=== PATIENT | male | born 1950 | race Caucasian/White ===

== ENCOUNTER 2016-08-18 01:38 | Inpatient (IN) | payer MEDICARE ==
[~2016-08-18] VITALS: Ht 167.6 cm; Wt 92.6 kg
[~2016-08-18 01:38] MED LIST: /DIVA50TA PO; AMBI10TA; AMBI10TA OR; ASPI1TAB PO; ASPI325T; ASPI81TA45 OR; ATOR1TAB21 PO; BENADRYL PO; CELE20TA; DEPA250T2 OR; DEPA500T2 OR; DEPA500T2 PO; DIPH50CA PO; DIPH50TA3 PO; DIVA250T7 PO; Depakote OR; FERR325T3 PO; GLUC500T OR; HYDR25TA8; HYDR50CA2 PO; INVE156I IM; LISI10TA4 OR; LISI10TA4 PO; LISI5TAB PO; METF1000 PO; METF500T PO; MINI1CAP OR; PAXI20TA OR; PRIL20CA9 PO; PRIN10TA; QUET1TAB8 PO; QUET1TAB9 PO; RAMI25CA PO; RISP0.5T20 OR; RISP1TAB OR; RISP2TAB12; RISP2TAB12 OR; RISP3TAB18 PO; RISP4TAB; RISP4TAB33 PO; RISPERDONE; SERO1TAB PO; SERO1TAB2 PO; SERO200T PO; SERO50TA PO; SIMV20TA2 PO; SIMV40TA2 OR; SIMV40TA2 PO; TRAZ50TA OR; TRAZ50TA4 PO; TRAZO50TA PO; VIST25CA; ZOCO40TA; ZOCO40TA PO; ZOCOR20 PO; ZOLO100T PO; ZOLP-189 PO; [UNRECOGNIZED DRUG - CODE]; synthroid PO; tenex PO
[2016-08-18 03:15] LABS: MEAN CORPUSCULAR HEMOGLOBIN 29.3 pg (27.0-33.0); MEAN CORPUSCULAR HGB CONC 34.2 g/dl (32.0-36.5); MEAN CORPUSCULAR VOLUME 85.6 fl (80.0-96.0); RED CELL DISTRIBUTION WIDTH 13.2 % (11.5-14.5); WHITE BLOOD COUNT 7.8 K/mm3 (4.0-10.0)
[2016-08-18 03:27] LABS: METHADONE URINE NEGATIVE (NEGATIVE)
[2016-08-18] MEDS ORDERED: KETOROLAC 60 MG/2 ML VIAL (J1885) IM ONE (03:30)
--- NOTE | 2016-08-18 03:30 | REPUSA ---
CLINICAL HISTORY: Trauma. TECHNIQUE: Multiple axial CT images were obtained through the brain without IV contrast material. COMMENTS: There is normal configuration of sella turcica. There are no intra or extra-axial collections. There is no mass effect or midline shift. There is no evidence of hematoma formation. No hydrocephalus is p resent. The ventricles are symmetrical. No abnormal calcifications are present. There is diffuse age-appropriate cerebellar and cerebral atrophy with proportionally dilated ventricl es and cortical sulci. There are bilateral periventricular and subcortical white matter hypolucencies compatible with mild c hronic microvascular disease. Otherwise, no significant focal abnormalities are seen either in the posterior fossa or supratentoria l compartment. Moderate chronic because inflammatory changes of the ethmoid air cells. Right mastoid effusion. IMPRESSION: 1. Age-appropriate cerebellar and cerebral atrophy. 2. Mild chronic microvascular disease. 3. No evidence of acute intracranial pathology. Thank you for your kind referral of this patient.
[2016-08-18 03:37] LABS: ALBUMIN 3.4 GM/DL (3.2-5.2); ALBUMIN/GLOBULIN RATIO 1.13 (1.00-1.93); ALKALINE PHOSPHATASE 46 U/L (45-117); ALT/SGPT 51 U/L (12-78); ANION GAP 11 MEQ/L (8-16); AST/SGOT 14 U/L (15-37); BILIRUBIN,DIRECT < 0.1 MG/DL (0.0-0.2); BILIRUBIN,TOTAL 0.2 MG/DL (0.2-1.0); BLOOD UREA NITROGEN 14 MG/DL (7-18); CALCIUM LEVEL 8.1 MG/DL (8.8-10.2); CARBON DIOXIDE LEVEL 27 MEQ/L (21-32); CHLORIDE LEVEL 106 MEQ/L (98-107); CREATININE FOR GFR 0.78 MG/DL (0.70-1.30); GLOMERULAR FILTRATION RATE > 60.0 (>49); GLUCOSE, FASTING 193 MG/DL (80-110); POTASSIUM SERUM 4.3 MEQ/L (3.5-5.1); SODIUM LEVEL 144 MEQ/L (136-145); TOTAL PROTEIN 6.4 GM/DL (6.4-8.2)
--- NOTE | 2016-08-18 03:40 | REPUSA ---
CLINICAL HISTORY: Back pain. TECHNIQUE: Multiple axial images were obtained through the L1-L2, L2-L3, L3-L4, L4-L5 and L5-S1 inter spaces. Images were also reconstructed in coronal and sagittal planes. COMMENTS: Grade 1 anterolisthesis of L4 on L5. There is no fracture visualized. The paraspinal soft tissues are unremarkable. There are no lytic or blastic lesions. Straightening of lumbar lordosis is seen, suggesting muscular spasm. There is evidence of multilevel disk disease, demonstrated by osteophytosis ad endplate sclerosis. Evaluation of individual levels reveals the following: At L4-L5 and L5-S1, broad-based disk protrusion in conjunction with hypertrophic facet disease result s in moderate bilateral foraminal narrowing. Canal is mildly stenotic. At L3-L4, broad-based disk bulge, results in mild bilateral foraminal narrowing. Canal is patent. L1-L2 and L2-L3 levels are unremarkable. IMPRESSION: 1. No fracture or spondylolisthesis. 2. grade 1 anterolisthesis of L4 on L5. 3. At L4-L5 and L5-S1, broad-based disk protrusion in conjunction with hypertrophic facet disease res ults in moderate bilateral foraminal narrowing. Canal is mildly stenotic. 4. At L3-L4, broad-based disk bulge, results in mild bilateral foraminal narrowing. Canal is patent. Thank you for your kind referral of this patient.
[2016-08-18] MEDS ORDERED: LORazepam 1 MG TAB PO ONE (05:00)
[2016-08-18] MEDS ORDERED: LORazepam 0.5 MG TAB PO ONE (05:00)
[2016-08-18] MEDS ORDERED: MAALOX 30 ML SUSP *UDC PO PRN (05:45)
[2016-08-18] MEDS ORDERED: MOM 30ML SUSPENSION UDC PO PRN (05:45)
[2016-08-18] MEDS ORDERED: traZODone 50 MG TAB PO PRN (05:45)
[2016-08-18] MEDS ORDERED: DIVA500T9 PO (07:42)
[2016-08-18] MEDS ORDERED: SIMV40TA2 PO (07:42)
[2016-08-18] MEDS ORDERED: FERR325T3 PO (07:44)
[2016-08-18] MEDS ORDERED: TRAZ100T4 PO (07:46)
[2016-08-18] MEDS ORDERED: LISI-538 PO (07:46)
[2016-08-18] MEDS ORDERED: SERT-138 PO (07:46)
[2016-08-18] MEDS ORDERED: QUET1TAB9 PO (07:46)
[2016-08-18] MEDS ORDERED: METF1000 PO (07:46)
[2016-08-18] MEDS ORDERED: LISINOPRIL 20 MG TAB PO ONE (10:15)
[2016-08-18] MEDS ORDERED: metFORMIN (GLUCOPHAGE) 1000 MG TABLET PO ONE (10:15)
[2016-08-18 12:37] VITALS: BP 150/82
[2016-08-18] MEDS: LORazepam 1 MG TAB PO PRN (15:05)
[2016-08-18 18:00] VITALS: BP 140/70
[2016-08-18] MEDS: traZODone 100 MG TAB PO SCH (20:53)
[2016-08-18] MEDS: DIVALPROEX 500MG *ER* TAB PO SCH (20:53)
[2016-08-18] MEDS: QUEtiapine FUMARATE 200 MG TAB PO SCH (20:53)
[2016-08-18] MEDS ORDERED: DIVALPROEX 250MG *ER* TAB PO SCH (21:00)
--- NOTE | 2016-08-19 00:47 | HPE ---
DATE OF ADMISSION: 08/18/2016 HISTORY OF PRESENT ILLNESS: Please refer to psychiatric history and evaluation for further details on this admission. This examination and history is intended for medical issues, which may need treatment, followup, or consult on this 65-year-old male. Per the record, he is single. He is retired from the [employer] ([employer] 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 He was discharged for posttraumatic stress disorder (PTSD). EtOH (ethanol): None. Smokes: None. Recreational drug use: None. This is per the medical record. LABORATORY STUDIES: WBC 7.8, hemoglobin 12.6, hematocrit 36.7, platelets 224. Electrolytes were normal. BUN and creatinine were 14 and 0.78. Nonfasting glucose was 193. TSH was 3.91. CT of the head showed age-appropriate cerebellar and cerebral atrophy. Mild chronic microvascular disease. No evidence of acute intracranial pathology. CT of the spine shows fracture or spondylolisthesis. Grade 1 anterolisthesis of L4 on L5. At L5-S1 there is a broad-based disc protrusion with moderate bilateral foraminal narrowing. L3-L4 shows a broad-based disc bulge, resultant mild bilateral foraminal narrowing. Per the record, medication list: - Depakote 1500 mg by mouth at bedtime - ferrous sulfate 325 by mouth twice a day with meal - lisinopril 20 mg by mouth daily - metformin/hydrochlorothiazide 1000 mg by mouth twice a day - Seroquel 200 mg by mouth twice a day - sertraline 100 mg by mouth daily - simvastatin 40 mg by mouth at bedtime - trazodone 100 mg by mouth at bedtime PAST MEDICAL HISTORY: 1. Hypertension. 2. Hyperlipidemia. 3. Iap-yjywdtw-xzlxouthv diabetes, type 2. 4. Gastroesophageal reflux disease (GERD). 5. Chronic obstructive pulmonary disease (COPD). 6. History of a gastric ulcer. 7. History of transfusions. 8. Iron deficiency anemia. 9. He remains off aspirin. 10. History of hypercholesterolemia, on simvastatin. A 10-systems review was attempted. Patient refused review of systems and medical exam. Will attempt again tomorrow. Meanwhile, will check a TSH and free T4. Will check iron levels. Order replacement if needed. Continue his simvastatin, metformin.
[2016-08-19 06:33] VITALS: BP 108/53
[2016-08-19 08:29] LABS: PERCENT SATURATION 19.3 % (19.7-37.4)
[2016-08-19 08:41] LABS: THYROXINE (T4) 7.5 UG/DL (4.5-12.0)
[2016-08-19] MEDS: SIMVASTATIN 40 MG TAB PO SCH (09:21)
[2016-08-19] MEDS: SERTRALINE 100 MG TAB PO SCH (09:21)
[2016-08-19] MEDS: LISINOPRIL 20 MG TAB PO SCH (09:22)
[2016-08-19] MEDS: metFORMIN (GLUCOPHAGE) 1000 MG TABLET PO SCH (09:22)
[2016-08-19] MEDS: QUEtiapine FUMARATE 200 MG TAB PO SCH ×2 (09:22→21:03)
--- NOTE | 2016-08-19 16:11 | HPEPDOC ---
[facility] History & Physical History and Physical DATE OF ADMISSION: Aug 18, 2016 at 05:43 CHIEF COMPLAINT: HISTORY OF THE PRESENT ILLNESS: Patient is a 65-year-old male, who states he called the ambulance after falling and injuring his back, ambulance transported patient to emergency room where he was evaluated and admitted for psychiatric treatment. Patient indicates he also received treatment for back injury which has resolved and he denies pain at this time. Please refer to EMR for comprehensive psychiatric history on this patient as patient has had multiple inpatient admissions and has a notable history of treatment for schizophrenia/ bipolar disorder. Patient is also involved in [employer], indicates he does not [facility] noting, "I don't like it [facility]," indicates he feels his recent increase in symptoms is due to abrupt discontinuation of his medications 4 days ago and pending court case wherein he is charged with stalking a female hospital employee. Patient indicates he has been picked up by the police several times pertaining to this charge, states he has a court date set for this coming Wednesday, adds he feels "overwhelmed and anxious" regarding upcoming court date. Patient reports increase in the following symptoms over the past 2 weeks: anxiety, depression, paranoia, hopelessness and helplessness, increased impulsivity, anhedonia, auditory hallucinations with command element telling him to kill himself by way of cutting throat, suicidal ideation. Patient relates current anxiety level as 8 /10, depression 9/10, reports intermittent suicidal ideation, denies homicidal ideation, denies audiovisual hallucinations, denies urge to engage in self- injurious behavior. Patient denies history of discomfort in social settings, compulsive behavior, and history of aggression, further denies having access to weapons. Patient endorses history of panic attacks occurring 1-210 years ago, notes he "probably " struggles with impulse control, endorses symptoms of reexperiencing, avoidance , and hypervigilance, further notes he has periods of elevated mood adding approximately 3 months ago he felt like "Superman," attributes to having stopped meds at that time. Patient's reports he sleeps well when he utilizes trazodone, has been diagnosed with obstructive sleep apnea and verbalizes awareness of need to follow up with PCM for updated sleep study. Patient was restarted on his medications yesterday, notes medications are helpful and he is beginning to feel better, reports intermittent suicidal thinking, denies urge or command hallucination to harm self or others. Patient is able to agree to notify unit staff if he feels symptoms of anxiety, depression, or suicidal ideation worsens/become unmanageable. 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 Patient presents with no signs of acute distress at time of interaction. PSYCHIATRIC REVIEW OF SYSTEMS: Affective: Depressed and anxious Anxiety: Endorses. Trauma: Denies. Psychosis: Endorses AH with command to harm self prior to hospitalization. Personally: Engageable, currently isolative to room, withdrawn PAST PSYCHIATRIC HISTORY: Prior Psychiatric Disorder: Multiple admissions, refer to EMR over 79 Outpatient Treatment: Multiple facilities, refer to EMR. Suicidal/Self injurious: History of suicidal ideation, history of suicide attempts Psychotropic Medication History: Risperdal, trazodone, Depakote, Invega Sustenna , Seroquel, Zoloft, Haldol, "benzos." ALLERGIES: Please see below. FAMILY PSYCHIATRIC HISTORY: Mother - suicide via walking into traffic, alcoholism Father - alcoholism SOCIAL HISTORY: Early Relations/development: Patient states he was born and raised in the [facility], notes both parents are and has no contact with his siblings. Patient indicates he has some friends in the area. Sibling order: Eldest child, states he has no contact with siblings. Paternal relationships: Both parents are . Education: GED. 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 Legal: Denies other than pending legal charges for stalking. Martial: Never , no children. Economic: Denies financial strain, is on Social Security and veterans benefits, per EMR, is 100% service connected. Supports: Described support system as limited. Abuse/trauma: Denies. SUBSTANCE ABUSE HISTORY: Patient denies history of substance use or abuse, further denies history of tobacco use. PAST MEDICAL/SURGICAL HISTORY: Labs on admission indicate low RBC, Hgb, HCT, calcium, AST and elevated glucose, TSH (within normal limits on repeat). Patient denies history of seizure, reports concussion 1 in high school. Diabetes, hypertension, hyperlipidemia, GERD, obstructive sleep apnea, COPD, history of gastric ulcer, history of transfusions, iron deficiency anemia CT of head at last admission indicated age-appropriate cerebellar and cerebral atrophy. Mild chronic microvascular disease. No evidence of acute intracranial pathology. CT of spine at last admission indicated fracture or spondylolisthesis. Grade 1 anterolisthesis of L4 on L5. At L5-S1 there was noted a broad East disc protrusion with moderate bilateral foraminal narrowing. L3-L4 showed a broad- based disc bulge, resulted mild bilateral foraminal narrowing. UDS negative on admission 08/28/15 SINUS RHYTHM Not outside normal limits. Updated EKG pending VITAL SIGNS: B/P 124/78, P 63, R 18, T 97.8. MENTAL STATUS EXAMINATION: General appearance: Patient is a 65-year old male, who is cooperative, makes adequate eye contact, appears disheveled, dressed in hospital clothing, ambulates with steady gait, appears stated age Speech: Difficult to decipher at times, appears pressured, normal volume, spontaneous. Thought processes: Linear, logical, goal-directed. Thought content: Generally rational, logical, some paranoia. Abstract reasoning and computation: Requires further evaluation. Description of associations: Appears intact. Description of abnormal or psychotic thoughts: Reports recent suicidal ideation associated with auditory hallucinations telling him to kill himself, denies having plan but ER notes by way of cutting throat, denies visual hallucinations , denies homicidal ideation. Patient does not appear to be responding to internal stimuli at time of interaction, expresses paranoid ideation, is bizarre at times. Patient denies preoccupation with violence or obsessions, however, informs telegraphic typewriter mechanic he has pending legal charges for stalking of female hospital employee. Judgment: Poor Insight: Poor Orientation: A and O 3 Recent and remote memory: Appears adequate Attention span and concentration: Appears adequate Fund of knowledge: Requires further evaluation Mood: "Down, I have low self-esteem." Patient appears anxious and depressed, no mood lability noted at time of interaction Affect: Blunted DIAGNOSES: Schizoaffective disorder, bipolar type, rule out schizophrenia ASSESSMENT: Patient has been isolative to room, withdrawn, sleeping most of day , indicates he feels fatigued and stressed due to upcoming court case and appears to be experiencing decompensation related to poor medication compliance. Patient has been restarted on his medication regimen and informs telegraphic typewriter mechanic that regimen is effective when taken regularly and he denies medication side effects, verbalizes desire to maintain current medications. Patient has been encouraged to be visible on unit and participate in unit programming. Patient denies suicidal and homicidal ideation and verbalizes awareness of how to access supportive services on the unit if needed. Per EMR, patient has a history of sexually inappropriate behavior on the unit including touching of females and has, therefore, been placed on sexual precautions and nursing was made aware. Will monitor patient's response to medications and medication side effects, and will evaluate patient's safety, resolution of suicidal ideation, and discharge readiness. Patient indicates when prepared for discharge she would like to transition to [facility] housing and participate in outpatient psychotherapy and medication management services. PROBLEM LIST: Risk for suicide Depression Altered thoughts INITIAL TREATMENT PLAN: 1. Patient was admitted on a 9.39 2. Complete history was obtained. 3. With patients permission, family will be contacted and database will be expanded. 4. Patients medication regimen will be reviewed and changed accordingly. 5. Patient will be provided with protected environment. 6. Patient will be treated with individual, group, and milieu therapies. 7. Patient will receive supportive psych-education. 8. Discharge planning will commence immediately. 9. Outpatient follow-up treatment will be strongly recommended. 10. The initial treatment plan will focus initially on: * Depression. * Risk for suicide. ESTIMATED LENGTH OF STAY: 5-7 DAYS. TIME SPENT COUNSELING AND COORDINATING INITIAL CARE: 50 minutes. Laboratory Data 24H Labs Laboratory Tests 2 08/19/16 07:43: Free Thyroxine Index 2.6, Iron Level 69, Thyroid Stimulating Hormone (TSH) 2.630 , Thyroxine (T4) 7.5, Total Iron Binding Capacity 358, Transferrin % Saturation 19.3L, Triiodothyronine (T3) Uptake 34 Medications Scheduled Divalproex Sodium (Divalproex Sodium ER) 500 Mg Tab 1,500 MG PO QHS (Reported) OBTAINED FROM [facility] Ferrous Sulfate (Ferrous Sulfate) 325 Mg Tab 325 MG PO BIDWM (Reported) OBTAINED FROM [facility] Lisinopril (Lisinopril) 20 Mg Tab 20 MG PO DAILY (Reported) OBTAINED FROM [facility] Metformin Hydrochloride (Metformin HCl) 1,000 Mg Tab 1,000 MG PO BID (Reported ) OBTAINED FROM [facility] Quetiapine Fumerate (Quetiapine Fumarate) 200 Mg Tab 200 MG PO BID (Reported) OBTAINED FROM [facility] Sertraline HCl (Sertraline HCl) 100 Mg Tab 100 MG PO DAILY (Reported) OBTAINED FROM [facility] Simvastatin - High Dose (Simvastatin) 40 Mg Tab 40 MG PO DAILY (Reported) OBTAINED FROM [facility] Trazodone HCl (Trazodone HCl) 100 Mg Tab 100 MG PO QHS (Reported) OBTAINED FROM [facility] Allergies Coded Allergies: Fluphenazine (Verified Allergy, Intermediate, COLD SWEATS PACING, RASH, 08/18/16) Haloperidol (Verified Allergy, Intermediate, COLD SWEATS PACING, RASH, ) Su Mendoza Aug 19, 2016 16:11
[2016-08-19 18:00] VITALS: BP 120/63
[2016-08-19] MEDS: DIVALPROEX 500MG *ER* TAB PO SCH (21:03)
[2016-08-19] MEDS: traZODone 100 MG TAB PO SCH (21:03)
[2016-08-20 06:20] VITALS: BP 141/78
--- NOTE | 2016-08-20 08:58 | IPNPDOC ---
[facility] Progress Note Progress Note DATE OF SERVICE: 08/20/16 HISTORY: Patient is a 65-year-old male who was reportedly brought to the emergency room by the paramedics after he called an ambulance after falling and injuring his back. Patient has notable psychiatric history including multiple admissions, indicates he does not like the [place] and, therefore, does not wish to be treated at a [facility] hospital. Patient rates current anxiety level is 8/10, depression 9/10, indicates he is feeling "a little better," denies suicidal and homicidal ideation, denies audiovisual hallucinations at time of interaction, but notes he experienced auditory hallucinations last night which were "saying mean things," but denies experiencing command to harm self or others. Patient denies urge to engage in self-injurious behavior. Patient recently restarted medications, indicates medication regimen is effective when taken regularly, denies medication side effects and has not needed to utilize PRN anxiolytic 2 days. Patient states he has been sleeping well, has been isolating to his room and spent yesterday and much of this morning in bed. Patient has been strongly encouraged to participate in unit programming. Patient describes appetite is stable, energy level remains low, indicates he struggles with concentration and focus. Patient is permitting fingerstick to be completed, denies symptoms of dizziness, denies physical pain and presents with no signs of acute distress at time of interaction. Patient remains concerned about up coming court date related to stalking charges, is aware he will be provided with a letter for the court if he is still in the hospital. VITALS: See below NEW TEST RESULTS: Glucose elevated at 117. PAST MEDICAL/SURGICAL HISTORY: Labs on admission indicate low RBC, Hgb, HCT, calcium, AST and elevated glucose, TSH (within normal limits on repeat). Patient denies history of seizure, reports concussion 1 in high school. Diabetes, hypertension, hyperlipidemia, GERD, obstructive sleep apnea, COPD, history of gastric ulcer, history of transfusions, iron deficiency anemia CT of head at last admission indicated age-appropriate cerebellar and cerebral atrophy. Mild chronic microvascular disease. No evidence of acute intracranial pathology. CT of spine at last admission indicated fracture or spondylolisthesis. Grade 1 anterolisthesis of L4 on L5. At L5-S1 there was noted a broad East disc protrusion with moderate bilateral foraminal narrowing. L3-L4 showed a broad- based disc bulge, resulted mild bilateral foraminal narrowing. UDS negative on admission 08/28/15 SINUS RHYTHM Not outside normal limits. Updated EKG pending CURRENT MEDICATIONS: See below MENTAL STATUS EXAMINATION: General appearance: Patient is a 65-year old male, who is cooperative, makes adequate eye contact, appears disheveled, dressed in hospital clothing, ambulates with steady gait, appears stated age Speech: Speech is clear today, less pressured, normal volume, spontaneous. Thought processes: Linear, logical, goal-directed. Thought content: Generally rational, logical, some paranoia. Abstract reasoning and computation: Requires further evaluation. Description of associations: Appears intact. Description of abnormal or psychotic thoughts: Today denies suicidal ideation, denies homicidal ideation, denies visual hallucinations, and endorses auditory hallucinations last night, denies command element to sensory experience. Patient does not appear to be responding to internal stimuli at time of interaction, expresses paranoid ideation, fixated on upcoming court case. Patient denies preoccupation with violence or obsessions, however, informs lyric writer he has pending legal charges for stalking of female hospital employee. Judgment: Poor Insight: Poor Orientation: A and O 3 Recent and remote memory: Appears adequate Attention span and concentration: Appears adequate Fund of knowledge: Appears adequate Mood: "Still down, I'm back on the meds so it may take me a couple days." Patient appears less anxious, remains depressed, no mood lability noted at time of interaction Affect: Blunted DIAGNOSES: Schizoaffective disorder, bipolar type, rule out schizophrenia ASSESSMENT: Patient remains isolative to room, withdrawn, sleeping most of day, indicates he feels fatigued and stressed due to upcoming court case and appears to be continuing to experience decompensation related to poor medication compliance. Patient has been restarted on his medication regimen, has been medication compliant, and reiterates today that regimen is effective when taken regularly, denies medication side effects. Patient has been encouraged to be visible on unit and participate in unit programming. Patient denies suicidal and homicidal ideation and verbalizes awareness of how to access supportive services on the unit if needed. Per EMR, patient has a history of sexually inappropriate behavior on the unit including touching of females and has, therefore, been placed on sexual precautions and nursing was made aware. Will continue to monitor patient's response to medications and medication side effects, and will evaluate patient's safety, resolution of suicidal ideation, and discharge readiness. Patient reiterates today that when prepared for discharge he would like to transition to [facility] housing and participate in outpatient psychotherapy and medication management services. MANAGEMENT PLAN: Continue Seroquel 200 mg po BID, Zoloft 100 mg po q am, Depakote 1500 mg po q hs, and trazodone 100 mg po hs PRN insomnia. Maintain safety precautions to include sexual precautions Patient to attend groups and participate in unit programming to develop coping strategies Engage patient in discharge planning process and arrange meeting with support system to ensure safe discharge planning when appropriate Patient to follow up with PCM upon discharge TIME SPENT: 35 minutes Vital Signs Vital Signs Date Time Temp Pulse Resp B/P Pulse Ox O2 Delivery O2 Flow Rate FiO2 08/20/16 06:20 97.5 68 18 141/78 08/18/16 12:37 96 Room Air Laboratory Data 24H Labs Laboratory Tests 2 08/19/16 16:44: Bedside Glucose (Misc Panel) 113 Current Medications Current Medications Acetaminophen (Tylenol Tab) 650 mg Q6HP PRN PO HEADACHE or DISCOMFORT; Start at 05:45; Stop 09/17/16 at 05:44 Al Hydrox/Mg Hydrox/Simethicone (Mylanta) 30 ml Q4HP PRN PO HEARTBURN/ INDIGESTION; Start 08/18/16 at 05:45; Stop 09/17/16 at 05:44 Divalproex Sodium (Depakote Er) 250 mg QHS PO ; Start 08/18/16 at 21:00; Stop at 21:00; Status DC Divalproex Sodium (Depakote Er) 1,500 mg QHS PO Last administered on 08/19/16 21:03; Start 08/18/16 at 21:00; Stop 09/17/16 at 20:59 Home Med (Med Rec Complete!) ASDIRECTED XX ; Start 08/18/16 at 08:00; Stop at 08:00; Status DC Lisinopril (Prinivil) 20 mg DAILY PO Last administered on 08/19/16 09:22; Start 08/19/16 at 09:00; Stop 09/18/16 at 08:59 Lorazepam (Ativan) 1 mg Q8HP PRN PO ANXIETY Last administered on 08/18/16 15: 05; Start 08/18/16 at 15:00; Stop 08/25/16 at 14:59 Magnesium Hydroxide (Milk Of Magnesia) 30 ml DAILYPRN PRN PO CONSTIPATION; Start 08/18/16 at 05:45; Stop 09/17/16 at 05:44 Metformin HCl (Glucophage) 1,000 mg DAILY@08 PO Last administered on 08/19/16 09:22; Start 08/19/16 at 08:00; Stop 09/18/16 at 07:59 Quetiapine Fumarate (SEROquel) 200 mg BID PO Last administered on 08/19/16 21: 03; Start 08/18/16 at 21:00; Stop 09/17/16 at 20:59 Sertraline HCl (Zoloft) 100 mg DAILY PO Last administered on 08/19/16 09:21; Start 08/19/16 at 09:00; Stop 09/18/16 at 08:59 Simvastatin (Zocor) 40 mg DAILY PO Last administered on 08/19/16 09:21; Start 08/19/16 at 09:00; Stop 09/18/16 at 08:59 Trazodone HCl (Desyrel) 50 mg QHSP PRN PO INSOMNIA; Start 08/18/16 at 05:45; Stop 09/17/16 at 05:44; Status Cancel Trazodone HCl (Desyrel) 100 mg QHS PO Last administered on 08/19/16 21:03; Start 08/18/16 at 21:00; Stop 09/17/16 at 20:59 Allergies Coded Allergies: Fluphenazine (Verified Allergy, Intermediate, COLD SWEATS PACING, RASH, 08/18/16) Haloperidol (Verified Allergy, Intermediate, COLD SWEATS PACING, RASH, ) Su Mendoza Aug 20, 2016 08:58
[2016-08-20] MEDS: metFORMIN (GLUCOPHAGE) 1000 MG TABLET PO SCH (09:03)
[2016-08-20] MEDS: LISINOPRIL 20 MG TAB PO SCH (09:03)
[2016-08-20] MEDS: SIMVASTATIN 40 MG TAB PO SCH (09:03)
[2016-08-20] MEDS: SERTRALINE 100 MG TAB PO SCH (09:03)
[2016-08-20] MEDS: QUEtiapine FUMARATE 200 MG TAB PO SCH ×2 (09:03→21:13)
[2016-08-20 18:00] VITALS: BP 124/73
--- NOTE | 2016-08-20 18:44 | ECGEPIP ---
Stationary ECG Study [facility] Test Date: 2016-08-20 Pat Name: BEATA JULIO Department: Room: [place] [address] Gender: M Clinical Trials Data Coordinator: VALERY : 1950 Requested By: Su Mendoza Order Number: [id number] Reading MD: Juaquin Black Measurements Intervals [place] Rate: 79 P: 37 OR: 155 QRS: 5 QRSD: 91 T: 71 QT: 354 QTc: 407 Interpretive Statements SINUS RHYTHM Similar to tracing done 08-28-15 Electronically Signed On 08-20-2016 18:43:39 EDT by Juaquin Black
[2016-08-20] MEDS: DIVALPROEX 500MG *ER* TAB PO SCH (21:13)
[2016-08-20] MEDS: traZODone 100 MG TAB PO SCH (21:13)
[2016-08-21] MEDS: ACETAMINOPHEN TAB 650MG DOSE (2X325MG) PO PRN (04:28)
[2016-08-21 07:15] VITALS: BP 148/75
[2016-08-21] MEDS: QUEtiapine FUMARATE 200 MG TAB PO SCH ×2 (08:47→21:03)
[2016-08-21] MEDS: SERTRALINE 100 MG TAB PO SCH (08:47)
[2016-08-21] MEDS: SIMVASTATIN 40 MG TAB PO SCH (08:47)
[2016-08-21] MEDS: LISINOPRIL 20 MG TAB PO SCH (08:47)
[2016-08-21] MEDS: metFORMIN (GLUCOPHAGE) 1000 MG TABLET PO SCH (08:47)
--- NOTE | 2016-08-21 17:08 | IPNPDOC ---
[facility] Progress Note Progress Note DATE OF SERVICE: 08/21/16 HISTORY: Patient is a 65-year-old male who was reportedly brought to the emergency room by the paramedics after he called an ambulance after falling and injuring his back. Patient has notable psychiatric history including multiple admissions, indicates he does not like the [place] and, therefore, does not wish to be treated at a [place] hospital. Patient rates current anxiety level is 8/10, depression 8/10, indicates he Continues to feel"a little better," denies suicidal and homicidal ideation, denies audiovisual hallucinations at time of interaction and notes he last experienced yesterday sans command element, and denies urge to engage in self- injurious behavior. Patient denies irritability, agitation, and mood lability, indicates he feels his anxiety and depression are directly related to pending court case. Patient recently restarted medications, indicates medication regimen is effective when taken regularly, denies medication side effects and has not needed to utilize PRN anxiolytic 3 days. Patient states he has been sleeping well, continues to be isolative to room, but states he attended one group last night and intense to attend more groups today. Patient has been strongly encouraged to participate in unit programming. Patient states appetite remains stable, energy level remains low, notes he continues to struggle with concentration and focus. Patient is compliant with fingerstick, denies symptoms of dizziness, denies physical pain and presents with no signs of acute distress at time of interaction. Patient remains fixated on court case related to stalking charges, is aware he will be provided with a letter for the court if he is still in the hospital. Addendum: Later in day caption writer was approached by patient who presented as noticeably brighter, requested to provide caption writer with update on his upcoming [facility] appointment and information he received unavailable housing. Patient indicated he remains very interested in moving to [facility]. VITALS: See below NEW TEST RESULTS: Glucose elevated at 117. PAST MEDICAL/SURGICAL HISTORY: Labs on admission indicate low RBC, Hgb, HCT, calcium, AST and elevated glucose, TSH (within normal limits on repeat). Patient denies history of seizure, reports concussion 1 in high school. Diabetes, hypertension, hyperlipidemia, GERD, obstructive sleep apnea, COPD, history of gastric ulcer, history of transfusions, iron deficiency anemia CT of head at last admission indicated age-appropriate cerebellar and cerebral atrophy. Mild chronic microvascular disease. No evidence of acute intracranial pathology. CT of spine at last admission indicated fracture or spondylolisthesis. Grade 1 anterolisthesis of L4 on L5. At L5-S1 there was noted a broad East disc protrusion with moderate bilateral foraminal narrowing. L3-L4 showed a broad- based disc bulge, resulted mild bilateral foraminal narrowing. UDS negative on admission 08/20/16 EKG SINUS RHYTHM Similar to tracing done 08-28-15 CURRENT MEDICATIONS: See below MENTAL STATUS EXAMINATION: General appearance: Patient is a 65-year old male, who is cooperative, makes adequate eye contact, appears disheveled, dressed in hospital clothing, ambulates with steady gait, appears stated age Speech: Speech is clear today, normal volume, spontaneous, less pressured except when excited and telling caption writer about TLS appointment and available housing. Thought processes: Linear, logical, goal-directed. Thought content: Generally rational, logical, some paranoia. Abstract reasoning and computation: Requires further evaluation. Description of associations: Appears intact. Description of abnormal or psychotic thoughts: Today denies suicidal ideation, denies homicidal ideation, denies audiovisual hallucinations, does not appear to be responding to internal stimuli at time of interaction, expresses no paranoid ideation, remains fixated on upcoming court case. 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 Judgment: Limited Insight: Limited Orientation: A and O 3 Recent and remote memory: Appears adequate Attention span and concentration: Appears adequate Fund of knowledge: Appears adequate Mood: "A little better." Patient appears less anxious, remains depressed, no mood lability noted at time of interaction Affect: Blunted, and brightens when telling caption writer about [facility] housing DIAGNOSES: Schizoaffective disorder, bipolar type, rule out schizophrenia ASSESSMENT: Patient has begun attending groups but remains generally isolative to room, withdrawn, sleeping most of day, indicates he feels fatigued and stressed due to upcoming court case. Patient appears to be beginning to experience symptom improvement after recent medication restart. Patient has been medication compliant and reiterates today that regimen is effective when taken regularly, denies medication side effects. Patient has been strongly encouraged to be visible on unit and participate in unit programming. Patient denies suicidal and homicidal ideation and verbalizes awareness of how to access supportive services on the unit if needed. Per EMR, patient has a history of sexually inappropriate behavior on the unit including touching of females and has, therefore, been placed on sexual precautions and nursing was made aware. Will continue to monitor patient's response to medications and medication side effects, and will evaluate patient's safety, resolution of suicidal ideation, and discharge readiness. Patient reiterates today that when prepared for discharge he would like to transition to [facility] housing and participate in outpatient psychotherapy and medication management services. MANAGEMENT PLAN: Continue Seroquel 200 mg po BID, Zoloft 100 mg po q am, Depakote 1500 mg po q hs, and trazodone 100 mg po hs PRN insomnia. Maintain safety precautions to include sexual precautions Patient to attend groups and participate in unit programming to develop coping strategies Engage patient in discharge planning process and arrange meeting with support system to ensure safe discharge planning when appropriate Patient to follow up with PCM upon discharge TIME SPENT: 35 minutes Vital Signs Vital Signs Date Time Temp Pulse Resp B/P Pulse Ox O2 Delivery O2 Flow Rate FiO2 08/21/16 08:47 148/75 08/21/16 07:15 96.6 80 18 08/18/16 12:37 96 Room Air Current Medications Current Medications Acetaminophen (Tylenol Tab) 650 mg Q6HP PRN PO HEADACHE or DISCOMFORT Last administered on 08/21/16 04:28; Start 08/18/16 at 05:45; Stop 09/17/16 at 05:44 Al Hydrox/Mg Hydrox/Simethicone (Mylanta) 30 ml Q4HP PRN PO HEARTBURN/ INDIGESTION; Start 08/18/16 at 05:45; Stop 09/17/16 at 05:44 Divalproex Sodium (Depakote Er) 250 mg QHS PO ; Start 08/18/16 at 21:00; Stop at 21:00; Status DC Divalproex Sodium (Depakote Er) 1,500 mg QHS PO Last administered on 08/20/16 21:13; Start 08/18/16 at 21:00; Stop 09/17/16 at 20:59 Home Med (Med Rec Complete!) ASDIRECTED XX ; Start 08/18/16 at 08:00; Stop at 08:00; Status DC Lisinopril (Prinivil) 20 mg DAILY PO Last administered on 08/21/16 08:47; Start 08/19/16 at 09:00; Stop 09/18/16 at 08:59 Lorazepam (Ativan) 1 mg Q8HP PRN PO ANXIETY Last administered on 08/18/16 15: 05; Start 08/18/16 at 15:00; Stop 08/25/16 at 14:59 Magnesium Hydroxide (Milk Of Magnesia) 30 ml DAILYPRN PRN PO CONSTIPATION; Start 08/18/16 at 05:45; Stop 09/17/16 at 05:44 Metformin HCl (Glucophage) 1,000 mg DAILY@08 PO Last administered on 08/21/16 08:47; Start 08/19/16 at 08:00; Stop 09/18/16 at 07:59 Quetiapine Fumarate (SEROquel) 200 mg BID PO Last administered on 08/21/16 08: 47; Start 08/18/16 at 21:00; Stop 09/17/16 at 20:59 Sertraline HCl (Zoloft) 100 mg DAILY PO Last administered on 08/21/16 08:47; Start 08/19/16 at 09:00; Stop 09/18/16 at 08:59 Simvastatin (Zocor) 40 mg DAILY PO Last administered on 08/21/16 08:47; Start 08/19/16 at 09:00; Stop 09/18/16 at 08:59 Trazodone HCl (Desyrel) 50 mg QHSP PRN PO INSOMNIA; Start 08/18/16 at 05:45; Stop 09/17/16 at 05:44; Status Cancel Trazodone HCl (Desyrel) 100 mg QHS PO Last administered on 08/20/16 21:13; Start 08/18/16 at 21:00; Stop 09/17/16 at 20:59 Allergies Coded Allergies: Fluphenazine (Verified Allergy, Intermediate, COLD SWEATS PACING, RASH, 08/18/16) Haloperidol (Verified Allergy, Intermediate, COLD SWEATS PACING, RASH, ) Su Mendoza Aug 21, 2016 17:08 Su Mendoza Aug 21, 2016 17:08
[2016-08-21 18:00] VITALS: BP 141/76
[2016-08-21] MEDS: traZODone 100 MG TAB PO SCH (21:03)
[2016-08-21] MEDS: DIVALPROEX 500MG *ER* TAB PO SCH (21:04)
[2016-08-22 06:39] VITALS: BP 146/86
[2016-08-22] MEDS: SIMVASTATIN 40 MG TAB PO SCH (09:49)
[2016-08-22] MEDS: metFORMIN (GLUCOPHAGE) 1000 MG TABLET PO SCH (09:49)
[2016-08-22] MEDS: QUEtiapine FUMARATE 200 MG TAB PO SCH ×2 (09:49→21:54)
[2016-08-22] MEDS: LISINOPRIL 20 MG TAB PO SCH (09:49)
[2016-08-22] MEDS: SERTRALINE 100 MG TAB PO SCH (09:49)
[2016-08-22 18:00] VITALS: BP 142/78
--- NOTE | 2016-08-22 19:13 | IPNPDOC ---
[facility] Progress Note Progress Note DATE OF SERVICE: 08/22/16 INTERVAL HISTORY: Medication Side effects: The patient reports no medication side effects Behavior/events: No events overnight Group Attendance: Has attended groups Psychiatric Symptoms: Reports no psychiatric symptoms currently including depressed mood, anxiety and psychotic symptoms such as auditory or visual hallucinations at this time. States that he is doing "just fine" VITAL SIGNS: See below. NEW TEST RESULTS: See below CURRENT MEDICATIONS: See below. MENTAL STATUS EXAMINATION: General: Well dressed with good hygiene Speech: Spontaneous and fluid Thought processes: Linear and logical Thought content: Future orientated Abstract reasoning, and computation: Intact Description of associations: Intact Description of abnormal or psychotic thoughts:Denies any suicidal or homicidal ideation. Denies any auditory or visual hallucinations. Does not appear to be responding to internal stimuli. Does not appear to be endorsing any bizarre or paranoid ideation. Judgment: Fair Insight: Poor Orientation: Alert and orientated 3 Recent and remote memory: Intact Attention span and concentration: Intact Fund of knowledge: Adequate Mood: "Fine" Affect: Euthymic with a full range DIAGNOSES: 1. Unspecified psychotic disorder ASSESSMENT: Stable MANAGEMENT PLAN: Medications: Continue medications as below Psychotherapy: Encourage group attendance Social: Appears to be planned for discharge to [facility] eventually Misc: None Disposition: The patient will need of further inpatient stay to address disposition needs. TIME SPENT: 15 minutes. Vital Signs Vital Signs Date Time Temp Pulse Resp B/P Pulse Ox O2 Delivery O2 Flow Rate FiO2 08/22/16 09:49 143/77 08/22/16 06:39 98.0 72 20 08/18/16 12:37 96 Room Air Laboratory Data 24H Labs Laboratory Tests 2 08/22/16 06:41: Bedside Glucose (Misc Panel) 159H 08/22/16 17:18: Bedside Glucose (Misc Panel) 126H Current Medications Current Medications Acetaminophen (Tylenol Tab) 650 mg Q6HP PRN PO HEADACHE or DISCOMFORT Last administered on 08/21/16t 04:28; Start 08/18/16 at 05:45; Stop 09/17/16 at 05:44 Al Hydrox/Mg Hydrox/Simethicone (Mylanta) 30 ml Q4HP PRN PO HEARTBURN/ INDIGESTION; Start 08/18/16 at 05:45; Stop 09/17/16 at 05:44 Divalproex Sodium (Depakote Er) 250 mg QHS PO ; Start 08/18/16 at 21:00; Stop at 21:00; Status DC Divalproex Sodium (Depakote Er) 1,500 mg QHS PO Last administered on 08/21/16 21:04; Start 08/18/16 at 21:00; Stop 09/17/16 at 20:59 Home Med (Med Rec Complete!) ASDIRECTED XX ; Start 08/18/16 at 08:00; Stop at 08:00; Status DC Lisinopril (Prinivil) 20 mg DAILY PO Last administered on 08/22/16 09:49; Start 08/19/16 at 09:00; Stop 09/18/16 at 08:59 Lorazepam (Ativan) 1 mg Q8HP PRN PO ANXIETY Last administered on 08/18/16 15: 05; Start 08/18/16 at 15:00; Stop 08/25/16 at 14:59 Magnesium Hydroxide (Milk Of Magnesia) 30 ml DAILYPRN PRN PO CONSTIPATION; Start 08/18/16 at 05:45; Stop 09/17/16 at 05:44 Metformin HCl (Glucophage) 1,000 mg DAILY@08 PO Last administered on 08/22/16 09:49; Start 08/19/16 at 08:00; Stop 09/18/16 at 07:59 Quetiapine Fumarate (SEROquel) 200 mg BID PO Last administered on 08/22/16 09: 49; Start 08/18/16 at 21:00; Stop 09/17/16 at 20:59 Sertraline HCl (Zoloft) 100 mg DAILY PO Last administered on 08/22/16 09:49; Start 08/19/16 at 09:00; Stop 09/18/16 at 08:59 Simvastatin (Zocor) 40 mg DAILY PO Last administered on 08/22/16 09:49; Start 08/19/16 at 09:00; Stop 09/18/16 at 08:59 Trazodone HCl (Desyrel) 50 mg QHSP PRN PO INSOMNIA; Start 08/18/16 at 05:45; Stop 09/17/16 at 05:44; Status Cancel Trazodone HCl (Desyrel) 100 mg QHS PO Last administered on 08/21/16t 21:03; Start 08/18/16 at 21:00; Stop 09/17/16 at 20:59 Allergies Coded Allergies: Fluphenazine (Verified Allergy, Intermediate, COLD SWEATS PACING, RASH, 08/18/16) Haloperidol (Verified Allergy, Intermediate, COLD SWEATS PACING, RASH, ) GME ATTESTATION My preceptor for this patient encounter was physically present in the building during the encounter and was fully available. As needed, all aspects of the patient interview, examination, medical decision making process, and medical care plan development were reviewed and approved by the preceptor. Preceptor is aware and concurs with the plan as stated in the body of this note and will attest to such by his/her cosignature. ELISHA BOSWELL DO Aug 22, 2016 19:13
[2016-08-22] MEDS: LORazepam 1 MG TAB PO PRN (19:31)
[2016-08-22] MEDS: traZODone 100 MG TAB PO SCH (21:54)
[2016-08-22] MEDS: DIVALPROEX 500MG *ER* TAB PO SCH (21:54)
[2016-08-23 06:45] VITALS: BP 154/72
[2016-08-23] MEDS: LISINOPRIL 20 MG TAB PO SCH (08:42)
[2016-08-23] MEDS: QUEtiapine FUMARATE 200 MG TAB PO SCH ×2 (08:42→22:11)
[2016-08-23] MEDS: metFORMIN (GLUCOPHAGE) 1000 MG TABLET PO SCH (08:42)
[2016-08-23] MEDS: SIMVASTATIN 40 MG TAB PO SCH (08:42)
[2016-08-23] MEDS: SERTRALINE 100 MG TAB PO SCH (08:42)
[2016-08-23 08:48] VITALS: BP 120/72
[2016-08-23 18:00] VITALS: BP 116/56
--- NOTE | 2016-08-23 18:18 | IPNPDOC ---
[facility] Progress Note Progress Note DATE OF SERVICE: 08/23/16 HISTORY: Evaluated 65 year old male with history of unspecified psychotic disorder with history of multiple hospitalizations who has been reported as bein stable, attending groups. He reports no medication side effects and believes he has improved. On MSE, he's alert, cooperative with interview. Speech is normal, thought process is coherent, thought content negative for delusional thoughts or hallucinations. States he feels a little depressed and a little anxious. He's not responding to internal stimuli. Insight and judgement have improved. VITAL SIGNS: See below. NEW TEST RESULTS: CURRENT MEDICATIONS: See below. DIAGNOSES: 1. Unspecified psychotic disorder ASSESSMENT: Patient seems to be stable, although he still reports some depression and anxiety, it's probably his baseline MANAGEMENT PLAN: Continue current treatment end consider discharge. TIME SPENT: 15 minutes. Vital Signs Vital Signs Date Time Temp Pulse Resp B/P Pulse Ox O2 Delivery O2 Flow Rate FiO2 08/23/16 08:48 120/72 08/23/16 06:45 96.6 83 20 08/18/16 12:37 96 Room Air Laboratory Data 24H Labs Laboratory Tests 2 08/23/16 06:35: Bedside Glucose (Misc Panel) 195H 08/23/16 16:31: Bedside Glucose (Misc Panel) 224H Current Medications Current Medications Acetaminophen (Tylenol Tab) 650 mg Q6HP PRN PO HEADACHE or DISCOMFORT Last administered on 08/21/16 04:28; Start 08/18/16 at 05:45; Stop 09/17/16 at 05:44 Al Hydrox/Mg Hydrox/Simethicone (Mylanta) 30 ml Q4HP PRN PO HEARTBURN/ INDIGESTION; Start 08/18/16 at 05:45; Stop 09/17/16 at 05:44 Divalproex Sodium (Depakote Er) 250 mg QHS PO ; Start 08/18/16 at 21:00; Stop at 21:00; Status DC Divalproex Sodium (Depakote Er) 1,500 mg QHS PO Last administered on 08/22/16 21:54; Start 08/18/16 at 21:00; Stop 09/17/16 at 20:59 Home Med (Med Rec Complete!) ASDIRECTED XX ; Start 08/18/16 at 08:00; Stop at 08:00; Status DC Lisinopril (Prinivil) 20 mg DAILY PO Last administered on 08/23/16 08:42; Start 08/19/16 at 09:00; Stop 09/18/16 at 08:59 Lorazepam (Ativan) 1 mg Q8HP PRN PO ANXIETY Last administered on 08/22/16 19: 31; Start 08/18/16 at 15:00; Stop 08/25/16 at 14:59 Magnesium Hydroxide (Milk Of Magnesia) 30 ml DAILYPRN PRN PO CONSTIPATION; Start 08/18/16 at 05:45; Stop 09/17/16 at 05:44 Metformin HCl (Glucophage) 1,000 mg DAILY@08 PO Last administered on 08/23/16 08:42; Start 08/19/16 at 08:00; Stop 09/18/16 at 07:59 Quetiapine Fumarate (SEROquel) 200 mg BID PO Last administered on 08/23/16 08: 42; Start 08/18/16 at 21:00; Stop 09/17/16 at 20:59 Sertraline HCl (Zoloft) 100 mg DAILY PO Last administered on 08/23/16 08:42; Start 08/19/16 at 09:00; Stop 09/18/16 at 08:59 Simvastatin (Zocor) 40 mg DAILY PO Last administered on 08/23/16 08:42; Start 08/19/16 at 09:00; Stop 09/18/16 at 08:59 Trazodone HCl (Desyrel) 50 mg QHSP PRN PO INSOMNIA; Start 08/18/16 at 05:45; Stop 09/17/16 at 05:44; Status Cancel Trazodone HCl (Desyrel) 100 mg QHS PO Last administered on 08/22/16 21:54; Start 08/18/16 at 21:00; Stop 09/17/16 at 20:59 Allergies Coded Allergies: Fluphenazine (Verified Allergy, Intermediate, COLD SWEATS PACING, RASH, 08/18/16) Haloperidol (Verified Allergy, Intermediate, COLD SWEATS PACING, RASH, ) CORAZON REN MD Aug 23, 2016 18:18 Stop 5/18/17 at 05:44; Status Cancel Trazodone HCl (Desyrel) 100 mg QHS PO Last administered on 08/22/16t 21:54; Start 08/18/16 at 21:00; Stop 09/17/16 at 20:59 Allergies Coded Allergies: Fluphenazine (Verified Allergy, Intermediate, COLD SWEATS PACING, RASH, 08/18/16) Haloperidol (Verified Allergy, Intermediate, COLD SWEATS PACING, RASH, ) CORAZON REN MD Aug 23, 2016 18:18
[2016-08-23] MEDS: DIVALPROEX 500MG *ER* TAB PO SCH (22:11)
[2016-08-23] MEDS: traZODone 100 MG TAB PO SCH (22:11)
[2016-08-24] MEDS: ACETAMINOPHEN TAB 650MG DOSE (2X325MG) PO PRN ×2 (02:56→23:33)
[2016-08-24 06:25] VITALS: BP 120/71
[2016-08-24] MEDS: metFORMIN (GLUCOPHAGE) 1000 MG TABLET PO SCH (08:56)
[2016-08-24] MEDS: QUEtiapine FUMARATE 200 MG TAB PO SCH ×2 (08:57→21:06)
[2016-08-24] MEDS: LISINOPRIL 20 MG TAB PO SCH (08:57)
[2016-08-24] MEDS: SERTRALINE 100 MG TAB PO SCH (08:57)
[2016-08-24] MEDS: SIMVASTATIN 40 MG TAB PO SCH (08:57)
[2016-08-24] MEDS ORDERED: hydrOXYzine 50 MG TAB PO PRN (12:30)
[2016-08-24 18:00] VITALS: BP 114/68
--- NOTE | 2016-08-24 18:49 | IPNPDOC ---
[facility] Progress Note Progress Note DATE OF SERVICE: 08/24/16 HISTORY: Patient is a 65-year-old male who was reportedly brought to the emergency room by the paramedics after he called an ambulance after falling and injuring his back. Patient has notable psychiatric history including multiple admissions, indicates he does not like the [place] and, therefore, does not wish to be treated at a [place] hospital. Patient reports improvement to symptoms of anxiety and depression, denies suicidal and homicidal ideation, denies audiovisual hallucinations, and denies urge to engage in self-injurious behavior. Patient denies irritability, agitation, and mood lability, indicates he feels his anxiety and depression remain directly related to pending court case. Patient continues to take medications which were recently restarted, indicates medication regimen is effective and describes is working "good," denies medication side effects. Patient states he has been sleeping well, continues to be isolative to room at times but has been attending groups and has been more visible on the unit. Patient was encouraged to continue to participate in unit programming. Patient states appetite remains stable, energy level is improving, notes he continues to struggle with concentration and focus. Patient is compliant with fingerstick, denies symptoms of dizziness, denies physical pain and presents with no signs of acute distress at time of interaction. Patient remains fixated on court case related to stalking charges, is aware he will be provided with a letter for the court if he is still in the hospital. VITALS: See below NEW TEST RESULTS: Glucose elevated at 127 PAST MEDICAL/SURGICAL HISTORY: Labs on admission indicate low RBC, Hgb, HCT, calcium, AST and elevated glucose, TSH (within normal limits on repeat). Patient denies history of seizure, reports concussion 1 in high school. Diabetes, hypertension, hyperlipidemia, GERD, obstructive sleep apnea, COPD, history of gastric ulcer, history of transfusions, iron deficiency anemia CT of head at last admission indicated age-appropriate cerebellar and cerebral atrophy. Mild chronic microvascular disease. No evidence of acute intracranial pathology. CT of spine at last admission indicated fracture or spondylolisthesis. Grade 1 anterolisthesis of L4 on L5. At L5-S1 there was noted a broad East disc protrusion with moderate bilateral foraminal narrowing. L3-L4 showed a broad- based disc bulge, resulted mild bilateral foraminal narrowing. UDS negative on admission 08/20/16 EKG SINUS RHYTHM Similar to tracing done 08-28-15 CURRENT MEDICATIONS: See below MENTAL STATUS EXAMINATION: General appearance: Patient is a 65-year old male, who is cooperative, makes adequate eye contact, appears disheveled, dressed in hospital clothing, ambulates with steady gait, appears stated age Speech: Speech is clear today, normal volume, spontaneous, less pressured except when excited and telling web content writer about TLS appointment and available housing. Thought processes: Linear, logical, goal-directed. Thought content: Generally rational, logical, some paranoia. Abstract reasoning and computation: Requires further evaluation. Description of associations: Appears intact. Description of abnormal or psychotic thoughts: Today denies suicidal ideation, denies homicidal ideation, denies audiovisual hallucinations, does not appear to be responding to internal stimuli at time of interaction, expresses no paranoid ideation, remains fixated on upcoming court case. 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 Judgment: Limited Insight: Limited Orientation: A and O 3 Recent and remote memory: Appears adequate Attention span and concentration: Appears adequate Fund of knowledge: Appears adequate Mood: "A little better." Patient appears less anxious, remains depressed, no mood lability noted at time of interaction Affect: Blunted, and brightens when telling web content writer about TLS housing DIAGNOSES: Schizoaffective disorder, bipolar type, rule out schizophrenia ASSESSMENT: Patient has been attending groups, appears more comfortable in milieu and is no longer complaining of symptoms of fatigue. Patient remains fixated on upcoming court case. Patient reports symptom improvement, feels medication regimen is effective since restart, and denies medication side effects. Patient denies suicidal and homicidal ideation and verbalizes awareness of how to access supportive services on the unit if needed. Per EMR, patient has a history of sexually inappropriate behavior on the unit including touching of females and, therefore, remains on sexual precautions and nursing was made aware. Will continue to monitor patient's response to medications and medication side effects, and will evaluate patient's safety, resolution of suicidal ideation, and discharge readiness. Patient reiterates today that when prepared for discharge he would like to transition to [facility] CR housing and participate in outpatient psychotherapy and medication management services. MANAGEMENT PLAN: Discontinue Ativan PRN, patient not using. Initiate hydroxyzine 50 mg po q 8 hours PRN anxiety. Continue Seroquel 200 mg po BID, Zoloft 100 mg po q am, Depakote 1500 mg po q hs, and trazodone 100 mg po hs PRN insomnia. Maintain safety precautions to include sexual precautions Patient to attend groups and participate in unit programming to develop coping strategies Engage patient in discharge planning process and arrange meeting with support system to ensure safe discharge planning when appropriate Patient to follow up with PCM upon discharge TIME SPENT: 25 minutes Vital Signs Vital Signs Date Time Temp Pulse Resp B/P Pulse Ox O2 Delivery O2 Flow Rate FiO2 08/24/16 18:00 98.0 79 18 114/68 08/18/16 12:37 96 Room Air Laboratory Data 24H Labs Laboratory Tests 2 08/24/16 05:55: Bedside Glucose (Misc Panel) 127H Current Medications Current Medications Acetaminophen (Tylenol Tab) 650 mg Q6HP PRN PO HEADACHE or DISCOMFORT Last administered on 08/24/16 02:56; Start 08/18/16 at 05:45; Stop 09/17/16 at 05:44 Al Hydrox/Mg Hydrox/Simethicone (Mylanta) 30 ml Q4HP PRN PO HEARTBURN/ INDIGESTION; Start 08/18/16 at 05:45; Stop 09/17/16 at 05:44 Divalproex Sodium (Depakote Er) 250 mg QHS PO ; Start 08/18/16 at 21:00; Stop at 21:00; Status DC Divalproex Sodium (Depakote Er) 1,500 mg QHS PO Last administered on 08/23/16 22:11; Start 08/18/16 at 21:00; Stop 09/17/16 at 20:59 Home Med (Med Rec Complete!) ASDIRECTED XX ; Start 08/18/16 at 08:00; Stop at 08:00; Status DC Hydroxyzine HCl (Atarax) 50 mg Q6HP PRN PO ANXIETY; Start 08/24/16 at 12:30; Stop 08/24/16 at 12:32; Status DC Hydroxyzine HCl (Atarax) 50 mg Q8HP PRN PO ANXIETY; Start 08/24/16 at 12:45; Stop 09/23/16 at 12:44 Lisinopril (Prinivil) 20 mg DAILY PO Last administered on 08/24/16 08:57; Start 08/19/16 at 09:00; Stop 09/18/16 at 08:59 Lorazepam (Ativan) 1 mg Q8HP PRN PO ANXIETY Last administered on 08/22/16 19: 31; Start 08/18/16 at 15:00; Stop 08/24/16 at 12:31; Status DC Magnesium Hydroxide (Milk Of Magnesia) 30 ml DAILYPRN PRN PO CONSTIPATION; Start 08/18/16 at 05:45; Stop 09/17/16 at 05:44 Metformin HCl (Glucophage) 1,000 mg DAILY@08 PO Last administered on 08/24/16 08:56; Start 08/19/16 at 08:00; Stop 09/18/16 at 07:59 Quetiapine Fumarate (SEROquel) 200 mg BID PO Last administered on 08/24/16 08: 57; Start 08/18/16 at 21:00; Stop 09/17/16 at 20:59 Sertraline HCl (Zoloft) 100 mg DAILY PO Last administered on 08/24/16 08:57; Start 08/19/16 at 09:00; Stop 09/18/16 at 08:59 Simvastatin (Zocor) 40 mg DAILY PO Last administered on 08/24/16 08:57; Start 08/19/16 at 09:00; Stop 09/18/16 at 08:59 Trazodone HCl (Desyrel) 50 mg QHSP PRN PO INSOMNIA; Start 08/18/16 at 05:45; Stop 09/17/16 at 05:44; Status Cancel Trazodone HCl (Desyrel) 100 mg QHS PO Last administered on 08/23/16 22:11; Start 08/18/16 at 21:00; Stop 09/17/16 at 20:59 Allergies Coded Allergies: Fluphenazine (Verified Allergy, Intermediate, COLD SWEATS PACING, RASH, 08/18/16) Haloperidol (Verified Allergy, Intermediate, COLD SWEATS PACING, RASH, ) Su Mendoza Aug 24, 2016 18:49
[2016-08-24] MEDS: traZODone 100 MG TAB PO SCH (21:06)
[2016-08-24] MEDS: DIVALPROEX 500MG *ER* TAB PO SCH (21:07)
[2016-08-25 06:58] VITALS: BP 137/77
[2016-08-25] MEDS: SIMVASTATIN 40 MG TAB PO SCH (08:31)
[2016-08-25] MEDS: SERTRALINE 100 MG TAB PO SCH (08:31)
[2016-08-25] MEDS: QUEtiapine FUMARATE 200 MG TAB PO SCH ×2 (08:31→21:37)
[2016-08-25] MEDS: LISINOPRIL 20 MG TAB PO SCH (08:32)
[2016-08-25] MEDS: metFORMIN (GLUCOPHAGE) 1000 MG TABLET PO SCH (08:32)
[2016-08-25] MEDS: hydrOXYzine 50 MG TAB PO PRN ×2 (13:21→23:14)
--- NOTE | 2016-08-25 15:10 | IPNPDOC ---
[facility] Progress Note Progress Note DATE OF SERVICE: 08/25/16 HISTORY: Patient is a 65-year-old male who was reportedly brought to the emergency room by the paramedics after he called an ambulance after falling and injuring his back. Patient has notable psychiatric history including multiple admissions, indicates he does not like the [place] and, therefore, does not wish to be treated at a [place] hospital. Patient reports improvement to symptoms of anxiety and depression, denies suicidal and homicidal ideation, denies audiovisual hallucinations, and denies urge to engage in self-injurious behavior. Keypunch Operator and patient spoke today regarding outstanding warrant for his arrest, patient appropriately expressed frustration with process, reiterated he does not feel he 's done anything wrong, denies engaging in stalking behavior, states he feels it is best for him to meet with TLS on Wednesday and then turn himself into the police to "take care of these matters, this is been going on for far too long, and I've done nothing wrong." Patient denies irritability, agitation, and mood lability, indicates he feels his anxiety and depression remain directly related to pending court case. Patient continues to take medications which were recently restarted, indicates medication regimen is effective and denies medication side effects. Patient states he has been sleeping well utilizing trazodone nightly with good effect, is less isolative to room and is now attending groups regularly, remains more visible on unit. Patient states appetite remains stable, energy level is improving, notes he continues to struggle with concentration and focus. Patient remains remains compliant with fingerstick, denies symptoms of dizziness, denies physical pain and presents with no signs of acute distress at time of interaction. VITALS: See below NEW TEST RESULTS: Glucose elevated at 127 PAST MEDICAL/SURGICAL HISTORY: Labs on admission indicate low RBC, Hgb, HCT, calcium, AST and elevated glucose, TSH (within normal limits on repeat). Patient denies history of seizure, reports concussion 1 in high school. Diabetes, hypertension, hyperlipidemia, GERD, obstructive sleep apnea, COPD, history of gastric ulcer, history of transfusions, iron deficiency anemia CT of head at last admission indicated age-appropriate cerebellar and cerebral atrophy. Mild chronic microvascular disease. No evidence of acute intracranial pathology. CT of spine at last admission indicated fracture or spondylolisthesis. Grade 1 anterolisthesis of L4 on L5. At L5-S1 there was noted a broad East disc protrusion with moderate bilateral foraminal narrowing. L3-L4 showed a broad- based disc bulge, resulted mild bilateral foraminal narrowing. UDS negative on admission 08/20/16 EKG SINUS RHYTHM Similar to tracing done 08-28-15 Depakote level pending CURRENT MEDICATIONS: See below MENTAL STATUS EXAMINATION: General appearance: Patient is a 65-year old male, who is cooperative, makes adequate eye contact, appears less disheveled, is dressed in hospital clothing, ambulates with steady gait, appears stated age Speech: Speech is clear today, normal volume, spontaneous, less pressured except when talking about court case and TLS appointment for housing. Thought processes: Linear, logical, goal-directed. Thought content: Generally rational, logical, some paranoia. Abstract reasoning and computation: Requires further evaluation. Description of associations: Appears intact. Description of abnormal or psychotic thoughts: Today denies suicidal ideation, denies homicidal ideation, denies audiovisual hallucinations, does not appear to be responding to internal stimuli at time of interaction, expresses no paranoid ideation, less fixated on court case today. 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 Judgment: Fair Insight: Limited, some improvement noted Orientation: A and O 3 Recent and remote memory: Appears adequate Attention span and concentration: Appears adequate Fund of knowledge: Appears adequate Mood: "I'm okay, I feel good about the TLS appointment tomorrow." Patient appears less anxious, less depressed, no mood lability noted at time of interaction Affect: Blunted but brightens, congruent with mood DIAGNOSES: Schizoaffective disorder, bipolar type, rule out schizophrenia ASSESSMENT: Patient has been attending groups, is more visible, is more easily engaged, is pleasant and cooperative, appears more comfortable in milieu and is no longer complaining of symptoms of fatigue. Patient remains fixated on upcoming court case, is aware warrant has been issued for his arrest, indicates he would like to get the matter taking care of with the police and then go to TLS housing. Patient reports symptom improvement, feels medication regimen is effective since restart, and denies medication side effects. Patient denies suicidal and homicidal ideation and verbalizes awareness of how to access supportive services on the unit if needed. Will continue to monitor patient's response to medications and medication side effects, and will evaluate patient' s safety, resolution of suicidal ideation, and discharge readiness. Patient is scheduled for TLS intake appointment tomorrow and is aware that affiliate marketing coordinator will be meeting with him to discuss options of immediate transition to TLS or turning self into police to address outstanding warrant. Patient reiterates today that inevitably he would like to transition to TLS CR housing and participate in outpatient psychotherapy and medication management services. MANAGEMENT PLAN: Continue hydroxyzine 50 mg po q 8 hours PRN anxiety, continue Seroquel 200 mg po BID, Zoloft 100 mg po q am, Depakote 1500 mg po q hs, and trazodone 100 mg po hs PRN insomnia. Depakote level, CBC, LFTs ordered for 08/26/16 Maintain safety precautions to include sexual precautions Patient to attend groups and participate in unit programming to develop coping strategies Engage patient in discharge planning process and arrange meeting with support system to ensure safe discharge planning when appropriate Patient to follow up with PCM upon discharge TIME SPENT: 35 minutes Vital Signs Vital Signs Date Time Temp Pulse Resp B/P Pulse Ox O2 Delivery O2 Flow Rate FiO2 08/25/16 08:32 147/86 08/25/16 06:58 97.0 64 18 Laboratory Data 24H Labs Laboratory Tests 2 08/24/16 16:33: Bedside Glucose (Misc Panel) 176H 08/25/16 06:06: Bedside Glucose (Misc Panel) 118H Current Medications Current Medications Acetaminophen (Tylenol Tab) 650 mg Q6HP PRN PO HEADACHE or DISCOMFORT Last administered on 08/24/16 23:33; Start 08/18/16 at 05:45; Stop 09/17/16 at 05:44 Al Hydrox/Mg Hydrox/Simethicone (Mylanta) 30 ml Q4HP PRN PO HEARTBURN/ INDIGESTION; Start 08/18/16 at 05:45; Stop 09/17/16 at 05:44 Divalproex Sodium (Depakote Er) 250 mg QHS PO ; Start 08/18/16 at 21:00; Stop at 21:00; Status DC Divalproex Sodium (Depakote Er) 1,500 mg QHS PO Last administered on 08/24/16 21:07; Start 08/18/16 at 21:00; Stop 09/17/16 at 20:59 Home Med (Med Rec Complete!) ASDIRECTED XX ; Start 08/18/16 at 08:00; Stop at 08:00; Status DC Hydroxyzine HCl (Atarax) 50 mg Q6HP PRN PO ANXIETY; Start 08/24/16 at 12:30; Stop 08/24/16 at 12:32; Status DC Hydroxyzine HCl (Atarax) 50 mg Q8HP PRN PO ANXIETY Last administered on 13:21; Start 08/24/16 at 12:45; Stop 09/23/16 at 12:44 Lisinopril (Prinivil) 20 mg DAILY PO Last administered on 08/25/16 08:32; Start 08/19/16 at 09:00; Stop 09/18/16 at 08:59 Lorazepam (Ativan) 1 mg Q8HP PRN PO ANXIETY Last administered on 08/22/16 19: 31; Start 08/18/16 at 15:00; Stop 08/24/16 at 12:31; Status DC Magnesium Hydroxide (Milk Of Magnesia) 30 ml DAILYPRN PRN PO CONSTIPATION; Start 08/18/16 at 05:45; Stop 09/17/16 at 05:44 Metformin HCl (Glucophage) 1,000 mg DAILY@08 PO Last administered on 08/25/16 08:32; Start 08/19/16 at 08:00; Stop 09/18/16 at 07:59 Quetiapine Fumarate (SEROquel) 200 mg BID PO Last administered on 08/25/16 08: 31; Start 08/18/16 at 21:00; Stop 09/17/16 at 20:59 Sertraline HCl (Zoloft) 100 mg DAILY PO Last administered on 08/25/16 08:31; Start 08/19/16 at 09:00; Stop 09/18/16 at 08:59 Simvastatin (Zocor) 40 mg DAILY PO Last administered on 08/25/16 08:31; Start 08/19/16 at 09:00; Stop 09/18/16 at 08:59 Trazodone HCl (Desyrel) 50 mg QHSP PRN PO INSOMNIA; Start 08/18/16 at 05:45; Stop 09/17/16 at 05:44; Status Cancel Trazodone HCl (Desyrel) 100 mg QHS PO Last administered on 08/24/16t 21:06; Start 08/18/16 at 21:00; Stop 09/17/16 at 20:59 Allergies Coded Allergies: Fluphenazine (Verified Allergy, Intermediate, COLD SWEATS PACING, RASH, 08/18/16) Haloperidol (Verified Allergy, Intermediate, COLD SWEATS PACING, RASH, ) Su Mendoza Aug 25, 2016 15:09
[2016-08-25 18:00] VITALS: BP 108/55
[2016-08-25] MEDS: traZODone 100 MG TAB PO SCH (21:37)
[2016-08-25] MEDS: DIVALPROEX 500MG *ER* TAB PO SCH (21:38)
[2016-08-26 06:32] VITALS: BP 125/74
[2016-08-26 07:31] LABS: MEAN CORPUSCULAR HEMOGLOBIN 28.9 pg (27.0-33.0); MEAN CORPUSCULAR HGB CONC 33.1 g/dl (32.0-36.5); MEAN CORPUSCULAR VOLUME 87.3 fl (80.0-96.0); RED CELL DISTRIBUTION WIDTH 12.9 % (11.5-14.5); WHITE BLOOD COUNT 6.7 K/mm3 (4.0-10.0)
[2016-08-26 07:50] LABS: ALBUMIN 3.6 GM/DL (3.2-5.2); ALKALINE PHOSPHATASE 51 U/L (45-117); ALT/SGPT 25 U/L (12-78); AST/SGOT 7 U/L (15-37); BILIRUBIN,DIRECT < 0.1 MG/DL (0.0-0.2); BILIRUBIN,TOTAL 0.4 MG/DL (0.2-1.0); TOTAL PROTEIN 7.2 GM/DL (6.4-8.2)
[2016-08-26] MEDS: SIMVASTATIN 40 MG TAB PO SCH (08:46)
[2016-08-26] MEDS: SERTRALINE 100 MG TAB PO SCH (08:46)
[2016-08-26] MEDS: QUEtiapine FUMARATE 200 MG TAB PO SCH ×2 (08:46→21:05)
[2016-08-26] MEDS: metFORMIN (GLUCOPHAGE) 1000 MG TABLET PO SCH (08:46)
[2016-08-26] MEDS: LISINOPRIL 20 MG TAB PO SCH (08:49)
--- NOTE | 2016-08-26 15:33 | IPNPDOC ---
[facility] Progress Note Progress Note DATE OF SERVICE: 08/26/16 HISTORY: Patient is a 65-year-old male who was reportedly brought to the emergency room by the paramedics after he called an ambulance after falling and injuring his back. Patient has notable psychiatric history including multiple admissions, indicates he [place] not like the [place] and, therefore, does not wish to be treated at a [place] hospital. Patient today denies symptoms of anxiety and depression, notes he utilized hydroxyzine PRN 2 yesterday after learning about warrant and being presented with options to either turn self and police or go to [facility] and risk arrest. Patient indicates he feels better today, denies suicidal and homicidal ideation, denies audiovisual hallucinations, and denies urge to engage in self-injurious behavior. Patient is aware he has 13:30 appointment today with [facility] to address transition into the [facility], states he has elected to turn himself into [place] police tomorrow morning at which time he will be transported to Court to address outstanding bench warrant. Patient denies irritability, agitation, impulsivity, and mood lability, Patient continues to take medications which were restarted upon admission hospital, indicates medication regimen is effective and denies medication side effects. Patient states he has been sleeping well utilizing trazodone nightly with good effect, is less isolative to room and is now attending groups regularly, remains more visible on unit. Patient states appetite remains stable, energy level is improving, and reports improvement to concentration and focus. Patient remains remains compliant with fingerstick, denies symptoms of dizziness, denies physical pain and presents with no signs of acute distress at time of interaction. VITALS: See below NEW TEST RESULTS: Glucose elevated at 127 PAST MEDICAL/SURGICAL HISTORY: Labs on admission indicate low RBC, Hgb, HCT, calcium, AST and elevated glucose, TSH (within normal limits on repeat). Patient denies history of seizure, reports concussion 1 in high school. Diabetes, hypertension, hyperlipidemia, GERD, obstructive sleep apnea, COPD, history of gastric ulcer, history of transfusions, iron deficiency anemia CT of head at last admission indicated age-appropriate cerebellar and cerebral atrophy. Mild chronic microvascular disease. No evidence of acute intracranial pathology. CT of spine at last admission indicated fracture or spondylolisthesis. Grade 1 anterolisthesis of L4 on L5. At L5-S1 there was noted a broad East disc protrusion with moderate bilateral foraminal narrowing. L3-L4 showed a broad- based disc bulge, resulted mild bilateral foraminal narrowing. UDS negative on admission 08/20/16 EKG SINUS RHYTHM Similar to tracing done 08-28-15 08/26/16 Depakote level 98.9 CURRENT MEDICATIONS: See below MENTAL STATUS EXAMINATION: General appearance: Patient is a 65-year old male, who is cooperative, makes adequate eye contact, presents with adequate personal hygiene, is dressed in hospital clothing, ambulates with steady gait, appears stated age Speech: Speech is clearer today, normal volume, spontaneous, less pressured except when talking about court case. Thought processes: Linear, logical, goal-directed. Thought content: Rational, logical, less paranoia. Abstract reasoning and computation: Requires further evaluation. Description of associations: Appears intact. Description of abnormal or psychotic thoughts: Denies suicidal and homicidal ideation, denies audiovisual hallucinations, does not appear to be responding to internal stimuli, expresses no paranoid ideation, less fixated on court case today. 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 Judgment: Fair, has improved during treatment Insight: Limited, some improvement noted Orientation: A and O 3 Recent and remote memory: Appears adequate Attention span and concentration: Appears adequate Fund of knowledge: Appears adequate Mood: "I'm feeling better, although good about the [facility] for it about court." Patient appears less anxious, less depressed, no mood lability noted at time of interaction Affect: Blunted but brightens, congruent with mood DIAGNOSES: Schizoaffective disorder, bipolar type, rule out schizophrenia ASSESSMENT: Patient continues to attend groups, is more visible, is more easily engaged, is pleasant and cooperative, appears more comfortable in milieu and is no longer complaining of symptoms of fatigue. Patient remains concerned about court case, is aware warrant has been issued for his arrest, indicates he wants to turn himself in to [place] police at time of discharge tomorrow morning. Patient states he wants to resolve the matter so that he can then transition into [facility] housing. Patient reports symptom improvement, feels medication regimen is effective since restart, and denies medication side effects, has been educated on potential side effects and symptoms of toxicity, verbalizes awareness of need for ongoing laboratory work. Patient denies suicidal and homicidal ideation and verbalizes awareness of how to access supportive services on the unit if needed. Will continue to monitor patient's response to medications and medication side effects, and will continue to evaluate patient' s safety and prepare him for discharge tomorrow morning. Patient is scheduled for [facility] intake this afternoon and is indicated he will transition to [facility] CR housing after addressing outstanding bench warrant. Patient states he also remains interested in participating in case management, outpatient psychotherapy , and medication management services. MANAGEMENT PLAN: Continue hydroxyzine 50 mg po q 8 hours PRN anxiety, continue Seroquel 200 mg po BID, Zoloft 100 mg po q am, Depakote 1500 mg po q hs, and trazodone 100 mg po hs PRN insomnia. Maintain safety precautions to include sexual precautions Patient to attend groups and participate in unit programming to develop coping strategies Engage patient in discharge planning process and arrange meeting with support system to ensure safe discharge planning when appropriate Patient to follow up with PCM upon discharge TIME SPENT: 35 minutes Vital Signs Vital Signs Date Time Temp Pulse Resp B/P (MAP) Pulse Ox O2 Delivery O2 Flow Rate FiO2 08/26/16 08:49 130/75 08/26/16 06:32 97.0 68 18 Room Air Laboratory Data 24H Labs Laboratory Tests 2 08/25/16 17:11: Bedside Glucose (Misc Panel) 108 08/26/16 07:22: Aspartate Amino Transf (AST/SGOT) 7L, Alanine Aminotransferase (ALT/SGPT) 25, Alkaline Phosphatase 51, Total Bilirubin 0.4, Direct Bilirubin < 0.1, Total Protein 7.2, Albumin 3.6, Albumin/Globulin Ratio 1.00, Valproic Acid (Depakene) Level 98.9 CBC/BMP Laboratory Tests 08/26/16 07:22 Red Blood Count 4.88, Mean Corpuscular Volume 87.3, Mean Corpuscular Hemoglobin 28.9, Mean Corpuscular Hemoglobin Concent 33.1, Red Cell Distribution Width 12.9 Current Medications Current Medications Acetaminophen (Tylenol Tab) 650 mg Q6HP PRN PO HEADACHE or DISCOMFORT Last administered on 08/24/16 23:33; Start 08/18/16 at 05:45; Stop 09/17/16 at 05:44 Al Hydrox/Mg Hydrox/Simethicone (Mylanta) 30 ml Q4HP PRN PO HEARTBURN/ INDIGESTION; Start 08/18/16 at 05:45; Stop 09/17/16 at 05:44 Divalproex Sodium (Depakote Er) 250 mg QHS PO ; Start 08/18/16 at 21:00; Stop at 21:00; Status DC Divalproex Sodium (Depakote Er) 1,500 mg QHS PO Last administered on 08/25/16 21:38; Start 08/18/16 at 21:00; Stop 09/17/16 at 20:59 Home Med (Med Rec Complete!) ASDIRECTED XX ; Start 08/18/16 at 08:00; Stop at 08:00; Status DC Hydroxyzine HCl (Atarax) 50 mg Q6HP PRN PO ANXIETY; Start 08/24/16 at 12:30; Stop 08/24/16 at 12:32; Status DC Hydroxyzine HCl (Atarax) 50 mg Q8HP PRN PO ANXIETY Last administered on 23:14; Start 08/24/16 at 12:45; Stop 09/23/16 at 12:44 Lisinopril (Prinivil) 20 mg DAILY PO Last administered on 08/26/16 08:49; Start 08/19/16 at 09:00; Stop 09/18/16 at 08:59 Lorazepam (Ativan) 1 mg Q8HP PRN PO ANXIETY Last administered on 08/22/16 19: 31; Start 08/18/16 at 15:00; Stop 08/24/16 at 12:31; Status DC Magnesium Hydroxide (Milk Of Magnesia) 30 ml DAILYPRN PRN PO CONSTIPATION; Start 08/18/16 at 05:45; Stop 09/17/16 at 05:44 Metformin HCl (Glucophage) 1,000 mg DAILY@08 PO Last administered on 08/26/16 08:46; Start 08/19/16 at 08:00; Stop 09/18/16 at 07:59 Quetiapine Fumarate (SEROquel) 200 mg BID PO Last administered on 08/26/16 08: 46; Start 08/18/16 at 21:00; Stop 09/17/16 at 20:59 Sertraline HCl (Zoloft) 100 mg DAILY PO Last administered on 08/26/16 08:46; Start 08/19/16 at 09:00; Stop 09/18/16 at 08:59 Simvastatin (Zocor) 40 mg DAILY PO Last administered on 08/26/16 08:46; Start 08/19/16 at 09:00; Stop 09/18/16 at 08:59 Trazodone HCl (Desyrel) 50 mg QHSP PRN PO INSOMNIA; Start 08/18/16 at 05:45; Stop 09/17/16 at 05:44; Status Cancel Trazodone HCl (Desyrel) 100 mg QHS PO Last administered on 08/25/16 21:37; Start 08/18/16 at 21:00; Stop 09/17/16 at 20:59 Allergies Coded Allergies: Fluphenazine (Verified Allergy, Intermediate, COLD SWEATS PACING, RASH, 08/18/16) Haloperidol (Verified Allergy, Intermediate, COLD SWEATS PACING, RASH, ) Su Mendoza Aug 26, 2016 15:33
[2016-08-26 18:00] VITALS: BP 112/59
[2016-08-26] MEDS: DIVALPROEX 500MG *ER* TAB PO SCH (21:05)
[2016-08-26] MEDS: traZODone 100 MG TAB PO SCH (21:05)
[2016-08-26] MEDS: hydrOXYzine 50 MG TAB PO PRN (22:48)
[2016-08-27 06:17] VITALS: BP 125/81
[2016-08-27 08:21] VITALS: BP 125/81
[2016-08-27] MEDS: LISINOPRIL 20 MG TAB PO SCH (08:21)
[2016-08-27] MEDS: metFORMIN (GLUCOPHAGE) 1000 MG TABLET PO SCH (08:21)
[2016-08-27] MEDS: QUEtiapine FUMARATE 200 MG TAB PO SCH (08:21)
[2016-08-27] MEDS: SERTRALINE 100 MG TAB PO SCH (08:22)
[2016-08-27] MEDS: SIMVASTATIN 40 MG TAB PO SCH (08:22)
--- NOTE | 2016-08-27 08:47 | DS.PDOC ---
[facility] Discharge Summary Discharge Summary DATE OF ADMISSION: Aug 18, 2016 at 05:43 DATE OF DISCHARGE: Aug 27, 2016 HISTORY: Patient is a 65-year-old male, who states he called the ambulance after falling and injuring his back, ambulance transported patient to emergency room where he was evaluated and admitted for psychiatric treatment. Patient indicates he also received treatment for back injury which has resolved and he denies pain at this time. Please refer to EMR for comprehensive psychiatric history on this patient as patient has had multiple inpatient admissions and has a notable history of treatment for schizophrenia/bipolar disorder. Patient is also involved in [employer], indicates [facility] "[facility]'t [facility]," indicates he feels his recent increase in symptoms is due to abrupt discontinuation of his medications 4 days ago and pending court case wherein he is charged with stalking a female hospital employee. Patient indicates he has been picked up by the police several times pertaining to this charge, states he has a court date set for this coming Wednesday, adds he feels "overwhelmed and anxious" regarding upcoming court date. Patient reports increase in the following symptoms over the past 2 weeks: anxiety, depression, paranoia, hopelessness and helplessness, increased impulsivity, anhedonia, auditory hallucinations with command element telling him to kill himself by way of cutting throat, suicidal ideation. Patient relates current anxiety level as 8/10 , depression 9/10, reports intermittent suicidal ideation, denies homicidal ideation, denies audiovisual hallucinations, denies urge to engage in self- injurious behavior. Patient denies history of discomfort in social settings, compulsive behavior, and history of aggression, further denies having access to weapons. Patient endorses history of panic attacks occurring 1-210 years ago, notes he "probably " struggles with impulse control, endorses symptoms of reexperiencing, avoidance , and hypervigilance, further notes he has periods of elevated mood adding approximately 3 months ago he felt like "Superman," attributes to having stopped meds at that time. Patient's reports he sleeps well when he utilizes trazodone, has been diagnosed with obstructive sleep apnea and verbalizes awareness of need to follow up with PCM for updated sleep study. Patient was restarted on his medications yesterday, notes medications are helpful and he is beginning to feel better, reports intermittent suicidal thinking, denies urge or command hallucination to harm self or others. Patient is able to agree to notify unit staff if he feels symptoms of anxiety, depression, or suicidal ideation worsens/become unmanageable. 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 Patient presents with no signs of acute distress at time of interaction. PSYCHIATRIC REVIEW OF SYSTEMS AT TIME OF ADMISSION: Affective: Depressed and anxious Anxiety: Endorses. Trauma: Denies. Psychosis: Endorses AH with command to harm self prior to hospitalization. Personally: Engageable, currently isolative to room, withdrawn PAST PSYCHIATRIC HISTORY: Prior Psychiatric Disorder: Multiple admissions, refer to EMR over 79 Outpatient Treatment: Multiple facilities, refer to EMR. Suicidal/Self injurious: History of suicidal ideation, history of suicide attempts Psychotropic Medication History: Risperdal, trazodone, Depakote, Invega Sustenna , Seroquel, Zoloft, Haldol, "benzos." MEDICAL/SURGICAL HISTORY: Labs on admission indicate low RBC, Hgb, HCT, calcium , AST and elevated glucose, TSH (within normal limits on repeat). Patient denies history of seizure, reports concussion 1 in high school. Diabetes, hypertension, hyperlipidemia, GERD, obstructive sleep apnea, COPD, history of gastric ulcer, history of transfusions, iron deficiency anemia CT of head at last admission indicated age-appropriate cerebellar and cerebral atrophy. Mild chronic microvascular disease. No evidence of acute intracranial pathology. CT of spine at last admission indicated fracture or spondylolisthesis. Grade 1 anterolisthesis of L4 on L5. At L5-S1 there was noted a broad East disc protrusion with moderate bilateral foraminal narrowing. L3-L4 showed a broad- based disc bulge, resulted mild bilateral foraminal narrowing. UDS negative on admission 08/20/16 EKG SINUS RHYTHM Similar to tracing done 08-28-15 08/26/16 Depakote level 98.9 FAMILY PSYCHIATRIC HISTORY: Mother - suicide via walking into traffic, alcoholism Father - alcoholism SOCIAL HISTORY: Early Relations/development: Patient states he was born and raised in the [facility], notes both parents are and has no contact with his siblings. Patient indicates he has some friends in the area. Sibling order: Eldest child, states he has no contact with siblings. Paternal relationships: Both parents are . Education: GED. 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 Legal: Denies other than pending legal charges for stalking. Martial: Never , no children. Economic: Denies financial strain, is on Social Security and veterans benefits, per EMR, is 100% service connected. Supports: Described support system as limited. Abuse/trauma: Denies. SUBSTANCE ABUSE HISTORY: Patient denies history of substance use or abuse, further denies history of tobacco use. TREATMENT PROGRESS ON UNIT: Patient has adjusted to unit, has been more visible , is easily engaged, has been attending unit programming and has been pleasant and cooperative with staff. Patient was restarted on his medications and he indicates current medication regimen is effective and he denies medication side effects. Patient has also been utilizing hydroxyzine PRN during his stay to address intermittent symptoms of anxiety related to impending court case with good effect reported. Patient denies depression and reports improvement to anxiety, has been educated on potential medication side effects and symptoms of toxicity, and need for ongoing laboratory work for medication management purposes. Patient denies auditory and visual hallucinations and denies urge to engage in self-injurious behavior. Patient denies symptoms of agitation, irritability, impulsivity, and mood lability, has been compliant with fingersticks and medications. Patient is future oriented and goal-directed, states he is been sleeping well, denies challenges with concentration and focus and energy level, indicates appetite is stable. Patient denies suicidal and homicidal ideation and is able to verbalize concrete strategies for mitigating symptoms should they return. Patient was presented with options in terms of discharge planning and he has elected to turn himself in to custody of [place] police to be transported to Court to attend to outstanding bench warrant for his arrest. Patient has case management services and payee who is hiring legal representation for him and he has been scheduled to meet with [facility] to transition into [facility] housing after release from residential. Patient verbalizes understanding of and agreement with discharge plan. MENTAL STATUS EXAMINATION ON DISCHARGE: General appearance: Patient is a 65-year old male, who is cooperative, makes good eye contact, presents with adequate personal hygiene, is dressed in own clothing, ambulates with steady gait, appears stated age Speech: Speech is clearer today, normal volume, spontaneous, less pressured except when talking about court case. Thought processes: Linear, logical, goal-directed. Thought content: Rational, logical, no paranoia noted. Abstract reasoning and computation: Adequate. Description of associations: Appears intact. Description of abnormal or psychotic thoughts: Denies suicidal and homicidal ideation, denies audiovisual hallucinations, does not appear to be responding to internal stimuli, expresses no paranoid ideation. 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 Judgment: Adequate, has improved during treatment Insight: Adequate, has improved during treatment Orientation: A and O 3 Recent and remote memory: Appears adequate Attention span and concentration: Appears adequate Fund of knowledge: Appears adequate Mood: "I feel better, I want to go to [facility] but I'm going to take care of the court stuff first." Patient denies anxiety except as related to court case and [facility], denies depression, no mood lability noted at time of interaction Affect: Mild constriction, brightens appropriately, congruent with mood CONDITION ON DISCHARGE: Stable, no suicidal or homicidal ideation DIAGNOSES ON DISCHARGE: Schizoaffective disorder, bipolar type, rule out schizophrenia MEDICATIONS ON DISCHARGE: See below FOLLOW UP PLAN: Continue Seroquel 200 mg po BID, Zoloft 100 mg po q am, Depakote 1500 mg po q hs, trazodone 100 mg po hs PRN insomnia, and hydroxyzine 50 mg po q 8 hours PRN anxiety. Patient to [facility] Patient to meet with [facility] regarding transition into [facility] housing after release from residential, and to receive case management services and outpatient psychotherapy and medication management services. Patient is aware he will need ongoing laboratory work related to medication management, recommended within 1-2 weeks of discharge Patient to follow up with PCM within 5-7 days of discharge TIME SPENT COORDINATING CARE: 25 minutes Vital Signs/I&Os Vital Signs Date Time Temp Pulse Resp B/P (MAP) Pulse Ox O2 Delivery O2 Flow Rate FiO2 08/27/16 08:21 125/81 08/27/16 06:17 96.6 92 20 08/26/16 18:00 96 Room Air Medications Scheduled Divalproex Sodium (Depakote ER) 500 Mg Tab, 1,500 MG PO QHS for mood stabilization, #21 Ferrous Sulfate (Ferrous Sulfate) 325 Mg Tab, 325 MG PO BIDWM for SUPPLEMENT, ( Reported) SUPPLEMENT Lisinopril (Lisinopril) 20 Mg Tab, 20 MG PO DAILY for HYPERTENSION, (Reported) HYPERTENSION Metformin Hydrochloride (Metformin HCl) 1,000 Mg Tab, 1,000 MG PO BID for DIABETES, (Reported) Quetiapine Fumerate (Quetiapine Fumarate) 200 Mg Tab, 200 MG PO BID for MOOD, # 14 Sertraline HCl (Sertraline HCl) 100 Mg Tab, 100 MG PO DAILY for DEPRESSION, #7 Simvastatin - High Dose (Simvastatin) 40 Mg Tab, 40 MG PO DAILY for HYPERTENSION , (Reported) Trazodone HCl (Trazodone HCl) 100 Mg Tab, 100 MG PO QHS for INSOMNIA, #7 Allergies Coded Allergies: Fluphenazine (Verified Allergy, Intermediate, COLD SWEATS PACING, RASH, 08/18/16) Haloperidol (Verified Allergy, Intermediate, COLD SWEATS PACING, RASH, ) Su Mendoza Aug 27, 2016 08:47
[2016-08-27] MEDS ORDERED: SERT-138 PO (10:50)
[2016-08-27] MEDS ORDERED: QUET1TAB9 PO (10:50)
[2016-08-27] MEDS ORDERED: DEPA500T2 PO (10:50)
[2016-08-27] MEDS ORDERED: TRAZ10TA PO (10:50)
== END 2016-08-27 11:30 | disposition home or self-care (01) | DRG 885 ==
LOC: EDBD 01:38 → M ED 03:14 → M ED INP 05:43 → M PSY 11:37
PROVIDERS: ADMIT Psychiatry & Neurology Psychiatry; ATTEND Psychiatry & Neurology Psychiatry
DX: F25.0 Schizoaffective disorder, bipolar type (principal); Z79.899 Other long term (current) drug therapy; Z88.8 Allergy status to other drugs, medicaments and biological substances; I10 Essential (primary) hypertension; E78.5 Hyperlipidemia, unspecified; E11.9 Type 2 diabetes mellitus without complications; D50.9 Iron deficiency anemia, unspecified; J44.9 Chronic obstructive pulmonary disease, unspecified

== ENCOUNTER 2016-11-12 21:24 | Inpatient (IN) | payer MEDICARE ==
[~2016-11-12] VITALS: Ht 167.6 cm; Wt 94.1 kg
[~2016-11-12 21:24] MED LIST changes: +DIVA500T9 PO; +LISI-538 PO; -METF1000 PO; +METF10004 PO; -METF500T PO; +METF500T13 PO; -RISP3TAB18 PO; +RISP3TAB20 PO; +SERT-138 PO; +TRAZ-136 PO; +TRAZ10TA PO; +TRAZ50TA11 PO; -TRAZ50TA4 PO
[2016-11-13] LABS: MEAN CORPUSCULAR HEMOGLOBIN 28.6 pg (27.0-33.0); MEAN CORPUSCULAR HGB CONC 33.6 g/dl (32.0-36.5); RED CELL DISTRIBUTION WIDTH 13.2 % (11.5-14.5); WHITE BLOOD COUNT 6.9 K/mm3 (4.0-10.0)
[2016-11-13 00:29] LABS: ALBUMIN 3.4 GM/DL (3.2-5.2); ALBUMIN/GLOBULIN RATIO 1.13 (1.00-1.93); ALKALINE PHOSPHATASE 54 U/L (45-117); ALT/SGPT 32 U/L (12-78); ANION GAP 8 MEQ/L (8-16); AST/SGOT 14 U/L (15-37); BILIRUBIN,DIRECT < 0.1 MG/DL (0.0-0.2); BILIRUBIN,TOTAL 0.2 MG/DL (0.2-1.0); BLOOD UREA NITROGEN 12 MG/DL (7-18); CALCIUM LEVEL 8.2 MG/DL (8.8-10.2); CARBON DIOXIDE LEVEL 24 MEQ/L (21-32); CHLORIDE LEVEL 107 MEQ/L (98-107); CREATININE FOR GFR 0.82 MG/DL (0.70-1.30); GLOMERULAR FILTRATION RATE > 60.0 (>49); GLUCOSE, FASTING 178 MG/DL (80-110); POTASSIUM SERUM 4.3 MEQ/L (3.5-5.1); SODIUM LEVEL 139 MEQ/L (136-145); TOTAL PROTEIN 6.4 GM/DL (6.4-8.2)
[2016-11-13 00:42] LABS: METHADONE URINE NEGATIVE (NEGATIVE)
[2016-11-13] MEDS ORDERED: MOM 30ML SUSPENSION UDC PO PRN (01:45)
[2016-11-13] MEDS ORDERED: MAALOX 30 ML SUSP *UDC PO PRN (01:45)
[2016-11-13] MEDS ORDERED: traZODone 50 MG TAB PO PRN (01:45)
[2016-11-13] MEDS ORDERED: DOXE25CA PO (01:56)
[2016-11-13] MEDS ORDERED: ATOR40TA75 PO (01:56)
[2016-11-13] MEDS ORDERED: QUET1TAB8 PO (01:56)
[2016-11-13] MEDS ORDERED: INVE234I IM (01:56)
[2016-11-13] MEDS ORDERED: OMEP20CA3 PO (01:56)
[2016-11-13] MEDS ORDERED: LISI10TA4 PO (01:56)
[2016-11-13] MEDS ORDERED: DIVA500T9 PO (01:56)
[2016-11-13] MEDS ORDERED: PRAZ1CAP PO (01:56)
[2016-11-13] MEDS ORDERED: DIVA250T7 PO (01:56)
[2016-11-13] MEDS ORDERED: RISP3TAB3 PO (01:56)
[2016-11-13] MEDS ORDERED: PATIENT COMMENT (01:59)
[2016-11-13 03:14] VITALS: BP 143/83
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
--- NOTE | 2016-11-13 09:54 | HPEPDOC ---
Medical History and Physical Date of Admission Nov 13, 2016 at 01:41 History and Physical PCP: [facility] in [place] ATTENDING: Dr. Juaquin Black HPI: 66[facility]M [facility], being medically examined today. No acute medical complaints today. Denies any fevers, chills, weakness, fatigue , ANAYA, CP, SOB, cough, palpitations, abdominal pain, N/V/D or changes in bowel or bladder habits. PMHx: HTN HLD NIDDM GERD COPD H/O gastric ulcer, h/o transfusion/Fe def anemia. Off ASA. H/O hypothyroidism. off meds. PSHX: Tonsillectomy Back surgery for herniated disc, 1972 SOCHX: Resides in: [place], [place] Marital Status: Single, lives alone in a house Kids: 0 Employment: Retired from [place]. 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 ROS: As noted in HPI, otherwise 11pt ROS of systems reviewed and unremarkable. He is feeling well. PE: GEN: 66yoM, appears older than stated age. Well-nourished, well developed. No acute distress. Alert and oriented x 3. Pleasant, interactive. HEENT: Normocephalic, atraumatic. Pupils are equal, round, and reactive to light. Extraocular movements are intact. No nystagmus appreciated. Sclera are nonicteric. Conjunctiva without injection. Nose midline. Moist mucous membranes. Dentition fair. Pharynx pink and moist, no cobblestoning. Neck supple , trachea midline. No lymphadenopathy or thyromegaly appreciated. CHEST: Regular rate and rhythm, +S1, +S2 LUNGS: Clear to auscultation bilaterally. No wheezes, rales, or rhonchi. Breathing appears symmetric and easy. Patient is speaking in full sentences. No accessory muscle use. ABD: Round, soft, non-tender, non-distended. +Bowel sounds throughout. No rebound or guarding. No costovertebral angle tenderness. EXT: Pulses 2+ bilaterally dorsalis pedis and radial. No lower extremity edema appreciated. SKIN: [place], dry, warm. Capillary refill <2sec. No rashes. NEURO: Alert and oriented x 3. Cranial nerves III-XII are intact. No focal deficits appreciated. EKG 08/27/16: SINUS RHYTHM Similar to tracing done 08-28-15 A&P: 66yoM [facility] 1. Psych. Plan per Psychiatry. EKG on file. 2. Hypercholesterolemia. Continue Lipitor 40 mg daily. 3. HTN. Continue with lisinopril 10 mg daily with hold parameters. [facility] [place] 5. GERD. Continue Prilosec 20 mg daily. 6. NIDDM. Continue with metformin thousand mg twice a day. FSBS twice a day.. Continue lisinopril. No aspirin as noted in #8. Patient will continue with carb consistent diet. 7. History of Iron deficiency anemia. Hemoglobin 12.1. Continue ferrous sulfate 325 mg by mouth twice a day. 8. History of GI bleed. Per patient he was previously on a baby aspirin given his increased cardiovascular risk but this was advised to be discontinued related to GI bleeding. Continue Prilosec. Will avoid NSAIDs. 9. History of hypothyroidism. TSH noted to be mildly elevated. Will recheck TFTs in a.m. 10. dietary aide cook Kyle present throughout exam. Vital Signs Vital Signs Date Time Temp Pulse Resp B/P (MAP) Pulse Ox O2 Delivery O2 Flow Rate FiO2 11/13/16 03:14 98.0 80 143/83 (103) Room Air 11/13/16 02:48 18 96 Laboratory Data Labs 24H Laboratory Tests 2 11/12/16 23:40: Anion Gap 8, Glomerular Filtration Rate > 60.0, Calcium Level 8.2L, Aspartate Amino Transf (AST/SGOT) 14L, Alanine Aminotransferase (ALT/SGPT) 32, Alkaline Phosphatase 54, Total Bilirubin 0.2, Direct Bilirubin < 0.1, Total Protein 6.4, Albumin 3.4, Albumin/Globulin Ratio 1.13, Thyroid Stimulating Hormone (TSH) 4.210H, Salicylates Level < 1.7L, Acetaminophen Level < 2.0L, Valproic Acid ( Depakene) Level 57.4, Ethyl Alcohol Level < 0.003 11/12/16 23:42: Urine Amphetamines Screen NEGATIVE, Urine Benzodiazepines Screen NEGATIVE, Urine Opiates Screen NEGATIVE, Urine Methadone Screen NEGATIVE, Urine Barbiturates Screen NEGATIVE, Urine Phencyclidine Screen NEGATIVE, Urine Cocaine Metabolite Screen NEGATIVE, Urine Cannabinoids Screen NEGATIVE CBC/BMP Laboratory Tests 11/12/16 23:40 Red Blood Count 4.23 L, Mean Corpuscular Volume 85.0, Mean Corpuscular Hemoglobin 28.6, Mean Corpuscular Hemoglobin Concent 33.6, Red Cell Distribution Width 13.2 Home Medications Scheduled (Risperidone) 3 Mg Tab, 3 MG PO BID Atorvastatin Calcium (Atorvastatin Calcium) 40 Mg Tab, 40 MG PO DAILY Divalproex Sodium (Divalproex Sodium ER) 500 Mg Tab, 1,000 MG PO QHS Divalproex Sodium (Divalproex Sodium ER) 250 Mg Tab, 250 MG PO QHS Doxepin HCl (Doxepin HCl) 25 Mg Cap, 75 MG PO QHS for . Ferrous Sulfate (Ferrous Sulfate) 325 Mg Tab, 325 MG PO BIDWM Lisinopril (Lisinopril) 10 Mg Tab, 10 MG PO DAILY Metformin Hydrochloride (Metformin HCl) 1,000 Mg Tab, 1,000 MG PO BID Omeprazole (Omeprazole) 20 Mg Cap, 20 MG PO DAILY Paliperidone Palmitate (Invega Sustenna) 234 Mg/1.5 Ml Inj, 234 MG IM QMONTH for . Prazosin Hcl (Prazosin HCl) 1 Mg Cap, 1 MG PO QHS Quetiapine Fumerate (Quetiapine Fumarate) 100 Mg Tab, 100 MG PO BID Allergies Coded Allergies: Fluphenazine (Verified Allergy, Intermediate, COLD SWEATS PACING, RASH, 08/18/16) Haloperidol (Verified Allergy, Intermediate, COLD SWEATS PACING, RASH, ) Leida Mora Nov 13, 2016 09:54
[2016-11-13] MEDS: metFORMIN (GLUCOPHAGE) 1000 MG TABLET PO SCH ×2 (10:43→17:40)
[2016-11-13] MEDS: LISINOPRIL 10 MG TAB PO SCH (10:44)
[2016-11-13] MEDS: FERROUS SULFATE 325MG TAB PO SCH ×2 (10:44→17:40)
[2016-11-13] MEDS: OMEPRAZOLE 20 MG CAP PO SCH (10:44)
[2016-11-13] MEDS: ATORVASTATIN 20 MG TAB PO SCH (10:44)
[2016-11-13] MEDS: DIVALPROEX 500MG *ER* TAB PO SCH ×2 (12:16→22:30)
[2016-11-13] MEDS ORDERED: risperiDONE 1 MG TAB PO ONE (13:00)
[2016-11-13] MEDS: SERTRALINE HCL 25 MG TABLET PO SCH (14:45)
[2016-11-13 18:00] VITALS: BP 148/90
[2016-11-13] MEDS: PALIPERIDONE 3 MG ER TAB (INVEGA) PO SCH (22:30)
[2016-11-14] MEDS: ACETAMINOPHEN TAB 650MG DOSE (2X325MG) PO PRN ×2 (01:05→20:52)
[2016-11-14 06:48] VITALS: BP 117/56
[2016-11-14] MEDS: FERROUS SULFATE 325MG TAB PO SCH ×2 (07:35→17:41)
[2016-11-14] MEDS: metFORMIN (GLUCOPHAGE) 1000 MG TABLET PO SCH ×2 (07:35→17:41)
[2016-11-14] MEDS: DIVALPROEX 500MG *ER* TAB PO SCH ×2 (08:04→19:57)
[2016-11-14] MEDS: LISINOPRIL 10 MG TAB PO SCH (08:04)
[2016-11-14] MEDS: ATORVASTATIN 20 MG TAB PO SCH (08:04)
[2016-11-14] MEDS: OMEPRAZOLE 20 MG CAP PO SCH (08:04)
[2016-11-14] MEDS: SERTRALINE HCL 25 MG TABLET PO SCH (08:04)
[2016-11-14 18:00] VITALS: BP 148/70
[2016-11-14] MEDS: PALIPERIDONE 3 MG ER TAB (INVEGA) PO SCH (19:57)
--- NOTE | 2016-11-14 20:38 | IPN ---
DATE: 11/14/2016 VITAL SIGNS: Temperature 97.7, pulse 78, respirations 16, blood pressure 117/56. CURRENT MEDICATIONS: - Invega 3 mg nightly - Depakote 500 mg twice a day - Zoloft 75 mg every morning - trazodone 50 mg nightly HISTORY OF PRESENT ILLNESS: This is a 66-year-old white male with a history of schizoaffective disorder. The patient had recent decompensation with increase his auditory hallucinations. The voices were telling him to jump off the balcony of his hotel room. The patient reports that he feels safer here on the unit and he is still hearing the voices but he feels safer. His appetite is good. He did not sleep well last night. He would like his trazodone increased. He still reports anxiety symptoms. The patient had been under my care last winter and had a similar psychotic episode. MENTAL STATUS EXAMINATION: Patient is alert, oriented, and cooperative. He reports prominent auditory hallucinations with some paranoia. The voices are commanding him to harm himself. No signs of thought disorder. Insight appears poor. Judgment is poor. The patient is a potential danger to himself. Affect appears sad. Mood is moderately to severely depressed. No signs of memory deficits. DIAGNOSIS: Schizoaffective disorder, depressed. PLAN: Increase trazodone to 100 mg nightly as needed.
[2016-11-15] MEDS: traZODone 100 MG TAB PO PRN (00:49)
[2016-11-15 06:24] VITALS: BP 152/78
[2016-11-15] MEDS: metFORMIN (GLUCOPHAGE) 1000 MG TABLET PO SCH ×2 (08:30→17:30)
[2016-11-15] MEDS: OMEPRAZOLE 20 MG CAP PO SCH (08:30)
[2016-11-15] MEDS: ATORVASTATIN 20 MG TAB PO SCH (08:31)
[2016-11-15] MEDS: LISINOPRIL 10 MG TAB PO SCH (08:31)
[2016-11-15] MEDS: DIVALPROEX 500MG *ER* TAB PO SCH ×2 (08:31→21:04)
[2016-11-15] MEDS: SERTRALINE HCL 25 MG TABLET PO SCH (08:31)
[2016-11-15] MEDS: FERROUS SULFATE 325MG TAB PO SCH ×2 (08:31→17:30)
[2016-11-15] MEDS ORDERED: PREVNAR 13 VACCINE SYRINGE (CPT CODE:90670) IM SCH (09:00)
--- NOTE | 2016-11-15 16:06 | IPN ---
DATE: 11/15/2016 VITAL SIGNS: Temperature 98.0, pulse 73, respirations 20, blood pressure 152/78. MEDICATIONS: - trazodone 50 mg at night - Invega 3 mg at night - Depakote 500 mg twice a day - sertraline 75 mg in the morning HISTORY OF PRESENT ILLNESS: The patient continues to report psychotic symptoms. He still complains of anxiety, but states that he is less depressed. Denies any current suicidal ideation. He reports that he slept well last night. His appetite is good. The patient just found out that his 85-year-old aunt earlier this year from chronic obstructive pulmonary disease (COPD). The patient is proud to report that he does not smoke. The patient is coping reasonably well with this loss. He has no other complaints. MENTAL STATUS EXAMINATION: The patient is alert, oriented and cooperative. No signs of agitation. The patient still reports auditory hallucinations with some paranoia. He is not currently suicidal, however. No signs of thought disorder. Insight and judgment appear fair today. Affect remains sad. Mood appears mildly to moderately depressed. DIAGNOSIS: Schizoaffective disorder, depressed. PLAN: Continue psychotropics.
[2016-11-15] MEDS: ACETAMINOPHEN TAB 650MG DOSE (2X325MG) PO PRN (17:30)
[2016-11-15 18:00] VITALS: BP 140/79
[2016-11-15] MEDS: PALIPERIDONE 3 MG ER TAB (INVEGA) PO SCH (21:04)
[2016-11-16] MEDS: traZODone 100 MG TAB PO PRN ×2 (00:41→20:29)
[2016-11-16 06:00] VITALS: BP 127/64
[2016-11-16] MEDS: SERTRALINE HCL 25 MG TABLET PO SCH (08:24)
[2016-11-16] MEDS: FERROUS SULFATE 325MG TAB PO SCH ×2 (08:24→17:11)
[2016-11-16] MEDS: LISINOPRIL 10 MG TAB PO SCH (08:24)
[2016-11-16] MEDS: DIVALPROEX 500MG *ER* TAB PO SCH ×2 (08:25→20:29)
[2016-11-16] MEDS: metFORMIN (GLUCOPHAGE) 1000 MG TABLET PO SCH ×2 (08:25→17:11)
[2016-11-16] MEDS: OMEPRAZOLE 20 MG CAP PO SCH (08:25)
[2016-11-16] MEDS: ATORVASTATIN 20 MG TAB PO SCH (08:25)
[2016-11-16] MEDS ORDERED: PALIPERIDONE PALMITATE 234 MG/1.5 ML INJ (INVEGA SUSTENNA)(J2426) IM SCH (09:00)
[2016-11-16] MEDS: hydrOXYzine 50 MG TAB PO PRN ×2 (09:19→22:17)
[2016-11-16 18:00] VITALS: BP 138/68
[2016-11-16] MEDS ORDERED: SERT25TA PO (18:17)
[2016-11-16] MEDS ORDERED: TRAZ10TA PO (18:17)
[2016-11-16] MEDS ORDERED: PALI1TAB2 PO (18:17)
[2016-11-16] MEDS: PALIPERIDONE 3 MG ER TAB (INVEGA) PO SCH (20:30)
[2016-11-17] MEDS: ACETAMINOPHEN TAB 650MG DOSE (2X325MG) PO PRN (00:02)
[2016-11-17 06:38] VITALS: BP 146/86
[2016-11-17] MEDS: metFORMIN (GLUCOPHAGE) 1000 MG TABLET PO SCH (08:26)
[2016-11-17 08:27] VITALS: BP 146/86
[2016-11-17] MEDS: OMEPRAZOLE 20 MG CAP PO SCH (08:27)
[2016-11-17] MEDS: ATORVASTATIN 20 MG TAB PO SCH (08:27)
[2016-11-17] MEDS: FERROUS SULFATE 325MG TAB PO SCH (08:27)
[2016-11-17] MEDS: SERTRALINE HCL 25 MG TABLET PO SCH (08:27)
[2016-11-17] MEDS: DIVALPROEX 500MG *ER* TAB PO SCH (08:27)
[2016-11-17] MEDS: LISINOPRIL 10 MG TAB PO SCH (08:27)
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
--- NOTE | 2016-11-18 11:03 | IPN ---
DATE: 11/16/2016 Evaluated a 66-year-old male with history of schizoaffective disorder, depressed. HISTORY OF PRESENT ILLNESS: The patient described that he was staying at a local hotel when he experienced command auditory hallucinations that were ordering him to jump off the balcony. He was able to go downstairs and request a cab that took him to the emergency room. The patient got to the emergency room on 11/12, and was initially evaluated on 11/13. Currently, the patient is taking: - trazodone 100 mg by mouth at bedtime - Invega 3 mg by mouth at bedtime - Depakote 500 mg by mouth twice a day - sertraline 75 mg by mouth daily. This afternoon, the patient received his Invega Sustenna injection which is for 234 mg every month. The patient reported that last time he was admitted, when he was discharged he did not follow through, and he has not received his injection in more than a month. Since he did not have any allergic reactions and tolerated really well, it was ordered that he should receive this injection today. MENTAL STATUS EXAMINATION: The patient is alert, oriented and cooperative. The patient is not agitated, nor anxious. The patient has denied today auditory hallucinations and has denied suicidal ideations. He does not have any thought delusions, his insight and judgment seem to be fair. He has made his own phone calls to [facility] that is close to [place] for him to go over there and live at this long term. His affect is brighter. His mood is less sad and less depressed. His abstract thinking and computation are limited, his memory recent and remote are pretty good. He is oriented times three. DIAGNOSIS: Schizoaffective disorder, depressed. PLAN: Continue with group therapy, continue with psychotropics, but the patient will be discharged tomorrow, 11/17/2016, and he will be going back to his hotel. 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 At the time of this evaluation today, 11/16/2016, the patient was stable, not a danger to self or others. I will reassess him tomorrow before he gets discharged. We will monitor closely and followup.
== END 2016-11-17 09:00 | disposition home or self-care (01) | DRG 885 ==
LOC: M ED 21:24 → M ED INP 11-13 01:41 → M PSY 11-13 03:12
PROVIDERS: ADMIT Psychiatry & Neurology Psychiatry; ATTEND Psychiatry & Neurology Psychiatry
DX: F25.0 Schizoaffective disorder, bipolar type (principal); F43.10 Post-traumatic stress disorder, unspecified; Z79.899 Other long term (current) drug therapy; Z88.8 Allergy status to other drugs, medicaments and biological substances; I10 Essential (primary) hypertension; J44.9 Chronic obstructive pulmonary disease, unspecified; K21.9 Gastro-esophageal reflux disease without esophagitis; E11.9 Type 2 diabetes mellitus without complications; E03.9 Hypothyroidism, unspecified; D50.9 Iron deficiency anemia, unspecified; E78.00 Pure hypercholesterolemia, unspecified

== ENCOUNTER 2017-01-19 07:22 | Inpatient (IN) | payer OTHER, MEDICARE ==
[~2017-01-19] VITALS: Ht 167.6 cm; Wt 92.0 kg
[~2017-01-19 07:22] MED LIST changes: +ATOR40TA75 PO; +DOXE25CA PO; +INVE234I IM; +OMEP20CA3 PO; +PALI1TAB2 PO; +PATIENT COMMENT; +PRAZ1CAP PO; +RISP3TAB3 PO; +SERT25TA PO
[2017-01-19] MEDS ORDERED: QUET1TAB9 PO (08:14)
[2017-01-19] MEDS ORDERED: LISI-538 PO (08:14)
[2017-01-19] MEDS ORDERED: BENZ-52 PO (08:14)
[2017-01-19] MEDS ORDERED: SERT-138 PO (08:14)
[2017-01-19] MEDS ORDERED: AMOX500C PO (08:28)
[2017-01-19 09:01] LABS: MEAN CORPUSCULAR HEMOGLOBIN 29.5 pg (27.0-33.0); MEAN CORPUSCULAR HGB CONC 34.8 g/dl (32.0-36.5); MEAN CORPUSCULAR VOLUME 84.8 fl (80.0-96.0); RED CELL DISTRIBUTION WIDTH 13.2 % (11.5-14.5); WHITE BLOOD COUNT 7.1 K/mm3 (4.0-10.0)
[2017-01-19 09:24] LABS: ALBUMIN 3.9 GM/DL (3.2-5.2); ALBUMIN/GLOBULIN RATIO 1.15 (1.00-1.93); ALKALINE PHOSPHATASE 61 U/L (45-117); ALT/SGPT 50 U/L (12-78); ANION GAP 10 MEQ/L (8-16); AST/SGOT 16 U/L (15-37); BILIRUBIN,DIRECT < 0.1 MG/DL (0.0-0.2); BILIRUBIN,TOTAL 0.2 MG/DL (0.2-1.0); BLOOD UREA NITROGEN 13 MG/DL (7-18); CALCIUM LEVEL 8.9 MG/DL (8.8-10.2); CARBON DIOXIDE LEVEL 25 MEQ/L (21-32); CHLORIDE LEVEL 105 MEQ/L (98-107); CREATININE FOR GFR 0.87 MG/DL (0.70-1.30); FREE T4 0.91 NG/DL (0.76-1.46); GLOMERULAR FILTRATION RATE > 60.0 (>49); GLUCOSE, FASTING 165 MG/DL (80-110); POTASSIUM SERUM 4.3 MEQ/L (3.5-5.1); SODIUM LEVEL 140 MEQ/L (136-145); TOTAL PROTEIN 7.3 GM/DL (6.4-8.2)
[2017-01-19 09:42] LABS: METHADONE URINE NEGATIVE (NEGATIVE)
[2017-01-19] MEDS ORDERED: ACETAMINOPHEN TAB 650MG DOSE (2X325MG) PO ONE (11:45)
[2017-01-19] MEDS ORDERED: ZOCO40TA PO (11:50)
[2017-01-19] MEDS ORDERED: DIVA500T9 PO (11:50)
[2017-01-19] MEDS ORDERED: ACET50TAOT PO (11:50)
[2017-01-19 14:21] VITALS: BP 157/89
[2017-01-19] MEDS ORDERED: IBUPROFEN 400 MG TAB PO PRN (15:15)
[2017-01-19] MEDS ORDERED: MAALOX 30 ML SUSP *UDC PO PRN (15:15)
[2017-01-19] MEDS ORDERED: traZODone 50 MG TAB PO PRN (15:15)
[2017-01-19] MEDS ORDERED: MOM 30ML SUSPENSION UDC PO PRN (15:15)
[2017-01-19] MEDS: metFORMIN (GLUCOPHAGE) 1000 MG TABLET PO SCH (17:14)
[2017-01-19 18:00] VITALS: BP 126/70
[2017-01-19] MEDS: BENZTROPINE 1 MG TAB PO SCH (20:06)
[2017-01-19] MEDS: DIVALPROEX 250MG *ER* TAB PO SCH (20:06)
[2017-01-19] MEDS: QUEtiapine FUMARATE 200 MG TAB PO SCH (20:06)
[2017-01-19] MEDS: SIMVASTATIN 40 MG TAB PO SCH (20:06)
[2017-01-20 06:56] VITALS: BP 146/70
[2017-01-20] MEDS: SERTRALINE 100 MG TAB PO SCH (09:48)
[2017-01-20] MEDS: LISINOPRIL 20 MG TAB PO SCH (09:48)
[2017-01-20] MEDS: DIVALPROEX 250MG *ER* TAB PO SCH ×2 (09:48→20:20)
[2017-01-20] MEDS: metFORMIN (GLUCOPHAGE) 1000 MG TABLET PO SCH ×2 (09:48→17:12)
--- NOTE | 2017-01-20 10:26 | HPEPDOC ---
Medical History and Physical Date of Admission Jan 20, 2017 History and Physical PCP: [facility] in [place] ATTENDING: Dr. Juaquin Black HPI: 66yoM admitted to [facility] for schizoaffective disorder, being medically examined today. No acute medical complaints today. Patient states he ran out of his medications, he states he got depressed and forgot to get them filled. The patient has poor dentition however he denies any pain at this time. Denies any fevers, chills, weakness, fatigue, ANAYA, CP, SOB, cough, palpitations, abdominal pain, N/V/D or changes in bowel or bladder habits. PMHx: HTN HLD NIDDM GERD COPD H/O gastric ulcer, h/o transfusion/Fe def anemia. Off ASA. H/O hypothyroidism. off meds. Schizophrenia/schizoaffective disorder History of SI Depression Anxiety PTSD Poor dentition PSHX: Tonsillectomy Back surgery for herniated disc, 1972 SOCHX: Resides in: [place], [place]. Recently staying in a hot and [place]. Homeless. Marital Status: Single Kids: 0 Employment: Retired from [employer]. 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 ROS: As noted in HPI, otherwise 11pt ROS of systems reviewed and unremarkable. PE: GEN: 66yoM, appears older than stated age. Well-nourished, well developed. No acute distress. Alert and oriented x 3. Pleasant, interactive. HEENT: Normocephalic, atraumatic. Pupils are equal, round, and reactive to light. Extraocular movements are intact. No nystagmus appreciated. Sclera are nonicteric. Conjunctiva without injection. Nose midline. Moist mucous membranes. Dentition poor. Pharynx pink and moist, no cobblestoning. Neck supple , trachea midline. No lymphadenopathy or thyromegaly appreciated. CHEST: Regular rate and rhythm, +S1, +S2 LUNGS: Clear to auscultation bilaterally. No wheezes, rales, or rhonchi. Breathing appears symmetric and easy. Patient is speaking in full sentences. No accessory muscle use. ABD: Round, soft, non-tender, non-distended. +Bowel sounds throughout. No rebound or guarding. No costovertebral angle tenderness. EXT: Pulses 2+ bilaterally dorsalis pedis and radial. No lower extremity edema appreciated. SKIN: [place], dry, warm. Capillary refill <2sec. No rashes. NEURO: Alert and oriented x 3. Cranial nerves III-XII are intact. No focal deficits appreciated. EKG pending A&P: 66yoM admitted to [facility] for schizophrenia 1. Psych. Plan per Psychiatry. EKG pending. 2. Hypercholesterolemia. Continue statin. 3. HTN. Continue with lisinopril 20 mg daily with hold parameters. Blood pressure 138/70. [facility] [place] 5. H/O GERD. Continue prilosec 20 mg daily. 6. NIDDM. Continue with metformin 1000 mg twice a day. FSBS twice a day. Continue lisinopril. No aspirin as noted in #8. Patient will continue with carb consistent diet. 7. History of Iron deficiency anemia. Hemoglobin within normal limits. 8. History of GI bleed. Per patient he was previously on a baby aspirin given his increased cardiovascular risk but this was advised to be discontinued related to GI bleeding. Continue Prilosec 20 mg daily. Avoid NSAIDs. 9. History of hypothyroidism. TSH/free T4 within normal limits on admission. 10. Poor dentition. Arrange appointment with dental provider at discharge. 11. Staff member Livan present throughout exam. Vital Signs Vital Signs Date Time Temp Pulse Resp B/P (MAP) Pulse Ox O2 Delivery O2 Flow Rate FiO2 01/20/17 09:48 138/70 01/20/17 06:56 97.8 61 18 01/19/17 14:21 96 Room Air Laboratory Data Labs 24H Laboratory Tests 2 01/20/17 06:58: Bedside Glucose (Misc Panel) 136H Home Medications Scheduled Benztropine Mesylate (Benztropine Mesylate) 1 Mg Tab, 1 MG PO QHS Divalproex Sodium (Divalproex Sodium ER) 500 Mg Tab, 500 MG PO BID Lisinopril (Lisinopril) 20 Mg Tab, 20 MG PO DAILY Metformin Hydrochloride (Metformin HCl) 1,000 Mg Tab, 1,000 MG PO BID Quetiapine Fumerate (Quetiapine Fumarate) 200 Mg Tab, 200 MG PO QHS Sertraline HCl (Sertraline HCl) 100 Mg Tab, 100 MG PO DAILY Simvastatin - High Dose (Zocor) 40 Mg Tab, 40 MG PO QHS Scheduled PRN Acetaminophen (Acetaminophen) 500 Mg Tab, 500 MG PO for HEADACHE Allergies Coded Allergies: Fluphenazine (Verified Allergy, Intermediate, COLD SWEATS PACING, RASH, 08/18/16) Haloperidol (Verified Allergy, Intermediate, COLD SWEATS PACING, RASH, ) Leida Mora Jan 20, 2017 10:26
[2017-01-20] MEDS: OMEPRAZOLE 20 MG CAP PO SCH (10:43)
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
[2017-01-20 18:27] VITALS: BP 100/56
--- NOTE | 2017-01-20 19:00 | ECGEPIP ---
Stationary ECG Study [facility] Test Date: 2017-01-20 Pat Name: BEATA JULIO Department: Room: [place] [address] Gender: M Enforcement Manager: LINDA : 1950 Requested By: Leida Mora Order Number: [id number] Reading MD: Yared Reza Measurements Intervals [place] Rate: 85 P: 43 HI: 165 QRS: -16 QRSD: 99 T: 84 QT: 341 QTc: 406 Interpretive Statements Normal sinus rhythm Nonspecific T-wave abnormalities No significant change from 08/20/2016 Electronically Signed On 01-20-2017 19:00:31 EDT by Yared Reza
[2017-01-20] MEDS: ACETAMINOPHEN TAB 650MG DOSE (2X325MG) PO PRN (19:26)
[2017-01-20] MEDS: BENZTROPINE 1 MG TAB PO SCH (20:20)
[2017-01-20] MEDS: QUEtiapine FUMARATE 200 MG TAB PO SCH (20:20)
[2017-01-20] MEDS: SIMVASTATIN 40 MG TAB PO SCH (20:20)
[2017-01-21 07:06] VITALS: BP 121/65
[2017-01-21] MEDS: SERTRALINE 100 MG TAB PO SCH (08:24)
[2017-01-21] MEDS: metFORMIN (GLUCOPHAGE) 1000 MG TABLET PO SCH ×2 (08:24→17:01)
[2017-01-21] MEDS: LISINOPRIL 20 MG TAB PO SCH (08:24)
[2017-01-21] MEDS: OMEPRAZOLE 20 MG CAP PO SCH (08:25)
[2017-01-21] MEDS: DIVALPROEX 250MG *ER* TAB PO SCH ×2 (08:25→20:12)
[2017-01-21] MEDS ORDERED: INFLUENZA VIRUS VACCINE HIGH DOSE 0.5 ML SYRINGE (90662) IM ONE (09:00)
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
[2017-01-21] MEDS: ACETAMINOPHEN TAB 650MG DOSE (2X325MG) PO PRN (14:16)
[2017-01-21 18:00] VITALS: BP 135/68
[2017-01-21] MEDS: BENZTROPINE 1 MG TAB PO SCH (20:12)
[2017-01-21] MEDS: QUEtiapine FUMARATE 200 MG TAB PO SCH (20:12)
[2017-01-21] MEDS: SIMVASTATIN 40 MG TAB PO SCH (20:12)
[2017-01-22 06:26] VITALS: BP 145/81
[2017-01-22] MEDS: SERTRALINE 100 MG TAB PO SCH (08:09)
[2017-01-22] MEDS: OMEPRAZOLE 20 MG CAP PO SCH (08:09)
[2017-01-22] MEDS: metFORMIN (GLUCOPHAGE) 1000 MG TABLET PO SCH ×2 (08:09→17:14)
[2017-01-22] MEDS: LISINOPRIL 20 MG TAB PO SCH (08:10)
--- NOTE | 2017-01-22 09:06 | MHIPN ---
DATE: 01/22/2017 I met with Asa and staff today. Patient is in good mood and states he is feeling better. He requested something for his anxiety. I have given him Atarax twice a day, 25 mg. MENTAL STATUS: Mood is good. Affect is bright. No disturbance of speech. No disturbance of thought process. No loose associations. No abnormal or psychotic thoughts. Judgment and insight are good. Orientation is full in three spheres. Recent and remote memory intact. No disturbance of attention and concentration. No disturbance of language. Full fund of knowledge. IMPRESSION: Schizoaffective disorder. PLAN: Placement and followup will be done by discharge planning.
[2017-01-22] MEDS: hydrOXYzine 25 MG TAB PO SCH ×2 (10:08→20:07)
[2017-01-22] MEDS: DIVALPROEX 250MG *ER* TAB PO SCH ×2 (10:08→20:07)
[2017-01-22 18:27] VITALS: BP 138/66
[2017-01-22] MEDS: BENZTROPINE 1 MG TAB PO SCH (20:07)
[2017-01-22] MEDS: QUEtiapine FUMARATE 200 MG TAB PO SCH (20:07)
[2017-01-22] MEDS: SIMVASTATIN 40 MG TAB PO SCH (20:08)
[2017-01-23 07:16] VITALS: BP 118/75
[2017-01-23] MEDS: metFORMIN (GLUCOPHAGE) 1000 MG TABLET PO SCH ×2 (08:41→17:11)
[2017-01-23] MEDS: hydrOXYzine 25 MG TAB PO SCH ×2 (08:41→20:41)
[2017-01-23] MEDS: OMEPRAZOLE 20 MG CAP PO SCH (08:42)
[2017-01-23] MEDS: SERTRALINE 100 MG TAB PO SCH (08:42)
[2017-01-23] MEDS: DIVALPROEX 250MG *ER* TAB PO SCH ×2 (08:42→20:41)
[2017-01-23] MEDS: LISINOPRIL 20 MG TAB PO SCH (08:42)
[2017-01-23 18:21] VITALS: BP 138/70
[2017-01-23] MEDS: BENZTROPINE 1 MG TAB PO SCH (20:40)
[2017-01-23] MEDS: SIMVASTATIN 40 MG TAB PO SCH (20:40)
[2017-01-23] MEDS: QUEtiapine FUMARATE 200 MG TAB PO SCH (20:41)
[2017-01-24 06:34] VITALS: BP 111/73
[2017-01-24] MEDS: DIVALPROEX 250MG *ER* TAB PO SCH ×2 (07:55→20:05)
[2017-01-24] MEDS: hydrOXYzine 25 MG TAB PO SCH ×2 (07:55→20:05)
[2017-01-24] MEDS: OMEPRAZOLE 20 MG CAP PO SCH (07:55)
[2017-01-24] MEDS: SERTRALINE 100 MG TAB PO SCH (07:56)
[2017-01-24] MEDS: metFORMIN (GLUCOPHAGE) 1000 MG TABLET PO SCH ×2 (07:56→17:06)
[2017-01-24] MEDS: LISINOPRIL 20 MG TAB PO SCH (07:56)
[2017-01-24 18:42] VITALS: BP 114/61
[2017-01-24] MEDS: BENZTROPINE 1 MG TAB PO SCH (20:05)
[2017-01-24] MEDS: SIMVASTATIN 40 MG TAB PO SCH (20:05)
[2017-01-24] MEDS: QUEtiapine FUMARATE 200 MG TAB PO SCH (20:05)
[2017-01-25] MEDS: ACETAMINOPHEN TAB 650MG DOSE (2X325MG) PO PRN (02:30)
[2017-01-25 06:47] VITALS: BP 134/65
[2017-01-25 08:26] VITALS: BP 139/75
[2017-01-25] MEDS: OMEPRAZOLE 20 MG CAP PO SCH (08:26)
[2017-01-25] MEDS: hydrOXYzine 25 MG TAB PO SCH (08:26)
[2017-01-25] MEDS: LISINOPRIL 20 MG TAB PO SCH (08:26)
[2017-01-25] MEDS: DIVALPROEX 250MG *ER* TAB PO SCH (08:26)
[2017-01-25] MEDS: metFORMIN (GLUCOPHAGE) 1000 MG TABLET PO SCH (08:26)
[2017-01-25] MEDS: SERTRALINE 100 MG TAB PO SCH (08:26)
[2017-01-25] MEDS ORDERED: OMEP20CA3 PO (10:37)
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
== END 2017-01-25 12:15 | disposition home or self-care (01) | DRG 885 ==
LOC: M ED 07:22 → M ED INP 13:16 → M PSY 14:07
PROVIDERS: ADMIT Psychiatry & Neurology Psychiatry; ATTEND Psychiatry & Neurology Child & Adolescent Psychiatry
DX: F20.5 Residual schizophrenia (principal); Z79.899 Other long term (current) drug therapy; I10 Essential (primary) hypertension; K21.9 Gastro-esophageal reflux disease without esophagitis; J44.9 Chronic obstructive pulmonary disease, unspecified; F41.9 Anxiety disorder, unspecified; E03.9 Hypothyroidism, unspecified; F43.10 Post-traumatic stress disorder, unspecified; E78.00 Pure hypercholesterolemia, unspecified; D50.9 Iron deficiency anemia, unspecified; Z88.8 Allergy status to other drugs, medicaments and biological substances

== ENCOUNTER 2017-05-21 09:00 | Inpatient (IN) | payer MEDICARE, OTHER ==
[2017-05-21 10:08] LABS: HEMATOCRIT 38.6 % (42.0-52.0); HEMOGLOBIN 13.1 g/dl (14.0-18.0); MEAN CORPUSCULAR HEMOGLOBIN 28.8 pg (27.0-33.0); MEAN CORPUSCULAR HGB CONC 33.9 g/dl (32.0-36.5); MEAN CORPUSCULAR VOLUME 84.8 fl (80.0-96.0); PLATELET COUNT, AUTOMATED 195 10^3/uL (150-450); RED BLOOD COUNT 4.55 10^6/uL (4.30-6.10); RED CELL DISTRIBUTION WIDTH 12.6 % (11.5-14.5); WHITE BLOOD COUNT 6.3 10^3/uL (4.0-10.0)
[2017-05-21 10:29] LABS: AMPHETAMINES LEVEL URINE NEGATIVE (NEGATIVE); BARBITURATES URINE NEGATIVE (NEGATIVE); BENZODIAZEPINES URINE NEGATIVE (NEGATIVE); CANNABINOIDS URINE NEGATIVE (NEGATIVE); COCAINE METABOLITE URINE NEGATIVE (NEGATIVE); METHADONE URINE NEGATIVE (NEGATIVE); OPIATES URINE NEGATIVE (NEGATIVE); PHENCYCLIDINE URINE NEGATIVE (NEGATIVE)
[2017-05-21 10:39] LABS: ALBUMIN 3.8 GM/DL (3.2-5.2); ALBUMIN/GLOBULIN RATIO 1.31 (1.00-1.93); ALKALINE PHOSPHATASE 47 U/L (45-117); ALT/SGPT 35 U/L (12-78); ANION GAP 7 MEQ/L (8-16); AST/SGOT 14 U/L (7-37); BILIRUBIN,DIRECT < 0.1 MG/DL (0.0-0.2); BILIRUBIN,TOTAL 0.2 MG/DL (0.2-1.0); BLOOD UREA NITROGEN 17 MG/DL (7-18); CALCIUM LEVEL 8.5 MG/DL (8.8-10.2); CARBON DIOXIDE LEVEL 25 MEQ/L (21-32); CHLORIDE LEVEL 106 MEQ/L (98-107); CREATININE FOR GFR 0.85 MG/DL (0.70-1.30); ETHYL ALCOHOL (ETHANOL) 0.003 % (0.000-0.010); GLOMERULAR FILTRATION RATE > 60.0 (>49); GLUCOSE, FASTING 217 MG/DL (80-110); POTASSIUM SERUM 4.3 MEQ/L (3.5-5.1); SALICYLATE LEVEL < 1.7 MG/DL (5.0-30.0); SODIUM LEVEL 138 MEQ/L (136-145); TOTAL PROTEIN 6.7 GM/DL (6.4-8.2)
[2017-05-21 10:40] LABS: ACETAMINOPHEN LEVEL < 2.0 UG/ML (10.0-30.0)
[2017-05-21] MEDS: LORazepam 2 MG TAB PO (12:24)
[2017-05-21] MEDS ORDERED: MOM 30ML SUSPENSION UDC PO (18:00)
[2017-05-21] MEDS: metFORMIN (GLUCOPHAGE) 1000 MG TABLET PO (19:11)
[2017-05-21] MEDS: traZODone 50 MG TAB PO (21:44)
[2017-05-22] MEDS: ACETAMINOPHEN TAB 650MG DOSE (2X325MG) PO ×3 (04:15→22:05)
[2017-05-22] MEDS: SERTRALINE HCL 50 MG TAB PO (08:39)
[2017-05-22] MEDS: OMEGA-3 1050MG CAPSULE PO (08:39)
[2017-05-22] MEDS: BENZTROPINE 1 MG TAB PO (08:39)
[2017-05-22] MEDS: DIVALPROEX 500MG *ER* TAB PO (08:39)
[2017-05-22] MEDS: metFORMIN (GLUCOPHAGE) 1000 MG TABLET PO ×2 (08:39→18:41)
[2017-05-22] MEDS: traZODone 50 MG TAB PO (21:01)
[2017-05-23] MEDS: ACETAMINOPHEN TAB 650MG DOSE (2X325MG) PO ×2 (04:54→18:20)
[2017-05-23] MEDS: BENZTROPINE 1 MG TAB PO (10:01)
[2017-05-23] MEDS: OMEGA-3 1050MG CAPSULE PO (10:01)
[2017-05-23] MEDS: metFORMIN (GLUCOPHAGE) 1000 MG TABLET PO ×2 (10:01→18:20)
[2017-05-23] MEDS: SERTRALINE HCL 50 MG TAB PO (10:01)
[2017-05-23] MEDS: DIVALPROEX 500MG *ER* TAB PO (10:02)
[2017-05-23] MEDS: MAALOX 30 ML SUSP *UDC PO (18:58)
[2017-05-23] MEDS: traZODone 50 MG TAB PO (20:11)
[2017-05-23 20:19] LABS: BEDSIDE GLUCOSE 202 MG/DL (80-115)
[2017-05-24] MEDS: ACETAMINOPHEN TAB 650MG DOSE (2X325MG) PO ×2 (00:48→20:06)
[2017-05-24 06:49] LABS: BEDSIDE GLUCOSE 146 MG/DL (80-115)
[2017-05-24] MEDS: SERTRALINE HCL 50 MG TAB PO (08:17)
[2017-05-24] MEDS: BENZTROPINE 1 MG TAB PO (08:17)
[2017-05-24] MEDS: DIVALPROEX 500MG *ER* TAB PO ×2 (08:17→20:06)
[2017-05-24] MEDS: OMEGA-3 1050MG CAPSULE PO (08:17)
[2017-05-24] MEDS: metFORMIN (GLUCOPHAGE) 1000 MG TABLET PO ×2 (08:17→17:29)
[2017-05-24 09:14] LABS: CHOLESTEROL LEVEL 168 MG/DL (<200); CHOLESTEROL RISK RATIO 4.421 (<5); FERRITIN 27 NG/ML (26-388); HDL CHOLESTEROL 38 MG/DL (>40); IRON (FE) 67 UG/DL (65-175); LDL CHOLESTEROL 86.8 MG/DL (<100); NON-HDL-C 130 MG/DL; PERCENT SATURATION 18.6 % (19.7-50.0); TOTAL IRON BINDING CAPACITY 360 UG/DL (250-450); TRIGLYCERIDES LEVEL 216 MG/DL (<150)
[2017-05-24 09:31] LABS: ESTIMATED AVERAGE GLUCOSE 192 MG/DL (60-110); HEMOGLOBIN A1c 8.3 %
[2017-05-24 16:47] LABS: BEDSIDE GLUCOSE 151 MG/DL (80-115)
[2017-05-24] MEDS: traZODone 50 MG TAB PO (21:02)
[2017-05-25] MEDS: SERTRALINE 100 MG TAB PO (08:05)
[2017-05-25] MEDS: BENZTROPINE 1 MG TAB PO (08:05)
[2017-05-25] MEDS: DIVALPROEX 500MG *ER* TAB PO (08:05)
[2017-05-25] MEDS: metFORMIN (GLUCOPHAGE) 1000 MG TABLET PO ×2 (08:05→17:06)
[2017-05-25] MEDS: OMEGA-3 1050MG CAPSULE PO (08:05)
[2017-05-25 13:22] LABS: BEDSIDE GLUCOSE 134 MG/DL (80-115)
[2017-05-25 16:59] LABS: BEDSIDE GLUCOSE 173 MG/DL (80-115)
[2017-05-26] MEDS ORDERED: SERTRALINE 100 MG TAB PO (09:00)
[2017-05-27] MEDS ORDERED: DIVALPROEX 500MG *ER* TAB PO (09:00)
== END 2017-05-25 17:00 | disposition home or self-care (01) | DRG 885 ==
LOC: M PSY 05-22 17:09 → M ED 09:00 → M ED INP 15:43 → M PSY 16:35
DX: F20.9 Schizophrenia, unspecified (principal); R45.851 Suicidal ideations; F29 Unspecified psychosis not due to a substance or known physiological condition; Z79.899 Other long term (current) drug therapy; Z88.8 Allergy status to other drugs, medicaments and biological substances; E78.5 Hyperlipidemia, unspecified; E11.9 Type 2 diabetes mellitus without complications; K21.9 Gastro-esophageal reflux disease without esophagitis; Z79.84 Long term (current) use of oral hypoglycemic drugs

== ENCOUNTER 2017-06-15 09:51 | Inpatient (IN) | payer MEDICARE ==
[2017-06-15 11:24] LABS: HEMATOCRIT 39.9 % (42.0-52.0); HEMOGLOBIN 13.6 g/dl (14.0-18.0); MEAN CORPUSCULAR HEMOGLOBIN 28.2 pg (27.0-33.0); MEAN CORPUSCULAR HGB CONC 34.1 g/dl (32.0-36.5); MEAN CORPUSCULAR VOLUME 82.8 fl (80.0-96.0); PLATELET COUNT, AUTOMATED 221 10^3/uL (150-450); RED BLOOD COUNT 4.82 10^6/uL (4.30-6.10); RED CELL DISTRIBUTION WIDTH 12.7 % (11.5-14.5)
[2017-06-15 11:40] LABS: AMPHETAMINES LEVEL URINE NEGATIVE (NEGATIVE); BARBITURATES URINE NEGATIVE (NEGATIVE); BENZODIAZEPINES URINE NEGATIVE (NEGATIVE); CANNABINOIDS URINE NEGATIVE (NEGATIVE); COCAINE METABOLITE URINE NEGATIVE (NEGATIVE); METHADONE URINE NEGATIVE (NEGATIVE); OPIATES URINE NEGATIVE (NEGATIVE); PHENCYCLIDINE URINE NEGATIVE (NEGATIVE)
[2017-06-15 11:57] LABS: ACETAMINOPHEN LEVEL < 2.0 UG/ML (10.0-30.0); ALBUMIN 3.7 GM/DL (3.2-5.2); ALBUMIN/GLOBULIN RATIO 1.28 (1.00-1.93); ALKALINE PHOSPHATASE 54 U/L (45-117); ALT/SGPT 53 U/L (12-78); ANION GAP 8 MEQ/L (8-16); AST/SGOT 15 U/L (7-37); BILIRUBIN,DIRECT < 0.1 MG/DL (0.0-0.2); BILIRUBIN,TOTAL 0.2 MG/DL (0.2-1.0); BLOOD UREA NITROGEN 14 MG/DL (7-18); CALCIUM LEVEL 8.6 MG/DL (8.8-10.2); CARBON DIOXIDE LEVEL 27 MEQ/L (21-32); CHLORIDE LEVEL 104 MEQ/L (98-107); CREATININE FOR GFR 0.94 MG/DL (0.70-1.30); ETHYL ALCOHOL (ETHANOL) < 0.003 % (0.000-0.010); GLOMERULAR FILTRATION RATE > 60.0 (>49); GLUCOSE, FASTING 293 MG/DL (70-100); POTASSIUM SERUM 4.8 MEQ/L (3.5-5.1); SALICYLATE LEVEL < 1.7 MG/DL (5.0-30.0); SODIUM LEVEL 139 MEQ/L (136-145); TOTAL PROTEIN 6.6 GM/DL (6.4-8.2)
[2017-06-15 11:59] LABS: VALPROIC ACID (DEPAKOTE) < 3.0 UG/ML (50.0-100.0)
[2017-06-15] MEDS ORDERED: MOM 30ML SUSPENSION UDC PO (17:30)
[2017-06-15] MEDS: DIVALPROEX 500MG *ER* TAB PO (18:58)
[2017-06-15] MEDS: traZODone 50 MG TAB PO (20:34)
[2017-06-16] MEDS: ACETAMINOPHEN TAB 650MG DOSE (2X325MG) PO ×2 (02:49→10:51)
[2017-06-16] MEDS: SERTRALINE HCL 50 MG TAB PO (08:37)
[2017-06-16] MEDS: DIVALPROEX 500MG *ER* TAB PO (08:37)
[2017-06-16] MEDS: OMEGA-3 1050MG CAPSULE PO (08:37)
[2017-06-16] MEDS: metFORMIN (GLUCOPHAGE) 1000 MG TABLET PO (08:37)
[2017-06-16] MEDS: OMEPRAZOLE 20 MG CAP PO (09:35)
[2017-06-16] MEDS: MAALOX 30 ML SUSP *UDC PO (16:45)
[2017-06-16] MEDS: traZODone 50 MG TAB PO (21:56)
[2017-06-17] MEDS: ACETAMINOPHEN TAB 650MG DOSE (2X325MG) PO ×3 (02:09→19:44)
[2017-06-17 06:53] LABS: BEDSIDE GLUCOSE 153 MG/DL (80-115)
[2017-06-17] MEDS: DIVALPROEX 500MG *ER* TAB PO ×2 (08:01→20:33)
[2017-06-17] MEDS: OMEPRAZOLE 20 MG CAP PO (08:01)
[2017-06-17] MEDS: SERTRALINE HCL 50 MG TAB PO (08:01)
[2017-06-17] MEDS: OMEGA-3 1050MG CAPSULE PO (08:01)
[2017-06-17 12:02] LABS: BEDSIDE GLUCOSE 149 MG/DL (80-115)
[2017-06-17] MEDS: traZODone 50 MG TAB PO (20:33)
[2017-06-18] MEDS: ACETAMINOPHEN TAB 650MG DOSE (2X325MG) PO ×2 (03:32→09:43)
[2017-06-18 06:56] LABS: BEDSIDE GLUCOSE 187 MG/DL (80-115)
[2017-06-18] MEDS: metFORMIN (GLUCOPHAGE) 1000 MG TABLET PO (08:18)
[2017-06-18] MEDS: DIVALPROEX 500MG *ER* TAB PO (08:18)
[2017-06-18] MEDS: OMEGA-3 1050MG CAPSULE PO (08:18)
[2017-06-18] MEDS: SERTRALINE HCL 50 MG TAB PO (08:19)
[2017-06-18] MEDS: OMEPRAZOLE 20 MG CAP PO (08:19)
== END 2017-06-18 14:00 | disposition home or self-care (01) | DRG 885 ==
LOC: M ED 09:51 → M ED INP 13:33 → M PSY 16:39
DX: F20.9 Schizophrenia, unspecified (principal); R45.851 Suicidal ideations; F71 Moderate intellectual disabilities; Z79.84 Long term (current) use of oral hypoglycemic drugs; Z79.899 Other long term (current) drug therapy; Z88.8 Allergy status to other drugs, medicaments and biological substances; E78.00 Pure hypercholesterolemia, unspecified; E11.9 Type 2 diabetes mellitus without complications; Z91.19 Patient's noncompliance with other medical treatment and regimen

== ENCOUNTER 2017-08-23 17:42 | Inpatient (IN) | payer OTHER, MEDICARE ==
[2017-08-23 19:22] LABS: HEMATOCRIT 38.2 % (42.0-52.0); MEAN CORPUSCULAR HEMOGLOBIN 28.3 pg (27.0-33.0); PLATELET COUNT, AUTOMATED 222 10^3/uL (150-450); RED CELL DISTRIBUTION WIDTH 12.9 % (11.5-14.5); WHITE BLOOD COUNT 7.7 10^3/uL (4.0-10.0)
[2017-08-23 19:42] LABS: AMPHETAMINES LEVEL URINE NEGATIVE (NEGATIVE); BARBITURATES URINE NEGATIVE (NEGATIVE); BENZODIAZEPINES URINE NEGATIVE (NEGATIVE); CANNABINOIDS URINE NEGATIVE (NEGATIVE); COCAINE METABOLITE URINE NEGATIVE (NEGATIVE); METHADONE URINE NEGATIVE (NEGATIVE); OPIATES URINE NEGATIVE (NEGATIVE); PHENCYCLIDINE URINE NEGATIVE (NEGATIVE)
[2017-08-23 19:50] LABS: ACETAMINOPHEN LEVEL < 2.0 UG/ML (10.0-30.0); ALBUMIN 3.7 GM/DL (3.2-5.2); ALBUMIN/GLOBULIN RATIO 1.12 (1.00-1.93); ALKALINE PHOSPHATASE 58 U/L (45-117); ALT/SGPT 41 U/L (12-78); ANION GAP 8 MEQ/L (8-16); AST/SGOT 20 U/L (7-37); BILIRUBIN,DIRECT < 0.1 MG/DL (0.0-0.2); BILIRUBIN,TOTAL 0.3 MG/DL (0.2-1.0); BLOOD UREA NITROGEN 10 MG/DL (7-18); CALCIUM LEVEL 8.8 MG/DL (8.8-10.2); CARBON DIOXIDE LEVEL 27 MEQ/L (21-32); CHLORIDE LEVEL 103 MEQ/L (98-107); CREATININE FOR GFR 0.95 MG/DL (0.70-1.30); ETHYL ALCOHOL (ETHANOL) < 0.003 % (0.000-0.010); GLOMERULAR FILTRATION RATE > 60.0 (>49); GLUCOSE, FASTING 273 MG/DL (70-100); POTASSIUM SERUM 4.1 MEQ/L (3.5-5.1); SALICYLATE LEVEL < 1.7 MG/DL (5.0-30.0); SODIUM LEVEL 138 MEQ/L (136-145)
[2017-08-23] MEDS ORDERED: MOM 30ML SUSPENSION UDC PO (21:15)
[2017-08-23] MEDS ORDERED: MAALOX 30 ML SUSP *UDC PO (21:15)
[2017-08-23] MEDS: PALIPERIDONE 3 MG ER TAB (INVEGA) PO (22:44)
[2017-08-23] MEDS: traZODone 50 MG TAB PO (22:45)
[2017-08-24] MEDS: metFORMIN (GLUCOPHAGE) 1000 MG TABLET PO ×2 (09:58→21:59)
[2017-08-24] MEDS: ATORVASTATIN 20 MG TAB PO (09:58)
[2017-08-24] MEDS: OMEPRAZOLE 20 MG CAP PO (09:58)
[2017-08-24] MEDS: OLANZapine 5 MG TAB PO ×2 (11:06→18:03)
[2017-08-24] MEDS: DIVALPROEX 500MG *ER* TAB PO ×2 (11:36→21:59)
[2017-08-24] MEDS: PALIPERIDONE 3 MG ER TAB (INVEGA) PO ×2 (11:52→21:59)
[2017-08-24 17:14] LABS: BEDSIDE GLUCOSE 199 MG/DL (80-115)
[2017-08-25 06:17] LABS: BEDSIDE GLUCOSE 173 MG/DL (80-115)
[2017-08-25] MEDS: DIVALPROEX 500MG *ER* TAB PO ×2 (08:15→20:32)
[2017-08-25] MEDS: PALIPERIDONE 3 MG ER TAB (INVEGA) PO (08:15)
[2017-08-25] MEDS: OLANZapine 5 MG TAB PO ×2 (08:15→18:29)
[2017-08-25] MEDS: metFORMIN (GLUCOPHAGE) 1000 MG TABLET PO ×2 (08:15→20:32)
[2017-08-25] MEDS: OMEPRAZOLE 20 MG CAP PO (08:15)
[2017-08-25] MEDS: ATORVASTATIN 20 MG TAB PO (08:15)
[2017-08-25] MEDS: PALIPERIDONE 6 MG ER TAB (INVEGA) PO (20:32)
[2017-08-25] MEDS: traZODone 50 MG TAB PO (20:32)
[2017-08-25] MEDS: ACETAMINOPHEN TAB 650MG DOSE (2X325MG) PO (20:33)
[2017-08-25] MEDS: OLANZapine ORAL DISINTEGRATING TAB 5MG PO (22:16)
[2017-08-26 06:15] LABS: BEDSIDE GLUCOSE 163 MG/DL (80-115)
[2017-08-26] MEDS: DIVALPROEX 500MG *ER* TAB PO ×2 (08:12→20:27)
[2017-08-26] MEDS: PALIPERIDONE 6 MG ER TAB (INVEGA) PO ×2 (08:12→20:27)
[2017-08-26] MEDS: OMEPRAZOLE 20 MG CAP PO (08:12)
[2017-08-26] MEDS: ATORVASTATIN 20 MG TAB PO (08:12)
[2017-08-26] MEDS: metFORMIN (GLUCOPHAGE) 1000 MG TABLET PO ×2 (08:13→20:27)
[2017-08-26 11:32] LABS: VALPROIC ACID (DEPAKOTE) 31.4 UG/ML (50.0-100.0)
[2017-08-26] MEDS: PALIPERIDONE PALMITATE 234 MG/1.5 ML INJ (INVEGA SUSTENNA)(J2426) IM (19:36)
[2017-08-26] MEDS: traZODone 50 MG TAB PO (20:27)
[2017-08-26] MEDS: OLANZapine 5 MG TAB PO (20:27)
[2017-08-26] MEDS: ACETAMINOPHEN TAB 650MG DOSE (2X325MG) PO (22:10)
[2017-08-27 06:33] LABS: BEDSIDE GLUCOSE 180 MG/DL (80-115)
[2017-08-27] MEDS: DIVALPROEX 500MG *ER* TAB PO ×2 (08:25→20:37)
[2017-08-27] MEDS: metFORMIN (GLUCOPHAGE) 1000 MG TABLET PO ×2 (08:25→20:37)
[2017-08-27] MEDS: PALIPERIDONE 6 MG ER TAB (INVEGA) PO ×2 (08:25→20:36)
[2017-08-27] MEDS: ATORVASTATIN 20 MG TAB PO (08:25)
[2017-08-27] MEDS: OMEPRAZOLE 20 MG CAP PO (08:25)
[2017-08-27] MEDS: OLANZapine 5 MG TAB PO (13:52)
[2017-08-27 15:19] LABS: BEDSIDE GLUCOSE 221 MG/DL (80-115)
[2017-08-27 17:05] LABS: BEDSIDE GLUCOSE 192 MG/DL (80-115)
[2017-08-27] MEDS: traZODone 50 MG TAB PO (20:36)
[2017-08-28] MEDS: ACETAMINOPHEN TAB 650MG DOSE (2X325MG) PO ×2 (02:31→10:35)
[2017-08-28 06:18] LABS: BEDSIDE GLUCOSE 169 MG/DL (80-115)
[2017-08-28] MEDS: OMEPRAZOLE 20 MG CAP PO (08:30)
[2017-08-28] MEDS: PALIPERIDONE 6 MG ER TAB (INVEGA) PO ×2 (08:30→20:37)
[2017-08-28] MEDS: ATORVASTATIN 20 MG TAB PO (08:30)
[2017-08-28] MEDS: DIVALPROEX 500MG *ER* TAB PO ×2 (08:30→20:37)
[2017-08-28] MEDS: metFORMIN (GLUCOPHAGE) 1000 MG TABLET PO ×2 (08:30→20:37)
[2017-08-28] MEDS: OLANZapine 5 MG TAB PO ×2 (13:36→19:49)
[2017-08-28 17:18] LABS: BEDSIDE GLUCOSE 191 MG/DL (80-115)
[2017-08-28] MEDS: traZODone 50 MG TAB PO (20:37)
[2017-08-29 06:16] LABS: BEDSIDE GLUCOSE 155 MG/DL (80-115)
[2017-08-29] MEDS: metFORMIN (GLUCOPHAGE) 1000 MG TABLET PO ×2 (08:05→21:18)
[2017-08-29] MEDS: PALIPERIDONE 6 MG ER TAB (INVEGA) PO ×2 (08:05→21:18)
[2017-08-29] MEDS: OMEPRAZOLE 20 MG CAP PO (08:05)
[2017-08-29] MEDS: DIVALPROEX 500MG *ER* TAB PO ×2 (08:05→21:19)
[2017-08-29] MEDS: ATORVASTATIN 20 MG TAB PO (08:05)
[2017-08-29 17:08] LABS: BEDSIDE GLUCOSE 285 MG/DL (80-115)
[2017-08-29] MEDS: ACETAMINOPHEN TAB 650MG DOSE (2X325MG) PO (18:33)
[2017-08-29] MEDS: traZODone 50 MG TAB PO (21:19)
[2017-08-29] MEDS: OLANZapine 5 MG TAB PO (21:20)
[2017-08-30] MEDS: ACETAMINOPHEN TAB 650MG DOSE (2X325MG) PO ×3 (02:11→22:24)
[2017-08-30 06:38] LABS: BEDSIDE GLUCOSE 141 MG/DL (80-115)
[2017-08-30] MEDS: OMEPRAZOLE 20 MG CAP PO (08:33)
[2017-08-30] MEDS: DIVALPROEX 500MG *ER* TAB PO ×2 (08:33→20:24)
[2017-08-30] MEDS: ATORVASTATIN 20 MG TAB PO (08:33)
[2017-08-30] MEDS: PALIPERIDONE 6 MG ER TAB (INVEGA) PO ×2 (08:33→20:24)
[2017-08-30] MEDS: metFORMIN (GLUCOPHAGE) 1000 MG TABLET PO ×2 (08:33→20:24)
[2017-08-30 10:56] LABS: VALPROIC ACID (DEPAKOTE) 45.9 UG/ML (50.0-100.0)
[2017-08-30 16:54] LABS: BEDSIDE GLUCOSE 200 MG/DL (80-115)
[2017-08-30] MEDS: OLANZapine 5 MG TAB PO (20:24)
[2017-08-30] MEDS: traZODone 50 MG TAB PO (20:24)
[2017-08-31 06:27] LABS: BEDSIDE GLUCOSE 192 MG/DL (80-115)
[2017-08-31] MEDS: PALIPERIDONE 6 MG ER TAB (INVEGA) PO (08:08)
[2017-08-31] MEDS: DIVALPROEX 500MG *ER* TAB PO (08:08)
[2017-08-31] MEDS: OMEPRAZOLE 20 MG CAP PO (08:08)
[2017-08-31] MEDS: ATORVASTATIN 20 MG TAB PO (08:08)
[2017-08-31] MEDS: metFORMIN (GLUCOPHAGE) 1000 MG TABLET PO (08:09)
[2017-08-31] MEDS: PALIPERIDONE PALMITATE 156 MG/1ML INJ(INVEGA SUSTENNA)(J2426) IM (09:02)
== END 2017-08-31 12:05 | disposition home or self-care (01) | DRG 885 ==
LOC: M PSY 08-27 10:45 → M ED 17:42 → M ED INP 21:04 → M PSY 21:45
DX: F20.9 Schizophrenia, unspecified (principal); R45.851 Suicidal ideations; E11.9 Type 2 diabetes mellitus without complications; J44.9 Chronic obstructive pulmonary disease, unspecified; E78.00 Pure hypercholesterolemia, unspecified; K21.9 Gastro-esophageal reflux disease without esophagitis; F71 Moderate intellectual disabilities; E78.5 Hyperlipidemia, unspecified; I10 Essential (primary) hypertension; R45.850 Homicidal ideations; Z79.899 Other long term (current) drug therapy; Z79.84 Long term (current) use of oral hypoglycemic drugs; Z88.8 Allergy status to other drugs, medicaments and biological substances; Z91.5 Personal history of self-harm

== ENCOUNTER 2017-09-01 23:28 | Emergency (ER) | payer OTHER, MEDICARE ==
[2017-09-02] MEDS ORDERED: KETOROLAC 30 MG/ML VIAL (J1885) As Ordered (01:52)
[2017-09-02] MEDS: KETOROLAC 60 MG/2 ML VIAL (J1885) IM (01:54)
== END 2017-09-02 03:20 | disposition home or self-care (01) ==
LOC: M ED 23:28
DX: S39.012A Strain of muscle, fascia and tendon of lower back, initial encounter (principal); W19.XXXA Unspecified fall, initial encounter; Y92.89 Other specified places as the place of occurrence of the external cause; M51.36 Other intervertebral disc degeneration, lumbar region; G89.29 Other chronic pain; E11.9 Type 2 diabetes mellitus without complications; K21.9 Gastro-esophageal reflux disease without esophagitis; F20.81 Schizophreniform disorder; Z88.8 Allergy status to other drugs, medicaments and biological substances; Z79.899 Other long term (current) drug therapy; Z79.84 Long term (current) use of oral hypoglycemic drugs
CPT/HCPCS: J1885

== ENCOUNTER 2017-10-23 18:46 | Emergency (ER) | payer MEDICARE, OTHER | END 2017-10-23 22:14 | disposition home or self-care (01) | LOC: M ED 18:46 | DX: Z59.0 Homelessness (principal); Z79.82 Long term (current) use of aspirin; Z79.899 Other long term (current) drug therapy | CPT/HCPCS: 99282 ==

== ENCOUNTER 2018-01-09 19:09 | Emergency (ER) | payer MEDICARE ==
[2018-01-09] MEDS: MORPHINE 10 MG/ML 1ML VIAL (J2270) IM (19:45)
== END 2018-01-09 21:10 | disposition home or self-care (01) ==
LOC: M ED 19:09
DX: S30.0XXA Contusion of lower back and pelvis, initial encounter (principal); W18.09XA Striking against other object with subsequent fall, initial encounter; Y92.89 Other specified places as the place of occurrence of the external cause; E11.9 Type 2 diabetes mellitus without complications; I10 Essential (primary) hypertension; E78.9 Disorder of lipoprotein metabolism, unspecified; Z88.8 Allergy status to other drugs, medicaments and biological substances; Z79.899 Other long term (current) drug therapy; Z79.84 Long term (current) use of oral hypoglycemic drugs; Z79.82 Long term (current) use of aspirin
CPT/HCPCS: J2270

== ENCOUNTER 2018-07-28 20:19 | Inpatient (IN) | payer MEDICARE ==
[~2018-07-28] VITALS: Ht 167.6 cm; Wt 86.7 kg
[~2018-07-28 20:19] MED LIST changes: +ACET500T15 PO; +AMLO10TA5 PO; +AMOX500C PO; +ASPI81TA85 PO; +BENZ-52 PO; +CVS20TAB PO; +DEPA1TAB3 PO; +EQ O20TA4; +FISH1000 PO; +FISH100049 PO; +FLUO10CA8 PO; +FLUT05CR TOP; +INVE234I; +PALI1TAB3; +PALI1TAB3 PO; +RAMI1CAP22 PO; +RAMI1CAP26 PO; -RAMI25CA PO; +SERT50TA PO; -TRAZ-136 PO; +TRAZ-160 PO; +TRAZ-163 PO; +TRAZ1TAB14 PO; -TRAZ50TA11 PO; +ZOLO50TA; +ZOLO50TA PO
[2018-07-28 21:28] LABS: MEAN CORPUSCULAR HEMOGLOBIN 28.1 pg (27.0-33.0); MEAN CORPUSCULAR HGB CONC 33.3 g/dl (32.0-36.5); MEAN CORPUSCULAR VOLUME 84.3 fl (80.0-96.0); PLATELET COUNT, AUTOMATED 249 10^3/uL (150-450); RED BLOOD COUNT 4.98 10^6/uL (4.30-6.10); WHITE BLOOD COUNT 8.1 10^3/uL (4.0-10.0)
[2018-07-28 22:04] LABS: ACETAMINOPHEN LEVEL < 2.0 UG/ML (10.0-30.0); ALBUMIN 3.5 GM/DL (3.2-5.2); ALT/SGPT 32 U/L (12-78); BILIRUBIN,DIRECT < 0.1 MG/DL (0.0-0.2); BILIRUBIN,TOTAL 0.3 MG/DL (0.2-1.0); BLOOD UREA NITROGEN 15 MG/DL (7-18); CALCIUM LEVEL 8.4 MG/DL (8.8-10.2); CARBON DIOXIDE LEVEL 25 MEQ/L (21-32); CHLORIDE LEVEL 105 MEQ/L (98-107); ETHYL ALCOHOL (ETHANOL) < 0.003 % (0.000-0.010); GLOMERULAR FILTRATION RATE > 60.0 (>49); GLUCOSE, FASTING 264 MG/DL (70-100); POTASSIUM SERUM 4.3 MEQ/L (3.5-5.1); SALICYLATE LEVEL < 1.7 MG/DL (5.0-30.0); SODIUM LEVEL 137 MEQ/L (136-145); TOTAL PROTEIN 6.5 GM/DL (6.4-8.2)
[2018-07-28 22:18] LABS: AMPHETAMINES LEVEL URINE NEGATIVE (NEGATIVE); BARBITURATES URINE NEGATIVE (NEGATIVE); BENZODIAZEPINES URINE NEGATIVE (NEGATIVE); CANNABINOIDS URINE NEGATIVE (NEGATIVE); COCAINE METABOLITE URINE NEGATIVE (NEGATIVE); METHADONE URINE NEGATIVE (NEGATIVE); OPIATES URINE NEGATIVE (NEGATIVE); PHENCYCLIDINE URINE NEGATIVE (NEGATIVE)
[2018-07-28] MEDS ORDERED: MAALOX 30 ML SUSP *UDC PO PRN (22:45)
[2018-07-28] MEDS ORDERED: MOM 30ML SUSPENSION UDC PO PRN (22:45)
[2018-07-28] MEDS ORDERED: ATOR1TAB21 PO (23:38)
[2018-07-28] MEDS ORDERED: GLIM2TAB PO (23:38)
[2018-07-28] MEDS ORDERED: LISI-538 PO (23:38)
[2018-07-28] MEDS ORDERED: METF500T4 PO (23:38)
[2018-07-28] MEDS ORDERED: ACTO30TA15 PO (23:38)
[2018-07-28] MEDS ORDERED: TRAZ-160 PO (23:38)
[2018-07-28] MEDS ORDERED: BENA25CA4 PO (23:38)
[2018-07-28] MEDS ORDERED: RISP1TAB3 PO (23:38)
[2018-07-29] MEDS ORDERED: traZODone 50 MG TAB PO ONE (01:00)
[2018-07-29 01:01] VITALS: BP 162/93
[2018-07-29 06:38] VITALS: BP 139/84
[2018-07-29] MEDS ORDERED: SERTRALINE HCL 50 MG TAB PO SCH (09:00)
[2018-07-29] MEDS: metFORMIN (GLUCOPHAGE) 1000 MG TABLET PO SCH ×2 (09:08→18:12)
[2018-07-29] MEDS: OMEPRAZOLE 20 MG CAP PO SCH (09:08)
[2018-07-29] MEDS: ASPIRIN 81 MG CHEW TABLET PO SCH (09:08)
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
[2018-07-29] MEDS: ATORVASTATIN 20 MG TAB PO SCH (11:39)
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
[2018-07-29] MEDS ORDERED: DIVALPROEX 500 MG TAB PO ONE (12:30)
[2018-07-29] MEDS ORDERED: PALIPERIDONE PALMITATE 234 MG/1.5 ML INJ (INVEGA SUSTENNA)(J2426) IM ONE (13:00)
[2018-07-29 18:00] VITALS: BP 133/66
[2018-07-29] MEDS: LISINOPRIL 20 MG TAB PO SCH (21:22)
[2018-07-29] MEDS: DIVALPROEX 500 MG TAB PO SCH (21:23)
[2018-07-29] MEDS: traZODone 50 MG TAB PO SCH (21:23)
[2018-07-30] MEDS: ACETAMINOPHEN TAB 650MG DOSE (2X325MG) PO PRN ×3 (04:51→20:31)
[2018-07-30 06:34] VITALS: BP 135/66
[2018-07-30] MEDS: metFORMIN (GLUCOPHAGE) 1000 MG TABLET PO SCH ×2 (08:46→17:00)
[2018-07-30] MEDS: ASPIRIN 81 MG CHEW TABLET PO SCH (09:13)
[2018-07-30] MEDS: DIVALPROEX 500 MG TAB PO SCH ×2 (09:13→20:32)
[2018-07-30] MEDS: ATORVASTATIN 20 MG TAB PO SCH (09:13)
[2018-07-30] MEDS: OMEPRAZOLE 20 MG CAP PO SCH (09:13)
--- NOTE | 2018-07-30 14:42 | MHIPNPDOC ---
[facility] Progress Note Progress Note DATE OF SERVICE: 07/30/18 HISTORY: As per previous notes: "Patient is a 67 -year-old , male, with a history of schizophrenia and moderate intellectual disability, multiple admissions [facility] in the past (last d/c 09/07/2017), who is admitted for depression and SI with plan to walk in front of tractor trailor and threatening that [facility] with pt at fault and have to "clam picker his body bag off the street) per ED if not admitted. Pt states that he recently lost his housing at the [employer] and that [facility] [place] [facility] [place] and cut off his income and SS benefits due to his history of moving from place to place which is causing him to feel depressed and suicidal. He denies AVH, delusions in the ED. Pt is a very poor historian." VITAL SIGNS: See below. NEW TEST RESULTS: See below CURRENT MEDICATIONS: See below. MENTAL STATUS EXAMINATION: Patient is a 67-year old male, who is alert, cooperative, dressed in hospital clothes. Speech: A little slurred, normal rate, rhythm, tone and volume Language skills are fair Thought processes including: linear, coherent Thought content: He is focused on his living situation, he has paranoid thoughts about the social workers from [facility], he says "I'm not stupid, I've got a GED, they gave me a lot of baloney". negative cognitive distortions. Denies HI/SI Description of abnormal or psychotic thoughts: He denies paranoid thoughts, he has not heard voices since yesterday that were telling him to hurt himself. he denies visual hallucinations Judgment: Poor Insight: Poor Orientation: x 3 Recent and remote memory: fair Attention span and concentration: fair Language: fair Fund of knowledge: average Mood: . Affect: . DIAGNOSES: Schizophrenia, undifferentiated Moderate Intellectual Disability ASSESSMENT: Patient has been hospitalized here before but this is the best that I have seen of him. His speech is more clear. His thought process is linear and concrete, he is paranoid but not extremely, he denies feeling homicidal or suicidal and he says that it was the voices that were commanding in nature telling him to kill himself what brought him here, but he denies feeling suicidal today. he says he was not asked to leave the hotel, he said he took a cab and left, denies having problems at the [employer]. MANAGEMENT PLAN: will continue treatment plan as per Dr. Shelby TIME SPENT: 20 minutes. Vital Signs Vital Signs Date Time Temp Pulse Resp B/P (MAP) Pulse Ox O2 Delivery O2 Flow Rate FiO2 07/30/18 06:34 97.5 74 18 135/66 (89) 07/28/18 20:19 95 Room Air Laboratory Data 24H Labs Laboratory Tests 2 07/29/18 16:42: Bedside Glucose (Misc Panel) 248H 07/30/18 04:52: Bedside Glucose (Misc Panel) 144H Current Medications Current Medications Acetaminophen (Tylenol Tab) 650 mg Q6HP PRN PO HEADACHE or DISCOMFORT Last administered on 07/30/18 13:32; Start 07/28/18 at 22:45 Al Hydrox/Mg Hydrox/Simethicone (Mylanta) 30 ml Q4HP PRN PO HEARTBURN/INDIGESTION; Start 07/28/18 at 22:45 Aspirin (Aspirin Chewable) 81 mg DAILY PO Last administered on 07/30/18 09:13; Start 07/29/18 at 09:00 Atorvastatin Calcium (Lipitor) 20 mg DAILY PO Last administered on 07/30/18 09:13; Start 07/29/18 at 09:00 Divalproex Sodium (Depakote) 500 mg BID PO Last administered on 07/30/18 09:13; Start 07/29/18 at 21:00 Home Med (Med Rec Complete!) ASDIRECTED XX ; Start 07/28/18 at 23:45; Stop 07/28/18 at 23:45; Status DC Lisinopril (Prinivil) 20 mg QHS PO Last administered on 07/29/18 21:22; Start 07/29/18 at 21:00 Magnesium Hydroxide (Milk Of Magnesia) 30 ml DAILYPRN PRN PO CONSTIPATION; Start 07/28/18 at 22:45 Metformin HCl (Glucophage) 1,000 mg BID@08,18 PO Last administered on 07/30/18 08:46; Start 07/29/18 at 08:00 Omeprazole (PriLOSEC) 20 mg DAILY PO Last administered on 07/30/18 09:13; Start 07/29/18 at 09:00 Sertraline HCl (Zoloft) 50 mg DAILY PO Last administered on 07/29/18at 09:08; Start 07/29/18 at 09:00; Stop 07/29/18 at 12:11; Status DC Trazodone HCl (Desyrel) 150 mg QHS PO Last administered on 07/29/18at 21:23; Start 07/29/18 at 21:00 Allergies Coded Allergies: fluphenazine (Verified Adverse Reaction, Intermediate, COLD SWEATS, PACING, RASH, 07/28/18) haloperidol (Verified Adverse Reaction, Intermediate, COLD SWEATS, PACING, SWEATS, 07/28/18) CORAZON REN MD Jul 30, 2018 14:32
[2018-07-30 18:23] VITALS: BP 144/65
[2018-07-30] MEDS: traZODone 50 MG TAB PO SCH (20:31)
[2018-07-30] MEDS: LISINOPRIL 20 MG TAB PO SCH (20:32)
[2018-07-31] MEDS: ACETAMINOPHEN TAB 650MG DOSE (2X325MG) PO PRN ×3 (03:06→17:23)
[2018-07-31 06:28] VITALS: BP 132/65
[2018-07-31] MEDS: metFORMIN (GLUCOPHAGE) 1000 MG TABLET PO SCH ×2 (08:54→17:23)
[2018-07-31] MEDS: ASPIRIN 81 MG CHEW TABLET PO SCH (09:18)
[2018-07-31] MEDS: OMEPRAZOLE 20 MG CAP PO SCH (09:18)
[2018-07-31] MEDS: DIVALPROEX 500 MG TAB PO SCH ×2 (09:18→20:01)
[2018-07-31] MEDS: ATORVASTATIN 20 MG TAB PO SCH (09:18)
--- NOTE | 2018-07-31 14:06 | MHIPNPDOC ---
[facility] Progress Note Progress Note DATE OF SERVICE: 07/31/18 HISTORY: As per previous notes: "Patient is a 67 -year-old , male, with a history of schizophrenia and moderate intellectual disability, multiple admissions [facility] in the past (last d/c 09/07/2017), who is admitted for depression and SI with plan to walk in front of tractor trailor and threatening that [facility] with pt at fault and have to "machine operator picker his body bag off the street) per ED if not admitted. Pt states that he recently lost his housing at the [employer] and that the [place] is threatening to sanction him and cut off his income and SS benefits due to his history of moving from place to place which is causing him to feel depressed and suicidal. He denies AVH, delusions in the ED. Pt is a very poor historian." VITAL SIGNS: See below. NEW TEST RESULTS: See below CURRENT MEDICATIONS: See below. MENTAL STATUS EXAMINATION: Patient is a 67-year old male, who is alert, cooperative, dressed in hospital clothes, he moves on of his legs as we start speaking, arms crossed o his chest Speech: A little slurred, normal rate, rhythm, tone and volume Language skills are fair Thought processes including: linear, coherent but concrete Thought content: He is focused on his living situation, he has paranoid thoughts about the social workers from [facility], he says "I'm not stupid, I've got a GED, they gave me a lot of baloney". negative cognitive distortions. Denies HI/SI Description of abnormal or psychotic thoughts: He denies paranoid thoughts but he seems guarded, paranoid (not extremely, just a little), he has not heard voices since yesterday that were telling him to hurt himself. He denies visual hallucinations Judgment: Poor Insight: Poor Orientation: x 3 Recent and remote memory: fair Attention span and concentration: fair Language: fair Fund of knowledge: average Mood: a little anxious . Affect: congruent with mood, anxious about housing, constricted . DIAGNOSES: Schizophrenia, undifferentiated Moderate Intellectual Disability ASSESSMENT: Patient has been responding well his meds. He denies feeling depressed, denies SI. denies HI, denies AV hallucinations, denies delusions. he says he worries mostly about his housing problem and he wants to go to a nice hotel/apartment. He is not insightful, has poor judgement. MANAGEMENT PLAN: will continue treatment plan as per Dr. Shelby TIME SPENT: 20 minutes. Vital Signs Vital Signs Date Time Temp Pulse Resp B/P (MAP) Pulse Ox O2 Delivery O2 Flow Rate FiO2 07/31/18 06:28 96.8 58 14 132/65 (87) 07/28/18 20:19 95 Room Air Laboratory Data 24H Labs Laboratory Tests 2 07/30/18 16:58: Bedside Glucose (Misc Panel) 144H 07/31/18 06:16: Bedside Glucose (Misc Panel) 137H Current Medications Current Medications Acetaminophen (Tylenol Tab) 650 mg Q6HP PRN PO HEADACHE or DISCOMFORT Last administered on 07/31/18 10:07; Start 07/28/18 at 22:45 Al Hydrox/Mg Hydrox/Simethicone (Mylanta) 30 ml Q4HP PRN PO HEARTBURN/INDIGESTION; Start 07/28/18 at 22:45 Aspirin (Aspirin Chewable) 81 mg DAILY PO Last administered on 07/31/18 09:18; Start 07/29/18 at 09:00 Atorvastatin Calcium (Lipitor) 20 mg DAILY PO Last administered on 07/31/18 09:18; Start 07/29/18 at 09:00 Divalproex Sodium (Depakote) 500 mg BID PO Last administered on 07/31/18 09:18; Start 07/29/18 at 21:00 Home Med (Med Rec Complete!) ASDIRECTED XX ; Start 07/28/18 at 23:45; Stop 07/28/18 at 23:45; Status DC Lisinopril (Prinivil) 20 mg QHS PO Last administered on 07/30/18at 20:32; Start 07/29/18 at 21:00 Magnesium Hydroxide (Milk Of Magnesia) 30 ml DAILYPRN PRN PO CONSTIPATION; Start 07/28/18 at 22:45 Metformin HCl (Glucophage) 1,000 mg BID@08,18 PO Last administered on 07/31/18 08:54; Start 07/29/18 at 08:00 Omeprazole (PriLOSEC) 20 mg DAILY PO Last administered on 07/31/18 09:18; Start 07/29/18 at 09:00 Sertraline HCl (Zoloft) 50 mg DAILY PO Last administered on 07/29/18at 09:08; Start 07/29/18 at 09:00; Stop 07/29/18 at 12:11; Status DC Trazodone HCl (Desyrel) 150 mg QHS PO Last administered on 07/30/18at 20:31; Start 07/29/18 at 21:00 Allergies Coded Allergies: fluphenazine (Verified Adverse Reaction, Intermediate, COLD SWEATS, PACING, RASH, 07/28/18) haloperidol (Verified Adverse Reaction, Intermediate, COLD SWEATS, PACING, SWEATS, 07/28/18) CORAZON REN MD Jul 31, 2018 14:06
[2018-07-31 18:12] VITALS: BP 110/64
[2018-07-31] MEDS: LISINOPRIL 20 MG TAB PO SCH (20:01)
[2018-07-31] MEDS: traZODone 50 MG TAB PO SCH (20:02)
[2018-07-31] MEDS ORDERED: LORazepam 1 MG TAB PO ONE (22:30)
[2018-08-01 06:47] VITALS: BP 160/77
[2018-08-01] MEDS: metFORMIN (GLUCOPHAGE) 1000 MG TABLET PO SCH ×2 (07:38→17:05)
--- NOTE | 2018-08-01 09:22 | MHIPNPDOC ---
[facility] Progress Note Progress Note DATE OF SERVICE: 08/01/18 HISTORY: As per previous notes: "Patient is a 67 -year-old , male, with a history of schizophrenia and moderate intellectual disability, multiple admissions [facility] in the past (last d/c 09/07/2017), who is admitted for depression and SI with plan to walk in front of tractor trailor and threatening that [facility] with pt at fault and have to "pick pulling machine tender his body bag off the street) per ED if not admitted. Pt states that he recently lost his housing at the [employer] [place] and that the [place] is threatening to [place] him and cut off his income and SS benefits due to his history of moving from place to place which is causing him to feel depressed and suicidal. He denies AVH, delusions in the ED. Pt is a very poor historian." VITAL SIGNS: See below. NEW TEST RESULTS: See below CURRENT MEDICATIONS: See below. MENTAL STATUS EXAMINATION: Patient is a 67-year old male, who is alert, cooperative, dressed in hospital clothes, he moves on of his legs as we start speaking, arms crossed o his chest Speech: A little slurred, normal rate, rhythm, tone and volume Language skills are fair Thought processes including: linear, coherent but concrete Thought content: He is focused on his living situation, he has paranoid thoughts about the social workers from [facility] that is his baseline and not new. negative cognitive distortions. Denies HI/SI Description of abnormal or psychotic thoughts: He denies paranoid thoughts but he seems guarded, paranoid (not extremely, just a little), He denies auditory/visual hallucinations Judgment: Poor Insight: Poor Orientation: x 3 Recent and remote memory: fair Attention span and concentration: fair Language: fair Fund of knowledge: average Mood: a little anxious . Affect: congruent with mood, anxious about housing, constricted . DIAGNOSES: Schizophrenia, undifferentiated Moderate Intellectual Disability ASSESSMENT: Patient seen and states he's doing better and that he's been responding well his meds. He denies feeling depressed, denies SI. denies HI, denies AV hallucinations, denies delusions. States he's focused on finding a new hotel/apartment upon d/c. He appears to be at his baseline status. He is not insightful, has poor judgement. MANAGEMENT PLAN: will continue treatment plan as per Dr. Shelby Medications Aristada 1,064mg im q2 months due 08/11/18 TIME SPENT: 30 minutes. Vital Signs Vital Signs Date Time Temp Pulse Resp B/P (MAP) Pulse Ox O2 Delivery O2 Flow Rate FiO2 08/01/18 06:47 96.8 75 16 160/77 (104) 07/28/18 20:19 95 Room Air Laboratory Data 24H Labs Laboratory Tests 2 07/31/18 17:22: Bedside Glucose (Misc Panel) 185H 08/01/18 06:07: Bedside Glucose (Misc Panel) 136H Current Medications Current Medications Acetaminophen (Tylenol Tab) 650 mg Q6HP PRN PO HEADACHE or DISCOMFORT Last administered on 07/31/18 17:23; Start 07/28/18 at 22:45 Al Hydrox/Mg Hydrox/Simethicone (Mylanta) 30 ml Q4HP PRN PO HEARTBURN/INDIGESTION; Start 07/28/18 at 22:45 Aspirin (Aspirin Chewable) 81 mg DAILY PO Last administered on 07/31/18 09:18; Start 07/29/18 at 09:00 Atorvastatin Calcium (Lipitor) 20 mg DAILY PO Last administered on 07/31/18 09:18; Start 07/29/18 at 09:00 Divalproex Sodium (Depakote) 500 mg BID PO Last administered on 07/31/18 20:01; Start 07/29/18 at 21:00 Home Med (Med Rec Complete!) ASDIRECTED XX ; Start 07/28/18 at 23:45; Stop 07/28/18 at 23:45; Status DC Lisinopril (Prinivil) 20 mg QHS PO Last administered on 07/31/18 20:01; Start 07/29/18 at 21:00 Magnesium Hydroxide (Milk Of Magnesia) 30 ml DAILYPRN PRN PO CONSTIPATION; Start 07/28/18 at 22:45 Metformin HCl (Glucophage) 1,000 mg BID@,18 PO Last administered on 08/01/18 07:38; Start 07/29/18 at 08:00 Omeprazole (PriLOSEC) 20 mg DAILY PO Last administered on 07/31/18 09:18; Start 07/29/18 at 09:00 Sertraline HCl (Zoloft) 50 mg DAILY PO Last administered on 3/29/19at 09:08; Start 07/29/18 at 09:00; Stop 07/29/18 at 12:11; Status DC Trazodone HCl (Desyrel) 150 mg QHS PO Last administered on 07/31/18at 20:02; Start 07/29/18 at 21:00 Allergies Coded Allergies: fluphenazine (Verified Adverse Reaction, Intermediate, COLD SWEATS, PACING, RASH, 07/28/18) haloperidol (Verified Adverse Reaction, Intermediate, COLD SWEATS, PACING, SWEATS, 07/28/18) LORETO SHELBY DO Aug 01, 2018 9:21 am
[2018-08-01] MEDS: ATORVASTATIN 20 MG TAB PO SCH (09:28)
[2018-08-01] MEDS: ASPIRIN 81 MG CHEW TABLET PO SCH (09:28)
[2018-08-01] MEDS: DIVALPROEX 500 MG TAB PO SCH ×2 (09:28→20:34)
[2018-08-01] MEDS: OMEPRAZOLE 20 MG CAP PO SCH (09:28)
[2018-08-01] MEDS ORDERED: ARIPIPRAZOLE LAUROXIL 1,064 MG/3.9ML INJ(ARISTADA)(J1942 PER 1MG) IM ONE (11:00)
[2018-08-01 18:00] VITALS: BP 139/79
[2018-08-01 20:35] VITALS: BP 142/86
[2018-08-01] MEDS: traZODone 50 MG TAB PO SCH (20:35)
[2018-08-01] MEDS: LISINOPRIL 20 MG TAB PO SCH (20:35)
[2018-08-01] MEDS ORDERED: LORazepam 2 MG TAB PO ONE (21:30)
[2018-08-02 06:31] VITALS: BP 125/67
[2018-08-02] MEDS: DIVALPROEX 500 MG TAB PO SCH (08:22)
[2018-08-02] MEDS: ATORVASTATIN 20 MG TAB PO SCH (08:22)
[2018-08-02] MEDS: metFORMIN (GLUCOPHAGE) 1000 MG TABLET PO SCH (08:22)
[2018-08-02] MEDS: OMEPRAZOLE 20 MG CAP PO SCH (08:22)
[2018-08-02] MEDS: ASPIRIN 81 MG CHEW TABLET PO SCH (08:22)
[2018-08-02] MEDS ORDERED: ARIS1.6I IM (08:43)
--- NOTE | 2018-08-02 08:44 | MHDSPDOC ---
[facility] Discharge Summary Discharge Summary DATE OF ADMISSION: Jul 28, 2018 at 10:39 pm DATE OF DISCHARGE: August 02, 2018 DISCHARGE DIAGNOSES: Schizophrenia, undifferentiated Moderate Intellectual Disability REASON FOR ADMISSION: Patient is a 67 -year-old , male, with a history of schizophrenia and moderate intellectual disability, multiple admissions COUNTS INCLUDE 234 BEDS AT THE [facility] in the past (last d/c 09/07/2017), who is admitted for depression and SI with plan to walk in front of tractor trailer and threatening that [facility] with pt at fault and have to "nut picker his body bag off the street) per ED if not admitted. Pt states that he recently lost his housing at the [employer] [place] and that the [place] is threatening to sanction him and cut off his income and SS benefits due to his history of moving from place to place which is causing him to feel depressed and suicidal. He denies AVH, delusions in the ED. Pt is a very poor historian. CONSULTANTS INVOLVED: none TREATMENT AND PROGRESS ON THE UNIT : Pt was admitted to COUNTS INCLUDE 234 BEDS AT THE [facility], seen for psychiatric assessment and give aristada (started on at [facility] during previous admission) for mood and psychosis that he tolerated well and found beneficial. He attended groups daily during his stay. His symptoms improved with treatment. On day of discharge he denied depression, anxiety, insomnia, SI/HI, hallucinations, delusions. He was discharged to a hotel as he was excited he could pay to live there for a month at a good rate with follow-up at the [facility]. He felt safe for discharge. DISCHARGE ASSESSMENT: Patient seen and states his mood is good and that he's been responding well to his aristada given yesterday and is tolerating it well. He denies feeling depressed, denies SI. denies HI, denies AV hallucinations, denies delusions. States he's focused on finding a new hotel/apartment upon d/c. He appears to be at his baseline status. He is not insightful, has poor judgement. MENTAL STATUS EXAMINATION ON DISCHARGE: General Appearance: unkempt, ds/not appear stated age, hospital scrubs/clothing Build: overweight Demeanor: anxious, appropriate, child like Eye Contact: average Activity: calm, appropriate Behavior: cooperative Speech: clear, reg RRV, spontaneous, normal volume Mood: euthymic Mood good Affect: appropriate, congruent, anxious, smiles appropriately Thought Process: logical/linear, concrete Thought Content (Delusions): denies Thought Content (Other): denies Thought Content (Aggressive): none reported Perception (Hallucinations): denies Perception (Other): none reported Cognition (Impairment of): none reported Cognition(Intelligence Est.): Oriented: Awake, Alert, Oriented times three Insight: poor-fair Judgment: Poor-fair Psychosis: Associations (limited) MEDICATIONS ON DISCHARGE: Aristada 1,064mg im q2 months due 08/11/18 PLAN/FOLLOWUP ARRANGEMENTS: d/c to [facility]. The amount of time spent in the coordination of care for this patient was approximately 30 minutes. Vital Signs/I&Os Vital Signs Date Time Temp Pulse Resp B/P (MAP) Pulse Ox O2 Delivery O2 Flow Rate FiO2 08/02/18 06:31 98.1 86 14 125/67 (86) 07/28/18 20:19 95 Room Air Laboratory Data Labs 24H Laboratory Tests 2 08/01/18 11:29: Bedside Glucose (Misc Panel) 203H 08/01/18 17:05: Bedside Glucose (Misc Panel) 207H 08/02/18 06:15: Bedside Glucose (Misc Panel) 157H Medications Scheduled (Risperidone) 1 Mg Tab, 1 MG PO BID, (Reported) Atorvastatin Calcium (Atorvastatin Calcium) 20 Mg Tab, 20 MG PO DAILY, (Reported) Diphenhydramine HCl (Benadryl Allergy) 25 Mg Cap, 25 MG PO BID, (Reported) Glimepiride (Glimepiride) 2 Mg Tab, 2 MG PO DAILY, (Reported) Lisinopril (Lisinopril) 20 Mg Tab, 20 MG PO DAILY, (Reported) Metformin Hydrochloride (Metformin HCl ER) 500 Mg Tab, 1,000 MG PO BID, (R eported) Pioglitazone Hydrochloride (Actos) 30 Mg Tab, 30 MG PO DAILY, (Reported) Trazodone HCl (Trazodone HCl) 50 Mg Tab, 50 MG PO QHS, (Reported) Allergies Coded Allergies: fluphenazine (Verified Adverse Reaction, Intermediate, COLD SWEATS, PACING, RASH, 07/28/18) haloperidol (Verified Adverse Reaction, Intermediate, COLD SWEATS, PACING, SWEATS, 07/28/18) LORETO BRYSON DO Aug 02, 2018 8:44 am
== END 2018-08-02 11:10 | disposition home or self-care (01) | DRG 885 ==
LOC: M ED 20:19 → M ED INP 22:39 → M PSY 07-29 00:40
PROVIDERS: ADMIT Psychiatry & Neurology Psychiatry; ATTEND Psychiatry & Neurology Psychiatry
DX: F20.3 Undifferentiated schizophrenia (principal); R45.851 Suicidal ideations; F71 Moderate intellectual disabilities; Z79.899 Other long term (current) drug therapy; Z88.8 Allergy status to other drugs, medicaments and biological substances; I10 Essential (primary) hypertension; E11.9 Type 2 diabetes mellitus without complications; K21.9 Gastro-esophageal reflux disease without esophagitis; J44.9 Chronic obstructive pulmonary disease, unspecified; F41.9 Anxiety disorder, unspecified; F43.10 Post-traumatic stress disorder, unspecified; E03.9 Hypothyroidism, unspecified; E78.00 Pure hypercholesterolemia, unspecified

== ENCOUNTER 2018-08-07 08:05 | Emergency (ER) | payer MEDICARE ==
[~2018-08-07] VITALS: Ht 165.1 cm; Wt 84.1 kg
[~2018-08-07 08:05] MED LIST changes: -/DIVA50TA PO; +ACTO30TA15 PO; +ARIS1.6I IM; -ASPI1TAB PO; +ASPI81TA26 PO; +BENA25CA4 PO; -CVS20TAB PO; +GLIM2TAB PO; +METF500T4 PO; +OMEP20TA9 PO; +RISP1TAB3 PO; +SERT-141 PO; -SERT25TA PO; +SERT25TA85 PO; -SERT50TA PO; +TRAZ1TAB6 PO
[2018-08-07] MEDS ORDERED: NS 1,000 ML IV ONE (08:30)
[2018-08-07 08:41] LABS: BASO # 0.1 10^3/uL (0.0-0.2); EOS # 0.4 10^3/uL (0.0-0.50); EOS % 4.6 % (0.0-3.0); HEMATOCRIT 42.4 % (42.0-52.0); HEMOGLOBIN 14.2 g/dl (13.5-17.5); LYMPH # 1.8 10^3/uL (1.5-4.5); LYMPH % 19.8 % (24.0-44.0); MEAN CORPUSCULAR HEMOGLOBIN 28.4 pg (27.0-33.0); MEAN CORPUSCULAR HGB CONC 33.5 g/dl (32.0-36.5); MEAN CORPUSCULAR VOLUME 84.8 fl (80.0-96.0); MONO # 0.7 10^3/uL (0.0-0.8); MONO % 7.5 % (0.0-5.0); NEUTROPHILS # 5.9 10^3/uL (1.8-7.7); NEUTROPHILS % 66.6 % (36.0-66.0); PLATELET COUNT, AUTOMATED 238 10^3/uL (150-450); WHITE BLOOD COUNT 8.8 10^3/uL (4.0-10.0)
[2018-08-07] MEDS ORDERED: RISP2TAB32 PO (08:46)
[2018-08-07 09:12] LABS: ALBUMIN 3.7 GM/DL (3.2-5.2); ALT/SGPT 31 U/L (12-78); BILIRUBIN,DIRECT < 0.1 MG/DL (0.0-0.2); BILIRUBIN,TOTAL 0.2 MG/DL (0.2-1.0); BLOOD UREA NITROGEN 16 MG/DL (7-18); CARBON DIOXIDE LEVEL 27 MEQ/L (21-32); CHLORIDE LEVEL 105 MEQ/L (98-107); CREATININE FOR GFR 0.74 MG/DL (0.70-1.30); GLOMERULAR FILTRATION RATE > 60.0 (>49); GLUCOSE, FASTING 146 MG/DL (70-100); POTASSIUM SERUM 4.2 MEQ/L (3.5-5.1); SODIUM LEVEL 139 MEQ/L (136-145); TOTAL PROTEIN 6.9 GM/DL (6.4-8.2)
[2018-08-07 09:47] VITALS: BP 136/67
== END 2018-08-07 10:06 | disposition home or self-care (01) ==
LOC: M ED 08:05
DX: E11.9 Type 2 diabetes mellitus without complications (principal); I10 Essential (primary) hypertension; J44.9 Chronic obstructive pulmonary disease, unspecified; F43.10 Post-traumatic stress disorder, unspecified; F20.9 Schizophrenia, unspecified; E78.5 Hyperlipidemia, unspecified; Z79.899 Other long term (current) drug therapy; Z79.84 Long term (current) use of oral hypoglycemic drugs; Z88.8 Allergy status to other drugs, medicaments and biological substances

== ENCOUNTER 2018-08-14 06:01 | Emergency (ER) | payer MEDICARE ==
[~2018-08-14] VITALS: Ht 165.1 cm; Wt 88.0 kg
[~2018-08-14 06:01] MED LIST changes: +RISP2TAB32 PO
[2018-08-14] MEDS ORDERED: IBUP80TA PO (06:38)
[2018-08-14] MEDS: IBUPROFEN 800 MG TAB PO ONE (06:41)
[2018-08-14 07:38] VITALS: BP 115/61
== END 2018-08-14 07:39 | disposition home or self-care (01) ==
LOC: M ED 06:01
DX: R10.84 Generalized abdominal pain (principal); R19.7 Diarrhea, unspecified; I10 Essential (primary) hypertension; E11.9 Type 2 diabetes mellitus without complications; K21.9 Gastro-esophageal reflux disease without esophagitis; E78.5 Hyperlipidemia, unspecified; M54.9 Dorsalgia, unspecified; G89.29 Other chronic pain; F43.10 Post-traumatic stress disorder, unspecified; F20.9 Schizophrenia, unspecified; H26.9 Unspecified cataract; Z88.8 Allergy status to other drugs, medicaments and biological substances; Z79.84 Long term (current) use of oral hypoglycemic drugs; Z79.899 Other long term (current) drug therapy

== ENCOUNTER 2018-08-19 18:14 | Inpatient (IN) | payer MEDICARE ==
[~2018-08-19] VITALS: Ht 165.1 cm; Wt 86.8 kg
[~2018-08-19 18:14] MED LIST changes: +IBUP80TA PO
[2018-08-19 19:40] LABS: HEMATOCRIT 40.7 % (42.0-52.0); HEMOGLOBIN 13.5 g/dl (13.5-17.5); MEAN CORPUSCULAR HEMOGLOBIN 28.4 pg (27.0-33.0); MEAN CORPUSCULAR HGB CONC 33.2 g/dl (32.0-36.5); MEAN CORPUSCULAR VOLUME 85.5 fl (80.0-96.0); PLATELET COUNT, AUTOMATED 269 10^3/uL (150-450); RED BLOOD COUNT 4.76 10^6/uL (4.30-6.10); WHITE BLOOD COUNT 7.8 10^3/uL (4.0-10.0)
[2018-08-19 20:00] LABS: AMPHETAMINES LEVEL URINE NEGATIVE (NEGATIVE); BARBITURATES URINE NEGATIVE (NEGATIVE); BENZODIAZEPINES URINE NEGATIVE (NEGATIVE); CANNABINOIDS URINE NEGATIVE (NEGATIVE); COCAINE METABOLITE URINE NEGATIVE (NEGATIVE); METHADONE URINE NEGATIVE (NEGATIVE); OPIATES URINE NEGATIVE (NEGATIVE); PHENCYCLIDINE URINE NEGATIVE (NEGATIVE)
--- NOTE | 2018-08-19 20:04 | REP ---
Portable chest, 07:52 p.m., single frontal view: Comparison is 02/24/2012. There is chronic elevation of the right hemidiaphragm, unchanged. The lung petersen are clear. Cardiac size is normal. The anushka, mediastinum, skeletal structures are unremarkable. There is no interval change. Impression: Essentially negative portable chest, no interval change. Electronically Signed by Ck Wood MD 08/19/2018 07:54 P
[2018-08-19 20:08] LABS: ACETAMINOPHEN LEVEL < 2.0 UG/ML (10.0-30.0); ALBUMIN 3.6 GM/DL (3.2-5.2); ALT/SGPT 21 U/L (12-78); BILIRUBIN,DIRECT < 0.1 MG/DL (0.0-0.2); BILIRUBIN,TOTAL 0.2 MG/DL (0.2-1.0); BLOOD UREA NITROGEN 16 MG/DL (7-18); CALCIUM LEVEL 8.6 MG/DL (8.8-10.2); CARBON DIOXIDE LEVEL 26 MEQ/L (21-32); CHLORIDE LEVEL 106 MEQ/L (98-107); CREATININE FOR GFR 0.73 MG/DL (0.70-1.30); ETHYL ALCOHOL (ETHANOL) 0.003 % (0.000-0.010); GLOMERULAR FILTRATION RATE > 60.0 (>49); GLUCOSE, FASTING 255 MG/DL (70-100); POTASSIUM SERUM 4.2 MEQ/L (3.5-5.1); SALICYLATE LEVEL < 1.7 MG/DL (5.0-30.0); SODIUM LEVEL 139 MEQ/L (136-145); TOTAL PROTEIN 6.6 GM/DL (6.4-8.2)
[2018-08-19] MEDS ORDERED: diphenhydrAMINE 25 MG CAP PO ONE (21:00)
[2018-08-19] MEDS ORDERED: risperiDONE 2 MG TAB PO ONE (21:00)
[2018-08-19] MEDS ORDERED: traZODone 50 MG TAB PO ONE (21:00)
[2018-08-19] MEDS ORDERED: metFORMIN (GLUCOPHAGE) 1000 MG TABLET PO ONE (21:00)
[2018-08-19] MEDS ORDERED: traZODone 50 MG TAB PO PRN (21:15)
[2018-08-19] MEDS ORDERED: MOM 30ML SUSPENSION UDC PO PRN (21:15)
[2018-08-19] MEDS ORDERED: MAALOX 30 ML SUSP *UDC PO PRN (21:15)
[2018-08-19] MEDS ORDERED: NICOTINE 21MG/24HR 1 EA TRANSDERMAL TD PRN (21:15)
[2018-08-20 01:45] VITALS: BP 136/75
[2018-08-20 07:07] VITALS: BP 140/66
[2018-08-20 13:52] VITALS: BP 138/77
[2018-08-20] MEDS: OLANZapine ORAL DISINTEGRATING TAB 5MG PO PRN (17:53)
[2018-08-20 18:00] VITALS: BP 140/75
[2018-08-20] MEDS: ACETAMINOPHEN TAB 650MG DOSE (2X325MG) PO PRN (19:03)
[2018-08-20] MEDS: HumaLOG INSULIN (NovoLOG) PER UNIT SC SCH (21:00)
[2018-08-20] MEDS ORDERED: metFORMIN XR 500MG TAB *GLUCOPHAGE XR PO SCH (21:00)
[2018-08-20] MEDS ORDERED: IBUPROFEN 800 MG TAB PO PRN (21:00)
[2018-08-20] MEDS ORDERED: IBUP80TA PO (22:27)
[2018-08-20] MEDS ORDERED: GLUCAGON FOR INJ 1 MG VIAL (J1610) SC PRN (22:30)
[2018-08-20] MEDS ORDERED: DEXTROSE 50% 50 ML SYRINGE IV PRN (22:30)
[2018-08-20] MEDS ORDERED: GLUCOSE 4 GM CHEW TABLET PO PRN (22:30)
[2018-08-20] MEDS ORDERED: PATIENT COMMENTS (22:35)
[2018-08-20] MEDS: traZODone 50 MG TAB PO SCH (23:16)
[2018-08-20] MEDS: risperiDONE 1 MG TAB PO SCH (23:16)
[2018-08-20] MEDS: diphenhydrAMINE 25 MG CAP PO SCH (23:16)
[2018-08-21 00:02] LABS: HEMOGLOBIN A1c 9.7 %
[2018-08-21] MEDS: ACETAMINOPHEN TAB 650MG DOSE (2X325MG) PO PRN ×2 (03:13→22:43)
[2018-08-21 06:28] VITALS: BP 141/83
[2018-08-21] MEDS: HumaLOG INSULIN (NovoLOG) PER UNIT SC SCH ×4 (07:09→21:00)
[2018-08-21] MEDS: GLIMEPIRIDE 2 MG TAB PO SCH (07:09)
[2018-08-21] MEDS: metFORMIN (GLUCOPHAGE) 1000 MG TABLET PO SCH ×2 (07:32→17:12)
[2018-08-21] MEDS: risperiDONE 1 MG TAB PO SCH ×2 (08:08→21:15)
[2018-08-21] MEDS: ATORVASTATIN 20 MG TAB PO SCH (08:08)
[2018-08-21] MEDS: diphenhydrAMINE 25 MG CAP PO SCH ×2 (08:09→21:16)
[2018-08-21] MEDS ORDERED: LISINOPRIL 10 MG TAB PO SCH (09:00)
[2018-08-21 12:00] VITALS: BP 138/86
[2018-08-21 18:00] VITALS: BP 124/68
[2018-08-21] MEDS: OLANZapine ORAL DISINTEGRATING TAB 5MG PO PRN (18:48)
[2018-08-21 21:00] VITALS: BP 132/68
[2018-08-21] MEDS: traZODone 50 MG TAB PO SCH (21:15)
--- NOTE | 2018-08-21 21:28 | HPE ---
DATE OF ADMISSION: 08/19/2018 HISTORY OF PRESENT ILLNESS: Please refer to psychiatric history and evaluation for further details on this admission. This examination and history is intended for medical issues, which may need treatment, followup or consultation on this 67-year-old male. ALLERGIES: FLUPHENAZINE, HALOPERIDOL. PRIMARY CARE PROVIDER: [facility] in [place]. PAST MEDICAL HISTORY: Hypertension, hypercholesterolemia, [id number] diabetes type 2, gastroesophageal reflux disease (GERD), chronic obstructive pulmonary disease (COPD), history of gastric ulcer, history of transfusions, iron deficiency anemia, he is now off aspirin, history of hypothyroidism, not currently taking any medications, TSH is therapeutic, schizophrenic, schizoaffective disorder, history of suicidal ideation and suicidal acts with cutting and overdose, depression, anxiety, posttraumatic stress disorder (PTSD), poor dentition. PAST SURGICAL HISTORY: Tonsillectomy, back surgery for herniated disc in 1972. SOCIAL HISTORY: He is single. 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 Tobacco use is denied. ETOH denied. Illicit drug use denied. FAMILY HISTORY: Mother secondary to suicide. Biological father was estranged. Siblings alive and estranged. LABORATORY STUDIES: WBC 7.8, hemoglobin 16.5, hematocrit 40.7, platelets 269. Sodium 141, potassium 4.2, chloride 106, CO2 of 26, anion gap 11, BUN 16, creatinine 0.73, nonfasting glucose 255, calcium 8.6, total bilirubin 0.2, direct bilirubin less than 0.1, AST 4, ALT 21, TSH 1.18. Toxicology was negative. REVIEW OF SYSTEMS: -counts include 234 beds at the [facility] review of systems reviewed and unremarkable. HOME MEDICATIONS: - atorvastatin 20 mg daily - diphenhydramine 25 mg by mouth twice a day - glimepiride 2 mg by mouth daily - ibuprofen 800 mg by mouth every 8 hours as needed for pain - Lisinopril 20 mg by mouth daily - metformin 1000 mg twice a day with meals - risperidone 1 mg by mouth twice a day - trazodone 50 mg by mouth at night - Actos 30 mg by mouth daily Chest x-ray was negative. PHYSICAL EXAMINATION: GENERAL: 67-year-old cooperative male in no acute distress. Height 65 inches, weight 34 kg, Body Mass Index (BMI) 25.3. VITAL SIGNS: Blood pressure 160/75, pulse 79, respirations 18, temperature 97.1, oxygen saturation 95% on room air. The patient is alert and oriented times three. HEENT: Pupils are equal and reactive to light. Extraocular muscles intact. Sclerae clear. Conjunctivae normal. No facial asymmetry. Pharynx, gums and tongue pink and moist. Tongue is midline. NECK: Supple without lymphadenopathy, thyromegaly or goiter. Carotids 2+ without bruits. CHEST: Clear to auscultation without wheeze or retraction. HEART: Regular. ABDOMEN: Benign. Bowel sounds positive. GENITOURINARY/RECTAL: Not done. EXTREMITIES: Equal strength, full range of motion. No clubbing, cyanosis, and edema. Peripheral pulses equal and palpable bilaterally. SKIN: Warm and dry. IMPRESSION/PLAN: 1. Psychiatric plan per psychiatry. 2. Question of compliance with medications. Need to see if the [facility] sets up a nurse to go in and set up his medications at home. 3. [id number] diabetes type 2. Monitor fingerstick blood sugars before food and nightly to see if they are appropriate and within acceptable limits. Currently, we will continue his metformin and glimepiride. We will adjust medications as needed depending on sliding scale. 4. Hypertension. We will switch to Valsartan with better control of the blood pressure. Electrocardiogram (EKG) showed sinus rhythm, similar to 01/27. Followup with the [place]. 5. Hypercholesterolemia. Continue statin and diet. 6. Continue followup with the [place] in [place].
[2018-08-22 06:31] VITALS: BP 136/82
[2018-08-22] MEDS: GLIMEPIRIDE 2 MG TAB PO SCH (07:00)
[2018-08-22] MEDS: HumaLOG INSULIN (NovoLOG) PER UNIT SC SCH ×4 (07:02→21:00)
[2018-08-22] MEDS: metFORMIN (GLUCOPHAGE) 1000 MG TABLET PO SCH ×2 (07:46→17:11)
--- NOTE | 2018-08-22 08:40 | MHHPE ---
DATE OF ADMISSION: 08/19/2018 CHIEF COMPLAINT: Feels depressed. SUBJECTIVE: He is 67 years old, has a history of schizophrenia, and according to the chart, possible moderate intellectual disability. He has had multiple admissions to inpatient psychiatry, most recently was here about a month or so ago, less than that, July 28, 2018, left August 02, 2018. Please refer to that summary for details related to the circumstances of that admission, and previous summaries for reasons for those. He was discharged on Aristada 1064 mg intramuscular every 2 months. He was also discharged on atorvastatin 20 mg daily, diphenhydramine 25 mg twice a day, glimepiride 2 mg daily, lisinopril 20 mg daily, metformin 1000 mg twice a day, Actos 30 mg daily, and trazodone 50 mg at night. He says he is staying at a local hotel, and is looking forward to moving to [facility], says has a place, through the [employer] [place], who are assisting him. He says he felt depressed, last several days, found out one of his childhood friends had . Patient used to see him fairly regularly, and is quite sad about it, and began feeling suicidal, and decided to come here. Says sleep has been up and down, appetite has been okay. PAST PSYCHIATRIC HISTORY: Please refer to previous summaries. SOCIAL HISTORY: Please refer to previous summaries. MENTAL STATUS EXAM: He is neat, he is cooperative. No agitation as such. No psychomotor retardation. At times somewhat difficult to understand, but is coherent for the most part, with an affect of limited range. Has suicidal thoughts, no firm plans, feels safe in the hospital. Denies any auditory or visual hallucinations at present. He is alert and oriented. No fluctuation of consciousness. Judgment and insight remain compromised. ASSESSMENT: Schizophrenia. Intellectual disability, moderate. Friend's , recently. Limited supports. Long history of mental illness. He is admitted to inpatient psychiatry unit, placed on relevant precautions, and will look at obtaining collateral information, and resuming him on his medicines. I have decided to give him half the usual dose of lisinopril that he takes, will give him 10 mg for tonight, as the patient's reliability is in question. We will attempt at reconciling the medication regimen with the pharmacy. He is to be encouraged to participate in activities in the unit. He is also to get his Aristada as scheduled. He will be discharged with followup once he is stable. I would anticipate a 5-7 day stay. VITAL SIGNS: These are as listed. Blood pressure 140/75, pulse 85, temperature 97.8. INVESTIGATIONS: Laboratory values: Urine toxicology is negative essentially. Complete metabolic profile essentially within normal limits except for glucose at 255. Complete blood count essentially within normal limits except for hematocrit at 40.7. The assessment took 30 minutes.
[2018-08-22] MEDS: ATORVASTATIN 20 MG TAB PO SCH (09:17)
[2018-08-22] MEDS: risperiDONE 1 MG TAB PO SCH ×2 (09:17→21:06)
[2018-08-22] MEDS: diphenhydrAMINE 25 MG CAP PO SCH ×2 (09:18→21:06)
[2018-08-22] MEDS: LISINOPRIL 20 MG TAB PO SCH (09:18)
--- NOTE | 2018-08-22 09:24 | MHIPN ---
DATE: 08/21/2018 CHIEF COMPLAINT: Says had a good night. SUBJECTIVE: Seen for follow-up, indicates feels a bit better, and that he had a good night. Appetite is good. MENTAL STATUS EXAMINATION: Neat, cooperative. Speech is not as rapid as it was yesterday. He is coherent. Affect shows a fair range. He has suicidal thoughts, but no firm plans. Does not at present appear to be internally preoccupied. No delusional ideations elicited. Cognition grossly intact. Judgment and insight remain compromised overall. ASSESSMENT: Schizophrenia. PLAN: Continue current care, medications. Would attempt at reconciling the medications, he gets them from the [facility], and I would suggest consulting them tomorrow. Continue encouraging the patient to participate in activities on the unit. He will be seen by assigned psychiatric tomorrow as well as the treatment team. Further recommendations will then be made. VITAL SIGNS: These are as listed. Blood pressure 142/70, pulse 77, temperature 96.8.
--- NOTE | 2018-08-22 09:38 | MHIPNPDOC ---
[facility] Progress Note Progress Note DATE OF SERVICE: 08/22/18 HISTORY: He is 67 years old, has a history of schizophrenia, and according to the chart, possible moderate intellectual disability. He has had multiple admissions to inpatient psychiatry, most recently was here about a month or so ago, less than that, July 28, 2018, left August 02, 2018. Please refer to that summary for details related to the circumstances of that admission, and previous summaries for reasons for those. He was discharged on Aristada 1064 mg intramuscular every 2 months. He was also discharged on atorvastatin 20 mg daily, diphenhydramine 25 mg twice a day, glimepiride 2 mg daily, lisinopril 20 mg daily, metformin 1000 mg twice a day, Actos 30 mg daily, and trazodone 50 mg at night. He says he is staying at a local hotel, and is looking forward to moving to [facility], says has a place, through the [employer], who are assisting him. He says he felt depressed, last several days, found out one of his childhood friends had . Patient used to see him fairly regularly, and is quite sad about it, and began feeling suicidal, and decided to come here. Says sleep has been up and down, appetite has been okay. PAST PSYCHIATRIC HISTORY: Please refer to previous summaries. SOCIAL HISTORY: Please refer to previous summaries. MENTAL STATUS EXAM: He is neat, he is cooperative. No agitation as such. No psychomotor retardation. At times somewhat difficult to understand, but is coherent for the most part, with an affect of limited range. Has denies suicidal thoughts and feels safe in the hospital. Denies any auditory or visual hallucinations at present. He is alert and oriented. No fluctuation of consciousness. Judgment and insight are limited ASSESSMENT: Schizophrenia. Intellectual disability, moderate. Friend's , recently. Limited supports. Long history of mental illness. ASSESSMENT:Pt seen and states he's doing well and denies AVH, delusions, paranoia. States he has an upcoming place to stay later this week that is $800 a month and can stay in a hotel to wait until it's ready. States he's tolerating his medication and feels it's beneficial (Aristada given last admission). States he's sleeping well. Denies SI/HI, hallucinations, delusions. Feels safe here. MANAGEMENT PLAN: continue plan Medications: Risperidone 1 mg BID Trazodone 50 mg QHS Aristada 1,064mg IM [id number] TIME SPENT: 30 minutes. Vital Signs Vital Signs Date Time Temp Pulse Resp B/P (MAP) Pulse Ox O2 Delivery O2 Flow Rate FiO2 08/22/18 09:18 129/80 08/22/18 06:31 96.8 86 16 08/20/18 01:45 95 08/20/18 01:33 Room Air Laboratory Data 24H Labs Laboratory Tests 2 08/21/18 12:08: Bedside Glucose (Misc Panel) 114 08/21/18 16:32: Bedside Glucose (Misc Panel) 134H 08/21/18 21:13: Bedside Glucose (Misc Panel) 155H 08/22/18 05:44: Bedside Glucose (Misc Panel) 155H Current Medications Current Medications Acetaminophen (Tylenol Tab) 650 mg Q6HP PRN PO HEADACHE or DISCOMFORT Last administered on 08/21/18at 22:43; Start 08/19/18 at 21:15 Al Hydrox/Mg Hydrox/Simethicone (Mylanta) 30 ml Q4HP PRN PO HEARTBURN/INDIGESTION Last administered on 08/21/18at 22:45; Start 08/19/18 at 21:15 Atorvastatin Calcium (Lipitor) 20 mg DAILY PO Last administered on 08/22/18at 09:17; Start 08/21/18 at 09:00 Dextrose (Dextrose 50%) 25 ml ASDIRECTED PRN IV SEE LABEL COMMENTS; Start 08/20/18 at 22:30 Diphenhydramine HCl (Benadryl) 25 mg BID PO Last administered on 08/22/18at 09:18; Start 08/20/18 at 21:00 Glimepiride (Amaryl) 2 mg DAILY@0730 PO Last administered on 08/22/18at 07:00; Start 08/21/18 at 07:30 Glucagon (Glucagon) 1 mg ASDIRECTED PRN SC SEE LABEL COMMENTS; Start 08/20/18 at 22:30 Glucose (Glucose) 16 GM ASDIRECTED PRN PO SEE LABEL COMMENTS; Start 08/20/18 at 22:30 Home Med (Med Rec Complete!) ASDIRECTED XX ; Start 08/20/18 at 22:45; Stop 08/20/18 at 23:06; Status DC Ibuprofen (Advil) 800 mg Q8HP PRN PO MODERATE PAIN (PS 5-7); Start 08/20/18 at 21:00 Insulin Human Lispro (HumaLOG INSULIN) SEE PROTOCOL TABLE AC SC Last administered on 08/22/18at 07:02; Start 08/21/18 at 07:30 Insulin Human Lispro (HumaLOG INSULIN) SEE PROTOCOL TABLE QHS SC ; Start 08/20/18 at 21:00 Lisinopril (Prinivil) 10 mg DAILY PO Last administered on 08/21/18at 08:09; Start 08/21/18 at 09:00; Stop 08/21/18 at 09:00; Status DC Lisinopril (Prinivil) 20 mg DAILY PO Last administered on 08/22/18at 09:18; Start 08/22/18 at 09:00 Magnesium Hydroxide (Milk Of Magnesia) 30 ml DAILYPRN PRN PO CONSTIPATION; Start 08/19/18 at 21:15 Metformin HCl (Glucophage Xr) 1,000 mg BID PO ; Start 08/20/18 at 21:00; Stop 08/20/18 at 22:55; Status DC Metformin HCl (Glucophage) 1,000 mg BIDWM PO Last administered on 08/22/18at 07:46; Start 08/21/18 at 08:00 Nicotine (Nicoderm Cq 21mg) 1 patch DAILY PRN TD Craving; Start 08/19/18 at 21:15 Olanzapine (ZyPREXA ZYDIS) 5 mg Q6HP PRN PO AGITATION Last administered on 08/21/18at 18:48; Start 08/19/18 at 21:15 Risperidone (RisperDAL) 1 mg BID PO Last administered on 08/22/18at 09:17; Start 08/20/18 at 21:00 Trazodone HCl (Desyrel) 50 mg QHS PO Last administered on 08/21/18at 21:15; Start 08/20/18 at 21:00 Trazodone HCl (Desyrel) 50 mg QHSP PRN PO INSOMNIA; Start 08/19/18 at 21:15; Status Cancel Allergies Coded Allergies: fluphenazine (Verified Adverse Reaction, Intermediate, COLD SWEATS, PACING, RASH, 08/07/18) haloperidol (Verified Adverse Reaction, Intermediate, COLD SWEATS, PACING, SWEATS, 08/07/18) LORETO BRYSON DO Aug 22, 2018 9:38 am
[2018-08-22] MEDS ORDERED: ARIPIPRAZOLE LAUROXIL 1,064 MG/3.9ML INJ(ARISTADA)(J1942 PER 1MG) IM ONE (09:45)
[2018-08-22 18:07] VITALS: BP 142/89
[2018-08-22] MEDS: OLANZapine ORAL DISINTEGRATING TAB 5MG PO PRN (18:50)
[2018-08-22] MEDS: traZODone 50 MG TAB PO SCH (21:06)
[2018-08-23] MEDS: OLANZapine ORAL DISINTEGRATING TAB 5MG PO PRN (03:05)
[2018-08-23 06:10] VITALS: BP 146/67
[2018-08-23] MEDS: GLIMEPIRIDE 2 MG TAB PO SCH (06:59)
[2018-08-23] MEDS: HumaLOG INSULIN (NovoLOG) PER UNIT SC SCH ×2 (07:01→12:00)
--- NOTE | 2018-08-23 08:37 | MHDSPDOC ---
[facility] Discharge Summary Discharge Summary DATE OF ADMISSION: Aug 19, 2018 at 21:15 DATE OF DISCHARGE: August, DISCHARGE DIAGNOSES: Schizophrenia. Intellectual disability, moderate. REASON FOR ADMISSION: He is 67 years old, has a history of schizophrenia, and according to the chart, possible moderate intellectual disability. He has had multiple admissions to inpatient psychiatry, most recently was here about a month or so ago, less than that, July 28, 2018, left August 02, 2018. Please refer to that summary for details related to the circumstances of that admission, and previous summaries for reasons for those. He was discharged on Aristada 1064 mg intramuscular every 2 months. He was also discharged on atorvastatin 20 mg daily, diphenhydramine 25 mg twice a day, glimepiride 2 mg daily, lisinopril 20 mg daily, metformin 1000 mg twice a day, Actos 30 mg daily, and trazodone 50 mg at night. He says he is staying at a local hotel, and is looking forward to moving to [facility], says has a place, through the [employer], who are assisting him. He says he felt depressed, last several days, found out one of his childhood friends had . Patient used to see him fairly regularly, and is quite sad about it, and began feeling suicidal, and decided to come here. Says sleep has been up and down, appetite has been okay. CONSULTANTS INVOLVED: none TREATMENT AND PROGRESS ON THE UNIT : Pt was admitted to [facility], seen for psychiatric assessment and started on risperidone 1mg bid in addition to aristada given during previous admission on 08/02/18. He was provided trazodone 50mg qhs prn insomnia. He tolerated his medications well and found them beneficial. He attended groups daily during his stay. His symptoms improved with treatment. On day of discharge he denied depression, anxiety, insomnia, SI/HI, hallucinations, delusions. He was discharged to a hotel until the room he was planning on renting was available. He will have follow-up at the [facility]. He felt safe for discharge. DISCHARGE ASSESSMENT: Patient seen and states his mood is good and that he's been responding well to his medications and is tolerating them well. He denies feeling depressed, denies SI. denies HI, denies AV hallucinations, denies delusions. States he's focused on finding a new hotel/apartment upon d/c. He appears to be at his baseline status. His insight and judgement are fair. MENTAL STATUS EXAMINATION ON DISCHARGE: He is neat, he is cooperative. No agitation as such. No psychomotor retardation. At times somewhat difficult to understand, but is coherent for the most part, with an affect of limited range. Has denies suicidal thoughts and feels safe in the hospital. Denies any auditory or visual hallucinations at present. He is alert and oriented. No fluctuation of consciousness. Judgment and insight are fair. MEDICATIONS ON DISCHARGE: Risperidone 1 mg BID Trazodone 50 mg QHS Aristada 1,064mg IM [id number] last given 08/02/18 PLAN/FOLLOWUP ARRANGEMENTS: d/c to [facility] with [facility]. The amount of time spent in the coordination of care for this patient was a pproximately 30 minutes. Vital Signs/I&Os Vital Signs Date Time Temp Pulse Resp B/P (MAP) Pulse Ox O2 Delivery O2 Flow Rate FiO2 08/23/18 06:10 97.2 56 14 146/67 (93) 08/20/18 01:45 95 08/20/18 01:33 Room Air Laboratory Data Labs 24H Laboratory Tests 2 08/22/18 11:41: Bedside Glucose (Misc Panel) 119H 08/22/18 17:07: Bedside Glucose (Misc Panel) 180H 08/22/18 20:31: Bedside Glucose (Misc Panel) 97 08/23/18 06:17: Bedside Glucose (Misc Panel) 139H Medications Scheduled Atorvastatin Calcium (Atorvastatin Calcium) 20 Mg Tab, 20 MG PO DAILY for , (Reported) Diphenhydramine HCl (Benadryl) 25 Mg Cap, 25 MG PO BID for , (Reported) Glimepiride (Glimepiride) 2 Mg Tab, 2 MG PO DAILY for , (Reported) Lisinopril (Lisinopril) 20 Mg Tab, 20 MG PO DAILY for , (Reported) Metformin HCl (Metformin HCl ER) 500 Mg Tab, 1,000 MG PO BID for , (Reported) Pioglitazone HCl (Actos) 30 Mg Tab, 30 MG PO DAILY for , (Reported) Risperidone (Risperdal) 2 Mg Tab, 1 MG PO BID for , (Reported) Trazodone HCl (Trazodone HCl) 50 Mg Tab, 50 MG PO QHS for , (Reported) Scheduled PRN Ibuprofen (Ibuprofen) 800 Mg Tablet, 800 MG PO Q8H PRN for PAIN, (Reported) Miscellaneous Medications [Patient Comments] , for , (Reported) MEDICATIONS CONFIRMED WITH [facility]. PA NURSE SETS UP HIS MEDICATIONS Allergies Coded Allergies: fluphenazine (Verified Adverse Reaction, Intermediate, COLD SWEATS, PACING, RASH, 08/07/18) haloperidol (Verified Adverse Reaction, Intermediate, COLD SWEATS, PACING, SWEATS, 08/07/18) LORETO BRYSON DO Aug 23, 2018 08:37
[2018-08-23] MEDS ORDERED: TRAZ-160 PO (08:40)
[2018-08-23] MEDS ORDERED: RISP2TAB32 PO (08:40)
[2018-08-23] MEDS: metFORMIN (GLUCOPHAGE) 1000 MG TABLET PO SCH (08:52)
[2018-08-23 08:55] VITALS: BP 146/67
[2018-08-23] MEDS: ATORVASTATIN 20 MG TAB PO SCH (08:55)
[2018-08-23] MEDS: risperiDONE 1 MG TAB PO SCH (08:55)
[2018-08-23] MEDS: LISINOPRIL 20 MG TAB PO SCH (08:55)
[2018-08-23] MEDS: diphenhydrAMINE 25 MG CAP PO SCH (08:55)
== END 2018-08-23 14:58 | disposition home or self-care (01) | DRG 885 ==
LOC: M ED 18:14 → M ED INP 21:15 → M PSY 08-20 01:43
PROVIDERS: ADMIT Psychiatry & Neurology Psychiatry; ATTEND Psychiatry & Neurology Psychiatry
DX: F20.9 Schizophrenia, unspecified (principal); F71 Moderate intellectual disabilities; Z79.899 Other long term (current) drug therapy; Z88.8 Allergy status to other drugs, medicaments and biological substances; I10 Essential (primary) hypertension; E78.00 Pure hypercholesterolemia, unspecified; E11.9 Type 2 diabetes mellitus without complications; K21.9 Gastro-esophageal reflux disease without esophagitis; J44.9 Chronic obstructive pulmonary disease, unspecified

== ENCOUNTER 2018-09-03 14:43 | Emergency (ER) | payer MEDICARE ==
[~2018-09-03] VITALS: Ht 165.1 cm; Wt 92.0 kg
[~2018-09-03 14:43] MED LIST changes: +PATIENT COMMENTS
[2018-09-03 15:54] LABS: HEMATOCRIT 37.8 % (42.0-52.0); HEMOGLOBIN 12.6 g/dl (13.5-17.5); MEAN CORPUSCULAR HEMOGLOBIN 28.4 pg (27.0-33.0); MEAN CORPUSCULAR HGB CONC 33.3 g/dl (32.0-36.5); MEAN CORPUSCULAR VOLUME 85.3 fl (80.0-96.0); PLATELET COUNT, AUTOMATED 210 10^3/uL (150-450); RED BLOOD COUNT 4.43 10^6/uL (4.30-6.10); WHITE BLOOD COUNT 6.2 10^3/uL (4.0-10.0)
[2018-09-03 16:17] LABS: AMPHETAMINES LEVEL URINE NEGATIVE (NEGATIVE); BARBITURATES URINE NEGATIVE (NEGATIVE); BENZODIAZEPINES URINE NEGATIVE (NEGATIVE); CANNABINOIDS URINE NEGATIVE (NEGATIVE); COCAINE METABOLITE URINE NEGATIVE (NEGATIVE); METHADONE URINE NEGATIVE (NEGATIVE); OPIATES URINE NEGATIVE (NEGATIVE); PHENCYCLIDINE URINE NEGATIVE (NEGATIVE)
[2018-09-03 16:33] LABS: ALBUMIN 3.5 GM/DL (3.2-5.2); ALT/SGPT 31 U/L (12-78); BILIRUBIN,DIRECT < 0.1 MG/DL (0.0-0.2); BILIRUBIN,TOTAL 0.2 MG/DL (0.2-1.0); BLOOD UREA NITROGEN 17 MG/DL (7-18); CALCIUM LEVEL 8.5 MG/DL (8.8-10.2); CARBON DIOXIDE LEVEL 27 MEQ/L (21-32); CHLORIDE LEVEL 105 MEQ/L (98-107); CREATININE FOR GFR 0.84 MG/DL (0.70-1.30); GLOMERULAR FILTRATION RATE > 60.0 (>49); GLUCOSE, FASTING 276 MG/DL (70-100); POTASSIUM SERUM 4.3 MEQ/L (3.5-5.1); SALICYLATE LEVEL < 1.7 MG/DL (5.0-30.0); SODIUM LEVEL 138 MEQ/L (136-145); TOTAL PROTEIN 6.2 GM/DL (6.4-8.2)
[2018-09-03 16:34] LABS: ACETAMINOPHEN LEVEL < 2.0 UG/ML (10.0-30.0); ETHYL ALCOHOL (ETHANOL) < 0.003 % (0.000-0.010)
[2018-09-03 21:09] VITALS: BP 140/68
--- NOTE | 2018-09-04 21:08 | ECGEPIP ---
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
== END 2018-09-03 21:11 | disposition short-term general hospital (02) ==
LOC: M ED 14:43
DX: R44.0 Auditory hallucinations (principal); Z76.5 Malingerer [conscious simulation]; F20.9 Schizophrenia, unspecified; E11.9 Type 2 diabetes mellitus without complications; I10 Essential (primary) hypertension; F43.10 Post-traumatic stress disorder, unspecified; J44.9 Chronic obstructive pulmonary disease, unspecified; D50.9 Iron deficiency anemia, unspecified; F71 Moderate intellectual disabilities; Z87.11 Personal history of peptic ulcer disease; Z79.84 Long term (current) use of oral hypoglycemic drugs; Z79.899 Other long term (current) drug therapy; Z88.8 Allergy status to other drugs, medicaments and biological substances
CPT/HCPCS: 80048; 80076; 80307; 84443; 85027; 93005; 99284; G0480

== ENCOUNTER 2018-09-14 21:16 | Emergency (ER) | payer MEDICARE ==
[~2018-09-14] VITALS: Ht 165.1 cm; Wt 83.6 kg
[2018-09-14 22:04] LABS: BASO # 0.1 10^3/uL (0.0-0.2); BASO % 0.8 % (0.0-1.0); EOS # 0.4 10^3/uL (0.0-0.50); EOS % 4.5 % (0.0-3.0); HEMATOCRIT 42.2 % (42.0-52.0); LYMPH % 22.9 % (24.0-44.0); MEAN CORPUSCULAR HEMOGLOBIN 28.3 pg (27.0-33.0); MEAN CORPUSCULAR HGB CONC 33.2 g/dl (32.0-36.5); MEAN CORPUSCULAR VOLUME 85.4 fl (80.0-96.0); MONO # 0.7 10^3/uL (0.0-0.8); MONO % 7.9 % (0.0-5.0); NEUTROPHILS # 5.5 10^3/uL (1.8-7.7); NEUTROPHILS % 63.6 % (36.0-66.0); PLATELET COUNT, AUTOMATED 245 10^3/uL (150-450); RED BLOOD COUNT 4.94 10^6/uL (4.30-6.10); WHITE BLOOD COUNT 8.6 10^3/uL (4.0-10.0)
[2018-09-14 22:28] LABS: ALBUMIN 3.5 GM/DL (3.2-5.2); ALT/SGPT 29 U/L (12-78); BILIRUBIN,DIRECT < 0.1 MG/DL (0.0-0.2); BILIRUBIN,TOTAL 0.2 MG/DL (0.2-1.0); BLOOD UREA NITROGEN 16 MG/DL (7-18); CALCIUM LEVEL 8.9 MG/DL (8.8-10.2); CARBON DIOXIDE LEVEL 27 MEQ/L (21-32); CHLORIDE LEVEL 101 MEQ/L (98-107); CREATININE FOR GFR 0.77 MG/DL (0.70-1.30); GLOMERULAR FILTRATION RATE > 60.0 (>49); GLUCOSE, FASTING 144 MG/DL (70-100); LIPASE 130 U/L (73-393); POTASSIUM SERUM 4.3 MEQ/L (3.5-5.1); SODIUM LEVEL 136 MEQ/L (136-145); TOTAL PROTEIN 6.7 GM/DL (6.4-8.2)
[2018-09-14] MEDS ORDERED: ISOVUE-370 76% 100ML VIAL (Q9967) As Ordered ONE (22:59)
[2018-09-14] MEDS ORDERED: ACETAMINOPHEN TAB 650MG DOSE (2X325MG) PO ONE (23:45)
--- NOTE | 2018-09-14 23:48 | REPVR ---
EXAM: CT Abdomen and Pelvis With Contrast EXAM DATE/TIME: 09/14/2018 10:42 PM CLINICAL HISTORY: 67 years old, male; Abdominal pain; Localized; Right; Additional info: Right sided and right groin pain TECHNIQUE: Imaging protocol: Axial computed tomography images of the abdomen and pelvis with intravenous contrast. Coronal and sagittal reformatted images were created and reviewed. Radiation optimization: All CT scans at this facility use at least one of these dose optimization techniques: automated exposure control; mA and/or kV adjustment per patient size (includes targeted exams where dose is matched to clinical indication); or iterative reconstruction. Contrast material: ISO; Contrast volume: 100 ml; Contrast route: AC; COMPARISON: CR Spine, Lumbosacral, partial 09/02/2017 1:52 AM FINDINGS: Lungs: There is bibasilar compressive atelectasis. Mediastinum: A small hiatal hernia is present. ABDOMEN: Liver: There is a diffuse decrease in hepatic parenchymal density, consistent with fatty infiltration. Gallbladder and bile ducts: The gallbladder is incompletely distended. This is most likely related to incomplete fasting. Clinical correlation to exclude gallbladder pathology suggested. Pancreas: Normal. No ductal dilation. Spleen: Normal. No splenomegaly. Adrenals: Normal. No mass. Kidneys and ureters: Normal. No hydronephrosis. Stomach and bowel: Normal. No obstruction. No mucosal thickening. Appendix: No evidence of appendicitis. PELVIS: Bladder: Unremarkable as visualized. Reproductive: The prostate gland demonstrates mild hyperplasia. ABDOMEN and PELVIS: Intraperitoneal space: Normal. No free air. No significant fluid collection. Bones/joints: The spine demonstrates mild degenerative changes. Soft tissues: Bilateral inguinal hernias. Vasculature: The aorta demonstrates mild atherosclerotic calcification. Lymph nodes: Normal. No enlarged lymph nodes. IMPRESSION: 1. There is a diffuse decrease in hepatic parenchymal density, consistent with fatty infiltration. 2. The gallbladder is incompletely distended. This is most likely related to incomplete fasting. Clinical correlation to exclude gallbladder pathology suggested. 3. Small hiatal hernia. 4. Mild prostatic hyperplasia. Electronically signed by: Chintan Rizo On 09/14/2018 23:48:18 PM
[2018-09-15 00:50] VITALS: BP 130/70
--- NOTE | 2018-09-20 13:41 | ED PDOC ---
Post-Departure Follow-Up jenn ho faxed formalr eport of ct abd/p for fu Pradeep Sherwood MD September 20, 2018 13:41
== END 2018-09-15 00:54 | disposition home or self-care (01) ==
LOC: EDBD 21:16 → M ED 21:16
DX: R10.30 Lower abdominal pain, unspecified (principal); E11.9 Type 2 diabetes mellitus without complications; K21.9 Gastro-esophageal reflux disease without esophagitis; F41.9 Anxiety disorder, unspecified; F32.9 Major depressive disorder, single episode, unspecified; F20.9 Schizophrenia, unspecified; F43.10 Post-traumatic stress disorder, unspecified; H26.9 Unspecified cataract; Z79.84 Long term (current) use of oral hypoglycemic drugs; Z79.899 Other long term (current) drug therapy; Z88.8 Allergy status to other drugs, medicaments and biological substances
CPT/HCPCS: 74177; 80048; 80076; 83690; 85025; 99284; Q9967

== ENCOUNTER 2018-09-21 20:22 | Inpatient (IN) | payer MEDICARE ==
[~2018-09-21] VITALS: Ht 165.1 cm; Wt 87.5 kg
[2018-09-21 22:52] LABS: HEMATOCRIT 43.9 % (42.0-52.0); HEMOGLOBIN 14.3 g/dl (13.5-17.5); MEAN CORPUSCULAR HEMOGLOBIN 28.7 pg (27.0-33.0); MEAN CORPUSCULAR HGB CONC 32.6 g/dl (32.0-36.5); PLATELET COUNT, AUTOMATED 268 10^3/uL (150-450); RED BLOOD COUNT 4.99 10^6/uL (4.30-6.10); WHITE BLOOD COUNT 8.5 10^3/uL (4.0-10.0)
[2018-09-21 23:10] LABS: ACETAMINOPHEN LEVEL < 2.0 UG/ML (10.0-30.0); ALBUMIN 3.9 GM/DL (3.2-5.2); ALT/SGPT 63 U/L (12-78); BILIRUBIN,DIRECT < 0.1 MG/DL (0.0-0.2); BILIRUBIN,TOTAL 0.2 MG/DL (0.2-1.0); BLOOD UREA NITROGEN 17 MG/DL (7-18); CARBON DIOXIDE LEVEL 29 MEQ/L (21-32); CHLORIDE LEVEL 104 MEQ/L (98-107); CREATININE FOR GFR 0.75 MG/DL (0.70-1.30); ETHYL ALCOHOL (ETHANOL) < 0.003 % (0.000-0.010); GLOMERULAR FILTRATION RATE > 60.0 (>49); GLUCOSE, FASTING 214 MG/DL (70-100); POTASSIUM SERUM 4.5 MEQ/L (3.5-5.1); SALICYLATE LEVEL < 1.7 MG/DL (5.0-30.0); SODIUM LEVEL 139 MEQ/L (136-145); TOTAL PROTEIN 6.8 GM/DL (6.4-8.2)
[2018-09-21 23:27] LABS: AMPHETAMINES LEVEL URINE NEGATIVE (NEGATIVE); BARBITURATES URINE NEGATIVE (NEGATIVE); BENZODIAZEPINES URINE NEGATIVE (NEGATIVE); CANNABINOIDS URINE NEGATIVE (NEGATIVE); COCAINE METABOLITE URINE NEGATIVE (NEGATIVE); METHADONE URINE NEGATIVE (NEGATIVE); OPIATES URINE NEGATIVE (NEGATIVE); PHENCYCLIDINE URINE NEGATIVE (NEGATIVE)
[2018-09-22] MEDS ORDERED: ACETAMINOPHEN TAB 650MG DOSE (2X325MG) PO ONE (04:00)
[2018-09-22] MEDS ORDERED: risperiDONE 2 MG TAB PO ONE (07:30)
[2018-09-22] MEDS ORDERED: LISINOPRIL 20 MG TAB PO ONE (07:30)
[2018-09-22] MEDS ORDERED: metFORMIN (GLUCOPHAGE) 500 MG TAB PO ONE (07:30)
[2018-09-22] MEDS ORDERED: GLIMEPIRIDE 2 MG TAB PO ONE (07:30)
--- NOTE | 2018-09-22 07:31 | ECGEPIP ---
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
[2018-09-22] MEDS ORDERED: RISP2TAB3 PO (11:23)
[2018-09-22] MEDS ORDERED: PRAZ1CAP PO (11:23)
[2018-09-22] MEDS ORDERED: ATOR40TA75 PO (11:23)
[2018-09-22] MEDS ORDERED: OMEP-218 PO (11:23)
[2018-09-22] MEDS ORDERED: LISI40TA PO (11:23)
[2018-09-22] MEDS ORDERED: TRAZ-160 PO (11:23)
[2018-09-22] MEDS ORDERED: RISP4TAB2 PO (11:23)
[2018-09-22] MEDS ORDERED: MOM 30ML SUSPENSION UDC PO PRN (11:30)
[2018-09-22] MEDS ORDERED: MAALOX 30 ML SUSP *UDC PO PRN (11:30)
[2018-09-22 14:25] VITALS: BP 153/91
[2018-09-22] MEDS ORDERED: GLUCAGON FOR INJ 1 MG VIAL (J1610) SC PRN (15:30)
[2018-09-22] MEDS ORDERED: DEXTROSE 50% 50 ML SYRINGE IV PRN (15:30)
[2018-09-22] MEDS ORDERED: GLUCOSE 4 GM CHEW TABLET PO PRN (15:30)
[2018-09-22] MEDS ORDERED: IBUPROFEN 800 MG TAB PO PRN (15:30)
--- NOTE | 2018-09-22 15:38 | HPE ---
DATE OF ADMISSION: 09/22/2018 PSYCHIATRIST: Dr. Leahy MEDICAL ATTENDING PHYSICIAN: Dr. Franz CHIEF COMPLAINT: Suicidal ideation. HISTORY OF PRESENT ILLNESS: The patient is a 67-year-old white male with several chronic medical conditions, including schizophrenia, who presented to the hospital for evaluation of suicidal ideation. History is provided by himself and as well by review of chart; however, patient is not a good historian. Per medical record, patient has multiple psychiatric admissions for similar issues. He states he has schizophrenia and depression in the past, and he was taking his medication; however, yesterday he said he had some suicidal ideation. He wanted to kill himself, so he called 911. Then he was brought to the emergency room (ER) for further evaluation. In the ER, he was investigated initially, and decided to admit him to psychiatry unit. Medicine called for followup. REVIEW OF SYSTEMS: Denies fever. No chills. No headache, blurry vision. No shortness of breath. No chest pain. No abdominal pain. No diarrhea. No tingling, numbness, weakness in the arms or lower extremities. All other systems reviewed were negative. PAST MEDICAL HISTORY: 1. Hypertension. 2. Dyslipidemia. 3. Type 2 diabetes. 4. Schizophrenia. 5. Acid reflux. 6. Hypothyroidism. 7. Posttraumatic stress disorder (PTSD). PAST SURGICAL HISTORY: 1. Tonsillectomy. 2. Low back surgery for herniated discs. SOCIAL HISTORY: Denies tobacco use. Denies alcohol abuse. Denies illicit drug abuse. He lives by himself. He is not . He is a full code. FAMILY HISTORY: His mother from suicide. Father from being heavy drinker. He is a full code. ALLERGIES: No known drug allergies. Medications reviewed. PHYSICAL EXAMINATION: VITAL SIGNS: Temperature 96.3, heart rate 82, respiratory rate 20, blood pressure 135/75, oxygen saturation 80% in room air. GENERAL: He is awake, alert, oriented times three. He is not in acute distress. HEENT: Atraumatic. Pupils equal, round, and reactive to light. No jaundice. Extraocular muscles intact. Ears, nose, throat normal. Mouth mucosa not dry. NECK: No jugular venous distention (JVD). No bruits. LUNGS: Clear. No wheezes. No crackles. HEART: S1, S2, regular. No murmur. ABDOMEN: Soft. Bowel sounds positive. Nontender. SKIN: No rash. NEUROLOGIC: Nonfocal. PSYCHOLOGIC: No acute psychosis. DIAGNOSTIC AND LABORATORY STUDIES: CBC and BMP at his baseline, which is normal. IMPRESSION: 1. Suicidal ideation. 2. Schizophrenia. 3. Hypertension. 4. Dyslipidemia. 5. Type 2 diabetes. PLAN: Currently he is medically stable. Will continue his home medications. Psychiatry is taking care of his schizophrenia plus suicidal ideation.
[2018-09-22] MEDS: HumaLOG INSULIN (NovoLOG) PER UNIT SC SCH ×2 (16:51→21:00)
[2018-09-22] MEDS: ACETAMINOPHEN TAB 650MG DOSE (2X325MG) PO PRN (17:33)
[2018-09-22] MEDS ORDERED: traZODone 50 MG TAB PO SCH (21:00)
[2018-09-22] MEDS: risperiDONE 2 MG TAB PO SCH (21:27)
[2018-09-22] MEDS: PRAZOSIN 1 MG CAP PO SCH (21:27)
[2018-09-22] MEDS: metFORMIN XR 500MG TAB *GLUCOPHAGE XR PO SCH (21:27)
[2018-09-23] MEDS: ACETAMINOPHEN TAB 650MG DOSE (2X325MG) PO PRN (00:57)
[2018-09-23] MEDS: HumaLOG INSULIN (NovoLOG) PER UNIT SC SCH ×4 (06:27→21:00)
[2018-09-23 06:42] VITALS: BP 128/63
[2018-09-23] MEDS: LISINOPRIL 20 MG TAB PO SCH (09:35)
[2018-09-23] MEDS: metFORMIN XR 500MG TAB *GLUCOPHAGE XR PO SCH ×2 (09:35→20:08)
[2018-09-23] MEDS: risperiDONE 1 MG TAB PO SCH (09:35)
[2018-09-23] MEDS: OMEPRAZOLE 20 MG CAP PO SCH (09:35)
[2018-09-23] MEDS: GLIMEPIRIDE 2 MG TAB PO SCH (09:36)
[2018-09-23] MEDS: ATORVASTATIN 20 MG TAB PO SCH (09:36)
--- NOTE | 2018-09-23 16:36 | MHHPEPDOC ---
[facility] History & Physical History and Physical DATE OF ADMISSION: September 22, 2018 at 11:29 LEGAL STATUS AT ADMISSION: 9.39 CHIEF COMPLAINT: Suicidal ideation HISTORY OF PRESENT ILLNESS: Patient is a 68-year-old male, who according to ED report: " Pt found on bridge today, was threatening to jump off. PT with hx of Schizoaffective d/o and multiple prior psych admissions, states he's been "having a rough time lately", admittedly has been non-compliant with outpt tx and medications, is currently living alone, states he has been having AH with commands to harm self. Pt admits he was "planning on jumping off the bridge today", [facility] responded and took pt into custody. Pt denies HI, denies any substance use issues, admits to hx of suicide attempts in past. Pt is calm/cooperative at this time, appears disheveled, c/o erratic sleep and appetite, poor concentration." PSYCHIATRIC REVIEW OF SYSTEMS: Affective: Hopeless, helpless, frustrated, irritable, passive suicidal thoughts Anxiety: Restless, frequent headaches, muscle tightness Trauma: nightmares about being incarcerated after he was accused of sexually harassing a woman at [facility] Psychosis: Denies Personally: Pleasant at this time (earlier he insisted he needed to go to another room because he has a roommate and he said he couldn't breath with his roommate in there). R/O cluster B personality disorder PAST PSYCHIATRIC HISTORY: Prior Psychiatric Disorder: Multiple admissions, last one was in August 2018 Outpatient Treatment: Multiple facilities, refer to EMR. Suicidal/Self injurious: History of suicidal ideation, history of suicide attempts Psychotropic Medication History: Risperdal, trazodone, Depakote, Invega Sustenna, Seroquel, Zoloft, Haldol, "benzos." ALLERGIES: Please see below. FAMILY PSYCHIATRIC HISTORY: Mother - suicide via walking into traffic, alcoholism Father - alcoholism SOCIAL HISTORY: Early Relations/development: Patient states he was born in [place] and raised in "[facility]", notes both parents are and has no contact with his siblings. Patient indicates he has some friends in the area. Sibling order: Eldest child, states he has no contact with siblings. Paternal relationships: Both parents are . Education: GED. 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 Legal: Denies other than pending legal charges for stalking. Martial: Never , no children. Economic: Denies financial strain, is on Social Security and veterans benefits, per EMR, is 100% service connected. Supports: Described support system as limited. Abuse/trauma: Denies. SUBSTANCE ABUSE HISTORY: Patient denies history of substance use or abuse, further denies history of tobacco use. PAST MEDICAL/SURGICAL HISTORY: Hypertension, hypercholesterolemia, type 2 diabetes, cataracts VITAL SIGNS: See below MENTAL STATUS EXAMINATION: General appearance: Patient is a 65-year old male, who is cooperative, makes adequate eye contact, appears disheveled, dressed in hospital clothing, ambulates with steady gait, appears stated age Speech: Difficult to decipher at times, appears pressured, normal volume, spontaneous. Thought processes: Linear, logical, goal-directed. Thought content: Linear, mostly logical, paranoid at times Description of associations: Appears intact. Description of abnormal or psychotic thoughts: Reports recent suicidal ideation associated with feeling overwhelmed with house chores and because he can't see due to cataracts. Judgment: Poor Insight: Poor Orientation: A and O 3 Recent and remote memory: Fair Attention span and concentration: Good Fund of knowledge: average Mood: "I feel better but my roommate made me upset" Affect: Constricted DIAGNOSES: Schizoaffective disorder, bipolar type, rule out schizophrenia ASSESSMENT: The patient has had multiple admissions to [facility] and on those admissions he has had similar presentations. sometimes he says that he is suicidal, sometimes he says that he is hearing voices and shortly after he comes in the unit ([facility]) he says he is getting better. this time it was because apparently he feels frustrated because he has cataracts and he can't see very well, this is a problem because he can't do some of the things he used to do by himself. he says he has spoken with store planner who has told him that he might be able to receive some assistance,regarding some house chores. discussed with him the importance of cataract surgery, he is, [facility]. [facility] but, he says, the waiting time is too long. The patient was agitated earlier because he says that his roommate was threatening him but no staff members witnessed that. The patient has always had some level of paranoia PROBLEM LIST: Depression anxiety Altered thoughts INITIAL TREATMENT PLAN: 1. Patient was admitted on a 9.39 2. Complete history was obtained. 3. With patients permission, family will be contacted and database will be expanded. 4. Patients medication regimen will be reviewed and changed accordingly. 5. Patient will be provided with protected environment. 6. Patient will be treated with individual, group, and milieu therapies. 7. Patient will receive supportive psych-education. 8. Discharge planning will commence immediately. 9. Outpatient follow-up treatment will be strongly recommended. 10. The initial treatment plan will focus initially on: * Depression. * Risk for suicide. ESTIMATED LENGTH OF STAY: 3-5 DAYS. TIME SPENT COUNSELING AND COORDINATING INITIAL CARE: 50 minutes. Vital Signs Vital Signs Date Time Temp Pulse Resp B/P (MAP) Pulse Ox O2 Delivery O2 Flow Rate FiO2 09/23/18 09:35 128/75 09/23/18 06:42 97.7 84 14 09/22/18 12:09 98 Room Air Laboratory Data 24H Labs Laboratory Tests 2 09/22/18 16:48: Bedside Glucose (Misc Panel) 100 09/22/18 21:23: Bedside Glucose (Misc Panel) 195H 09/23/18 06:24: Bedside Glucose (Misc Panel) 147H 09/23/18 11:58: Bedside Glucose (Misc Panel) 129H FSBS Laboratory Tests Test 09/22/18 16:48 09/22/18 21:23 09/23/18 06:24 09/23/18 11:58 Range/Units Bedside Glucose (Misc Panel) 100 195 147 129 80-115 MG/DL Medications Scheduled Atorvastatin Calcium (Atorvastatin Calcium) 40 Mg Tablet, 20 MG PO DAILY, (Reported) Glimepiride (Glimepiride) 2 Mg Tab, 2 MG PO QAM for , (Reported) Lisinopril (Lisinopril) 40 Mg Tablet, 20 MG PO DAILY, (Reported) Metformin HCl (Metformin HCl ER) 500 Mg Tab, 1,000 MG PO BID for , (Reported) Omeprazole (Omeprazole) 20 Mg Capsule.dr, 20 MG PO QAM, (Reported) Pioglitazone HCl (Actos) 30 Mg Tab, 30 MG PO DAILY for , (Reported) Prazosin Hcl (Prazosin HCl) 1 Mg Capsule, 1 MG PO QHS, (Reported) Risperidone (Risperidone) 2 Mg Tablet, 1 MG PO QAM, (Reported) Risperidone (Risperidone) 4 Mg Tablet, 2 MG PO QHS, (Reported) Trazodone HCl (Trazodone HCl) 50 Mg Tablet, 50 MG PO QHS, (Reported) Scheduled PRN Ibuprofen (Ibuprofen) 800 Mg Tablet, 800 MG PO Q8H PRN for PAIN, (Reported) Allergies Coded Allergies: fluphenazine (Verified Adverse Reaction, Intermediate, COLD SWEATS, PACING, RASH, 08/07/18) haloperidol (Verified Adverse Reaction, Intermediate, COLD SWEATS, PACING, SWEATS, 08/07/18) A-FIB/CHADSVASC A-FIB History Current/History of A-Fib/PAF?: No Current PO Anticoag Therapy: No Age/Risk Factor Scoring CHADSVASC: CHADSVASC Response (Comments) Value Age Risk Factor Age 65-74 years old 1 Gender Risk Factor Male 0 Hx of CHF No 0 Hx of HTN Yes 1 Hx of Stroke/TIA/or VTE No 0 Hx of Diabetes Yes 1 Hx of Vascular Disease No 0 Total 3 Treatment Treatment ordered: NONE Reason Anticoagulant not given: Not indicated/[id number] CORAZON REN MD September 23, 2018 12:38
[2018-09-23 18:17] VITALS: BP 131/68
[2018-09-23] MEDS: risperiDONE 2 MG TAB PO SCH (20:07)
[2018-09-23] MEDS: PRAZOSIN 1 MG CAP PO SCH (20:08)
[2018-09-24] MEDS: traZODone 50 MG TAB PO PRN (01:27)
[2018-09-24] MEDS: HumaLOG INSULIN (NovoLOG) PER UNIT SC SCH ×4 (06:48→20:50)
[2018-09-24 07:06] VITALS: BP 131/80
[2018-09-24] MEDS: LISINOPRIL 20 MG TAB PO SCH (08:41)
[2018-09-24] MEDS: GLIMEPIRIDE 2 MG TAB PO SCH (08:42)
[2018-09-24] MEDS: ATORVASTATIN 20 MG TAB PO SCH (08:42)
[2018-09-24] MEDS: OMEPRAZOLE 20 MG CAP PO SCH (08:42)
[2018-09-24] MEDS: risperiDONE 1 MG TAB PO SCH (08:42)
[2018-09-24] MEDS: metFORMIN XR 500MG TAB *GLUCOPHAGE XR PO SCH ×2 (08:42→20:49)
--- NOTE | 2018-09-24 10:27 | MHIPNPDOC ---
[facility] Progress Note Progress Note DATE OF SERVICE: 09/24/18 HISTORY: Patient with frequent admissions, was found on a bridge and stating he wanted to jump off. VITAL SIGNS: See below. NEW TEST RESULTS: None. CURRENT MEDICATIONS: See below. MENTAL STATUS EXAMINATION: Patient is a 68-year old male, who is, known to have chronic illness, schiz ophrenia. Speech: Is, normal. Language skills are intact. Thought processes including: . Thought content: . Abstract reasoning, and computation:. Poor. Description of associations:. No loose association. Description of abnormal or psychotic thoughts:. No obvious psychotic thought. Stated he wanted to jump off bridge. Judgment: Poor. Insight:, Poor. Orientation: Intact 3. Recent and remote memory:. Impaired. Attention span and concentration: Impaired. Language: As above. Fund of knowledge:. Intact. Mood: Good. Affect: On groin. DIAGNOSES: 1. Schizophrenia. 2., Stress of social isolation. ASSESSMENT: A 68-year-old male with numerous admissions comfortable in the hospital. Presently being treated by Dr. Leahy with Risperdal) MANAGEMENT PLAN:. No change in medications. Defer to TIME SPENT: 30 minutes. Vital Signs Vital Signs Date Time Temp Pulse Resp B/P (MAP) Pulse Ox O2 Delivery O2 Flow Rate FiO2 09/24/18 08:41 131/80 09/24/18 07:06 97.0 92 18 09/22/18 12:09 98 Room Air Laboratory Data 24H Labs Laboratory Tests 2 09/23/18 11:58: Bedside Glucose (Misc Panel) 129H 09/23/18 16:46: Bedside Glucose (Misc Panel) 167H 09/23/18 20:07: Bedside Glucose (Misc Panel) 153H 09/24/18 05:38: Bedside Glucose (Misc Panel) 138H Current Medications Current Medications Acetaminophen (Tylenol Tab) 650 mg Q6HP PRN PO HEADACHE or DISCOMFORT Last administered on 09/23/18at 00:57; Start 09/22/18 at 11:30 Al Hydrox/Mg Hydrox/Simethicone (Mylanta) 30 ml Q4HP PRN PO HEARTBURN/INDIGESTION; Start 09/22/18 at 11:30 Atorvastatin Calcium (Lipitor) 20 mg DAILY PO Last administered on 09/24/18at 08:42; Start 09/23/18 at 09:00 Dextrose (Dextrose 50%) 25 ml ASDIRECTED PRN IV SEE LABEL COMMENTS; Start 09/22/18 at 15:30 Glimepiride (Amaryl) 2 mg QAM PO Last administered on 09/24/18at 08:42; Start 09/23/18 at 09:00 Glucagon (Glucagon) 1 mg ASDIRECTED PRN SC SEE LABEL COMMENTS; Start 09/22/18 at 15:30 Glucose (Glucose) 16 GM ASDIRECTED PRN PO SEE LABEL COMMENTS; Start 09/22/18 at 15:30 Home Med (Med Rec Complete!) ASDIRECTED XX ; Start 09/22/18 at 11:30; Stop 09/22/18 at 11:30; Status DC Ibuprofen (Advil) 800 mg Q8H PRN PO PAIN; Start 09/22/18 at 15:30 Insulin Human Lispro (HumaLOG INSULIN) See Protocol Table AC SC Last administered on 09/24/18at 06:48; Start 09/22/18 at 17:30 Insulin Human Lispro (HumaLOG INSULIN) See Protocol Table QHS SC ; Start 09/22/18 at 21:00 Lisinopril (Prinivil) 20 mg DAILY PO Last administered on 09/24/18at 08:41; Sta rt 09/23/18 at 09:00 Magnesium Hydroxide (Milk Of Magnesia) 30 ml DAILYPRN PRN PO CONSTIPATION; Start 09/22/18 at 11:30 Metformin HCl (Glucophage Xr) 1,000 mg BID PO Last administered on 09/24/18at 08:42; Start 09/22/18 at 21:00 Omeprazole (PriLOSEC) 20 mg DAILY PO Last administered on 09/24/18at 08:42; Start 09/23/18 at 09:00 Prazosin HCl (Minipress) 1 mg QHS PO Last administered on 09/23/18at 20:08; Start 09/22/18 at 21:00 Risperidone (RisperDAL) 1 mg QAM PO Last administered on 09/24/18at 08:42; Start 09/23/18 at 09:00 Risperidone (RisperDAL) 2 mg QHS PO Last administered on 09/23/18at 20:07; Start 09/22/18 at 21:00 Trazodone HCl (Desyrel) 50 mg QHS PO ; Start 09/22/18 at 21:00; Stop 09/22/18 at 21:00; Status DC Trazodone HCl (Desyrel) 50 mg QHSP PRN PO INSOMNIA Last administered on 09/24/18at 01:27; Start 09/22/18 at 11:30 Allergies Coded Allergies: fluphenazine (Verified Adverse Reaction, Intermediate, COLD SWEATS, PACING, RASH, 08/07/18) haloperidol (Verified Adverse Reaction, Intermediate, COLD SWEATS, PACING, SWEATS, 08/07/18) AME ALEJO MD September 24, 2018 10:27
[2018-09-24] MEDS: ACETAMINOPHEN TAB 650MG DOSE (2X325MG) PO PRN (11:23)
[2018-09-24 18:15] VITALS: BP 128/74
[2018-09-24] MEDS: PRAZOSIN 1 MG CAP PO SCH (20:49)
[2018-09-24] MEDS: risperiDONE 2 MG TAB PO SCH (20:49)
[2018-09-25] MEDS: traZODone 50 MG TAB PO PRN ×2 (01:05→21:18)
[2018-09-25 06:52] VITALS: BP 128/67
[2018-09-25] MEDS: HumaLOG INSULIN (NovoLOG) PER UNIT SC SCH ×4 (07:08→21:00)
--- NOTE | 2018-09-25 09:04 | MHIPNPDOC ---
[facility] Progress Note Progress Note DATE OF SERVICE: 09/25/18 HISTORY: 68-year-old male with frequent admissions claiming to have been suicidal and no particular disturbances today.Non compliant with OP care VITAL SIGNS: See below. NEW TEST RESULTS: None. CURRENT MEDICATIONS: See below. MENTAL STATUS EXAMINATION: Patient is a 68-year old male, who is treated for schizophrenia and depression. Speech: Is. Normal. Language skills are adequate. Thought processes including:. No disturbance. Thought content:. No complaints of hallucinations. Abstract reasoning, and computation:. Ability to abstract is minimal. Description of associations:. No loose association. Description of abnormal or psychotic thoughts:. No psychotic thought described. Judgment: Poor. Insight: Limited. Orientation: Intact 3. Recent and remote memory:. No disturbance. Attention span and concentration:. No disturbance. Language: Intact. Fund of knowledge: Intact. Mood:. Good. Affect: Right. DIAGNOSES: 1. Schizoaffective disorder. ASSESSMENT: A 68-year-old chronic schizoaffective disorder with repetitive admissions MANAGEMENT PLAN:. Outpatient planning needs to address noncompliance. TIME SPENT:, 30 minutes. Vital Signs Vital Signs Date Time Temp Pulse Resp B/P (MAP) Pulse Ox O2 Delivery O2 Flow Rate FiO2 09/25/18 06:52 97.6 80 14 128/67 (87) 09/22/18 12:09 98 Room Air Laboratory Data 24H Labs Laboratory Tests 2 09/24/18 11:26: Bedside Glucose (Misc Panel) 158H 09/24/18 17:17: Bedside Glucose (Misc Panel) 104 09/24/18 20:46: Bedside Glucose (Misc Panel) 161H 09/25/18 06:15: Bedside Glucose (Misc Panel) 133H Current Medications Current Medications Acetaminophen (Tylenol Tab) 650 mg Q6HP PRN PO HEADACHE or DISCOMFORT Last administered on 09/24/18at 11:23; Start 09/22/18 at 11:30 Al Hydrox/Mg Hydrox/Simethicone (Mylanta) 30 ml Q4HP PRN PO HEARTBURN/INDIGESTION; Start 09/22/18 at 11:30 Atorvastatin Calcium (Lipitor) 20 mg DAILY PO Last administered on 09/24/18at 08:42; Start 09/23/18 at 09:00 Dextrose (Dextrose 50%) 25 ml ASDIRECTED PRN IV SEE LABEL COMMENTS; Start 09/22/18 at 15:30 Glimepiride (Amaryl) 2 mg QAM PO Last administered on 09/24/18 08:42; Start 09/23/18 at 09:00 Glucagon (Glucagon) 1 mg ASDIRECTED PRN SC SEE LABEL COMMENTS; Start 09/22/18 at 15:30 Glucose (Glucose) 16 GM ASDIRECTED PRN PO SEE LABEL COMMENTS; Start 09/22/18 at 15:30 Home Med (Med Rec Complete!) ASDIRECTED XX ; Start 09/22/18 at 11:30; Stop 09/01 07/19 at 11:30; Status DC Ibuprofen (Advil) 800 mg Q8H PRN PO PAIN; Start 09/22/18 at 15:30 Insulin Human Lispro (HumaLOG INSULIN) See Protocol Table AC SC Last administered on 09/25/18at 07:08; Start 09/22/18 at 17:30 Insulin Human Lispro (HumaLOG INSULIN) See Protocol Table QHS SC ; Start 09/22/18 at 21:00 Lisinopril (Prinivil) 20 mg DAILY PO Last administered on 09/24/18 08:41; Start 09/23/18 at 09:00 Magnesium Hydroxide (Milk Of Magnesia) 30 ml DAILYPRN PRN PO CONSTIPATION; Start 09/22/18 at 11:30 Metformin HCl (Glucophage Xr) 1,000 mg BID PO Last administered on 09/24/18 20:49; Start 09/22/18 at 21:00 Omeprazole (PriLOSEC) 20 mg DAILY PO Last administered on 09/24/18 08:42; Start 09/23/18 at 09:00 Prazosin HCl (Minipress) 1 mg QHS PO Last administered on 09/24/18 20:49; Start 09/22/18 at 21:00 Risperidone (RisperDAL) 1 mg QAM PO Last administered on 09/24/18 08:42; Start 09/23/18 at 09:00 Risperidone (RisperDAL) 2 mg QHS PO Last administered on 09/24/18 20:49; Start 09/22/18 at 21:00 Trazodone HCl (Desyrel) 50 mg QHS PO ; Start 09/22/18 at 21:00; Stop 09/22/18 at 21:00; Status DC Trazodone HCl (Desyrel) 50 mg QHSP PRN PO INSOMNIA Last administered on 09/25/18at 01:05; Start 09/22/18 at 11:30 Allergies Coded Allergies: fluphenazine (Verified Adverse Reaction, Intermediate, COLD SWEATS, PACING, RASH, 08/07/18) haloperidol (Verified Adverse Reaction, Intermediate, COLD SWEATS, PACING, SWEATS, 08/07/18) AME ALEJO MD September 25, 2018 09:04
[2018-09-25] MEDS: GLIMEPIRIDE 2 MG TAB PO SCH (09:49)
[2018-09-25] MEDS: ATORVASTATIN 20 MG TAB PO SCH (09:49)
[2018-09-25] MEDS: LISINOPRIL 20 MG TAB PO SCH (09:51)
[2018-09-25] MEDS: risperiDONE 1 MG TAB PO SCH (09:51)
[2018-09-25] MEDS: OMEPRAZOLE 20 MG CAP PO SCH (09:51)
[2018-09-25] MEDS: metFORMIN XR 500MG TAB *GLUCOPHAGE XR PO SCH ×2 (09:51→21:18)
[2018-09-25] MEDS: ACETAMINOPHEN TAB 650MG DOSE (2X325MG) PO PRN (18:12)
[2018-09-25 19:26] VITALS: BP 124/70
[2018-09-25] MEDS: PRAZOSIN 1 MG CAP PO SCH (21:18)
[2018-09-25] MEDS: risperiDONE 2 MG TAB PO SCH (21:18)
[2018-09-26] MEDS: ACETAMINOPHEN TAB 650MG DOSE (2X325MG) PO PRN ×2 (01:40→22:19)
[2018-09-26] MEDS: HumaLOG INSULIN (NovoLOG) PER UNIT SC SCH ×4 (06:33→20:20)
[2018-09-26 07:17] VITALS: BP 135/79
[2018-09-26] MEDS: metFORMIN XR 500MG TAB *GLUCOPHAGE XR PO SCH ×2 (09:14→20:18)
[2018-09-26] MEDS: LISINOPRIL 20 MG TAB PO SCH (09:14)
[2018-09-26] MEDS: OMEPRAZOLE 20 MG CAP PO SCH (09:14)
[2018-09-26] MEDS: GLIMEPIRIDE 2 MG TAB PO SCH (09:14)
[2018-09-26] MEDS: risperiDONE 1 MG TAB PO SCH (09:14)
[2018-09-26] MEDS: ATORVASTATIN 20 MG TAB PO SCH (09:14)
--- NOTE | 2018-09-26 09:39 | MHIPNPDOC ---
[facility] Progress Note Progress Note DATE OF SERVICE: 09/26/18 HISTORY: 68-year-old male with chronic schizophrenia and depression, numerous admissions. VITAL SIGNS: See below. NEW TEST RESULTS: None. CURRENT MEDICATIONS: See below. MENTAL STATUS EXAMINATION: Patient is a 68-year old male, who is.Readmitted numerous times. Speech: Is intact. Language skills are intact. Thought processes including:. No gross abnormalities. Thought content:. No gross abnormalities. Abstract reasoning, and computation:. Abstraction is weak. Description of associations:. No loose association. Description of abnormal or psychotic thoughts:. No gross psychotic thoughts. Judgment: Fair. Insight: Poor. Orientation: Intact 3. Recent and remote memory:. No apparent disturbance. Attention span and concentration: Intact. Language: No apparent disturbance. Fund of knowledge: Complete. Mood: Good. Affect:, Bright. DIAGNOSES: 1. Schizoaffective disorder. . ASSESSMENT: 68-year-old male with frequent readmissions MANAGEMENT PLAN: As per treatment team. TIME SPENT: 30 minutes. Vital Signs Vital Signs Date Time Temp Pulse Resp B/P (MAP) Pulse Ox O2 Delivery O2 Flow Rate FiO2 09/26/18 09:14 135/79 09/26/18 07:17 97.5 83 14 09/22/18 12:09 98 Room Air Laboratory Data 24H Labs Laboratory Tests 2 09/25/18 12:33: Bedside Glucose (Misc Panel) 100 09/25/18 17:13: Bedside Glucose (Misc Panel) 168H 09/26/18 06:28: Bedside Glucose (Misc Panel) 127H Current Medications Current Medications Acetaminophen (Tylenol Tab) 650 mg Q6HP PRN PO HEADACHE or DISCOMFORT Last a dministered on 09/26/18at 01:40; Start 09/22/18 at 11:30 Al Hydrox/Mg Hydrox/Simethicone (Mylanta) 30 ml Q4HP PRN PO HEARTBURN/I NDIGESTION; Start 09/22/18 at 11:30 Atorvastatin Calcium (Lipitor) 20 mg DAILY PO Last administered on 09/26/18at 09:14; Start 09/23/18 at 09:00 Dextrose (Dextrose 50%) 25 ml ASDIRECTED PRN IV SEE LABEL COMMENTS; Start 09/22/18 at 15:30 Glimepiride (Amaryl) 2 mg QAM PO Last administered on 09/26/18at 09:14; Start 09/23/18 at 09:00 Glucagon (Glucagon) 1 mg ASDIRECTED PRN SC SEE LABEL COMMENTS; Start 09/22/18 at 15:30 Glucose (Glucose) 16 GM ASDIRECTED PRN PO SEE LABEL COMMENTS; Start 09/22/18 at 15:30 Home Med (Med Rec Complete!) ASDIRECTED XX ; Start 09/22/18 at 11:30; Stop 09/22/18 at 11:30; Status DC Ibuprofen (Advil) 800 mg Q8H PRN PO PAIN; Start 09/22/18 at 15:30 Insulin Human Lispro (HumaLOG INSULIN) See Protocol Table AC SC Last administered on 09/26/18at 06:33; Start 09/22/18 at 17:30 Insulin Human Lispro (HumaLOG INSULIN) See Protocol Table QHS SC ; Start 09/22/18 at 21:00 Lisinopril (Prinivil) 20 mg DAILY PO Last administered on 09/26/18at 09:14; Start 09/23/18 at 09:00 Magnesium Hydroxide (Milk Of Magnesia) 30 ml DAILYPRN PRN PO CONSTIPATION; Start 09/22/18 at 11:30 Metformin HCl (Glucophage Xr) 1,000 mg BID PO Last administered on 09/26/18 09:14; Start 09/22/18 at 21:00 Omeprazole (PriLOSEC) 20 mg DAILY PO Last administered on 09/26/18at 09:14; Start 09/23/18 at 09:00 Prazosin HCl (Minipress) 1 mg QHS PO Last administered on 09/25/18at 21:18; Start 09/22/18 at 21:00 Risperidone (RisperDAL) 1 mg QAM PO Last administered on 09/26/18 09:14; Start 09/23/18 at 09:00 Risperidone (RisperDAL) 2 mg QHS PO Last administered on 09/25/18at 21:18; Start 09/22/18 at 21:00 Trazodone HCl (Desyrel) 50 mg QHS PO ; Start 09/22/18 at 21:00; Stop 09/22/18 at 21:00; Status DC Trazodone HCl (Desyrel) 50 mg QHSP PRN PO INSOMNIA Last administered on 5/26/19at 21:18; Start 09/22/18 at 11:30 Allergies Coded Allergies: fluphenazine (Verified Adverse Reaction, Intermediate, COLD SWEATS, PACING, RASH, 08/07/18) haloperidol (Verified Adverse Reaction, Intermediate, COLD SWEATS, PACING, SWEATS, 08/07/18) AME ALEJO MD September 26, 2018 09:38
[2018-09-26 19:05] VITALS: BP 131/83
[2018-09-26] MEDS: risperiDONE 2 MG TAB PO SCH (20:19)
[2018-09-26] MEDS: traZODone 50 MG TAB PO PRN (20:19)
[2018-09-26] MEDS: PRAZOSIN 1 MG CAP PO SCH (20:19)
[2018-09-27 06:53] VITALS: BP 154/83
[2018-09-27] MEDS: HumaLOG INSULIN (NovoLOG) PER UNIT SC SCH ×4 (07:49→21:00)
[2018-09-27] MEDS: OMEPRAZOLE 20 MG CAP PO SCH (09:18)
[2018-09-27] MEDS: metFORMIN XR 500MG TAB *GLUCOPHAGE XR PO SCH ×2 (09:18→21:55)
[2018-09-27] MEDS: risperiDONE 1 MG TAB PO SCH (09:18)
[2018-09-27] MEDS: LISINOPRIL 20 MG TAB PO SCH (09:18)
[2018-09-27] MEDS: ATORVASTATIN 20 MG TAB PO SCH (09:18)
[2018-09-27] MEDS: GLIMEPIRIDE 2 MG TAB PO SCH (09:18)
[2018-09-27 18:03] VITALS: BP 136/71
[2018-09-27] MEDS: PRAZOSIN 1 MG CAP PO SCH (21:54)
[2018-09-27] MEDS: risperiDONE 2 MG TAB PO SCH (21:55)
[2018-09-27] MEDS: traZODone 50 MG TAB PO PRN (23:45)
[2018-09-28 06:30] VITALS: BP 147/67
[2018-09-28] MEDS: HumaLOG INSULIN (NovoLOG) PER UNIT SC SCH ×4 (07:30→21:00)
[2018-09-28] MEDS: risperiDONE 1 MG TAB PO SCH (08:52)
[2018-09-28] MEDS: GLIMEPIRIDE 2 MG TAB PO SCH (08:52)
[2018-09-28] MEDS: OMEPRAZOLE 20 MG CAP PO SCH (08:52)
[2018-09-28] MEDS: metFORMIN XR 500MG TAB *GLUCOPHAGE XR PO SCH ×2 (08:52→21:08)
[2018-09-28] MEDS: LISINOPRIL 20 MG TAB PO SCH (08:52)
[2018-09-28] MEDS: ATORVASTATIN 20 MG TAB PO SCH (08:52)
[2018-09-28 18:04] VITALS: BP 140/84
--- NOTE | 2018-09-28 18:41 | MHIPNPDOC ---
[facility] Progress Note Progress Note DATE OF SERVICE: 09/28/18 HISTORY: Patient is a 68-year-old male, who according to ED report: " Pt found [place] bridge today, was threatening to jump off. PT with hx of Schizoaffective d/o and multiple prior psych admissions, states he's been "having a rough time lately", admittedly has been non-compliant with outpt tx and medications, is currently living alone, states he has been having AH with commands to harm self. Pt admits he was "planning on jumping off the bridge today", [facility] responded and took pt into custody. Pt denies HI, denies any substance use issues, admits to hx of suicide attempts in past. Pt is calm/cooperative at this time, appears disheveled, c/o erratic sleep and appetite, poor concentration." VITAL SIGNS: See below. NEW TEST RESULTS: See below CURRENT MEDICATIONS: See below. MENTAL STATUS EXAMINATION: Patient is a 68-year old male, who is dressed in hospital clothes, cooperative Speech: Is intact. Language skills are intact. Thought processes including:. No gross abnormalities. Thought content:. Preoccupied about not having someone to help him with his hose chores. Denies SI, denies HI Description of abnormal or psychotic thoughts:. H denies AV hallucination, some level of paranoia persists Judgment: Fair. Insight: Poor. Orientation: Intact 3. Recent and remote memory:. No apparent disturbance. Attention span and concentration: Intact. Language: No apparent disturbance. Fund of knowledge: Complete. Mood: Good. Affect:, Bright. DIAGNOSES: 1. Schizoaffective disorder ASSESSMENT: The patient was evaluated today and he seems to be stable, however he still complaints about the fact that he can't see well and this creates frustration in his life because he can't do his house chores and he hopes that heat treating furnace tender will be able to help him with this. I have explained that she is having a hard time finding this person and that he will be discharged soon. MANAGEMENT PLAN: will continue with the same treatment plan TIME SPENT: 20 minutes. Vital Signs Vital Signs Date Time Temp Pulse Resp B/P (MAP) Pulse Ox O2 Delivery O2 Flow Rate FiO2 09/28/18 08:52 147/67 09/28/18 06:30 97.5 76 18 09/22/18 12:09 98 Room Air Laboratory Data 24H Labs Laboratory Tests 2 09/27/18 21:51: Bedside Glucose (Misc Panel) 147H 09/28/18 06:38: Bedside Glucose (Misc Panel) 132H 09/28/18 11:45: Bedside Glucose (Misc Panel) 147H 09/28/18 17:11: Bedside Glucose (Misc Panel) 137H Current Medications Current Medications Acetaminophen (Tylenol Tab) 650 mg Q6HP PRN PO HEADACHE or DISCOMFORT Last administered on 09/26/18at 22:19; Start 09/22/18 at 11:30 Al Hydrox/Mg Hydrox/Simethicone (Mylanta) 30 ml Q4HP PRN PO HEARTBURN/INDIGESTION; Start 09/22/18 at 11:30 Atorvastatin Calcium (Lipitor) 20 mg DAILY PO Last administered on 09/28/18at 08:52; Start 09/23/18 at 09:00 Dextrose (Dextrose 50%) 25 ml ASDIRECTED PRN IV SEE LABEL COMMENTS; Start 09/22/18 at 15:30 Glimepiride (Amaryl) 2 mg QAM PO Last administered on 09/28/18at 08:52; Start 09/23/18 at 09:00 Glucagon (Glucagon) 1 mg ASDIRECTED PRN SC SEE LABEL COMMENTS; Start 09/22/18 at 15:30 Glucose (Glucose) 16 GM ASDIRECTED PRN PO SEE LABEL COMMENTS; Start 09/22/18 at 15:30 Home Med (Med Rec Complete!) ASDIRECTED XX ; Start 09/22/18 at 11:30; Stop 09/22/18 at 11:30; Status DC Ibuprofen (Advil) 800 mg Q8H PRN PO PAIN; Start 09/22/18 at 15:30 Insulin Human Lispro (HumaLOG INSULIN) See Protocol Table AC SC Last administered on 09/28/18at 17:13; Start 09/22/18 at 17:30 Insulin Human Lispro (HumaLOG INSULIN) See Protocol Table QHS SC ; Start 09/22/18 at 21:00 Lisinopril (Prinivil) 20 mg DAILY PO Last administered on 09/28/18at 08:52; Start 09/23/18 at 09:00 Magnesium Hydroxide (Milk Of Magnesia) 30 ml DAILYPRN PRN PO CONSTIPATION; Start 09/22/18 at 11:30 Metformin HCl (Glucophage Xr) 1,000 mg BID PO Last administered on 09/28/18 08:52; Start 09/22/18 at 21:00 Omeprazole (PriLOSEC) 20 mg DAILY PO Last administered on 09/28/18 08:52; Start 09/23/18 at 09:00 Prazosin HCl (Minipress) 1 mg QHS PO Last administered on 09/27/18 21:54; Start 09/22/18 at 21:00 Risperidone (RisperDAL) 1 mg QAM PO Last administered on 09/28/18 08:52; Start 09/23/18 at 09:00 Risperidone (RisperDAL) 2 mg QHS PO Last administered on 09/27/18 21:55; Start 09/22/18 at 21:00 Trazodone HCl (Desyrel) 50 mg QHS PO ; Start 09/22/18 at 21:00; Stop 09/22/18 at 21:00; Status DC Trazodone HCl (Desyrel) 50 mg QHSP PRN PO INSOMNIA Last administered on 09/27/18 23:45; Start 09/22/18 at 11:30 Allergies Coded Allergies: fluphenazine (Verified Adverse Reaction, Intermediate, COLD SWEATS, PACING, RASH, 08/07/18) haloperidol (Verified Adverse Reaction, Intermediate, COLD SWEATS, PACING, SWEATS, 08/07/18) CORAZON REN MD September 28, 2018 18:36
--- NOTE | 2018-09-28 18:45 | MHIPNPDOC ---
[facility] Progress Note Progress Note DATE OF SERVICE: 09/27/18--- late entry HISTORY: Patient is a 68-year-old male, who according to ED report: " Pt found on bridge today, was threatening to jump off. PT with hx of Schizoaffective d/o and multiple prior psych admissions, states he's been "having a rough time lately", admittedly has been non-compliant with outpt tx and medications, is currently living alone, states he has been having AH with commands to harm self. Pt admits he was "planning on jumping off the bridge today", [facility] responded and took pt into custody. Pt denies HI, denies any substance use issues, admits to hx of suicide attempts in past. Pt is calm/cooperative at this time, appears disheveled, c/o erratic sleep and appetite, poor concentration." VITAL SIGNS: See below. NEW TEST RESULTS: See below CURRENT MEDICATIONS: See below. MENTAL STATUS EXAMINATION: Patient is a 68-year old male, who is dressed in hospital clothes, cooperative Speech: Is intact. Language skills are intact. Thought processes including:. No gross abnormalities. Thought content:. Preoccupied about not having someone to help him with his hose chores. Denies SI, denies HI Description of abnormal or psychotic thoughts:. H denies AV hallucination, some level of paranoia persists Judgment: Fair. Insight: Poor. Orientation: Intact 3. Recent and remote memory:. No apparent disturbance. Attention span and concentration: Intact. Language: No apparent disturbance. Fund of knowledge: Complete. Mood: Good. Affect:, Bright. DIAGNOSES: 1. Schizoaffective disorder ASSESSMENT: Mental status examination has not changed much from Dr. Huerta's evaluation. the patient reports feeling better and he just wants help with director of operations home health because he says he can't do his house chores due to his cataracts. Journeyman Mill[employer] trying to help him finding somebody but no luck until now. MANAGEMENT PLAN: will continue with the same treatment plan TIME SPENT: 20 minutes. Vital Signs Vital Signs Date Time Temp Pulse Resp B/P (MAP) Pulse Ox O2 Delivery O2 Flow Rate FiO2 09/28/18 08:52 147/67 09/28/18 06:30 97.5 76 18 09/22/18 12:09 98 Room Air Laboratory Data 24H Labs Laboratory Tests 2 5/28/19 21:51: Bedside Glucose (Misc Panel) 147H 09/28/18 06:38: Bedside Glucose (Misc Panel) 132H 09/28/18 11:45: Bedside Glucose (Misc Panel) 147H 09/28/18 17:11: Bedside Glucose (Misc Panel) 137H Current Medications Current Medications Acetaminophen (Tylenol Tab) 650 mg Q6HP PRN PO HEADACHE or DISCOMFORT Last administered on 09/26/18at 22:19; Start 09/22/18 at 11:30 Al Hydrox/Mg Hydrox/Simethicone (Mylanta) 30 ml Q4HP PRN PO HEARTBURN/INDIGESTION; Start 09/22/18 at 11:30 Atorvastatin Calcium (Lipitor) 20 mg DAILY PO Last administered on 09/28/18at 08:52; Start 09/23/18 at 09:00 Dextrose (Dextrose 50%) 25 ml ASDIRECTED PRN IV SEE LABEL COMMENTS; Start 09/22/18 at 15:30 Glimepiride (Amaryl) 2 mg QAM PO Last administered on 09/28/18at 08:52; Start 09/23/18 at 09:00 Glucagon (Glucagon) 1 mg ASDIRECTED PRN SC SEE LABEL COMMENTS; Start 09/22/18 at 15:30 Glucose (Glucose) 16 GM ASDIRECTED PRN PO SEE LABEL COMMENTS; Start 09/22/18 at 15:30 Home Med (Med Rec Complete!) ASDIRECTED XX ; Start 09/22/18 at 11:30; Stop 09/22/18 at 11:30; Status DC Ibuprofen (Advil) 800 mg Q8H PRN PO PAIN; Start 09/22/18 at 15:30 Insulin Human Lispro (HumaLOG INSULIN) See Protocol Table AC SC Last administered on 09/28/18at 17:13; Start 09/22/18 at 17:30 Insulin Human Lispro (HumaLOG INSULIN) See Protocol Table QHS SC ; Start 09/22/18 at 21:00 Lisinopril (Prinivil) 20 mg DAILY PO Last administered on 09/28/18at 08:52; Start 09/23/18 at 09:00 Magnesium Hydroxide (Milk Of Magnesia) 30 ml DAILYPRN PRN PO CONSTIPATION; Start 09/22/18 at 11:30 Metformin HCl (Glucophage Xr) 1,000 mg BID PO Last administered on 09/28/18 08:52; Start 09/22/18 at 21:00 Omeprazole (PriLOSEC) 20 mg DAILY PO Last administered on 09/28/18 08:52; Start 09/23/18 at 09:00 Prazosin HCl (Minipress) 1 mg QHS PO Last administered on 09/27/18 21:54; Start 09/22/18 at 21:00 Risperidone (RisperDAL) 1 mg QAM PO Last administered on 09/28/18 08:52; Start 09/23/18 at 09:00 Risperidone (RisperDAL) 2 mg QHS PO Last administered on 09/27/18 21:55; Start 09/22/18 at 21:00 Trazodone HCl (Desyrel) 50 mg QHS PO ; Start 09/22/18 at 21:00; Stop 09/22/18 at 21:00; Status DC Trazodone HCl (Desyrel) 50 mg QHSP PRN PO INSOMNIA Last administered on 09/27/18 23:45; Start 09/22/18 at 11:30 Allergies Coded Allergies: fluphenazine (Verified Adverse Reaction, Intermediate, COLD SWEATS, PACING, RASH, 08/07/18) haloperidol (Verified Adverse Reaction, Intermediate, COLD SWEATS, PACING, SWEATS, 08/07/18) CORAZON REN MD September 28, 2018 18:44
[2018-09-28] MEDS: PRAZOSIN 1 MG CAP PO SCH (21:07)
[2018-09-28] MEDS: risperiDONE 2 MG TAB PO SCH (21:08)
[2018-09-28] MEDS: traZODone 50 MG TAB PO PRN (22:35)
[2018-09-29] MEDS: ACETAMINOPHEN TAB 650MG DOSE (2X325MG) PO PRN (00:43)
[2018-09-29 06:35] VITALS: BP 130/70
[2018-09-29] MEDS: HumaLOG INSULIN (NovoLOG) PER UNIT SC SCH ×4 (07:02→21:00)
[2018-09-29] MEDS: GLIMEPIRIDE 2 MG TAB PO SCH (09:30)
[2018-09-29] MEDS: risperiDONE 1 MG TAB PO SCH (09:30)
[2018-09-29] MEDS: OMEPRAZOLE 20 MG CAP PO SCH (09:31)
[2018-09-29] MEDS: metFORMIN XR 500MG TAB *GLUCOPHAGE XR PO SCH ×2 (09:31→21:49)
[2018-09-29] MEDS: ATORVASTATIN 20 MG TAB PO SCH (09:31)
[2018-09-29] MEDS: LISINOPRIL 20 MG TAB PO SCH (09:31)
[2018-09-29 18:06] VITALS: BP 126/69
--- NOTE | 2018-09-29 21:07 | MHIPNPDOC ---
[facility] Progress Note Progress Note DATE OF SERVICE: 09/29/18 HISTORY: Patient is a 68-year-old male, who according to ED report: " Pt found on bridge today, was threatening to jump off. PT with hx of Schizoaffective d/o and multiple prior psych admissions, states he's been "having a rough time lately", admittedly has been non-compliant with outpt tx and medications, is currently living alone, states he has been having AH with commands to harm self. Pt admits he was "planning on jumping off the bridge today", [facility] responded and took pt into custody. Pt denies HI, denies any substance use issues, admits to hx of suicide attempts in past. Pt is calm/cooperative at this time, appears disheveled, c/o erratic sleep and appetite, poor concentration." VITAL SIGNS: See below. NEW TEST RESULTS: See below CURRENT MEDICATIONS: See below. MENTAL STATUS EXAMINATION: Patient is a 68-year old male, who is dressed in hospital clothes, cooperative Speech: Is intact. Language skills are intact. Thought processes including:. linear, coherent Thought content: Happy thoughts about the future, happy because program planner was able to find a person that will be able to help him. Denies SI/HI Description of abnormal or psychotic thoughts:. He denies AV hallucination, denies paranoia Judgment: Fair. Insight: Poor. Orientation: Intact 3. Recent and remote memory:. Fair Attention span and concentration: Intact. Language: No apparent disturbance. Fund of knowledge: Complete. Mood: Good. Affect:, Bright. DIAGNOSES: 1. Schizoaffective disorder ASSESSMENT: The patient is not suicidal, not homicidal, not psychotic. Happy about the fact that Wood And Hardware Outfitter found a lady hat is going to be able to help him with house chores. He is leaving tomorrow and is happy about being discharged MANAGEMENT PLAN: will continue with the same treatment plan TIME SPENT: 20 minutes. Vital Signs Vital Signs Date Time Temp Pulse Resp B/P (MAP) Pulse Ox O2 Delivery O2 Flow Rate FiO2 09/29/18 18:06 98.1 80 16 126/69 (88) Laboratory Data 24H Labs Laboratory Tests 2 09/29/18 05:37: Bedside Glucose (Misc Panel) 166H 09/29/18 11:50: Bedside Glucose (Misc Panel) 153H 09/29/18 16:32: Bedside Glucose (Misc Panel) 114 Current Medications Current Medications Acetaminophen (Tylenol Tab) 650 mg Q6HP PRN PO HEADACHE or DISCOMFORT Last administered on 09/29/18at 00:43; Start 09/22/18 at 11:30 Al Hydrox/Mg Hydrox/Simethicone (Mylanta) 30 ml Q4HP PRN PO HEARTBURN/INDIGESTION; Start 09/22/18 at 11:30 Atorvastatin Calcium (Lipitor) 20 mg DAILY PO Last administered on 09/29/18at 09:31; Start 09/23/18 at 09:00 Dextrose (Dextrose 50%) 25 ml ASDIRECTED PRN IV SEE LABEL COMMENTS; Start 09/22/18 at 15:30 Glimepiride (Amaryl) 2 mg QAM PO Last administered on 09/29/18at 09:30; Start 09/23/18 at 09:00 Glucagon (Glucagon) 1 mg ASDIRECTED PRN SC SEE LABEL COMMENTS; Start 09/22/18 at 15:30 Glucose (Glucose) 16 GM ASDIRECTED PRN PO SEE LABEL COMMENTS; Start 09/22/18 at 15:30 Home Med (Med Rec Complete!) ASDIRECTED XX ; Start 09/22/18 at 11:30; Stop 09/22/18 at 11:30; Status DC Ibuprofen (Advil) 800 mg Q8H PRN PO PAIN; Start 09/22/18 at 15:30 Insulin Human Lispro (HumaLOG INSULIN) See Protocol Table AC SC Last administered on 09/29/18at 12:04; Start 09/22/18 at 17:30 Insulin Human Lispro (HumaLOG INSULIN) See Protocol Table QHS SC ; Start 09/22/18 at 21:00 Lisinopril (Prinivil) 20 mg DAILY PO Last administered on 09/29/18at 09:31; Start 09/23/18 at 09:00 Magnesium Hydroxide (Milk Of Magnesia) 30 ml DAILYPRN PRN PO CONSTIPATION; Start 09/22/18 at 11:30 Metformin HCl (Glucophage Xr) 1,000 mg BID PO Last administered on 09/29/18 09:31; Start 09/22/18 at 21:00 Omeprazole (PriLOSEC) 20 mg DAILY PO Last administered on 5/30/19at 09:31; Start 09/23/18 at 09:00 Prazosin HCl (Minipress) 1 mg QHS PO Last administered on 09/28/18 21:07; Sta rt 09/22/18 at 21:00 Risperidone (RisperDAL) 1 mg QAM PO Last administered on 09/29/18 09:30; Start 09/23/18 at 09:00 Risperidone (RisperDAL) 2 mg QHS PO Last administered on 09/28/18 21:08; Start 09/22/18 at 21:00 Trazodone HCl (Desyrel) 50 mg QHS PO ; Start 09/22/18 at 21:00; Stop 09/22/18 at 21:00; Status DC Trazodone HCl (Desyrel) 50 mg QHSP PRN PO INSOMNIA Last administered on 09/28/18 22:35; Start 09/22/18 at 11:30 Allergies Coded Allergies: fluphenazine (Verified Adverse Reaction, Intermediate, COLD SWEATS, PACING, RASH, 08/07/18) haloperidol (Verified Adverse Reaction, Intermediate, COLD SWEATS, PACING, SWEATS, 08/07/18) CORAZON REN MD September 29, 2018 21:07
[2018-09-29] MEDS: PRAZOSIN 1 MG CAP PO SCH (21:49)
[2018-09-29] MEDS: risperiDONE 2 MG TAB PO SCH (21:50)
[2018-09-29] MEDS: traZODone 50 MG TAB PO PRN (23:01)
[2018-09-30] MEDS: ACETAMINOPHEN TAB 650MG DOSE (2X325MG) PO PRN (03:23)
[2018-09-30 06:20] VITALS: BP 112/61
[2018-09-30] MEDS: HumaLOG INSULIN (NovoLOG) PER UNIT SC SCH ×2 (06:24→12:00)
[2018-09-30 08:03] VITALS: BP 124/66
[2018-09-30] MEDS: LISINOPRIL 20 MG TAB PO SCH (08:03)
[2018-09-30] MEDS: GLIMEPIRIDE 2 MG TAB PO SCH (08:03)
[2018-09-30] MEDS: ATORVASTATIN 20 MG TAB PO SCH (08:03)
[2018-09-30] MEDS: risperiDONE 1 MG TAB PO SCH (08:03)
[2018-09-30] MEDS: metFORMIN XR 500MG TAB *GLUCOPHAGE XR PO SCH (08:03)
[2018-09-30] MEDS: OMEPRAZOLE 20 MG CAP PO SCH (08:03)
--- NOTE | 2018-10-02 17:37 | MHDSPDOC ---
[facility] Discharge Summary Discharge Summary DATE OF ADMISSION: September 22, 2018 at 11:29 DATE OF DISCHARGE: September 30, 2018 at 13:05 DISCHARGE DIAGNOSES: 1. Schizoaffective disorder REASON FOR ADMISSION: Patient is a 68-year-old male, who according to ED report: " Pt found on bridge today, was threatening to jump off. PT with hx of Schizoaffective d/o and multiple prior psych admissions, states he's been "having a rough time lately", admittedly has been non-compliant with outpt tx and medications, is currently living alone, states he has been having AH with commands to harm self. Pt admits he was "planning on jumping off the bridge today", [facility] responded and took pt into custody. Pt denies HI, denies any substance use issues, admits to hx of suicide attempts in past. Pt is calm/cooperative at this time, appears disheveled, c/o erratic sleep and appetite, poor concentration." CONSULTANTS INVOLVED: None TREATMENT AND PROGRESS ON THE UNIT : The patient's presentation was very similar to previous presentation. He reported anxiety and depression because his sight was defficient since he has cataracts, he has been diagnosed 3 years ago and he has difficulty running errands and doing hose chores. The patient has been hospitalized multiple times and his presentation is that of helplessness, no coping skills, low tolerance to frustration, ineffective coping. He always reports auditory hallucinations and suicidal ideation. This time he said that he felt like jumping in the river because he is frustrated about the above mentioned situation. Manager Telemetry Shan Low was able to find a lady that will come to his house and will be able to help him with errands, grocery shopping and house chores. Since he heard he was going to receive help, his mood improved and he denied having suicidal ideation or psychosis. At the time of his discharge he was not suicidal, not homicidal and not psychotic. He had a good response to medications, which are the same meds that he has been using for a long time, he said he didn't need scripts because he had them at at home. HOSPITAL COURSE: None DISCHARGE ASSESSMENT: At the time of his discharge he was not suicidal, not homicidal and not psychotic. He had a good response to medications, which are the same meds that he has been using for a long time, he said he didn't need scripts because he had them at at home. He was goal orientated, insightful, he know that he needed to follow to f/u at the [facility] MENTAL STATUS EXAMINATION ON DISCHARGE: Patient is a 68-year old male, who is dressed in hospital clothes, cooperative Speech: Is intact. Language skills are intact. Thought processes including:. linear, coherent Thought content: Happy thoughts about the future, happy because technical planner was able to find a person that will be able to help him. Denies SI/HI Description of abnormal or psychotic thoughts:. He denies AV hallucination, denies paranoia Judgment: Fair. Insight: Poor. Orientation: Intact 3. Recent and remote memory:. Fair Attention span and concentration: Intact. Language: No apparent disturbance. Fund of knowledge: Complete. Mood: Good. Affect:, Bright. DIAGNOSES: 1. Schizoaffective disorder MEDICATIONS ON DISCHARGE: Atorvastatin Calcium (Atorvastatin Calcium) 40 Mg Tablet, 20 MG PO DAILY, (Reported) Glimepiride (Glimepiride) 2 Mg Tab, 2 MG PO QAM for , (Reported) Lisinopril (Lisinopril) 40 Mg Tablet, 20 MG PO DAILY, (Reported) Metformin HCl (Metformin HCl ER) 500 Mg Tab, 1,000 MG PO BID for , (Reported) Omeprazole (Omeprazole) 20 Mg Capsule.dr, 20 MG PO QAM, (Reported) Pioglitazone HCl (Actos) 30 Mg Tab, 30 MG PO DAILY for , (Reported) Prazosin Hcl (Prazosin HCl) 1 Mg Capsule, 1 MG PO QHS, (Reported) Risperidone (Risperidone) 2 Mg Tablet, 1 MG PO QAM, (Reported) Risperidone (Risperidone) 4 Mg Tablet, 2 MG PO QHS, (Reported) Trazodone HCl (Trazodone HCl) 50 Mg Tablet, 50 MG PO QHS, (Reported) Scheduled PRN Ibuprofen (Ibuprofen) 800 Mg Tablet, 800 MG PO Q8H PRN for PAIN, (Reported) PLAN/FOLLOWUP ARRANGEMENTS: Follow Up Care Education Label * Medical * Medical Follow Up [facility] * Established With This Provider Yes * Therapist HARSHIL * Date Oct 03, 2018 * Time 13:00 * Address of Clinic or Practice [address] [place] [address] * Follow Up Care Education Label * Mental Health Appt 1 * Mental Health [facility] * Established With This Provider Yes * Therapist TBD * Address of Clinic or Practice [address] [place] [address] [address], [place] [address] * * Additional information Left a voicemail for the provider @ 0840 on 09/30/18. Awaiting a response with the appointment date/time. Sandy (healthcare insurance sales agent) will follow up with the client to finish his intake paperwork so that he can get an appointment scheduled. The amount of time spent in the coordination of care for this patient was approximately 30 minutes. Vital Signs/I&Os Vital Signs Date Time Temp Pulse Resp B/P (MAP) Pulse Ox O2 Delivery O2 Flow Rate FiO2 09/30/18 08:03 124/66 09/30/18 06:20 97.1 82 20 Medications Scheduled Atorvastatin Calcium (Atorvastatin Calcium) 40 Mg Tablet, 20 MG PO DAILY, (Reported) Glimepiride (Glimepiride) 2 Mg Tab, 2 MG PO QAM for , (Reported) Lisinopril (Lisinopril) 40 Mg Tablet, 20 MG PO DAILY, (Reported) Metformin HCl (Metformin HCl ER) 500 Mg Tab, 1,000 MG PO BID for , (Reported) Omeprazole (Omeprazole) 20 Mg Capsule.dr, 20 MG PO QAM, (Reported) Pioglitazone HCl (Actos) 30 Mg Tab, 30 MG PO DAILY for , (Reported) Prazosin Hcl (Prazosin HCl) 1 Mg Capsule, 1 MG PO QHS, (Reported) Risperidone (Risperidone) 2 Mg Tablet, 1 MG PO QAM, (Reported) Risperidone (Risperidone) 4 Mg Tablet, 2 MG PO QHS, (Reported) Trazodone HCl (Trazodone HCl) 50 Mg Tablet, 50 MG PO QHS, (Reported) Scheduled PRN Ibuprofen (Ibuprofen) 800 Mg Tablet, 800 MG PO Q8H PRN for PAIN, (Reported) Allergies Coded Allergies: fluphenazine (Verified Adverse Reaction, Intermediate, COLD SWEATS, PACING, RASH, 08/07/18) haloperidol (Verified Adverse Reaction, Intermediate, COLD SWEATS, PACING, SWEATS, 08/07/18) CORAZON REN MD Oct 02, 2018 17:31
== END 2018-09-30 13:05 | disposition home or self-care (01) | DRG 885 ==
LOC: M ED 20:22 → M ED INP 09-22 11:29 → M PSY 09-22 14:20
PROVIDERS: ADMIT Psychiatry & Neurology Child & Adolescent Psychiatry; ATTEND Psychiatry & Neurology Psychiatry
DX: F25.0 Schizoaffective disorder, bipolar type (principal); I10 Essential (primary) hypertension; E78.5 Hyperlipidemia, unspecified; E11.9 Type 2 diabetes mellitus without complications; H26.9 Unspecified cataract; K21.9 Gastro-esophageal reflux disease without esophagitis; E03.9 Hypothyroidism, unspecified; Z79.84 Long term (current) use of oral hypoglycemic drugs; Z79.899 Other long term (current) drug therapy; Z88.8 Allergy status to other drugs, medicaments and biological substances; Z91.14 Patient's other noncompliance with medication regimen; Z91.19 Patient's noncompliance with other medical treatment and regimen

== ENCOUNTER 2018-10-23 09:31 | Emergency (ER) | payer MEDICARE ==
[~2018-10-23] VITALS: Ht 165.1 cm; Wt 87.3 kg
[~2018-10-23 09:31] MED LIST changes: +LISI40TA PO; +OMEP-218 PO; +RISP2TAB3 PO; +RISP4TAB2 PO; -TRAZ-160 PO; +TRAZ-252 PO; +TRAZ1TAB10 PO; -TRAZO50TA PO
[2018-10-23] MEDS ORDERED: ACETAMINOPHEN TAB 650MG DOSE (2X325MG) PO ONE (10:00)
--- NOTE | 2018-10-23 10:54 | REP ---
CT of the brain without IV contrast: Comparison is 08/18/2016. There is no subdural or epidural hematoma. There is no acute intracranial hemorrhage otherwise. There is no edema, mass effect or midline shift. The cortical stripe is unremarkable. The ethmoid sinuses are opacified. This is unchanged. There is mucosal thickening in the sphenoid sinus. This is unchanged. The right mastoid air cells are opacified. This is unchanged. Impression: There is no subdural or epidural hematoma. No intracranial hemorrhage otherwise. No acute infarct or mass. Chronic opacification of the ethmoid and sphenoid sinuses and right mastoid air cells. Electronically Signed by Ck Wood MD 10/23/2018 10:44 A
--- NOTE | 2018-10-23 11:08 | REP ---
CT of the cervical spine: There are no comparisons. Vertebral body heights are normal. There is advanced degenerative disc disease from C2-T1. The facets are normally aligned. There is fusion of the posterior facets at C3-4 on the right and C5-6 on the left. There are is approximate 2 mm anterolisthesis of C3-4, likely ligamentous laxity. The prevertebral soft tissues are unremarkable. There is a degenerative calcification in the ligamentum nuchae. The skull base, C1-C2 are unremarkable except for osteoarthritis. There is bony foraminal encroachment at C4-5 on the right. This should be correlated clinically. There are no posterior element fractures. Impression: No fracture is identified. There is 2 ml anterolisthesis of C4 and C5. The facets are normally aligned. This may be ligamentous laxity. Prevertebral soft tissues are normal. Advanced degenerative disc disease and advanced facet osteoarthritis throughout the lumbar spine. The posterior elements of C3-4 on the right and C5-6 on the left are fused. Electronically Signed by Ck Wood MD 10/23/2018 10:59 A
--- NOTE | 2018-10-23 11:10 | REP ---
CT of the thoracic spine: Axial images are acquired with helical scanning and a reformatted sagittal coronal projections. Vertebral body heights and alignment are normal. No compression deformities. There are no posterior element fractures. There is multilevel degenerative disc disease throughout the thoracic spine. Impression: No fracture or listhesis. Multilevel degenerative disc disease. Electronically Signed by Ck Wood MD 10/23/2018 11:02 A
--- NOTE | 2018-10-23 11:14 | REP ---
CT of the lumbar spine: Axial images are acquired helical scanning and a reformatted sagittal coronal projections. Vertebral body heights and alignment are normal. No compression deformities. There is degenerative disc disease at every lumbar level. There is a Schmorl's node in the inferior endplate of L2. The facets are normally aligned. There is facet osteoarthritis. There is scoliosis convex left. Impression: No fracture or listhesis. Multilevel degenerative disc disease and multilevel facet osteoarthritis. Electronically Signed by Ck Wood MD 10/23/2018 11:05 A
--- NOTE | 2018-10-23 11:21 | REP ---
Right femur four views including right hip: There is no fracture or dislocation. There is mild right hip osteoarthritis. There are faintly visible calcifications along the superior margin of the femoral head compatible with CPPD. Impression: No fracture. Right hip osteoarthritis. Electronically Signed by Ck Wood MD 10/23/2018 11:13 A
[2018-10-23 13:20] VITALS: BP 164/77
--- NOTE | 2018-10-24 13:02 | ED PDOC ---
Post-Departure Follow-Up dr gutiérrez faxed formal report of ct c spine for fu Pradeep Sherwood MD Oct 24, 2018 13:02
== END 2018-10-23 13:22 | disposition home or self-care (01) ==
LOC: M ED 09:31 → EDBD 09:31 → M ED 13:22
DX: M54.5 Low back pain (principal); W01.0XXA Fall on same level from slipping, tripping and stumbling without subsequent striking against object, initial encounter; Y92.093 Driveway of other non-institutional residence as the place of occurrence of the external cause; Y93.01 Activity, walking, marching and hiking; E11.9 Type 2 diabetes mellitus without complications; K21.9 Gastro-esophageal reflux disease without esophagitis; I10 Essential (primary) hypertension; F41.1 Generalized anxiety disorder; F43.10 Post-traumatic stress disorder, unspecified; Z79.84 Long term (current) use of oral hypoglycemic drugs; Z79.899 Other long term (current) drug therapy; Z88.8 Allergy status to other drugs, medicaments and biological substances

== ENCOUNTER 2018-10-23 17:48 | Inpatient (IN) | payer OTHER, MEDICARE ==
[~2018-10-23] VITALS: Ht 165.1 cm; Wt 89.9 kg
[2018-10-23 18:20] LABS: HEMATOCRIT 42.4 % (42.0-52.0); HEMOGLOBIN 14.4 g/dl (13.5-17.5); MEAN CORPUSCULAR HEMOGLOBIN 28.8 pg (27.0-33.0); MEAN CORPUSCULAR VOLUME 84.8 fl (80.0-96.0); PLATELET COUNT, AUTOMATED 289 10^3/uL (150-450); WHITE BLOOD COUNT 9.2 10^3/uL (4.0-10.0)
[2018-10-23 19:02] LABS: ACETAMINOPHEN LEVEL < 2.0 UG/ML (10.0-30.0); ALBUMIN 4.2 GM/DL (3.2-5.2); ALT/SGPT 39 U/L (12-78); BILIRUBIN,DIRECT < 0.1 MG/DL (0.0-0.2); BILIRUBIN,TOTAL 0.3 MG/DL (0.2-1.0); BLOOD UREA NITROGEN 18 MG/DL (7-18); CALCIUM LEVEL 9.3 MG/DL (8.8-10.2); CARBON DIOXIDE LEVEL 26 MEQ/L (21-32); CHLORIDE LEVEL 106 MEQ/L (98-107); CREATININE FOR GFR 0.79 MG/DL (0.70-1.30); ETHYL ALCOHOL (ETHANOL) 0.003 % (0.000-0.010); GLOMERULAR FILTRATION RATE > 60.0 (>49); GLUCOSE, FASTING 162 MG/DL (70-100); POTASSIUM SERUM 4.3 MEQ/L (3.5-5.1); SALICYLATE LEVEL < 1.7 MG/DL (5.0-30.0); SODIUM LEVEL 140 MEQ/L (136-145); TOTAL PROTEIN 7.7 GM/DL (6.4-8.2)
[2018-10-23 19:03] LABS: AMPHETAMINES LEVEL URINE NEGATIVE (NEGATIVE); BARBITURATES URINE NEGATIVE (NEGATIVE); BENZODIAZEPINES URINE NEGATIVE (NEGATIVE); CANNABINOIDS URINE NEGATIVE (NEGATIVE); COCAINE METABOLITE URINE NEGATIVE (NEGATIVE); METHADONE URINE NEGATIVE (NEGATIVE); OPIATES URINE NEGATIVE (NEGATIVE); PHENCYCLIDINE URINE NEGATIVE (NEGATIVE)
[2018-10-23] MEDS ORDERED: ALPRAZolam 0.5 MG TAB PO ONE (21:30)
--- NOTE | 2018-10-24 06:58 | ECGEPIP ---
[facility] - ED Test Date: 2018-10-23 Pat Name: BEATA JULIO Department: Room: - Gender: Male Electronic Device Monitor: radha : 1950 Requested By: SHERRON Bliss Order Number: [id number] Reading MD: Cody Pulido Measurements Intervals [place] Rate: 83 P: 53 VT: 177 QRS: 16 QRSD: 91 T: 46 QT: 337 QTc: 396 Interpretive Statements SINUS RHYTHM SIMILAR TO 09/21/18 Electronically Signed on 10-24-2018 6:57:49 EDT by Cody Pulido
[2018-10-24] MEDS ORDERED: MAALOX 30 ML SUSP *UDC PO PRN (15:00)
[2018-10-24] MEDS ORDERED: MOM 30ML SUSPENSION UDC PO PRN (15:00)
[2018-10-24] MEDS ORDERED: risperiDONE 2 MG TAB PO ONE (15:15)
[2018-10-24] MEDS ORDERED: LORazepam 1 MG TAB PO ONE (15:15)
[2018-10-24] MEDS ORDERED: GLUCOSE 4 GM CHEW TABLET PO PRN (15:45)
[2018-10-24] MEDS ORDERED: DEXTROSE 50% 50 ML SYRINGE IV PRN (15:45)
[2018-10-24] MEDS ORDERED: GLUCAGON FOR INJ 1 MG VIAL (J1610) SC PRN (15:45)
[2018-10-24 16:00] VITALS: BP 135/85
[2018-10-24] MEDS: HumaLOG INSULIN (NovoLOG) PER UNIT SC SCH ×2 (17:12→20:55)
[2018-10-24] MEDS: LISINOPRIL 20 MG TAB PO SCH (17:13)
[2018-10-24] MEDS: ATORVASTATIN 20 MG TAB PO SCH (17:13)
[2018-10-24] MEDS: OMEPRAZOLE 20 MG CAP PO SCH (17:13)
[2018-10-24] MEDS: metFORMIN XR 500MG TAB *GLUCOPHAGE XR PO SCH (17:14)
[2018-10-24] MEDS: PRAZOSIN 1 MG CAP PO SCH (20:54)
[2018-10-24] MEDS: traZODone 50 MG TAB PO SCH (20:54)
[2018-10-25] MEDS: IBUPROFEN 800 MG TAB PO PRN (00:36)
[2018-10-25 06:19] VITALS: BP 140/58
[2018-10-25] MEDS: HumaLOG INSULIN (NovoLOG) PER UNIT SC SCH ×4 (06:46→20:16)
[2018-10-25] MEDS: metFORMIN XR 500MG TAB *GLUCOPHAGE XR PO SCH ×2 (06:46→17:07)
[2018-10-25] MEDS: GLIMEPIRIDE 2 MG TAB PO SCH (06:46)
[2018-10-25] MEDS: LISINOPRIL 20 MG TAB PO SCH (09:08)
[2018-10-25] MEDS: OMEPRAZOLE 20 MG CAP PO SCH (09:08)
[2018-10-25] MEDS: ATORVASTATIN 20 MG TAB PO SCH (09:08)
[2018-10-25] MEDS: risperiDONE 1 MG TAB PO SCH (09:08)
--- NOTE | 2018-10-25 09:37 | HPEPDOC ---
General Date of Admission Oct 24, 2018 at 14:56 Date of Service: Oct 25, 2018 Attending Physician: MYNOR RAHMAN MD Chief Complaint The patient is a 68-year-old male admitted with a reason for visit of Unspecified Depressive Disorder. History of Present Illness 68-year-old male, primary medical history significant for hypertension, hyperlipidemia, type 2 diabetes mellitus, admitted on account of suicidal ideation, homicidal ideation, auditory hallucinations. Prior to presentation, patient had been nonadherent with medications because his home health aide who usually sets up his medications for him had not done it for some days . Patient also has a prior history for schizoaffective disorder. On assessment, he denies any other medical symptoms of chest pain, shortness of breath, weakness, abdominal pain, nausea, chills or fever. Home Medications Scheduled Atorvastatin Calcium (Atorvastatin Calcium) 40 Mg Tablet, 20 MG PO DAILY, (Reported) Glimepiride (Glimepiride) 2 Mg Tab, 2 MG PO QAM for , (Reported) Lisinopril (Lisinopril) 40 Mg Tablet, 20 MG PO DAILY, (Reported) Metformin HCl (Metformin HCl ER) 500 Mg Tab, 1,000 MG PO BID for , (Reported) Omeprazole (Omeprazole) 20 Mg Capsule.dr, 20 MG PO QAM, (Reported) Pioglitazone HCl (Actos) 30 Mg Tab, 30 MG PO DAILY for , (Reported) Prazosin Hcl (Prazosin HCl) 1 Mg Capsule, 1 MG PO QHS, (Reported) Risperidone (Risperidone) 2 Mg Tablet, 1 MG PO QAM, (Reported) Risperidone (Risperidone) 4 Mg Tablet, 2 MG PO QHS, (Reported) Trazodone HCl (Trazodone HCl) 50 Mg Tablet, 50 MG PO QHS, (Reported) Scheduled PRN Ibuprofen (Ibuprofen) 800 Mg Tablet, 800 MG PO Q8H PRN for PAIN, (Reported) Allergies Coded Allergies: fluphenazine (Verified Adverse Reaction, Intermediate, COLD SWEATS, PACING, RASH, 08/07/18) haloperidol (Verified Adverse Reaction, Intermediate, COLD SWEATS, PACING, SWEATS, 08/07/18) Past Medical History Medical History Obesity Hypertension Hyperlipidemia, Type 2 diabetes mellitus Schizoaffective disorder GERD Bleeding ulcer Surgical History EGD with cautery. Tonsillectomy and adenoidectomy. Right toe surgery Back surgery Family History Family history is unknown per patient Social History * Smoker: Denies Alcohol: Denies Drugs: denies A-FIB/CHADSVASC A-FIB History Current/History of A-Fib/PAF?: No Current PO Anticoag Therapy: No Review of Systems Other systems A 10 point pertinent review of systems was completed, negative except as stated in the history of presenting illness. Physical Examination Other physical findings GENERAL: NAD SKIN : Warm, dry intact HEENT: Atraumatic, normocephalic, PERRL, moist mucous membrane CARDIOVASCULAR: Regular rate and rhythm, S1S2, no JVD, no edema, distal pulses + and palpable RESP: CTAB, no accessory muscle use noted ABDOMEN: BS+ non distended non tender MS: shuffle gait NEURO: Alert and oriented x 3,impaired speech PSYCH: no anxiety or agitation, appropriate mood and affect. Vital Signs Vital Signs Date Time Temp Pulse Resp B/P (MAP) Pulse Ox O2 Delivery O2 Flow Rate FiO2 10/25/18 09:08 133/81 10/25/18 06:19 98.4 66 16 10/24/18 16:00 95 10/24/18 15:35 Room Air Laboratory Data Labs 24H Laboratory Tests 2 10/24/18 17:06: Bedside Glucose (Misc Panel) 213H 10/24/18 20:52: Bedside Glucose (Misc Panel) 279H 10/25/18 06:40: Bedside Glucose (Misc Panel) 250H Assessment/Plan Hypertension -Blood pressure is controlled. Continue lisinopril -Continue blood pressure monitoring Type 2 diabetes mellitus -Finger stick checks prior to meals and at bedtime -Continue glimepiride, metformin and diabetic diet Hyperlipidemia -Continue atorvastatin Schizoaffective disorder -With acute psychotic break related to medication nonadherence -Management by primary team Acute auditory hallucinations with homicidal ideation -Management by primary team Although patient has medical comorbidities, current management is adequate and patient is medically stable. Management of acute psychiatric disorder by primary team Plan / VTE VTE Prophylaxis Ordered?: No VTE Exclusion Mechanical Proph: Low Risk for VTE LUIS MARLEYP Oct 25, 2018 09:37
--- NOTE | 2018-10-25 12:05 | MHHPEPDOC ---
[facility] History & Physical History and Physical DATE OF ADMISSION: Oct 24, 2018 at 14:56 LEGAL STATUS AT ADMISSION: 9.39 CHIEF COMPLAINT: Suicidal and homicidal ideation HISTORY OF PRESENT ILLNESS: Patient is a 68-year-old male, who according to ED report: " Pt states that he self-presented to the ED due to SI with a plan to jump off a bridge. He also has command AH that tell him to hurt his landlady, but he does not want to hurt her, which is why he came to the ED for help. Main trigger is that he believes that his landlady goes into his apartment when he is not there. They had an argument today & he had thoughts of hurting her. Pt has been noncompliant with meds for three or four days because he has an aide that sets up his meds every week, but she did not do it this week. He has also been noncompliant with OP tx at the [facility]. Pt c/o depressed mood, anxiety, hopelessness & helplessness, poor concentration, & poor sleep. Pt was tearful throughout the interview. Pt has had multiple admissions to [facility] with a dx of schizoaffective d/o. Pt denies substance use & his tox screen was negative." PSYCHIATRIC REVIEW OF SYSTEMS: Affective: Hopeless, helpless, frustrated, irritable, SI, HI, denies manic symptoms Anxiety: Restless, frequent headaches, muscle tightness, insomnia Trauma: denies current nightmares, admits to have occasional flashbacks about traumatic events Psychosis: Denies Personally: He is pleasant ans cooperative at this time. R/O cluster B personality disorder PAST PSYCHIATRIC HISTORY: Prior Psychiatric Disorder: Multiple admissions, last one was in august 2018, he was discharged on October 02/2019 Outpatient Treatment: Multiple facilities, refer to EMR. Suicidal/Self injurious: History of suicidal ideation, history of suicide attempts Psychotropic Medication History: Risperdal, trazodone, Depakote, Invega Sustenna, Seroquel, Zoloft, Haldol, "benzos." ALLERGIES: Please see below. FAMILY PSYCHIATRIC HISTORY: Mother - suicide via walking into traffic, alcoholism Father - alcoholism SOCIAL HISTORY: Early Relations/development: Patient states he was born in [place] and raised in "[facility]", notes both parents are and has no contact with his siblings. Patient indicates he has some friends in the area. Sibling order: Eldest child, states he has no contact with siblings. Paternal relationships: Both parents are . Education: GED. 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 Legal: Denies other than pending legal charges for stalking. Martial: Never , no children. Economic: Denies financial strain, is on Social Security and veterans benefits, per EMR, is 100% service connected. Supports: Described support system as limited. Abuse/trauma: Denies. SUBSTANCE ABUSE HISTORY: Patient denies history of substance use or abuse, further denies history of tobacco use. PAST MEDICAL/SURGICAL HISTORY: Hypertension, hypercholesterolemia, type 2 diabetes, cataracts VITAL SIGNS: See below MENTAL STATUS EXAMINATION: General appearance: Patient is a 65-year old male, who is cooperative, makes adequate eye contact, appears disheveled, dressed in hospital clothing, ambulates with steady gait, appears stated age Speech: Is more clear than in previous admissions but is stll rapid and pressured Thought processes: Linear, logical, goal-directed. Thought content: Linear, mostly logical, paranoid at times (when he talks about the Nurse tat accused him of stalking her) Description of associations: Appears intact. Description of abnormal or psychotic thoughts: SI/HI denies AV hallucinations, he is still a little bit paranoid when it comes to Nurses, he says he is afraid of them because one of them in another hospital accused him of stalking her and about his landlady whom he accuses of getting into his things at home. Judgment: Poor Insight: Poor Orientation: alert and awake, oriented to place and person, not to date and time Recent and remote memory: Fair Attention span and concentration: Good Fund of knowledge: average Mood: "I have not been taking my meds since Wednesday because that lady messed up with my meds and 'm afraid of getting sick" Affect: Constricted DIAGNOSES: Schizoaffective disorder, bipolar type, rule out schizophrenia ASSESSMENT: The patient seems to be more stable than on previous admissions. He is very angry at his landlady, he says he doesn't want to lie there anymore because it is too hard for him since he doesn't have any transportation and pays $40.00 to come to [place] to shop or for his appointments. He states there are no places to go buy milk or anything else at [facility], he says. He also states that he doesn't like to live there because his landlady has been getting into his things and he doesn't trust them anymore. PROBLEM LIST: Depression anxiety Altered thoughts INITIAL TREATMENT PLAN: 1. Patient was admitted on a 9.39 2. Complete history was obtained. 3. With patients permission, family will be contacted and database will be expanded. 4. Patients medication regimen will be reviewed and changed accordingly. 5. Patient will be provided with protected environment. 6. Patient will be treated with individual, group, and milieu therapies. 7. Patient will receive supportive psych-education. 8. Discharge planning will commence immediately. 9. Outpatient follow-up treatment will be strongly recommended. 10. The initial treatment plan will focus initially on: * Depression. * Anxiety * Altered thoughts * Risk for suicide. ESTIMATED LENGTH OF STAY: 3-5 DAYS. TIME SPENT COUNSELING AND COORDINATING INITIAL CARE: 50 minutes. Vital Signs Vital Signs Date Time Temp Pulse Resp B/P (MAP) Pulse Ox O2 Delivery O2 Flow Rate FiO2 10/25/18 09:08 133/81 10/25/18 06:19 98.4 66 16 10/24/18 16:00 95 10/24/18 15:35 Room Air Laboratory Data 24H Labs Laboratory Tests 2 10/24/18 17:06: Bedside Glucose (Misc Panel) 213H 10/24/18 20:52: Bedside Glucose (Misc Panel) 279H 10/25/18 06:40: Bedside Glucose (Misc Panel) 250H FSBS Laboratory Tests Test 10/24/18 17:06 10/24/18 20:52 10/25/18 06:40 Range/Units Bedside Glucose (Misc Panel) 213 279 250 80-115 MG/DL Medications Scheduled Atorvastatin Calcium (Atorvastatin Calcium) 40 Mg Tablet, 20 MG PO DAILY, (Reported) Glimepiride (Glimepiride) 2 Mg Tab, 2 MG PO QAM for , (Reported) Lisinopril (Lisinopril) 40 Mg Tablet, 20 MG PO DAILY, (Reported) Metformin HCl (Metformin HCl ER) 500 Mg Tab, 1,000 MG PO BID for , (Reported) Omeprazole (Omeprazole) 20 Mg Capsule.dr, 20 MG PO QAM, (Reported) Pioglitazone HCl (Actos) 30 Mg Tab, 30 MG PO DAILY for , (Reported) Prazosin Hcl (Prazosin HCl) 1 Mg Capsule, 1 MG PO QHS, (Reported) Risperidone (Risperidone) 2 Mg Tablet, 1 MG PO QAM, (Reported) Risperidone (Risperidone) 4 Mg Tablet, 2 MG PO QHS, (Reported) Trazodone HCl (Trazodone HCl) 50 Mg Tablet, 50 MG PO QHS, (Reported) Scheduled PRN Ibuprofen (Ibuprofen) 800 Mg Tablet, 800 MG PO Q8H PRN for PAIN, (Reported) Allergies Coded Allergies: fluphenazine (Verified Adverse Reaction, Intermediate, COLD SWEATS, PACING, RASH, 08/07/18) haloperidol (Verified Adverse Reaction, Intermediate, COLD SWEATS, PACING, SWEATS, 08/07/18) A-FIB/CHADSVASC A-FIB History Current/History of A-Fib/PAF?: No Current PO Anticoag Therapy: No Age/Risk Factor Scoring CHADSVASC: CHADSVASC Response (Comments) Value Age Risk Factor Age 65-74 years old 1 Gender Risk Factor Male 0 Hx of CHF No 0 Hx of HTN Yes 1 Hx of Stroke/TIA/or VTE No 0 Hx of Diabetes Yes 1 Hx of Vascular Disease No 0 Total 3 Treatment Treatment ordered: NONE Reason Anticoagulant not given: Not indicated/[id number] CORAZON REN MD Oct 25, 2018 11:26
[2018-10-25] MEDS: ACETAMINOPHEN TAB 650MG DOSE (2X325MG) PO PRN (15:27)
[2018-10-25 18:00] VITALS: BP 130/66
[2018-10-25] MEDS: risperiDONE 2 MG TAB PO SCH (20:15)
[2018-10-25] MEDS: traZODone 50 MG TAB PO SCH (20:15)
[2018-10-25] MEDS: PRAZOSIN 1 MG CAP PO SCH (20:15)
[2018-10-26] MEDS: ACETAMINOPHEN TAB 650MG DOSE (2X325MG) PO PRN ×2 (00:07→22:52)
[2018-10-26 06:12] VITALS: BP 138/88
[2018-10-26] MEDS: metFORMIN XR 500MG TAB *GLUCOPHAGE XR PO SCH ×2 (06:33→17:08)
[2018-10-26] MEDS: GLIMEPIRIDE 2 MG TAB PO SCH (06:33)
[2018-10-26] MEDS: HumaLOG INSULIN (NovoLOG) PER UNIT SC SCH ×4 (06:34→21:00)
[2018-10-26] MEDS: ATORVASTATIN 20 MG TAB PO SCH (09:20)
[2018-10-26] MEDS: OMEPRAZOLE 20 MG CAP PO SCH (09:20)
[2018-10-26] MEDS: risperiDONE 1 MG TAB PO SCH (09:20)
[2018-10-26] MEDS: LISINOPRIL 20 MG TAB PO SCH (09:24)
[2018-10-26 18:14] VITALS: BP 132/82
[2018-10-26] MEDS: PRAZOSIN 1 MG CAP PO SCH (21:33)
[2018-10-26] MEDS: traZODone 50 MG TAB PO SCH (21:33)
[2018-10-26] MEDS: risperiDONE 2 MG TAB PO SCH (21:33)
--- NOTE | 2018-10-27 00:26 | MHIPNPDOC ---
[facility] Progress Note Progress Note DATE OF SERVICE: 10/26/18 HISTORY: Patient is a 68-year-old male, who according to ED report: " Pt states that he self-presented to the ED due to SI with a plan to jump off a bridge. He also has command AH that tell him to hurt his landlady, but he does not want to hurt her, which is why he came to the ED for help. Main trigger is that he believes that his landlady goes into his apartment when he is not there. They had an argument today & he had thoughts of hurting her. Pt has been noncompliant with meds for three or four days because he has an aide that sets up his meds every week, but she did not do it this week. He has also been noncompliant with OP tx at the [facility]. Pt c/o depressed mood, anxiety, hopelessness & helplessness, poor concentration, & poor sleep. Pt was tearful throughout the interview. [facility] with a dx of schizoaffective d/o. Pt denies substance use & his tox screen was negative." VITAL SIGNS: See below. NEW TEST RESULTS: See below CURRENT MEDICATIONS: See below. MENTAL STATUS EXAMINATION: General appearance: Patient is a 65-year old male, who is cooperative, makes adequate eye contact, appears disheveled, dressed in hospital clothing, ambulates with steady gait, appears stated age Speech: Is more clear than in previous admissions but is stll rapid and pressured Thought processes: Linear, logical, goal-directed. Thought content: Linear, mostly logical, paranoid at times (when he talks about the Nurse tat accused him of stalking her) Description of associations: Appears intact. Description of abnormal or psychotic thoughts: SI/HI denies AV hallucinations, he is still a little bit paranoid when it comes to Nurses, he says he is afraid of them because one of them in another hospital accused him of stalking her and about his landlady whom he accuses of getting into his things at home. Judgment: Poor Insight: Poor Orientation: alert and awake, oriented to place and person, not to date and time Recent and remote memory: Fair Attention span and concentration: Good Mood: "I don't know why [facility]" Affect: Constricted/irritable DIAGNOSES: Schizoaffective disorder, bipolar type, rule out schizophrenia ASSESSMENT: Mental status exam has not changed much from yesterday. The patient put a request for an administrative hearing but as we spoke later he said he was not mad at [facility], he was mad a t the [place], he couldn't understand why he was never hospitalized in there, but at the same time he said he was not angry at us. The patient was irritable but he still was respectful and was able to control his temper. MANAGEMENT PLAN: Continue with the same treatment plan TIME SPENT: 15 minutes. Vital Signs Vital Signs Date Time Temp Pulse Resp B/P (MAP) Pulse Ox O2 Delivery O2 Flow Rate FiO2 10/26/18 21:33 132/82 10/26/18 18:14 98.1 98 18 10/24/18 16:00 95 10/24/18 15:35 Room Air Laboratory Data 24H Labs Laboratory Tests 2 10/26/18 06:20: Bedside Glucose (Misc Panel) 170H 10/26/18 12:07: Bedside Glucose (Misc Panel) 221H 10/26/18 17:05: Bedside Glucose (Misc Panel) 186H 10/26/18 21:29: Bedside Glucose (Misc Panel) 159H Current Medications Current Medications Acetaminophen (Tylenol Tab) 650 mg Q6HP PRN PO HEADACHE or DISCOMFORT Last administered on 10/26/18at 22:52; Start 10/24/18 at 15:00 Al Hydrox/Mg Hydrox/Simethicone (Mylanta) 30 ml Q4HP PRN PO HEARTBURN/INDIGESTION; Start 10/24/18 at 15:00 Atorvastatin Calcium (Lipitor) 20 mg DAILY PO Last administered on 10/26/18at 09:20; Start 10/24/18 at 09:00 Dextrose (Dextrose 50%) 25 ml ASDIRECTED PRN IV SEE LABEL COMMENTS; Start 10/24/18 at 15:45 Glimepiride (Amaryl) 2 mg DAILY@0730 PO Last administered on 10/26/18at 06:33; Start 10/25/18 at 07:30 Glucagon (Glucagon) 1 mg ASDIRECTED PRN SC SEE LABEL COMMENTS; Start 10/24/18 at 15:45 Glucose (Glucose) 16 GM ASDIRECTED PRN PO SEE LABEL COMMENTS; Start 10/24/18 at 15:45 Home Med (Med Rec Complete!) ASDIRECTED XX ; Start 10/24/18 at 10:00; Stop 10/24/18 at 10:02; Status DC Ibuprofen (Advil) 800 mg Q8H PRN PO PAIN Last administered on 10/25/18at 00:36; Start 10/24/18 at 15:00 Insulin Human Lispro (HumaLOG INSULIN) See Protocol Table AC SC Last admi nistered on 10/26/18at 17:07; Start 10/24/18 at 17:30 Insulin Human Lispro (HumaLOG INSULIN) See Protocol Table QHS SC Last admi nistered on 10/24/18at 20:55; Start 10/24/18 at 21:00 Lisinopril (Prinivil) 20 mg DAILY PO Last administered on 10/26/18at 09:24; Start 10/24/18 at 09:00 Magnesium Hydroxide (Milk Of Magnesia) 30 ml DAILYPRN PRN PO CONSTIPATION; Start 10/24/18 at 15:00 Metformin HCl (Glucophage Xr) 1,000 mg BID@0730,1730 PO Last administered on 10/26/18at 17:08; Start 10/24/18 at 17:30 Omeprazole (PriLOSEC) 20 mg DAILY PO Last administered on 10/26/18at 09:20; Start 10/24/18 at 09:00 Prazosin HCl (Minipress) 1 mg QHS PO Last administered on 10/26/18at 21:33; Start 10/24/18 at 21:00 Risperidone (RisperDAL) 1 mg QAM PO Last administered on 10/26/18at 09:20; Start 10/25/18 at 09:00 Risperidone (RisperDAL) 2 mg QHS PO Last administered on 10/26/18 21:33; Start 10/25/18 at 21:00 Trazodone HCl (Desyrel) 50 mg QHS PO Last administered on 10/26/18 21:33; Start 10/24/18 at 21:00 Allergies Coded Allergies: fluphenazine (Verified Adverse Reaction, Intermediate, COLD SWEATS, PACING, RASH, 08/07/18) haloperidol (Verified Adverse Reaction, Intermediate, COLD SWEATS, PACING, SWEATS, 08/07/18) CORAZON REN MD Oct 27, 2018 00:21
[2018-10-27] MEDS ORDERED: traZODone 100 MG TAB PO ONE (01:30)
[2018-10-27 06:56] VITALS: BP 142/80
[2018-10-27] MEDS: HumaLOG INSULIN (NovoLOG) PER UNIT SC SCH ×4 (07:36→22:11)
[2018-10-27] MEDS: LISINOPRIL 20 MG TAB PO SCH (08:43)
[2018-10-27] MEDS: metFORMIN XR 500MG TAB *GLUCOPHAGE XR PO SCH ×2 (08:43→17:02)
[2018-10-27] MEDS: ATORVASTATIN 20 MG TAB PO SCH (08:43)
[2018-10-27] MEDS: OMEPRAZOLE 20 MG CAP PO SCH (08:44)
[2018-10-27] MEDS: GLIMEPIRIDE 2 MG TAB PO SCH (08:44)
[2018-10-27] MEDS: risperiDONE 1 MG TAB PO SCH (08:44)
[2018-10-27] MEDS: ACETAMINOPHEN TAB 650MG DOSE (2X325MG) PO PRN (10:43)
[2018-10-27 18:00] VITALS: BP 132/73
[2018-10-27] MEDS: traZODone 50 MG TAB PO SCH (22:10)
[2018-10-27] MEDS: PRAZOSIN 1 MG CAP PO SCH (22:10)
[2018-10-27] MEDS: risperiDONE 2 MG TAB PO SCH (22:10)
--- NOTE | 2018-10-27 22:22 | MHIPNPDOC ---
[facility] Progress Note Progress Note DATE OF SERVICE: 10/27/18 HISTORY: Patient is a 68-year-old male, who according to ED report: " Pt states that he self-presented to the ED due to SI with a plan to jump off a bridge. He also has command AH that tell him to hurt his landlady, but he does not want to hurt her, which is why he came to the ED for help. Main trigger is that he believes that his landlady goes into his apartment when he is not there. They had an argument today & he had thoughts of hurting her. Pt has been noncompliant with meds for three or four days because he has an aide that sets up his meds every week, but she did not do it this week. He has also been noncompliant with OP tx at the [facility]. Pt c/o depressed mood, anxiety, hopelessness & helplessness, poor concentration, & poor sleep. Pt was tearful throughout the interview. Pt has had multiple admissions to [facility] with a dx of schizoaffective d/o. Pt denies substance use & his tox screen was negative." VITAL SIGNS: See below. NEW TEST RESULTS: See below CURRENT MEDICATIONS: See below. MENTAL STATUS EXAMINATION: General appearance: Patient is a 65-year old male, who is cooperative, makes adequate eye contact, appears disheveled, dressed in hospital clothing, ambulates with steady gait, appears stated age Speech: Is more clear than in previous admissions but is stll rapid and pressured Thought processes: Linear, logical, goal-directed. Thought content: Linear, mostly logical, paranoid at times (when he talks about the Nurse tat accused him of stalking her) Description of associations: Appears intact. Description of abnormal or psychotic thoughts: SI/HI denies AV hallucinations, he is still a little bit paranoid when it comes to Nurses, he says he is afraid of them because one of them in another hospital accused him of stalking her and about his landlady whom he accuses of getting into his things at home. Judgment: Poor Insight: Poor Orientation: alert and awake, oriented to place and person, not to date and time Recent and remote memory: Fair Attention span and concentration: Good Mood: "I feel better today" Affect: Congruent with mood DIAGNOSES: Schizoaffective disorder, bipolar type, rule out schizophrenia ASSESSMENT: Patient wants to be discharged. He is a little bit calm and he says he isnot suicidal at this time. He says he would be able to go to a motel while he solves his housing problems. I remind him that he complained about the lady that was helping him with shopping and his medications but he thinks he can manage, so, I will speak with Commutator Operator tomorrow about possible discharge. MANAGEMENT PLAN: Continue with the same treatment plan TIME SPENT: 15 minutes. Vital Signs Vital Signs Date Time Temp Pulse Resp B/P (MAP) Pulse Ox O2 Delivery O2 Flow Rate FiO2 10/27/18 22:10 144/71 10/27/18 06:56 97.3 94 18 10/24/18 16:00 95 10/24/18 15:35 Room Air Laboratory Data 24H Labs Laboratory Tests 2 10/27/18 06:58: Bedside Glucose (Misc Panel) 206H 10/27/18 12:07: Bedside Glucose (Misc Panel) 194H 10/27/18 16:59: Bedside Glucose (Misc Panel) 203H 10/27/18 22:09: Bedside Glucose (Misc Panel) 198H Current Medications Current Medications Acetaminophen (Tylenol Tab) 650 mg Q6HP PRN PO HEADACHE or DISCOMFORT Last administered on 10/27/18at 10:43; Start 10/24/18 at 15:00 Al Hydrox/Mg Hydrox/Simethicone (Mylanta) 30 ml Q4HP PRN PO HEARTBURN/INDIGESTION; Start 10/24/18 at 15:00 Atorvastatin Calcium (Lipitor) 20 mg DAILY PO Last administered on 10/27/18at 08:43; Start 10/24/18 at 09:00 Dextrose (Dextrose 50%) 25 ml ASDIRECTED PRN IV SEE LABEL COMMENTS; Start 10/24/18 at 15:45 Glimepiride (Amaryl) 2 mg DAILY@0730 PO Last administered on 10/27/18at 08:44; Start 10/25/18 at 07:30 Glucagon (Glucagon) 1 mg ASDIRECTED PRN SC SEE LABEL COMMENTS; Start 10/24/18 at 15:45 Glucose (Glucose) 16 GM ASDIRECTED PRN PO SEE LABEL COMMENTS; Start 10/24/18 at 15:45 Home Med (Med Rec Complete!) ASDIRECTED XX ; Start 10/24/18 at 10:00; Stop 10/24/18 at 10:02; Status DC Ibuprofen (Advil) 800 mg Q8H PRN PO PAIN Last administered on 10/25/18at 00:36; Start 10/24/18 at 15:00 Insulin Human Lispro (HumaLOG INSULIN) See Protocol Table AC SC Last administered on 10/27/18at 17:04; Start 10/24/18 at 17:30 Insulin Human Lispro (HumaLOG INSULIN) See Protocol Table QHS SC Last administered on 10/24/18at 20:55; Start 10/24/18 at 21:00 Lisinopril (Prinivil) 20 mg DAILY PO Last administered on 10/27/18 08:43; Start 10/24/18 at 09:00 Magnesium Hydroxide (Milk Of Magnesia) 30 ml DAILYPRN PRN PO CONSTIPATION; Start 10/24/18 at 15:00 Metformin HCl (Glucophage Xr) 1,000 mg BID@0730,1730 PO Last administered on 10/27/18at 17:02; Start 10/24/18 at 17:30 Omeprazole (PriLOSEC) 20 mg DAILY PO Last administered on 10/27/18 08:44; Start 10/24/18 at 09:00 Prazosin HCl (Minipress) 1 mg QHS PO Last administered on 10/27/18at 22:10; Start 10/24/18 at 21:00 Risperidone (RisperDAL) 1 mg QAM PO Last administered on 10/27/18 08:44; Start 10/25/18 at 09:00 Risperidone (RisperDAL) 2 mg QHS PO Last administered on 10/27/18 22:10; Start 10/25/18 at 21:00 Trazodone HCl (Desyrel) 50 mg QHS PO Last administered on 10/26/18 21:33; Start 10/24/18 at 21:00; Stop 10/27/18 at 15:29; Status DC Trazodone HCl (Desyrel) 150 mg QHS PO Last administered on 10/27/18 22:10; Start 10/27/18 at 21:00 Allergies Coded Allergies: fluphenazine (Verified Adverse Reaction, Intermediate, COLD SWEATS, PACING, RASH, 4//19) haloperidol (Verified Adverse Reaction, Intermediate, COLD SWEATS, PACING, SWEATS, 08/07/18) CORAZON REN MD Oct 27, 2018 22:21
[2018-10-28] MEDS: metFORMIN XR 500MG TAB *GLUCOPHAGE XR PO SCH ×2 (06:30→17:19)
[2018-10-28] MEDS: HumaLOG INSULIN (NovoLOG) PER UNIT SC SCH ×4 (06:30→20:17)
[2018-10-28] MEDS: GLIMEPIRIDE 2 MG TAB PO SCH (06:30)
[2018-10-28 07:08] VITALS: BP 133/71
[2018-10-28] MEDS: LISINOPRIL 20 MG TAB PO SCH (09:09)
[2018-10-28] MEDS: risperiDONE 1 MG TAB PO SCH (09:09)
[2018-10-28] MEDS: ATORVASTATIN 20 MG TAB PO SCH (09:09)
[2018-10-28] MEDS: OMEPRAZOLE 20 MG CAP PO SCH (09:09)
[2018-10-28 18:22] VITALS: BP 136/74
[2018-10-28] MEDS: risperiDONE 2 MG TAB PO SCH (20:16)
[2018-10-28] MEDS: traZODone 50 MG TAB PO SCH (20:16)
[2018-10-28] MEDS: PRAZOSIN 1 MG CAP PO SCH (20:17)
--- NOTE | 2018-10-29 00:09 | MHIPNPDOC ---
[facility] Progress Note Progress Note DATE OF SERVICE: 10/29/18 HISTORY: Patient is a 68-year-old male, who according to ED report: " Pt states that he self-presented to the ED due to SI with a plan to jump off a bridge. He also has command AH that tell him to hurt his landlady, but he does not want to hurt her, which is why he came to the ED for help. Main trigger is that he believes that his landlady goes into his apartment when he is not there. They had an argument today & he had thoughts of hurting her. Pt has been noncompliant with meds for three or four days because he has an aide that sets up his meds every week, but she did not do it this week. He has also been noncompliant with OP tx at the [facility]. Pt c/o depressed mood, anxiety, hopelessness & helplessness, poor concentration, & poor sleep. Pt was tearful throughout the interview. Pt has had multiple admissions to [facility] with a dx of schizoaffective d/o. Pt denies substance use & his tox screen was negative." VITAL SIGNS: See below. NEW TEST RESULTS: See below CURRENT MEDICATIONS: See below. MENTAL STATUS EXAMINATION: General appearance: Patient is a 65-year old male, who is cooperative, makes adequate eye contact, appears disheveled, dressed in hospital clothing, ambulates with steady gait, appears stated age Speech: Is more clear than in previous admissions but is stll rapid and pressured Thought processes: Linear, logical, goal-directed. Thought content: Linear, mostly logical, paranoid at times (when he talks about the Nurse tat accused him of stalking her) Description of associations: Appears intact. Description of abnormal or psychotic thoughts: SI/HI denies AV hallucinations, he is still a little bit paranoid when it comes to Nurses, he says he is afraid of them because one of them in another hospital accused him of stalking her and about his landlady whom he accuses of getting into his things at home. Judgment: Poor Insight: Poor Orientation: alert and awake, oriented to place and person, not to date and time Recent and remote memory: Fair Attention span and concentration: Good Mood: "I'm fine today doctor" Affect: Congruent with mood DIAGNOSES: Schizoaffective disorder, bipolar type, rule out schizophrenia ASSESSMENT: Patient mental status hadn't changed much since yesterday. Patient continues to be focused on discharge. He denies SI/HI/AV hallucinations, he says he will go back to [facility]. He reports sleeping better with Trazodone 150 mgs PO QHS. MANAGEMENT PLAN: Continue with the same treatment plan TIME SPENT: 15 minutes. Vital Signs Vital Signs Date Time Temp Pulse Resp B/P (MAP) Pulse Ox O2 Delivery O2 Flow Rate FiO2 10/28/18 20:17 139/83 10/28/18 18:22 98.2 96 18 10/24/18 16:00 95 10/24/18 15:35 Room Air Laboratory Data 24H Labs Laboratory Tests 2 10/28/18 06:06: Bedside Glucose (Misc Panel) 174H 10/28/18 11:59: Bedside Glucose (Misc Panel) 176H 10/28/18 17:16: Bedside Glucose (Misc Panel) 216H 10/28/18 20:14: Bedside Glucose (Misc Panel) 141H Current Medications Current Medications Acetaminophen (Tylenol Tab) 650 mg Q6HP PRN PO HEADACHE or DISCOMFORT Last administered on 10/27/18at 10:43; Start 10/24/18 at 15:00 Al Hydrox/Mg Hydrox/Simethicone (Mylanta) 30 ml Q4HP PRN PO HEARTBURN/INDIGESTION; Start 10/24/18 at 15:00 Atorvastatin Calcium (Lipitor) 20 mg DAILY PO Last administered on 10/28/18at 09:09; Start 10/24/18 at 09:00 Dextrose (Dextrose 50%) 25 ml ASDIRECTED PRN IV SEE LABEL COMMENTS; Start 10/24/18 at 15:45 Glimepiride (Amaryl) 2 mg DAILY@0730 PO Last administered on 10/28/18at 06:30; Start 10/25/18 at 07:30 Glucagon (Glucagon) 1 mg ASDIRECTED PRN SC SEE LABEL COMMENTS; Start 10/24/18 at 15:45 Glucose (Glucose) 16 GM ASDIRECTED PRN PO SEE LABEL COMMENTS; Start 10/24/18 at 15:45 Home Med (Med Rec Complete!) ASDIRECTED XX ; Start 10/24/18 at 10:00; Stop 10/24/18 at 10:02; Status DC Ibuprofen (Advil) 800 mg Q8H PRN PO PAIN Last administered on 10/25/18 00:36; Start 10/24/18 at 15:00 Insulin Human Lispro (HumaLOG INSULIN) See Protocol Table AC SC Last administered on 10/28/18 17:18; Start 10/24/18 at 17:30 Insulin Human Lispro (HumaLOG INSULIN) See Protocol Table QHS SC Last administered on 10/24/18at 20:55; Start 10/24/18 at 21:00 Lisinopril (Prinivil) 20 mg DAILY PO Last administered on 10/28/18 09:09; Start 10/24/18 at 09:00 Magnesium Hydroxide (Milk Of Magnesia) 30 ml DAILYPRN PRN PO CONSTIPATION; Start 10/24/18 at 15:00 Metformin HCl (Glucophage Xr) 1,000 mg BID@0730,1730 PO Last administered on 10/28/18 17:19; Start 10/24/18 at 17:30 Omeprazole (PriLOSEC) 20 mg DAILY PO Last administered on 10/28/18 09:09; Sta rt 10/24/18 at 09:00 Prazosin HCl (Minipress) 1 mg QHS PO Last administered on 10/28/18 20:17; Start 10/24/18 at 21:00 Risperidone (RisperDAL) 1 mg QAM PO Last administered on 10/28/18 09:09; Start 10/25/18 at 09:00 Risperidone (RisperDAL) 2 mg QHS PO Last administered on 10/28/18 20:16; Start 10/25/18 at 21:00 Trazodone HCl (Desyrel) 50 mg QHS PO Last administered on 10/26/18 21:33; Start 10/24/18 at 21:00; Stop 10/27/18 at 15:29; Status DC Trazodone HCl (Desyrel) 150 mg QHS PO Last administered on 10/28/18 20:16; Start 10/27/18 at 21:00 Allergies Coded Allergies: fluphenazine (Verified Adverse Reaction, Intermediate, COLD SWEATS, PACING, RASH, 08/07/18) haloperidol (Verified Adverse Reaction, Intermediate, COLD SWEATS, PACING, SWEATS, 08/07/18) CORAZON REN MD Oct 29, 2018 00:09
[2018-10-29] MEDS: IBUPROFEN 800 MG TAB PO PRN ×2 (02:20→15:26)
[2018-10-29] MEDS: metFORMIN XR 500MG TAB *GLUCOPHAGE XR PO SCH ×2 (06:38→17:12)
[2018-10-29] MEDS: HumaLOG INSULIN (NovoLOG) PER UNIT SC SCH ×4 (06:39→21:00)
[2018-10-29] MEDS: GLIMEPIRIDE 2 MG TAB PO SCH (06:39)
[2018-10-29 06:49] VITALS: BP 139/67
[2018-10-29] MEDS: OMEPRAZOLE 20 MG CAP PO SCH (08:15)
[2018-10-29] MEDS: ATORVASTATIN 20 MG TAB PO SCH (08:15)
[2018-10-29] MEDS: risperiDONE 1 MG TAB PO SCH (08:15)
[2018-10-29] MEDS: LISINOPRIL 20 MG TAB PO SCH (08:15)
[2018-10-29 18:00] VITALS: BP 136/70
[2018-10-29] MEDS: traZODone 50 MG TAB PO SCH (21:13)
[2018-10-29] MEDS: risperiDONE 2 MG TAB PO SCH (21:13)
[2018-10-29] MEDS: PRAZOSIN 1 MG CAP PO SCH (21:13)
[2018-10-30] MEDS: IBUPROFEN 800 MG TAB PO PRN (00:31)
[2018-10-30] MEDS: ACETAMINOPHEN TAB 650MG DOSE (2X325MG) PO PRN ×2 (01:13→16:57)
[2018-10-30] MEDS: metFORMIN XR 500MG TAB *GLUCOPHAGE XR PO SCH ×2 (06:36→17:08)
[2018-10-30] MEDS: GLIMEPIRIDE 2 MG TAB PO SCH (06:36)
[2018-10-30] MEDS: HumaLOG INSULIN (NovoLOG) PER UNIT SC SCH ×4 (06:37→20:25)
[2018-10-30 06:49] VITALS: BP 133/79
[2018-10-30] MEDS: risperiDONE 1 MG TAB PO SCH (09:00)
[2018-10-30] MEDS: OMEPRAZOLE 20 MG CAP PO SCH (09:00)
[2018-10-30] MEDS: ATORVASTATIN 20 MG TAB PO SCH (09:00)
[2018-10-30] MEDS: LISINOPRIL 20 MG TAB PO SCH (09:00)
[2018-10-30 18:00] VITALS: BP 138/67
[2018-10-30] MEDS: traZODone 50 MG TAB PO SCH (20:25)
[2018-10-30] MEDS: risperiDONE 2 MG TAB PO SCH (20:25)
[2018-10-30] MEDS: PRAZOSIN 1 MG CAP PO SCH (20:25)
[2018-10-30] MEDS ORDERED: QUEtiapine FUMARATE 100 MG TAB PO ONE (23:15)
[2018-10-31] MEDS: GLIMEPIRIDE 2 MG TAB PO SCH (06:39)
[2018-10-31] MEDS: metFORMIN XR 500MG TAB *GLUCOPHAGE XR PO SCH ×2 (06:39→17:03)
[2018-10-31] MEDS: HumaLOG INSULIN (NovoLOG) PER UNIT SC SCH ×4 (06:40→21:00)
[2018-10-31 06:53] VITALS: BP 146/88
[2018-10-31] MEDS: ATORVASTATIN 20 MG TAB PO SCH (08:06)
[2018-10-31] MEDS: OMEPRAZOLE 20 MG CAP PO SCH (08:06)
[2018-10-31] MEDS: LISINOPRIL 20 MG TAB PO SCH (08:06)
[2018-10-31] MEDS: risperiDONE 1 MG TAB PO SCH (08:07)
[2018-10-31 18:23] VITALS: BP 136/75
[2018-10-31] MEDS: traZODone 50 MG TAB PO SCH (21:01)
[2018-10-31] MEDS: risperiDONE 2 MG TAB PO SCH (21:01)
[2018-10-31] MEDS: PRAZOSIN 1 MG CAP PO SCH (21:02)
[2018-11-01] MEDS: IBUPROFEN 800 MG TAB PO PRN (00:17)
[2018-11-01 06:35] VITALS: BP 134/67
[2018-11-01] MEDS: GLIMEPIRIDE 2 MG TAB PO SCH (06:35)
[2018-11-01] MEDS: metFORMIN XR 500MG TAB *GLUCOPHAGE XR PO SCH (06:35)
[2018-11-01] MEDS: HumaLOG INSULIN (NovoLOG) PER UNIT SC SCH (06:35)
[2018-11-01] MEDS ORDERED: RISP2TAB32 PO (08:09)
[2018-11-01] MEDS ORDERED: RISP1TAB42 PO (08:09)
[2018-11-01] MEDS ORDERED: TRAZ-252 PO (08:09)
[2018-11-01 08:27] VITALS: BP 134/67
[2018-11-01] MEDS: ATORVASTATIN 20 MG TAB PO SCH (08:27)
[2018-11-01] MEDS: LISINOPRIL 20 MG TAB PO SCH (08:27)
[2018-11-01] MEDS: OMEPRAZOLE 20 MG CAP PO SCH (08:28)
[2018-11-01] MEDS: risperiDONE 1 MG TAB PO SCH (08:28)
--- NOTE | 2018-11-01 16:55 | MHDSPDOC ---
[facility] Discharge Summary Discharge Summary DATE OF ADMISSION: Oct 24, 2018 at 14:56 DATE OF DISCHARGE: Nov 01, 2018 at 12:40 Diagnoses 1. Schizoaffective disorder, unspecified 2. Concern for malingering/secondary gain History of Present Illness The patient is 68-year-old man with a long history of psychiatric admissions, presented to [facility] with suicidal thoughts and depression. He has had previous diagnoses of schizophrenia and schizoaffective. However, multiple inpatient admissions over every month for several years seem to suggest that the patient might have secondary gain due to inability to control his finances. This provider has treated Asa as a resident for multiple years in multiple different hospitals. Consultants Involved None. Treatment and Progress On The Unit The patient was treated on the unit with his primary medications. The patient has been noted at times to have mentioned that he has come in due to overspending his money, which he has a strong pattern of doing. This was noted by nursing as he had mentioned to another patient. He reports depression and psychotic symptoms, however, demonstrates no mental status signs consistent with that. He was cooperative on the unit, took his home medications of risperidone, and had an increase of his trazodone due to sleeping problems, up 150 mg, with beneficial effects. The patient subsequently wished to be discharged around the . He was subsequently triaged for discharge as he was not demonstrating any suicidal, homicidal ideation, or other symptoms that would be concerning for his safety, and he appeared to be able to attend to his needs quite well on the unit. Discharge Assessment The patient, a 68-year-old man with a history of reported schizoaffective disorder, who was treated on the inpatient unit with no major medication changes, appears to have possibly presented for secondary gain. It is not clear as to the rationale behind his admission, although there are concerns. Psychometric testing was not able to be done on this admission due to this provider's short time with the patient. However, if he does represent, he would be an ideal candidate for further psychometric evaluation. Mental Status Examination General: Well dressed with good hygiene Speech: Spontaneous and fluid Thought processes: Linear and logical MSK: Smooth and coordinated gait, no signs of tremors or involuntary orofacial movements Thought content: Future orientated Abstract reasoning, and computation: Intact Description of associations: Intact Description of abnormal or psychotic thoughts: Denies any suicidal or homicidal ideation. Denies any auditory or visual hallucinations. Does not appear to be responding to internal stimuli. Does not appear to be endorsing any bizarre or paranoid ideation. Judgment: fair Insight: fair Orientation: Alert and orientated 3 Cognition: Grossly normal Recent and remote memory: Intact Attention span and concentration: Intact Fund of knowledge: Adequate Mood: "okay" Affect: Euthymic with a full range Follow Up The social work team worked during the predischarge meeting in order to evaluate for further issues of lethality address them fully before discharge. They worked on safety planning with the patient's family members in order to ensure that the patient will have a safe and effective discharge. The patient's discharge team worked with his counter caser at the [facility] in order to ensure he would be able to be transported to his appointments and have a safe discharge plan. The amount of time spent in the coordination of care for this patient was approximately 30 minutes. Vital Signs/I&Os Vital Signs Date Time Temp Pulse Resp B/P (MAP) Pulse Ox O2 Delivery O2 Flow Rate FiO2 11/01/18 08:27 134/67 11/01/18 06:35 97.3 63 18 Laboratory Data Labs 24H Laboratory Tests 2 10/31/18 17:00: Bedside Glucose (Misc Panel) 203H 10/31/18 21:00: Bedside Glucose (Misc Panel) 118H 11/01/18 05:44: Bedside Glucose (Misc Panel) 126H Medications Scheduled Atorvastatin Calcium (Atorvastatin Calcium) 40 Mg Tablet, 20 MG PO DAILY, (Reported) Glimepiride (Glimepiride) 2 Mg Tab, 2 MG PO QAM for , (Reported) Lisinopril (Lisinopril) 40 Mg Tablet, 20 MG PO DAILY, (Reported) Metformin HCl (Metformin HCl ER) 500 Mg Tab, 1,000 MG PO BID for , (Reported) Omeprazole (Omeprazole) 20 Mg Capsule.dr, 20 MG PO QAM, (Reported) Pioglitazone HCl (Actos) 30 Mg Tab, 30 MG PO DAILY for , (Reported) Prazosin Hcl (Prazosin HCl) 1 Mg Capsule, 1 MG PO QHS, (Reported) Risperidone (Risperdal) 1 Mg Tablet, 1 MG PO QAM for psychosis for 7 Days, #7 Risperidone (Risperdal) 2 Mg Tablet, 2 MG PO QHS for psychosis for 7 Days, #7 Trazodone HCl (Trazodone HCl) 50 Mg Tablet, 150 MG PO QHS for sleep for 7 Days, #21 Scheduled PRN Ibuprofen (Ibuprofen) 800 Mg Tablet, 800 MG PO Q8H PRN for PAIN, (Reported) Allergies Coded Allergies: fluphenazine (Verified Adverse Reaction, Intermediate, COLD SWEATS, PACING, RASH, 08/07/18) haloperidol (Verified Adverse Reaction, Intermediate, COLD SWEATS, PACING, SWEATS, 08/07/18) ELISHA BOSWELL DO Nov 01, 2018 16:54
== END 2018-11-01 12:40 | disposition home or self-care (01) | DRG 885 ==
LOC: M ED 17:48 → M ED INP 10-24 14:56 → M PSY 10-24 15:46
PROVIDERS: ADMIT Psychiatry & Neurology Psychiatry; ATTEND Psychiatry & Neurology Addiction Medicine
DX: F25.9 Schizoaffective disorder, unspecified (principal); F41.9 Anxiety disorder, unspecified; Z91.5 Personal history of self-harm; Z81.1 Family history of alcohol abuse and dependence; I10 Essential (primary) hypertension; E78.5 Hyperlipidemia, unspecified; E11.9 Type 2 diabetes mellitus without complications; Z91.14 Patient's other noncompliance with medication regimen; Z79.84 Long term (current) use of oral hypoglycemic drugs; Z79.899 Other long term (current) drug therapy; K21.9 Gastro-esophageal reflux disease without esophagitis; E66.9 Obesity, unspecified; Z91.19 Patient's noncompliance with other medical treatment and regimen; Z76.5 Malingerer [conscious simulation]; Z68.33 Body mass index [BMI] 33.0-33.9, adult

== ENCOUNTER 2018-11-27 08:46 | Emergency (ER) | payer MEDICARE, OTHER ==
[~2018-11-27] VITALS: Ht 165.1 cm; Wt 84.1 kg
[~2018-11-27 08:46] MED LIST changes: -OMEP20CA3 PO; +OMEP20CA4 PO; -QUET1TAB9 PO; +QUET200T2 PO; +RISP1TAB42 PO
[2018-11-27] MEDS ORDERED: DOXA1TAB40 PO (09:14)
[2018-11-27] MEDS ORDERED: RISP3TAB3 PO (09:14)
[2018-11-27] MEDS ORDERED: TRAZ-189 PO (09:14)
[2018-11-27] MEDS ORDERED: CIPRODEX AD (09:14)
[2018-11-27] MEDS ORDERED: KEFL500C17 PO (09:14)
[2018-11-27 12:46] VITALS: BP 155/77
== END 2018-11-27 13:28 | disposition home or self-care (01) ==
LOC: M ED 08:46
DX: E11.9 Type 2 diabetes mellitus without complications (principal); I10 Essential (primary) hypertension; F43.10 Post-traumatic stress disorder, unspecified; Z79.1 Long term (current) use of non-steroidal anti-inflammatories (NSAID); Z79.2 Long term (current) use of antibiotics; Z79.84 Long term (current) use of oral hypoglycemic drugs; Z79.899 Other long term (current) drug therapy; Z88.8 Allergy status to other drugs, medicaments and biological substances

== ENCOUNTER 2018-11-30 11:51 | Emergency (ER) | payer OTHER ==
[~2018-11-30 11:51] MED LIST changes: +CIPRODEX AD; +DOXA1TAB40 PO; +KEFL500C17 PO; +TRAZ-189 PO
[2018-11-30] MEDS ORDERED: traZODone 100 MG TAB PO ONE (13:15)
[2018-11-30] MEDS ORDERED: risperiDONE 2 MG TAB PO ONE (13:15)
[2018-11-30 13:32] LABS: HEMATOCRIT 38.8 % (42.0-52.0); MEAN CORPUSCULAR HEMOGLOBIN 28.3 pg (27.0-33.0); MEAN CORPUSCULAR HGB CONC 33.5 g/dl (32.0-36.5); MEAN CORPUSCULAR VOLUME 84.5 fl (80.0-96.0); PLATELET COUNT, AUTOMATED 221 10^3/uL (150-450); RED BLOOD COUNT 4.59 10^6/uL (4.30-6.10)
[2018-11-30 14:06] LABS: ACETAMINOPHEN LEVEL < 2.0 UG/ML (10.0-30.0); ALBUMIN 3.4 GM/DL (3.2-5.2); ALT/SGPT 91 U/L (12-78); BILIRUBIN,DIRECT < 0.1 MG/DL (0.0-0.2); BILIRUBIN,TOTAL 0.4 MG/DL (0.2-1.0); BLOOD UREA NITROGEN 12 MG/DL (7-18); CALCIUM LEVEL 8.7 MG/DL (8.8-10.2); CARBON DIOXIDE LEVEL 26 MEQ/L (21-32); CHLORIDE LEVEL 106 MEQ/L (98-107); CREATININE FOR GFR 0.61 MG/DL (0.70-1.30); ETHYL ALCOHOL (ETHANOL) < 0.003 % (0.000-0.010); GLOMERULAR FILTRATION RATE > 60.0 (>49); GLUCOSE, FASTING 191 MG/DL (70-100); SALICYLATE LEVEL < 1.7 MG/DL (5.0-30.0); SODIUM LEVEL 138 MEQ/L (136-145); TOTAL PROTEIN 6.5 GM/DL (6.4-8.2)
[2018-11-30 14:30] VITALS: BP 131/67
[2018-11-30 14:49] LABS: AMPHETAMINES LEVEL URINE NEGATIVE (NEGATIVE); BARBITURATES URINE NEGATIVE (NEGATIVE); BENZODIAZEPINES URINE NEGATIVE (NEGATIVE); CANNABINOIDS URINE NEGATIVE (NEGATIVE); COCAINE METABOLITE URINE NEGATIVE (NEGATIVE); METHADONE URINE NEGATIVE (NEGATIVE); OPIATES URINE NEGATIVE (NEGATIVE); PHENCYCLIDINE URINE NEGATIVE (NEGATIVE)
== END 2018-11-30 15:32 | disposition home or self-care (01) ==
LOC: M ED 11:51
DX: Z76.5 Malingerer [conscious simulation] (principal); E11.9 Type 2 diabetes mellitus without complications; Z79.84 Long term (current) use of oral hypoglycemic drugs; Z79.899 Other long term (current) drug therapy; Z88.8 Allergy status to other drugs, medicaments and biological substances
CPT/HCPCS: 80048; 80076; 80307; 84443; 85027; 99284; G0480

== ENCOUNTER 2019-02-02 10:43 | Emergency (ER) | payer OTHER ==
[~2019-02-02] VITALS: Ht 165.1 cm; Wt 88.6 kg
[~2019-02-02 10:43] MED LIST changes: +FLUO10CA15 PO; -FLUO10CA8 PO; -GLIM2TAB PO; +GLIM2TAB4 PO; +METF-791 PO; -METF500T4 PO; +OMEP1CAP73 PO; -OMEP20CA4 PO; -SIMV40TA2 PO; +SIMV40TA20 PO; -TRAZ-163 PO; +TRAZ-257 PO; -TRAZ10TA PO; +TRAZ1TAB12 PO
[2019-02-02] MEDS ORDERED: PANT40TA3 (11:06)
[2019-02-02] MEDS ORDERED: BENZ-52 (11:06)
[2019-02-02] MEDS ORDERED: LISI10TA4 (11:06)
[2019-02-02] MEDS ORDERED: ZYPR5TAB31 (11:06)
[2019-02-02 11:23] LABS: HEMATOCRIT 41.1 % (42.0-52.0); HEMOGLOBIN 13.7 g/dl (13.5-17.5); MEAN CORPUSCULAR HEMOGLOBIN 28.4 pg (27.0-33.0); MEAN CORPUSCULAR HGB CONC 33.3 g/dl (32.0-36.5); MEAN CORPUSCULAR VOLUME 85.1 fl (80.0-96.0); PLATELET COUNT, AUTOMATED 249 10^3/uL (150-450); RED BLOOD COUNT 4.83 10^6/uL (4.30-6.10); WHITE BLOOD COUNT 6.7 10^3/uL (4.0-10.0)
[2019-02-02 12:18] LABS: AMPHETAMINES LEVEL URINE NEGATIVE (NEGATIVE); BARBITURATES URINE NEGATIVE (NEGATIVE); BENZODIAZEPINES URINE NEGATIVE (NEGATIVE); CANNABINOIDS URINE NEGATIVE (NEGATIVE); COCAINE METABOLITE URINE NEGATIVE (NEGATIVE); METHADONE URINE NEGATIVE (NEGATIVE); OPIATES URINE NEGATIVE (NEGATIVE); PHENCYCLIDINE URINE NEGATIVE (NEGATIVE)
[2019-02-02 12:39] LABS: ACETAMINOPHEN LEVEL < 2.0 UG/ML (10.0-30.0); ALBUMIN 3.7 GM/DL (3.2-5.2); ALT/SGPT 33 U/L (12-78); BILIRUBIN,DIRECT < 0.1 MG/DL (0.0-0.2); BILIRUBIN,TOTAL 0.3 MG/DL (0.2-1.0); BLOOD UREA NITROGEN 12 MG/DL (7-18); CALCIUM LEVEL 8.7 MG/DL (8.8-10.2); CARBON DIOXIDE LEVEL 24 MEQ/L (21-32); CHLORIDE LEVEL 101 MEQ/L (98-107); CREATININE FOR GFR 0.95 MG/DL (0.70-1.30); ETHYL ALCOHOL (ETHANOL) < 0.003 % (0.000-0.010); GLOMERULAR FILTRATION RATE > 60.0 (>49); GLUCOSE, FASTING 459 MG/DL (70-100); POTASSIUM SERUM 4.4 MEQ/L (3.5-5.1); SALICYLATE LEVEL < 1.7 MG/DL (5.0-30.0); SODIUM LEVEL 134 MEQ/L (136-145); TOTAL PROTEIN 6.9 GM/DL (6.4-8.2)
[2019-02-02] MEDS ORDERED: HumaLOG INSULIN (NovoLOG) PER UNIT SC STA ×2 (13:19→14:53)
[2019-02-02 16:03] VITALS: BP 151/87
== END 2019-02-02 15:55 | disposition home or self-care (01) ==
LOC: M ED 10:43
DX: F20.9 Schizophrenia, unspecified (principal); Z59.0 Homelessness; Z91.19 Patient's noncompliance with other medical treatment and regimen; E11.9 Type 2 diabetes mellitus without complications; I10 Essential (primary) hypertension; E78.5 Hyperlipidemia, unspecified; K21.9 Gastro-esophageal reflux disease without esophagitis; Z79.84 Long term (current) use of oral hypoglycemic drugs; Z79.899 Other long term (current) drug therapy; Z88.8 Allergy status to other drugs, medicaments and biological substances
CPT/HCPCS: 36415; 80048; 80076; 80307; 84443; 85027; 99283; G0480

== ENCOUNTER 2019-02-03 02:44 | Emergency (ER) | payer OTHER ==
[~2019-02-03] VITALS: Ht 165.1 cm; Wt 88.6 kg
[~2019-02-03 02:44] MED LIST changes: +BENZ-52; +LISI10TA4; +PANT40TA3; +ZYPR5TAB31
[2019-02-03 03:45] LABS: HEMATOCRIT 39.6 % (42.0-52.0); HEMOGLOBIN 13.2 g/dl (13.5-17.5); MEAN CORPUSCULAR HEMOGLOBIN 27.9 pg (27.0-33.0); MEAN CORPUSCULAR HGB CONC 33.3 g/dl (32.0-36.5); MEAN CORPUSCULAR VOLUME 83.7 fl (80.0-96.0); PLATELET COUNT, AUTOMATED 247 10^3/uL (150-450); RED BLOOD COUNT 4.73 10^6/uL (4.30-6.10); WHITE BLOOD COUNT 6.2 10^3/uL (4.0-10.0)
[2019-02-03 04:04] LABS: AMPHETAMINES LEVEL URINE NEGATIVE (NEGATIVE); BARBITURATES URINE NEGATIVE (NEGATIVE); BENZODIAZEPINES URINE NEGATIVE (NEGATIVE); CANNABINOIDS URINE NEGATIVE (NEGATIVE); COCAINE METABOLITE URINE NEGATIVE (NEGATIVE); METHADONE URINE NEGATIVE (NEGATIVE); OPIATES URINE NEGATIVE (NEGATIVE); PHENCYCLIDINE URINE NEGATIVE (NEGATIVE)
[2019-02-03 04:19] LABS: ACETAMINOPHEN LEVEL < 2.0 UG/ML (10.0-30.0); ALBUMIN 3.6 GM/DL (3.2-5.2); ALT/SGPT 39 U/L (12-78); BILIRUBIN,DIRECT 0.2 MG/DL (0.0-0.2); BILIRUBIN,TOTAL 0.5 MG/DL (0.2-1.0); BLOOD UREA NITROGEN 10 MG/DL (7-18); CALCIUM LEVEL 8.7 MG/DL (8.8-10.2); CARBON DIOXIDE LEVEL 27 MEQ/L (21-32); CHLORIDE LEVEL 103 MEQ/L (98-107); CREATININE FOR GFR 0.74 MG/DL (0.70-1.30); ETHYL ALCOHOL (ETHANOL) < 0.003 % (0.000-0.010); GLOMERULAR FILTRATION RATE > 60.0 (>49); GLUCOSE, FASTING 248 MG/DL (70-100); POTASSIUM SERUM 3.9 MEQ/L (3.5-5.1); SALICYLATE LEVEL < 1.7 MG/DL (5.0-30.0); SODIUM LEVEL 138 MEQ/L (136-145); TOTAL PROTEIN 6.7 GM/DL (6.4-8.2)
--- NOTE | 2019-02-03 11:46 | ED PDOC ---
Provider Note New Patient Asa Dye MRN: N/A Date of : N/A Date of Service: 02/03/2019 Chief Complaint Consultation for safety versus concern for malingering. History of Present Illness The patient, a 68-year-old man, well-known to this provider as he has been admitted to [facility] and the [facility] and has been a frequent readmit across many different hospitals, presents to [facility] initially claiming homelessness and asking for help. However, he was sent to the [facility] where he reportedly said that he "didn't like it" and had subsequently returned stating that he was suicidal on the same evening. When asked specifically, he states that because of his frequent moving around, he was not able to collect his [employer] pension check and that he was suicidal "because of that." He reports that he wants to have someone help him coordinate his care. He is able to recognize this provider and when further inquired, the patient states his suicidality is contingent upon the reported collection of said check. He has remained euthymic during his presentation and observation and has frequently presented to inpatient settings whenever he is not able to fund his lifestyle, when he either loses his checks or overspends and is well-known to present for secondary gain. The patient's psychosocial information is taken from the patient's previous H&P on his admission last at [facility] and updated as appropriate. Review Of Systems Reports no changes in psychiatric symptoms since he last left this provider's care. "PAST PSYCHIATRIC HISTORY: Prior Psychiatric Disorder: Multiple admissions, last one was in august 2018, he was discharged on October 02/2019 Outpatient Treatment: Multiple facilities, refer to EMR. Suicidal/Self injurious: History of suicidal ideation, history of suicide attempts Psychotropic Medication History: Risperdal, trazodone, Depakote, Invega Sustenna, Seroquel, Zoloft, Haldol, "benzos." ALLERGIES: Please see below. FAMILY PSYCHIATRIC HISTORY: Mother - suicide via walking into traffic, alcoholism Father - alcoholism SOCIAL HISTORY: Early Relations/development: Patient states he was born in [place] and raised in "[facility]", notes both parents are and has no contact with his siblings. Patient indicates he has some friends in the area. Sibling order: Eldest child, states he has no contact with siblings. Paternal relationships: Both parents are . Education: GED. 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 Legal: Denies other than pending legal charges for stalking. Martial: Never , no children. Economic: Denies financial strain, is on Social Security and veterans benefits, per EMR, is 100% service connected. Supports: Described support system as limited. Abuse/trauma: Denies. SUBSTANCE ABUSE HISTORY: Patient denies history of substance use or abuse, further denies history of tobacco use. PAST MEDICAL/SURGICAL HISTORY: Hypertension, hypercholesterolemia, type 2 diabetes, cataracts" Mental Status Examination General: Well dressed with good hygiene Speech: Spontaneous and fluid Thought processes: Linear and logical MSK: Smooth and coordinated gait, no signs of tremors or involuntary orofacial movements Thought content: Future orientated Abstract reasoning, and computation: Intact Description of associations: Intact Description of abnormal or psychotic thoughts: Denies any suicidal or homicidal ideation. Denies any auditory or visual hallucinations. Does not appear to be responding to internal stimuli. Does not appear to be endorsing any bizarre or paranoid ideation. Judgment: Limited Insight: Limited Orientation: Alert and orientated 3 Cognition: Grossly normal Recent and remote memory: Intact Attention span and concentration: Intact Fund of knowledge: Adequate Mood: "okay" Affect: Euthymic with a full range Diagnoses Malingering. Assessment and Plan The patient is a 68-year-old man who presents on this encounter primarily for se condary gain. After speaking with him, it appears quite clear in this provider's clinical judgment that the patient's presentation is not due to suicidality, but in fact a want for assistance in getting his check and help with his housing. However, he is actually known to have a home in [place] and a car as well. When I spoke to him and asked if he gets his check whether he would be "suicidal," he stated that he would not be, which is further evidence that the patient's situation is likely due to malingering/secondary gain rather than suicidality from a major mental illness. The patient's diagnosis have been traditionally unclear for many years as he rarely, if ever, engages with outpatient care. The patient at this time does not meet criteria further for voluntary admission as he is not demonstrating any acute danger to himself or others where an inpatient admission would reasonably reduce his risk of deterioration. Whether or not he has a underlying mental illness is entirely unclear and would like only be understood with psychometric testing, which appears nearly impossible for the patient to get as he has never cooperated with outpatient care in the 5 years this provider has been treating him either as a resident or as an attending across more than 3 hospital systems. Time Spent 20 minutes. Wednesday ELISHA BOSWELL DO Feb 03, 2019 11:46
[2019-02-03 15:02] VITALS: BP 135/71
== END 2019-02-03 15:04 | disposition home or self-care (01) ==
LOC: M ED 02:44
DX: Z76.5 Malingerer [conscious simulation] (principal); E11.9 Type 2 diabetes mellitus without complications; F20.9 Schizophrenia, unspecified; F43.12 Post-traumatic stress disorder, chronic; Z91.5 Personal history of self-harm; Z88.8 Allergy status to other drugs, medicaments and biological substances; Z79.899 Other long term (current) drug therapy; Z79.84 Long term (current) use of oral hypoglycemic drugs
CPT/HCPCS: 36415; 80048; 80076; 80307; 84443; 85027; 99284; G0480

== ENCOUNTER 2019-02-06 15:02 | Emergency (ER) | payer MEDICARE, OTHER ==
[~2019-02-06 15:02] MED LIST changes: -FLUO10CA15 PO; +FLUO10CA8 PO; +GLIM2TAB PO; -GLIM2TAB4 PO; -OMEP1CAP73 PO; +OMEP20CA4 PO; +SIMV40TA2 PO; -SIMV40TA20 PO; +TRAZ-163 PO; -TRAZ-257 PO; +TRAZ10TA PO; -TRAZ1TAB12 PO
[2019-02-06 16:22] VITALS: BP 171/84
== END 2019-02-06 16:45 | disposition home or self-care (01) ==
LOC: M ED 15:02
DX: Z04.6 Encounter for general psychiatric examination, requested by authority (principal); Z76.5 Malingerer [conscious simulation]; F20.9 Schizophrenia, unspecified; K21.9 Gastro-esophageal reflux disease without esophagitis; Z79.899 Other long term (current) drug therapy; Z79.84 Long term (current) use of oral hypoglycemic drugs; Z88.8 Allergy status to other drugs, medicaments and biological substances

== ENCOUNTER 2019-02-08 21:46 | Emergency (ER) | payer OTHER ==
[~2019-02-08] VITALS: Ht 165.1 cm; Wt 88.6 kg
[2019-02-08] MEDS ORDERED: NS 1,000 ML IV SCH (22:25)
[2019-02-08] MEDS ORDERED: HumuLIN R (REGULAR) INSULIN (NovoLIN R) **100U/ML** PER UNIT IV ONE (22:30)
[2019-02-08] MEDS ORDERED: ACETAMINOPHEN TAB 650MG DOSE (2X325MG) PO ONE (22:45)
[2019-02-08 22:48] LABS: BASO # 0.1 10^3/uL (0.0-0.2); BASO % 0.9 % (0.0-1.0); EOS # 0.2 10^3/uL (0.0-0.5); HEMATOCRIT 41.7 % (42.0-52.0); HEMOGLOBIN 14.1 g/dl (13.5-17.5); LYMPH % 25.2 % (24.0-44.0); MEAN CORPUSCULAR HEMOGLOBIN 28.4 pg (27.0-33.0); MEAN CORPUSCULAR HGB CONC 33.8 g/dl (32.0-36.5); MEAN CORPUSCULAR VOLUME 83.9 fl (80.0-96.0); MONO # 0.6 10^3/uL (0.0-0.8); MONO % 7.8 % (0.0-5.0); NEUTROPHILS # 4.8 10^3/uL (1.5-8.5); NEUTROPHILS % 62.6 % (36.0-66.0); PLATELET COUNT, AUTOMATED 254 10^3/uL (150-450); RED BLOOD COUNT 4.97 10^6/uL (4.30-6.10); WHITE BLOOD COUNT 7.7 10^3/uL (4.0-10.0)
[2019-02-08 23:16] LABS: BLOOD UREA NITROGEN 17 MG/DL (7-18); CALCIUM LEVEL 9.1 MG/DL (8.8-10.2); CARBON DIOXIDE LEVEL 27 MEQ/L (21-32); CHLORIDE LEVEL 107 MEQ/L (98-107); CREATININE FOR GFR 0.82 MG/DL (0.70-1.30); GLOMERULAR FILTRATION RATE > 60.0 (>49); GLUCOSE, FASTING 378 MG/DL (70-100); POTASSIUM SERUM 4.4 MEQ/L (3.5-5.1); SODIUM LEVEL 140 MEQ/L (136-145)
--- NOTE | 2019-02-08 23:51 | REPVR ---
PROCEDURE INFORMATION: Exam: CT Head Without Contrast Exam date and time: 02/08/2019 10:55 PM Clinical history: 68 years old, male; Pain; Headache; Additional info: Trauma TECHNIQUE: Imaging protocol: Computed tomography of the head without contrast. Radiation optimization: All CT scans at this facility use at least one of these dose optimization techniques: automated exposure control; mA and/or kV adjustment per patient size (includes targeted exams where dose is matched to clinical indication); or iterative reconstruction. COMPARISON: CT Head without contrast 10/23/2018 9:58 AM FINDINGS: Brain: Normal. No hemorrhage. Unremarkable white matter. No mass effect. Ventricles: Normal. No ventriculomegaly. Bones/joints: Unremarkable. No acute fracture. Sinuses: Complete opacification of right maxillary sinus. Mucosal thickening of bilateral ethmoid and right sphenoid sinus. Mastoid air cells: Opacification of right mastoid air cells. Soft tissues: Unremarkable. IMPRESSION: No acute intracranial abnormality. Paranasal sinus mucosal disease. Electronically signed by: Spencer Dejesus On 02/08/2019 23:50:24 PM
--- NOTE | 2019-02-09 00:27 | REPVR ---
PROCEDURE INFORMATION: Exam: CT Cervical Spine Without Contrast Exam date and time: 02/08/2019 10:55 PM Clinical history: 68 years old, male; Pain; Other: Fall; Additional info: Trauma TECHNIQUE: Imaging protocol: Computed tomography images of the cervical spine without contrast. Radiation optimization: All CT scans at this facility use at least one of these dose optimization techniques: automated exposure control; mA and/or kV adjustment per patient size (includes targeted exams where dose is matched to clinical indication); or iterative reconstruction. COMPARISON: CT Spine,cervical w/o contrast 10/23/2018 9:58 AM images only. Prior report is not available at the time of this emergent interpretation, however has been requested. FINDINGS: Cervical vertebral body heights and prevertebral soft tissues are within normal limits and similar to the prior exam. There is 2.2 mm of anterolisthesis of C4 upon C5 which is stable from the prior exam. The facet joints are not subluxed or dislocated. The atlantodental interval is maintained. No acute fracture of the cervical spine is seen. A well-corticated 12 mm bony fragment is noted along the nuchal ligament, similar to the prior exam and may represent an old injury or soft tissue calcification. Degenerative changes of the cervical spine are noted with moderate to severe disc space loss, bony sclerosis, anterior osteophytes, posterior bony ridging, uncovertebral and facet hypertrophy and facet arthropathy. There appears to be bony fusion across some levels. Degenerative changes likely result in varying degrees of spinal canal compromise and neural foraminal narrowing at multiple levels, similar to the prior exam. There is heterogeneous appearing mineralization of the bones with some ill-defined bony lucencies up to 7 mm in diameter of uncertain significance, however similar to the prior exam. Correlation with past history is advised. If there is suspicion for neoplasia, consider nonemergent MRI, if not already done. Opacified mastoid air cells are seen bilaterally, right greater than left. Appearance is slightly improved on the right and new on the left. IMPRESSION: No acute fracture of the cervical spine. Slight cervical malalignment is noted, however is stable from the prior exam. Degenerative changes are noted as discussed above. Clinical correlation for mastoiditis. Other findings discussed above. Electronically signed by: Herman Castillo On 02/09/2019 00:26:53 AM
--- NOTE | 2019-02-09 00:32 | REPVR ---
PROCEDURE INFORMATION: Exam: CT Thoracic Spine Without Contrast Exam date and time: 02/08/2019 10:55 PM Clinical history: 68 years old, male; Injury or trauma; Fall; Initial encounter; Blunt trauma (contusions or hematomas) TECHNIQUE: Imaging protocol: Computed tomography images of the thoracic spine without contrast. Radiation optimization: All CT scans at this facility use at least one of these dose optimization techniques: automated exposure control; mA and/or kV adjustment per patient size (includes targeted exams where dose is matched to clinical indication); or iterative reconstruction. COMPARISON: CT Spine,thoracic w/o contrast 10/23/2018 10:03 AM images only. Prior report is not available at the time of this emergent interpretation, however has been requested. FINDINGS: Thoracic vertebral body heights and posterior thoracic alignment are maintained. The facet joints are not subluxed or dislocated. No acute fracture of thoracic spine is seen. Degenerative changes of the thoracic spine are noted with mild disc space loss, anterior osteophytes, vacuum gas and facet arthropathy. Appearance is similar to the prior exam. Vascular calcification noted. Small fluid-containing hiatal hernia seen. IMPRESSION: No acute fracture or malalignment of the thoracic spine. Electronically signed by: Herman Castillo On 02/09/2019 00:32:27 AM
--- NOTE | 2019-02-09 00:40 | REPVR ---
PROCEDURE INFORMATION: Exam: CT Lumbar Spine Without Contrast Exam date and time: 02/08/2019 10:55 PM Clinical history: 68 years old, male; Injury or trauma; Fall; Initial encounter; Blunt trauma (contusions or hematomas) TECHNIQUE: Imaging protocol: Computed tomography images of the lumbar spine without contrast. Radiation optimization: All CT scans at this facility use at least one of these dose optimization techniques: automated exposure control; mA and/or kV adjustment per patient size (includes targeted exams where dose is matched to clinical indication); or iterative reconstruction. COMPARISON: CT Spine, lumbar w/o contrast 10/23/2018 10:03 AM images only. Prior report is not available at the time of this emergent interpretation, however has been requested. FINDINGS: There are 6 [id number] lumbar vertebral body segments. Lumbar vertebral body heights and posterior lumbar alignment are maintained. Lumbar lordosis is slightly accentuated. There is minimal leftward convex scoliosis. The facet joints are not subluxed or dislocated. No acute fracture of the lumbar spine is seen. No spondylolysis. Degenerative changes of the lumbar spine are noted with disc space loss, disc space gas, and facet arthropathy and hypertrophy. Appearance is similar to the prior exam. If there are neurologic symptoms, consider MRI for further assessment of the spinal canal and foramina. There is aortoiliac atherosclerosis. IMPRESSION: No acute fracture or malalignment of the lumbar spine. Appearance is similar to the prior exam. Findings discussed above in detail. Electronically signed by: Herman Castillo On 02/09/2019 00:39:38 AM
[2019-02-09 01:40] VITALS: BP 163/79
--- NOTE | 2019-02-09 08:13 | REP ---
Right femur four views: There is no fracture or dislocation. There is a right hip chondrocalcinosis suggestive of CPPD and mild right hip osteoarthritis. Mineralization is normal. Electronically Signed by Ck Wood MD 02/09/2019 08:05 A
--- NOTE | 2019-02-10 07:53 | ED PDOC ---
Post-Departure Follow-Up dr jimenez faxed formal report of ct c spine for fu Pradeep Sherwood MD Feb 10, 2019 07:53
== END 2019-02-09 01:42 | disposition home or self-care (01) ==
LOC: M ED 21:46
DX: M54.5 Low back pain (principal); E11.9 Type 2 diabetes mellitus without complications; E78.5 Hyperlipidemia, unspecified; F25.9 Schizoaffective disorder, unspecified; K21.9 Gastro-esophageal reflux disease without esophagitis; Z88.8 Allergy status to other drugs, medicaments and biological substances; Z79.899 Other long term (current) drug therapy; Z79.84 Long term (current) use of oral hypoglycemic drugs

== ENCOUNTER 2019-10-14 07:47 | Emergency (ER) | payer OTHER ==
[~2019-10-14] VITALS: Ht 165.1 cm; Wt 93.5 kg
[~2019-10-14 07:47] MED LIST changes: +FLUO10CA15 PO; -FLUO10CA8 PO; -GLIM2TAB PO; +GLIM2TAB4 PO; -METF-791 PO; +METF-838 PO; +OMEP1CAP73 PO; -OMEP20CA4 PO; +QUET100T2 PO; -QUET1TAB8 PO; -SIMV40TA2 PO; +SIMV40TA20 PO; -TRAZ-163 PO; +TRAZ-257 PO; -TRAZ10TA PO; +TRAZ1TAB12 PO
[2019-10-14 09:23] LABS: HEMOGLOBIN 12.6 g/dl (13.5-17.5); MEAN CORPUSCULAR HEMOGLOBIN 27.5 pg (27.0-33.0); MEAN CORPUSCULAR HGB CONC 32.3 g/dl (32.0-36.5); MEAN CORPUSCULAR VOLUME 85.2 fl (80.0-96.0); PLATELET COUNT, AUTOMATED 234 10^3/uL (150-450); RED BLOOD COUNT 4.58 10^6/uL (4.30-6.10); WHITE BLOOD COUNT 6.5 10^3/uL (4.0-10.0)
[2019-10-14 09:36] LABS: AMPHETAMINES LEVEL URINE NEGATIVE (NEGATIVE); BARBITURATES URINE NEGATIVE (NEGATIVE); BENZODIAZEPINES URINE NEGATIVE (NEGATIVE); CANNABINOIDS URINE NEGATIVE (NEGATIVE); COCAINE METABOLITE URINE NEGATIVE (NEGATIVE); METHADONE URINE NEGATIVE (NEGATIVE); OPIATES URINE NEGATIVE (NEGATIVE); PHENCYCLIDINE URINE NEGATIVE (NEGATIVE)
[2019-10-14 09:49] LABS: ACETAMINOPHEN LEVEL 5.8 UG/ML (10.0-30.0); ALBUMIN 3.5 GM/DL (3.2-5.2); ALT/SGPT 38 U/L (12-78); BILIRUBIN,DIRECT < 0.1 MG/DL (0.0-0.2); BILIRUBIN,TOTAL 0.2 MG/DL (0.2-1.0); BLOOD UREA NITROGEN 15 MG/DL (7-18); CARBON DIOXIDE LEVEL 24 MEQ/L (21-32); CHLORIDE LEVEL 109 MEQ/L (98-107); CREATININE FOR GFR 0.74 MG/DL (0.70-1.30); ETHYL ALCOHOL (ETHANOL) < 0.003 % (0.000-0.010); GLOMERULAR FILTRATION RATE > 60.0 (>42); GLUCOSE, FASTING 201 MG/DL (70-100); POTASSIUM SERUM 4.1 MEQ/L (3.5-5.1); SALICYLATE LEVEL < 1.7 MG/DL (5.0-30.0); SODIUM LEVEL 141 MEQ/L (136-145); TOTAL PROTEIN 6.6 GM/DL (6.4-8.2)
[2019-10-14] MEDS ORDERED: lisinopriL 10 MG TAB PO ONE (10:00)
[2019-10-14 10:40] VITALS: BP 131/63
[2019-10-14] MEDS ORDERED: metFORMIN (GLUCOPHAGE) 1000 MG TABLET PO ONE (10:45)
[2019-10-14] MEDS ORDERED: OLANZapine ORAL DISINTEGRATING TAB 5MG PO ONE (19:30)
[2019-10-14 22:59] VITALS: BP 131/65
--- NOTE | 2019-10-15 16:03 | ECGEPIP ---
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
== END 2019-10-14 23:02 ==
LOC: M ED 07:47
DX: F29 Unspecified psychosis not due to a substance or known physiological condition (principal); E11.9 Type 2 diabetes mellitus without complications; I10 Essential (primary) hypertension; F32.9 Major depressive disorder, single episode, unspecified; F20.9 Schizophrenia, unspecified; F41.9 Anxiety disorder, unspecified; Z79.4 Long term (current) use of insulin; Z79.899 Other long term (current) drug therapy; Z88.8 Allergy status to other drugs, medicaments and biological substances
CPT/HCPCS: 36415; 80048; 80076; 80307; 84443; 85027; 87486; 87581; 87633; 87798; 87880; 93005; 99284; G0480

== ENCOUNTER 2020-04-10 19:25 | Inpatient (IN) | payer OTHER, MEDICARE ==
[~2020-04-10] VITALS: Ht 165.1 cm; Wt 88.7 kg
[~2020-04-10 19:25] MED LIST changes: -AMLO10TA5 PO; +AMLO1TAB25 PO; -ASPI81TA85 PO; +ASPI81TA86 PO; -FLUO10CA15 PO; +FLUO10CA16 PO; +PANT40TA29; -PANT40TA3; +RISP-10 PO; +RISP-11 PO; +RISP-8 PO; +RISP-9 PO; -RISP1TAB3 PO; -RISP2TAB3 PO; -RISP3TAB3 PO; -RISP4TAB2 PO
[2020-04-10 20:41] LABS: BASO # 0.1 10^3/uL (0.0-0.2); BASO % 1.1 % (0.0-1.0); EOS # 0.4 10^3/uL (0.0-0.5); HEMATOCRIT 39.1 % (42.0-52.0); HEMOGLOBIN 12.5 g/dl (13.5-17.5); LYMPH % 27.3 % (24.0-44.0); MEAN CORPUSCULAR HEMOGLOBIN 26.7 pg (27.0-33.0); MEAN CORPUSCULAR VOLUME 83.5 fl (80.0-96.0); MONO # 0.6 10^3/uL (0.0-0.8); MONO % 8.5 % (0.0-5.0); NEUTROPHILS # 4.2 10^3/uL (1.5-8.5); NEUTROPHILS % 56.8 % (36.0-66.0); PLATELET COUNT, AUTOMATED 267 10^3/uL (150-450); RED BLOOD COUNT 4.68 10^6/uL (4.30-6.10); WHITE BLOOD COUNT 7.3 10^3/uL (4.0-10.0)
[2020-04-10] MEDS: traZODone 50 MG TAB PO SCH (21:00)
[2020-04-10] MEDS: ATORVASTATIN 20 MG TAB PO SCH (21:00)
[2020-04-10] MEDS: PRAZOSIN 1 MG CAP PO SCH (21:00)
[2020-04-10 21:13] LABS: ACETAMINOPHEN LEVEL < 2.0 UG/ML (10.0-30.0); ALBUMIN 3.9 GM/DL (3.2-5.2); ALT/SGPT 34 U/L (12-78); BILIRUBIN,DIRECT 0.1 MG/DL (0.0-0.2); BILIRUBIN,TOTAL 0.2 MG/DL (0.2-1.0); BLOOD UREA NITROGEN 13 MG/DL (7-18); CALCIUM LEVEL 8.8 MG/DL (8.8-10.2); CARBON DIOXIDE LEVEL 27 MEQ/L (21-32); CHLORIDE LEVEL 106 MEQ/L (98-107); CREATININE FOR GFR 0.79 MG/DL (0.70-1.30); ETHYL ALCOHOL (ETHANOL) 0.003 % (0.000-0.010); GLOMERULAR FILTRATION RATE > 60.0 (>42); GLUCOSE, FASTING 183 MG/DL (70-100); SALICYLATE LEVEL < 1.7 MG/DL (5.0-30.0); SODIUM LEVEL 137 MEQ/L (136-145); TOTAL PROTEIN 7.2 GM/DL (6.4-8.2)
[2020-04-10 21:21] LABS: AMPHETAMINES LEVEL URINE NEGATIVE (NEGATIVE); BARBITURATES URINE NEGATIVE (NEGATIVE); BENZODIAZEPINES URINE NEGATIVE (NEGATIVE); CANNABINOIDS URINE NEGATIVE (NEGATIVE); COCAINE METABOLITE URINE NEGATIVE (NEGATIVE); METHADONE URINE NEGATIVE (NEGATIVE); OPIATES URINE NEGATIVE (NEGATIVE); PHENCYCLIDINE URINE NEGATIVE (NEGATIVE)
[2020-04-10] MEDS ORDERED: HYDR1TAB33 PO (22:50)
[2020-04-10] MEDS ORDERED: INVE156I IM (22:50)
[2020-04-10] MEDS ORDERED: METF10004 PO (22:50)
[2020-04-10] MEDS ORDERED: ASPI-161 PO (22:50)
[2020-04-10] MEDS ORDERED: PIOG15TA64 PO (22:50)
[2020-04-10] MEDS ORDERED: TRAZ-252 PO (22:50)
[2020-04-10] MEDS ORDERED: PRAZ1CAP PO (22:50)
[2020-04-10] MEDS ORDERED: LISI10TA4 PO (22:50)
[2020-04-10] MEDS ORDERED: FLUO20CA22 PO (22:50)
[2020-04-10] MEDS ORDERED: AMLO1TAB24 PO (22:50)
[2020-04-10] MEDS ORDERED: ATOR1TAB21 PO (22:50)
[2020-04-10] MEDS ORDERED: MILKSUS3 PO (22:50)
[2020-04-10] MEDS ORDERED: LORA-436 PO (22:50)
[2020-04-10] MEDS ORDERED: OMEP1CAP73 PO (22:50)
[2020-04-10] MEDS ORDERED: PATIENT COMMENT (22:52)
[2020-04-10] MEDS ORDERED: MOM 30ML SUSPENSION UDC PO PRN (23:00)
[2020-04-10] MEDS ORDERED: MAALOX 30 ML SUSP *UDC PO PRN (23:00)
[2020-04-10] MEDS ORDERED: OLANZapine ORAL DISINTEGRATING TAB 5MG PO PRN (23:00)
[2020-04-10] MEDS ORDERED: traZODone 100 MG TAB PO PRN (23:00)
[2020-04-11 00:27] VITALS: BP 155/76
[2020-04-11] MEDS: ACETAMINOPHEN TAB 650MG DOSE (2X325MG) PO PRN ×2 (04:38→14:05)
[2020-04-11] MEDS: GLIMEPIRIDE 2 MG TAB PO SCH (07:06)
[2020-04-11] MEDS: metFORMIN (GLUCOPHAGE) 1000 MG TABLET PO SCH ×2 (07:45→17:09)
[2020-04-11] MEDS: ASPIRIN 81 MG ENTERIC TAB PO SCH (08:24)
[2020-04-11] MEDS: FLUoxetine 20 MG CAP PO SCH (08:24)
[2020-04-11] MEDS: OMEPRAZOLE 20 MG CAP PO SCH (08:24)
[2020-04-11] MEDS: amLODIPine 5 MG TAB PO SCH (08:25)
[2020-04-11] MEDS: LORATADINE 10 MG TAB PO SCH (08:25)
[2020-04-11] MEDS: lisinopriL 10 MG TAB PO SCH (08:26)
[2020-04-11] MEDS ORDERED: risperiDONE 1 MG TAB PO SCH (09:00)
[2020-04-11 16:38] VITALS: BP 166/83
--- NOTE | 2020-04-11 18:42 | HPEPDOC ---
[facility] Medical History & Physical Date of Admission Apr 10, 2020 Date of Service: Apr 11, 2020 History and Physical CHIEF COMPLAINT: Suicidal ideation, auditory hallucinations HISTORY OF PRESENT ILLNESS: 69-year-old male presents to emergency room for suicidal ideation. Patient states his cousin a week ago and that he has been suicidal since then. He also notes that he has been hearing voices instructing him to kill himself. Patient also notes that he has not taken his medications in at least one week.. He denies chest pain, shortness of breath, headaches, abdominal pain, nausea, vomiting or diarrhea. PAST MEDICAL HISTORY: Denies, however, reviewing his chart: #HTN #DLP #DM2 #schizophrenia #GERD #hypothyroidism #PTSD ALLERGIES: Please see below. REVIEW OF SYSTEMS: Negative except as per HPI. HOME MEDICATIONS: Please see below. PHYSICAL EXAMINATION: VITAL SIGNS: See below General: NAD, sitting comfortably in chair HEENT: NC/AT, EOMI Lungs: CTA B/L Heart: +S1S2, RRR Abd: soft, NT, +BS Ext: no edema LABORATORY DATA: See below. MICROBIOLOGY: Please see below. A/P: 69M admitted to [facility] for suicidal ideation and auditory hallucinations with medical non-compliance. #SI/psych - as per primary team - psychiatry #HTN - norvasc, lisinopril #DM - metformin - glimepiride #DLP - lipitor Thank you for this consultation. Please re-consult as needed. Vital Signs Vital Signs Date Time Temp Pulse Resp B/P (MAP) Pulse Ox O2 Delivery O2 Flow Rate FiO2 04/11/20 16:38 97.2 88 18 166/83 (110) 04/11/20 00:27 97 Room Air Laboratory Data Labs 24H Laboratory Tests 2 04/10/20 20:24: Immature Granulocyte % (Auto) 0.3, Neutrophils (%) (Auto) 56.8, Lymphocytes (%) (Auto) 27.3, Monocytes (%) (Auto) 8.5H, Eosinophils (%) (Auto) 6.0H, Basophils (%) (Auto) 1.1H, Neutrophils # (Auto) 4.2, Lymphocytes # (Auto) 2.0, Monocytes # (Auto) 0.6, Eosinophils # (Auto) 0.4, Basophils # (Auto) 0.1, Nucleated Red Blood Cells % (auto) 0.0, Anion Gap 4L, Glomerular Filtration Rate > 60.0, Calcium Level 8.8, Total Bilirubin 0.2, Direct Bilirubin 0.1, Aspartate Amino Transf (AST/SGOT) 16, Alanine Aminotransferase (ALT/SGPT) 34, Alkaline Phosphatase 78, Total Protein 7.2, Albumin 3.9, Albumin/Globulin Ratio 1.2, Thyroid Stimulating Hormone (TSH) 2.910, Salicylates Level < 1.7L, Acetaminophen Level < 2.0L, Ethyl Alcohol Level 0.003, Coronavirus (COVID-19)(PCR) NEGATIVE 04/10/20 20:35: Urine Opiates Screen NEGATIVE, Urine Methadone Screen NEGATIVE, Urine Barbiturates Screen NEGATIVE, Urine Phencyclidine Screen NEGATIVE, Urine Amphetamines Screen NEGATIVE, Urine Benzodiazepines Screen NEGATIVE, Urine Cocaine Metabolite Screen NEGATIVE, Urine Cannabinoids Screen NEGATIVE CBC/BMP Laboratory Tests 04/10/20 20:24 Home Medications Scheduled Amlodipine Besylate (Amlodipine Besylate) 5 Mg Tablet, 5 MG PO DAILY Aspirin (Aspirin EC) 81 Mg Tablet.dr, 81 MG PO DAILY Atorvastatin Calcium (Atorvastatin Calcium) 20 Mg Tablet, 20 MG PO QHS Fluoxetine Hcl (Fluoxetine HCl) 20 Mg Capsule, 20 MG PO DAILY Glimepiride (Glimepiride) 2 Mg Tab, 2 MG PO QAM for Lisinopril (Lisinopril) 10 Mg Tablet, 10 MG PO DAILY Loratadine (Loratadine) 10 Mg Tablet, 10 MG PO DAILY Metformin HCl (Metformin HCl) 1,000 Mg Tablet, 1,000 MG PO BID Omeprazole (Omeprazole) 20 Mg Capsule.dr, 20 MG PO DAILY Paliperidone Palmitate (Invega Sustenna) 156 Mg/1 Ml Syringe, 156 MG IM QMONTH Pioglitazone HCl (Pioglitazone HCl) 15 Mg Tablet, 15 MG PO DAILY Prazosin Hcl (Prazosin HCl) 1 Mg Capsule, 1 MG PO QHS Trazodone HCl (Trazodone HCl) 50 Mg Tablet, 50 MG PO QHS Scheduled PRN Hydroxyzine HCl (Hydroxyzine HCl) 50 Mg Tablet, 50 MG PO BID PRN for ANXIETY Magnesium Hydroxide (Milk of Magnesia) 400 Mg/5 Ml Oral.susp, 30 ML PO QHS PRN for CONSTIPATION Miscellaneous Medications [Patient Comment] MED REC COMPLETED VIA PHONE CALL WITH [facility] PHARMACIST Allergies Coded Allergies: fluphenazine (Verified Adverse Reaction, Intermediate, COLD SWEATS, PACING, RASH, 08/07/18) haloperidol (Verified Adverse Reaction, Intermediate, COLD SWEATS, PACING, SWEATS, 08/07/18) A-FIB/CHADSVASC A-FIB History Current/History of A-Fib/PAF?: No BEATA KEYES MD Apr 11, 2020 18:42
[2020-04-11] MEDS: hydrOXYzine 50 MG TAB PO PRN (20:57)
[2020-04-11] MEDS: traZODone 50 MG TAB PO SCH (20:57)
[2020-04-11] MEDS: PRAZOSIN 1 MG CAP PO SCH (20:57)
[2020-04-11] MEDS: ATORVASTATIN 20 MG TAB PO SCH (20:57)
[2020-04-11] MEDS ORDERED: DOXAZOSIN MESYLATE 4 MG TAB PO SCH (21:00)
[2020-04-11] MEDS ORDERED: risperiDONE 3 MG TAB PO SCH (21:00)
[2020-04-12] MEDS: ACETAMINOPHEN TAB 650MG DOSE (2X325MG) PO PRN ×2 (03:42→18:02)
[2020-04-12 06:42] VITALS: BP 142/78
[2020-04-12] MEDS: GLIMEPIRIDE 2 MG TAB PO SCH (06:50)
[2020-04-12] MEDS: ASPIRIN 81 MG ENTERIC TAB PO SCH (08:13)
[2020-04-12] MEDS: LORATADINE 10 MG TAB PO SCH (08:14)
[2020-04-12] MEDS: lisinopriL 10 MG TAB PO SCH (08:14)
[2020-04-12] MEDS: FLUoxetine 20 MG CAP PO SCH (08:14)
[2020-04-12] MEDS: OMEPRAZOLE 20 MG CAP PO SCH (08:14)
[2020-04-12] MEDS: amLODIPine 5 MG TAB PO SCH (08:14)
[2020-04-12] MEDS: metFORMIN (GLUCOPHAGE) 1000 MG TABLET PO SCH ×2 (08:14→18:02)
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
[2020-04-12 17:13] VITALS: BP 156/81
[2020-04-12] MEDS: hydrOXYzine 50 MG TAB PO PRN (18:46)
[2020-04-12] MEDS: PRAZOSIN 1 MG CAP PO SCH (21:34)
[2020-04-12] MEDS: traZODone 50 MG TAB PO SCH (21:34)
[2020-04-12] MEDS: OLANZapine 5 MG TAB PO SCH (21:34)
[2020-04-12] MEDS: ATORVASTATIN 20 MG TAB PO SCH (21:34)
[2020-04-13 06:00] VITALS: BP 132/63
[2020-04-13] MEDS: metFORMIN (GLUCOPHAGE) 1000 MG TABLET PO SCH ×2 (07:50→17:17)
[2020-04-13] MEDS: GLIMEPIRIDE 2 MG TAB PO SCH (07:52)
[2020-04-13] MEDS: LORATADINE 10 MG TAB PO SCH (07:54)
[2020-04-13] MEDS: FLUoxetine 20 MG CAP PO SCH (07:54)
[2020-04-13] MEDS: lisinopriL 10 MG TAB PO SCH (07:55)
[2020-04-13] MEDS: OMEPRAZOLE 20 MG CAP PO SCH (07:55)
[2020-04-13] MEDS: amLODIPine 5 MG TAB PO SCH (08:05)
[2020-04-13] MEDS: ASPIRIN 81 MG ENTERIC TAB PO SCH (08:07)
[2020-04-13 16:39] VITALS: BP 135/70
[2020-04-13] MEDS: ACETAMINOPHEN TAB 650MG DOSE (2X325MG) PO PRN (17:17)
[2020-04-13] MEDS: OLANZapine 5 MG TAB PO SCH (20:49)
[2020-04-13] MEDS: PRAZOSIN 1 MG CAP PO SCH (20:49)
[2020-04-13] MEDS: ATORVASTATIN 20 MG TAB PO SCH (20:49)
[2020-04-13] MEDS: traZODone 50 MG TAB PO SCH (20:49)
[2020-04-13] MEDS: hydrOXYzine 50 MG TAB PO PRN (22:20)
[2020-04-14 06:42] VITALS: BP 134/80
[2020-04-14] MEDS: metFORMIN (GLUCOPHAGE) 1000 MG TABLET PO SCH ×2 (07:25→17:01)
[2020-04-14] MEDS: GLIMEPIRIDE 2 MG TAB PO SCH (07:25)
[2020-04-14] MEDS: LORATADINE 10 MG TAB PO SCH (08:32)
[2020-04-14] MEDS: OMEPRAZOLE 20 MG CAP PO SCH (08:32)
[2020-04-14] MEDS: FLUoxetine 20 MG CAP PO SCH (08:32)
[2020-04-14] MEDS: ASPIRIN 81 MG ENTERIC TAB PO SCH (08:32)
[2020-04-14] MEDS: amLODIPine 5 MG TAB PO SCH (08:32)
[2020-04-14] MEDS: lisinopriL 10 MG TAB PO SCH (08:32)
[2020-04-14] MEDS: ACETAMINOPHEN TAB 650MG DOSE (2X325MG) PO PRN ×2 (13:26→19:45)
[2020-04-14 17:51] VITALS: BP 132/60
[2020-04-14] MEDS: hydrOXYzine 50 MG TAB PO PRN (18:35)
[2020-04-14] MEDS: ATORVASTATIN 20 MG TAB PO SCH (20:39)
[2020-04-14] MEDS: PRAZOSIN 1 MG CAP PO SCH (20:39)
[2020-04-14] MEDS: OLANZapine 5 MG TAB PO SCH (20:39)
[2020-04-14] MEDS: traZODone 50 MG TAB PO SCH (21:21)
[2020-04-15 06:34] VITALS: BP 141/90
[2020-04-15] MEDS: GLIMEPIRIDE 2 MG TAB PO SCH (07:07)
--- NOTE | 2020-04-15 07:59 | MHIPN ---
[facility] PROGRESS NOTE DATE: 04/13/2020 The patient today states that he is feeling better. He says he is not having suicidal thoughts and he is not hallucinating anymore. He said "when I don't sleep I hear voices." He said he had not been sleeping good. MENTAL STATUS EXAMINATION: He is alert and oriented times three. He is pleasant and cooperative, verbally spontaneous. Eye contact is good. There is no formal thought disorder noted. He says his mood is good. His affect is a bit labile. He is not psychotic, suicidal, or homicidal. Concentration is fair. Memory is intact. Insight and judgment is fair. DIAGNOSES: Schizophrenia. Posttraumatic stress disorder (PTSD). TREATMENT PLAN: We will continue to monitor the patient for any problems with mood and we will monitor for continued elevation of his mood and resolution of suicidal ideation.
--- NOTE | 2020-04-15 08:44 | MHIPN ---
[facility] PROGRESS NOTE DATE: 04/14/2020 The patient today says, "I'm doing good." He says he slept good. He has no complaints. MENTAL STATUS EXAMINATION: He is alert and oriented times three. He is pleasant and cooperative, verbally spontaneous. There is no formal thought disorder noted. Mood is good. His affect is full range and appropriate. He is not psychotic, suicidal, or homicidal. Concentration and memory is good. Insight and judgment is fair. DIAGNOSES: Schizophrenia. Posttraumatic stress disorder. TREATMENT PLAN: At this point, we will continue to monitor the patient for continued elevation and stabilization of his mood and continued resolution of suicidal ideation.
[2020-04-15] MEDS: metFORMIN (GLUCOPHAGE) 1000 MG TABLET PO SCH ×2 (08:47→17:07)
[2020-04-15] MEDS: ASPIRIN 81 MG ENTERIC TAB PO SCH (09:28)
[2020-04-15] MEDS: lisinopriL 10 MG TAB PO SCH (09:28)
[2020-04-15] MEDS: OMEPRAZOLE 20 MG CAP PO SCH (09:29)
[2020-04-15] MEDS: amLODIPine 5 MG TAB PO SCH (09:29)
[2020-04-15] MEDS: LORATADINE 10 MG TAB PO SCH (09:29)
[2020-04-15] MEDS: FLUoxetine 20 MG CAP PO SCH (09:29)
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
[2020-04-15] MEDS: ACETAMINOPHEN TAB 650MG DOSE (2X325MG) PO PRN (17:07)
[2020-04-15 18:00] VITALS: BP 137/71
[2020-04-15] MEDS: ATORVASTATIN 20 MG TAB PO SCH (20:58)
[2020-04-15] MEDS: traZODone 50 MG TAB PO SCH (20:58)
[2020-04-15] MEDS: PRAZOSIN 1 MG CAP PO SCH (20:58)
[2020-04-15] MEDS: OLANZapine 5 MG TAB PO SCH (20:58)
[2020-04-16 07:02] VITALS: BP 149/79
[2020-04-16] MEDS: GLIMEPIRIDE 2 MG TAB PO SCH (08:09)
[2020-04-16] MEDS: metFORMIN (GLUCOPHAGE) 1000 MG TABLET PO SCH ×2 (08:54→17:47)
[2020-04-16] MEDS: LORATADINE 10 MG TAB PO SCH (08:55)
[2020-04-16] MEDS: lisinopriL 10 MG TAB PO SCH (08:55)
[2020-04-16] MEDS: ASPIRIN 81 MG ENTERIC TAB PO SCH (08:56)
[2020-04-16] MEDS: FLUoxetine 20 MG CAP PO SCH (08:56)
[2020-04-16] MEDS: OMEPRAZOLE 20 MG CAP PO SCH (08:56)
[2020-04-16] MEDS: amLODIPine 5 MG TAB PO SCH (08:56)
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
[2020-04-16 16:00] VITALS: BP 144/69
[2020-04-16] MEDS: ATORVASTATIN 20 MG TAB PO SCH (20:40)
[2020-04-16] MEDS: traZODone 50 MG TAB PO SCH (20:40)
[2020-04-16] MEDS: OLANZapine 5 MG TAB PO SCH (20:40)
[2020-04-16] MEDS: PRAZOSIN 1 MG CAP PO SCH (20:41)
[2020-04-16] MEDS: hydrOXYzine 50 MG TAB PO PRN (21:46)
[2020-04-17 06:00] VITALS: BP 148/75
[2020-04-17] MEDS: GLIMEPIRIDE 2 MG TAB PO SCH (07:51)
[2020-04-17] MEDS: metFORMIN (GLUCOPHAGE) 1000 MG TABLET PO SCH ×2 (07:51→17:35)
[2020-04-17] MEDS: FLUoxetine 20 MG CAP PO SCH (09:53)
[2020-04-17] MEDS: amLODIPine 5 MG TAB PO SCH (09:53)
[2020-04-17] MEDS: LORATADINE 10 MG TAB PO SCH (09:54)
[2020-04-17] MEDS: OMEPRAZOLE 20 MG CAP PO SCH (09:54)
[2020-04-17] MEDS: ASPIRIN 81 MG ENTERIC TAB PO SCH (09:54)
[2020-04-17] MEDS: lisinopriL 10 MG TAB PO SCH (09:54)
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
[2020-04-17] MEDS: ATORVASTATIN 20 MG TAB PO SCH (21:19)
[2020-04-17] MEDS: traZODone 50 MG TAB PO SCH (21:19)
[2020-04-17] MEDS: OLANZapine 5 MG TAB PO SCH (21:19)
[2020-04-17] MEDS: PRAZOSIN 1 MG CAP PO SCH (21:20)
[2020-04-17] MEDS: hydrOXYzine 50 MG TAB PO PRN (23:01)
[2020-04-18 06:37] VITALS: BP 143/77
[2020-04-18] MEDS: GLIMEPIRIDE 2 MG TAB PO SCH (09:08)
[2020-04-18] MEDS: amLODIPine 5 MG TAB PO SCH (09:09)
[2020-04-18] MEDS: FLUoxetine 20 MG CAP PO SCH (09:09)
[2020-04-18] MEDS: lisinopriL 10 MG TAB PO SCH (09:09)
[2020-04-18] MEDS: ASPIRIN 81 MG ENTERIC TAB PO SCH (09:09)
[2020-04-18] MEDS: OMEPRAZOLE 20 MG CAP PO SCH (09:09)
[2020-04-18] MEDS: metFORMIN (GLUCOPHAGE) 1000 MG TABLET PO SCH ×2 (09:10→17:17)
[2020-04-18] MEDS: LORATADINE 10 MG TAB PO SCH (09:11)
[2020-04-18] MEDS ORDERED: TUBERCULIN PPD 5 UNITS/0.1 ML ID ONE (09:15)
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
[2020-04-18 16:00] VITALS: BP 139/67
[2020-04-18] MEDS: traZODone 50 MG TAB PO SCH (21:24)
[2020-04-18] MEDS: ATORVASTATIN 20 MG TAB PO SCH (21:24)
[2020-04-18] MEDS: OLANZapine 5 MG TAB PO SCH (21:24)
[2020-04-18] MEDS: PRAZOSIN 1 MG CAP PO SCH (21:25)
[2020-04-19 07:06] VITALS: BP 134/71
[2020-04-19] MEDS: metFORMIN (GLUCOPHAGE) 1000 MG TABLET PO SCH ×2 (07:52→17:05)
[2020-04-19] MEDS: GLIMEPIRIDE 2 MG TAB PO SCH (07:52)
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
[2020-04-19] MEDS: LORATADINE 10 MG TAB PO SCH (08:46)
[2020-04-19] MEDS: OMEPRAZOLE 20 MG CAP PO SCH (08:46)
[2020-04-19] MEDS: amLODIPine 5 MG TAB PO SCH (08:47)
[2020-04-19] MEDS: lisinopriL 10 MG TAB PO SCH (08:47)
[2020-04-19] MEDS: FLUoxetine 20 MG CAP PO SCH (08:48)
[2020-04-19] MEDS: ASPIRIN 81 MG ENTERIC TAB PO SCH (08:48)
[2020-04-19] MEDS: OLANZapine 5 MG TAB PO SCH (21:27)
[2020-04-19] MEDS: traZODone 50 MG TAB PO SCH (21:27)
[2020-04-19] MEDS: PRAZOSIN 1 MG CAP PO SCH (21:27)
[2020-04-19] MEDS: ATORVASTATIN 20 MG TAB PO SCH (21:27)
[2020-04-20 06:38] VITALS: BP 133/68
[2020-04-20] MEDS: GLIMEPIRIDE 2 MG TAB PO SCH (06:56)
[2020-04-20] MEDS: metFORMIN (GLUCOPHAGE) 1000 MG TABLET PO SCH ×2 (08:52→17:10)
[2020-04-20] MEDS ORDERED: PPD DOCUMENTATION ENTRY MISC XX ONE (09:00)
[2020-04-20] MEDS: ASPIRIN 81 MG ENTERIC TAB PO SCH (09:51)
[2020-04-20] MEDS: OMEPRAZOLE 20 MG CAP PO SCH (09:51)
[2020-04-20] MEDS: lisinopriL 10 MG TAB PO SCH (09:51)
[2020-04-20] MEDS: FLUoxetine 20 MG CAP PO SCH (09:51)
[2020-04-20] MEDS: amLODIPine 5 MG TAB PO SCH (09:51)
[2020-04-20] MEDS: LORATADINE 10 MG TAB PO SCH (09:51)
[2020-04-20] MEDS: traZODone 50 MG TAB PO SCH (20:46)
[2020-04-20] MEDS: PRAZOSIN 1 MG CAP PO SCH (20:46)
[2020-04-20] MEDS: OLANZapine 5 MG TAB PO SCH (20:46)
[2020-04-20] MEDS: ATORVASTATIN 20 MG TAB PO SCH (20:46)
[2020-04-20] MEDS: hydrOXYzine 50 MG TAB PO PRN (22:47)
[2020-04-20] MEDS: ACETAMINOPHEN TAB 650MG DOSE (2X325MG) PO PRN (22:49)
[2020-04-21 06:43] VITALS: BP 143/72
[2020-04-21] MEDS: GLIMEPIRIDE 2 MG TAB PO SCH (06:53)
[2020-04-21] MEDS: metFORMIN (GLUCOPHAGE) 1000 MG TABLET PO SCH ×2 (08:43→17:24)
[2020-04-21] MEDS: amLODIPine 5 MG TAB PO SCH (09:56)
[2020-04-21] MEDS: ASPIRIN 81 MG ENTERIC TAB PO SCH (09:56)
[2020-04-21] MEDS: LORATADINE 10 MG TAB PO SCH (09:57)
[2020-04-21] MEDS: lisinopriL 10 MG TAB PO SCH (09:57)
[2020-04-21] MEDS: FLUoxetine 20 MG CAP PO SCH (09:57)
[2020-04-21] MEDS: OMEPRAZOLE 20 MG CAP PO SCH (09:58)
[2020-04-21 18:00] VITALS: BP 136/69
[2020-04-21] MEDS: traZODone 50 MG TAB PO SCH (21:12)
[2020-04-21] MEDS: PRAZOSIN 1 MG CAP PO SCH (21:12)
[2020-04-21] MEDS: ATORVASTATIN 20 MG TAB PO SCH (21:12)
[2020-04-21] MEDS: OLANZapine 5 MG TAB PO SCH (21:12)
[2020-04-22 06:30] VITALS: BP 153/87
[2020-04-22] MEDS: GLIMEPIRIDE 2 MG TAB PO SCH (07:46)
[2020-04-22] MEDS: metFORMIN (GLUCOPHAGE) 1000 MG TABLET PO SCH (07:46)
[2020-04-22] MEDS: LORATADINE 10 MG TAB PO SCH (08:57)
[2020-04-22 08:58] VITALS: BP 144/77
[2020-04-22] MEDS: lisinopriL 10 MG TAB PO SCH (08:58)
[2020-04-22] MEDS: OMEPRAZOLE 20 MG CAP PO SCH (08:58)
[2020-04-22] MEDS: amLODIPine 5 MG TAB PO SCH (08:58)
[2020-04-22] MEDS: ASPIRIN 81 MG ENTERIC TAB PO SCH (08:58)
[2020-04-22] MEDS: FLUoxetine 20 MG CAP PO SCH (08:58)
[2020-04-22] MEDS ORDERED: HYDR1TAB33 PO (09:22)
[2020-04-22] MEDS ORDERED: ATOR1TAB21 PO (09:22)
[2020-04-22] MEDS ORDERED: AMLO1TAB24 PO (09:22)
[2020-04-22] MEDS ORDERED: GLIM2TAB4 PO (09:22)
[2020-04-22] MEDS ORDERED: PIOG15TA64 PO (09:22)
[2020-04-22] MEDS ORDERED: ASPI-161 PO (09:22)
[2020-04-22] MEDS ORDERED: TRAZ-252 PO (09:22)
[2020-04-22] MEDS ORDERED: OMEP1CAP73 PO (09:22)
[2020-04-22] MEDS ORDERED: PRAZ1CAP PO (09:22)
[2020-04-22] MEDS ORDERED: FLUO20CA22 PO (09:22)
[2020-04-22] MEDS ORDERED: MILKSUS3 PO (09:22)
[2020-04-22] MEDS ORDERED: LISI10TA4 PO (09:22)
[2020-04-22] MEDS ORDERED: METF10004 PO (09:22)
[2020-04-22] MEDS ORDERED: LORA-436 PO (09:23)
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
== END 2020-04-22 12:30 | disposition home or self-care (01) | DRG 885 ==
LOC: M ED 19:25 → M ED INP 22:51 → M PSY 04-11 00:23
PROVIDERS: ADMIT Psychiatry & Neurology Addiction Medicine; ATTEND Psychiatry & Neurology Psychiatry
DX: F20.0 Paranoid schizophrenia (principal); F79 Unspecified intellectual disabilities; Z79.899 Other long term (current) drug therapy; Z79.82 Long term (current) use of aspirin; Z88.8 Allergy status to other drugs, medicaments and biological substances; I10 Essential (primary) hypertension; E11.9 Type 2 diabetes mellitus without complications; K21.9 Gastro-esophageal reflux disease without esophagitis; E03.9 Hypothyroidism, unspecified; F43.10 Post-traumatic stress disorder, unspecified

== ENCOUNTER 2020-07-15 19:44 | Inpatient (IN) | payer OTHER, MEDICARE ==
[~2020-07-15] VITALS: Ht 165.1 cm; Wt 95.0 kg
[~2020-07-15 19:44] MED LIST changes: +AMLO1TAB24 PO; +ASPI-161 PO; +CIPR7.5D5 AD; -CIPRODEX AD; +FLUO20CA22 PO; +HYDR1TAB33 PO; -LISI-538 PO; +LISI10TA22; +LISI10TA22 PO; -LISI10TA4; -LISI10TA4 PO; +LISI20TA33 PO; -LISI40TA PO; +LISI40TA4 PO; +LORA-930 PO; +MILKSUS3 PO; +PIOG15TA64 PO
[2020-07-16 00:13] LABS: HEMATOCRIT 41.2 % (42.0-52.0); HEMOGLOBIN 13.1 g/dl (13.5-17.5); MEAN CORPUSCULAR HEMOGLOBIN 26.9 pg (27.0-33.0); MEAN CORPUSCULAR HGB CONC 31.8 g/dl (32.0-36.5); MEAN CORPUSCULAR VOLUME 84.6 fl (80.0-96.0); PLATELET COUNT, AUTOMATED 250 10^3/uL (150-450); RED BLOOD COUNT 4.87 10^6/uL (4.30-6.10); WHITE BLOOD COUNT 9.3 10^3/uL (4.0-10.0)
[2020-07-16 00:30] LABS: AMPHETAMINES LEVEL URINE NEGATIVE (NEGATIVE); BARBITURATES URINE NEGATIVE (NEGATIVE); BENZODIAZEPINES URINE NEGATIVE (NEGATIVE); CANNABINOIDS URINE NEGATIVE (NEGATIVE); COCAINE METABOLITE URINE NEGATIVE (NEGATIVE); METHADONE URINE NEGATIVE (NEGATIVE); OPIATES URINE NEGATIVE (NEGATIVE); PHENCYCLIDINE URINE NEGATIVE (NEGATIVE)
[2020-07-16 00:37] LABS: RSV AMPLIFICATION NEGATIVE (NEGATIVE)
[2020-07-16 00:38] LABS: ACETAMINOPHEN LEVEL < 2.0 UG/ML (10.0-30.0); ALBUMIN 3.7 GM/DL (3.2-5.2); ALT/SGPT 34 U/L (12-78); BILIRUBIN,DIRECT 0.1 MG/DL (0.0-0.2); BILIRUBIN,TOTAL 0.3 MG/DL (0.2-1.0); BLOOD UREA NITROGEN 15 MG/DL (7-18); CALCIUM LEVEL 9.2 MG/DL (8.8-10.2); CARBON DIOXIDE LEVEL 26 MEQ/L (21-32); CHLORIDE LEVEL 105 MEQ/L (98-107); CREATININE FOR GFR 0.72 MG/DL (0.70-1.30); ETHYL ALCOHOL (ETHANOL) < 0.003 % (0.000-0.010); GLOMERULAR FILTRATION RATE > 60.0 (>42); GLUCOSE, FASTING 145 MG/DL (70-100); POTASSIUM SERUM 4.1 MEQ/L (3.5-5.1); SALICYLATE LEVEL < 1.7 MG/DL (5.0-30.0); SODIUM LEVEL 137 MEQ/L (136-145); TOTAL PROTEIN 6.6 GM/DL (6.4-8.2)
--- NOTE | 2020-07-16 08:06 | ECGEPIP ---
[facility] - ED Test Date: 2020-07-15 Pat Name: BEATA JULIO Department: Room: - Gender: Male Sales Manager: Keysha JONES : 1950 Requested By: FREDDY LARA Order Number: [id number] Reading MD: Cody Pulido Measurements Intervals [place] Rate: 71 P: -8 ME: 184 QRS: -1 QRSD: 92 T: 41 QT: 376 QTc: 408 Interpretive Statements Normal sinus rhythm SIMILAR TO 10/14/19 Electronically Signed on 07-16-2020 8:05:43 EDT by Cody Pulido
[2020-07-16] MEDS ORDERED: OMEPRAZOLE 20 MG CAP PO ONE (08:15)
[2020-07-16] MEDS ORDERED: FLUoxetine 20 MG CAP PO ONE (08:15)
[2020-07-16] MEDS ORDERED: amLODIPine 5 MG TAB PO ONE (08:15)
[2020-07-16] MEDS ORDERED: GLIMEPIRIDE 2 MG TAB PO ONE (08:15)
[2020-07-16] MEDS ORDERED: metFORMIN (GLUCOPHAGE) 1000 MG TABLET PO ONE (08:15)
[2020-07-16] MEDS ORDERED: ASPIRIN 81 MG CHEW TABLET PO ONE (08:15)
[2020-07-16] MEDS ORDERED: LORATADINE 10 MG TAB PO ONE (08:15)
[2020-07-16] MEDS ORDERED: PIOG1TAB36 PO (11:21)
[2020-07-16] MEDS ORDERED: METF10004 PO (11:21)
[2020-07-16] MEDS ORDERED: PRAZ1CAP PO (11:21)
[2020-07-16] MEDS ORDERED: GLIM2TAB4 PO (11:21)
[2020-07-16] MEDS ORDERED: AMLO1TAB24 PO (11:21)
[2020-07-16] MEDS ORDERED: ATOR1TAB21 PO (11:21)
[2020-07-16] MEDS ORDERED: MILKSUS10 PO (11:21)
[2020-07-16] MEDS ORDERED: LORA-674 PO (11:21)
[2020-07-16] MEDS ORDERED: INVE156I IM (11:21)
[2020-07-16] MEDS ORDERED: TRAZ-252 PO (11:21)
[2020-07-16] MEDS ORDERED: LISI10TA22 PO (11:21)
[2020-07-16] MEDS ORDERED: OMEP1CAP73 PO (11:21)
[2020-07-16] MEDS ORDERED: ASPI-161 PO (11:21)
[2020-07-16] MEDS ORDERED: HYDR50TA70 PO (11:21)
[2020-07-16] MEDS ORDERED: FLUO20CA20 PO (11:21)
[2020-07-16] MEDS ORDERED: MOM 30ML SUSPENSION UDC PO PRN ×2 (12:25→14:05)
[2020-07-16] MEDS ORDERED: traZODone 50 MG TAB PO PRN (12:25)
[2020-07-16] MEDS ORDERED: ACETAMINOPHEN TAB 650MG DOSE (2X325MG) PO PRN (12:25)
[2020-07-16] MEDS ORDERED: MAALOX 30 ML SUSP *UDC PO PRN (12:25)
[2020-07-16 14:16] VITALS: BP 140/77
[2020-07-16] MEDS ORDERED: GLUCOSE 4GM CHEW TABLET PO PRN (14:30)
[2020-07-16] MEDS ORDERED: GLUCAGON INJ 1MG VIAL SC PRN (14:30)
[2020-07-16] MEDS ORDERED: DEXTROSE 50% 50 ML SYRINGE IV PRN (14:30)
[2020-07-16] MEDS: HumaLOG INSULIN (NovoLOG) PER UNIT SC SCH ×2 (17:04→20:56)
[2020-07-16] MEDS: traZODone 50 MG TAB PO SCH (20:55)
[2020-07-16] MEDS: metFORMIN (GLUCOPHAGE) 1000 MG TABLET PO SCH (20:55)
[2020-07-16] MEDS: PRAZOSIN 1 MG CAP PO SCH (20:56)
[2020-07-16] MEDS: ATORVASTATIN 20 MG TAB PO SCH (20:56)
[2020-07-16] MEDS: hydrOXYzine 50 MG TAB PO PRN (22:09)
[2020-07-17] MEDS: HumaLOG INSULIN (NovoLOG) PER UNIT SC SCH ×4 (07:06→21:00)
[2020-07-17] MEDS: GLIMEPIRIDE 2 MG TAB PO SCH (08:10)
[2020-07-17] MEDS: ASPIRIN 81MG ENTERIC TABLET PO SCH (08:11)
[2020-07-17] MEDS: FLUoxetine 20 MG CAP PO SCH (08:11)
[2020-07-17] MEDS: metFORMIN (GLUCOPHAGE) 1000 MG TABLET PO SCH ×2 (08:11→22:04)
[2020-07-17] MEDS: LORATADINE 10 MG TAB PO SCH (08:12)
[2020-07-17] MEDS: OMEPRAZOLE 20 MG CAP PO SCH (08:13)
[2020-07-17] MEDS ORDERED: amLODIPine 5 MG TAB PO SCH (09:00)
--- NOTE | 2020-07-17 09:16 | MHHPEPDOC ---
General Legal Status: 9.39 Chief Complaint ", I'm going to kill myself.". History of Present Illness HISTORY OF THE PRESENT ILLNESS: Patient is a 69 -year-old , male * pt states, "I'm going to kill myself if you discharge me." Pt reports struggling from SI with plan to jump out 2nd story window for the past 3 days. States he currently resides in an adult home in [place] and dislikes staff there. Pt reports also suffering from command AH for 2 days and states "the voices are telling me to slit my throat and that I'm no good." He admits being compliant with medication & treatment, but believes staff has not been giving him the correct medication & dosage. Pt denies any other suicidal stressors at this time. Pt has a long hx of Schizophrenia, paranoid type and intellectual disability. Last admitted to [facility] Apr, 2020 after he expressed SI with plan to jump in front of a snowplow. He currently seeks tx with [facility]. Patient states "my diabetes is not being treated." And states he's having trouble with the staff. He states that they yell at him. He states he is mistreated. He been there since April and states their treatment of him is getting worse. Prior to that he was living in a hotel. He would like to go to [facility]. He has been seeing a psychiatrist when he says he isn't seeing Dr. Otero at the adult home to help manage his diabetes he's been getting in Napoleon shots once a month at [facility]. His surgical history is positive for back surgery and tonsils his back surgery was in 1972. He has no legal history. No neurological history he has a 10th grade education and a GED. 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 His psychiatric history. He states began in the [place] in 1968, where he had a "nervous breakdown". He received an honorable discharge. He collects from the [place] on Social Security and has a payee. He is single with no children. He states when he was harassed at the adult home. He began hearing voices and having suicidal thoughts presently. He is not having either. He has been hospitalized numerous times at [facility]. He denies hallucinations, delusions, obsessions, compulsions, phobias, or phobias. He states here at [facility]. She you, no one bothers me Patient is living at a adult home Psychiatric Review of Systems Depression (2 or more weeks): suicidal thoughts Adriana (4 or more days of): talkativity, pressured Psychosis: auditory hallucination Anxiety: situational anxiety Anxiety/ 6 months or more of: restlessness, keyed up Past Psychiatric History Previous Psychiatric Diagnosis: Schizophrenia Previous Psychiatric Admissions:. multiple admissions, last in August and October 2018. Suicide Attempts: Ideation. Psychiatric Follow-up:. Apparently he has follow-up with medication. Psychiatric medications: Paliperidone injection. Past Medical History Medical Problems Diabetes Head Injury: No Seizures: No Hospitalizations: Yes Surgeries: Yes Family Medical/Psychiatric HX Psychiatric Disorders: No Addiction: No Suicide Attemps/Completions: No Addiction History denies Social History Childhood: Not applicable. Abuse/Trauma: Not applicable. Current Living Situation: Adult residential home. Education:, 10th grade and GED. Employment:, Not presently employed. Social Support: None noted. Legal:. None. Marital: Single. Mental Status Examination General Appearance: hospital scubs/clothing Build: overweight Demeanor: average Eye Contact: average Activity: average Behavior: cooperative Speech: clear Mood: depressed, anxious Affect: full Thought Process: logical/linear Thought Content (Delusions): none reported Thought Content (Other): appropriate Thought Content (Aggressive): none reported Perception (Hallucinations): auditory Perception (Other): none reported Cognition (Impairment of): none reported Cognition(Intelligence Est.): average Oriented: Awake, Alert, Oriented times three Insight: fair Judgment: Fair Psychosis: Denies Diagnoses Chronic schizophrenia A-FIB/CHADSVASC A-FIB History Current/History of A-Fib/PAF?: No Current PO Anticoag Therapy: No Age/Risk Factor Scoring CHADSVASC: CHADSVASC Response (Comments) Value Gender Risk Factor Male 0 Hx of CHF No 0 Hx of HTN No 0 Hx of Stroke/TIA/or VTE No 0 Hx of Diabetes Yes 1 Hx of Vascular Disease No 0 Total 1 Treatment Treatment ordered: NONE Initial Treatment Plan 1. Patient was admitted on a [9.39] status. 2. Complete history was obtained. 3. With patients permission, family will be contacted and database will be expanded. 4. Patients medication regimen will be reviewed and changed accordingly. 5. Patient will be provided with protected environment. 6. Patient will be treated with individual, group, and milieu therapies. 7. Patient will receive supportive psych-education. 8. Discharge planning will commence immediately. 9. Outpatient follow-up treatment will be strongly recommended. 10. The initial treatment plan will focus initially on: * Depression. * Risk for suicide. ESTIMATED LENGTH OF STAY: - DAYS. TIME SPENT COUNSELING AND COORDINATING INITIAL CARE: minutes. Ordered/Pending Vital Signs Vital Signs Date Time Temp Pulse Resp B/P (MAP) Pulse Ox O2 Delivery O2 Flow Rate FiO2 07/17/20 08:25 Room Air 07/17/20 08:11 113 189/91 07/16/20 14:16 97.2 20 98 Laboratory Data 24H Labs Laboratory Tests 2 07/16/20 16:59: Bedside Glucose (Misc Panel) 190H 07/16/20 20:54: Bedside Glucose (Misc Panel) 136H 07/17/20 06:07: Bedside Glucose (Misc Panel) 135H Medications Scheduled Amlodipine Besylate (Amlodipine Besylate) 5 Mg Tablet, 5 MG PO DAILY, (Reported) Aspirin (Aspirin EC) 81 Mg Tablet.dr, 81 MG PO DAILY, (Reported) Atorvastatin Calcium (Atorvastatin Calcium) 20 Mg Tablet, 20 MG PO QHS, (Reported) Fluoxetine Hcl (Fluoxetine HCl) 20 Mg Capsule, 20 MG PO DAILY, (Reported) Glimepiride (Glimepiride) 2 Mg Tablet, 2 MG PO DAILY, (Reported) Lisinopril (Lisinopril) 10 Mg Tablet, 10 MG PO DAILY, (Reported) Loratadine (Loratadine) 10 Mg Tablet, 10 MG PO DAILY, (Reported) Metformin HCl (Metformin HCl) 1,000 Mg Tablet, 1,000 MG PO BID, (Reported) Omeprazole (Omeprazole) 20 Mg Capsule.dr, 20 MG PO DAILY, (Reported) Paliperidone Palmitate (Invega Sustenna) 156 Mg/1 Ml Syringe, 156 MG IM QMONTH, (Reported) Pioglitazone HCl (Pioglitazone HCl) 15 Mg Tablet, 15 MG PO DAILY, (Reported) Prazosin Hcl (Prazosin HCl) 1 Mg Capsule, 2 MG PO QHS, (Reported) Trazodone HCl (Trazodone HCl) 50 Mg Tablet, 50 MG PO QHS, (Reported) Scheduled PRN Hydroxyzine HCl (Hydroxyzine HCl) 50 Mg Tablet, 50 MG PO BID PRN for ANXIETY, (Reported) Magnesium Hydroxide (Milk of Magnesia) 400 Mg/5 Ml Oral.susp, 2,400 MG PO DAILY PRN for CONSTIPATION, (Reported) Allergies Coded Allergies: fluphenazine (Verified Adverse Reaction, Intermediate, COLD SWEATS, PACING, RASH, 08/07/18) haloperidol (Verified Adverse Reaction, Intermediate, COLD SWEATS, PACING, SWEATS, 08/07/18) AME ALEJO MD Jul 17, 2020 09:16
[2020-07-17 10:35] LABS: BLOOD UREA NITROGEN 14 MG/DL (7-18); CALCIUM LEVEL 9.2 MG/DL (8.8-10.2); CARBON DIOXIDE LEVEL 28 MEQ/L (21-32); CHLORIDE LEVEL 100 MEQ/L (98-107); CREATININE FOR GFR 0.85 MG/DL (0.70-1.30); GLOMERULAR FILTRATION RATE > 60.0 (>42); GLUCOSE, FASTING 298 MG/DL (70-100); POTASSIUM SERUM 4.3 MEQ/L (3.5-5.1); SODIUM LEVEL 135 MEQ/L (136-145)
--- NOTE | 2020-07-17 15:51 | HPEPDOC ---
[facility] Medical History & Physical Date of Admission Jul 17, 2020 Date of Service: Jul 17, 2020 Attending Physician: MODE BAIRES MD History and Physical CHIEF COMPLAINT: Suicidal ideation with auditory hallucinations to slit his throat i/s/o schizophrenia HISTORY OF PRESENT ILLNESS: 69-year-old M with a history of schizophrenia, HTN, DM2, HLD, hypothyroidism, GERD and PTSD who presented to the ED for suicidal ideation, reporting that he has been hearing voices instructing him to kill himself by slitting his throat for 2 days prior to presentation. He also was having thoughts of jumping down a window. He was recently living in a [place] residence where he did not like the staff and was under the impression that they were giving him the wrong medications for DM etc. He denied chest pain, shortness of breath, headaches, fevers, abdominal pain, nausea, vomiting or diarrhea. In the ED, he was hemodynamically stable and afebrile, while lab evaluation showed a grossly normal CBC, BMP, negative tox screen and negative respiratory panel. He was subsequently admitted to psychiatry for suicidal ideation with threat to commit suicide admitted to triage staff if he was discharged. Today, on ROS he continues to deny any fever, chills, chest pain, palpitations, abdominal pain, shortness of breath, current auditory or visual hallucinations. PAST MEDICAL HISTORY: #HTN #HLD #DM2 #schizophrenia #GERD #hypothyroidism #PTSD ALLERGIES: Please see below. REVIEW OF SYSTEMS: 10 point ROS was negative except as per HPI. HOME MEDICATIONS: Please see below. FAMILY HISTORY: Declined to participate in this part of the evaluation citing irrelevance PHYSICAL EXAMINATION: VITAL SIGNS: See below General: NAD, sitting comfortably in chair HEENT: NCAT, EOMI, PERRLA, MMM Lungs: CTAB, no wheezing, rales or rhonchi, breathing comfortably on room air Heart: RRR, no m/r/g Abd: Normoactive bowel sounds, soft, NTND Ext: WWP, no edema NEURO: CN2-12 intact, no dysarthria, normal gait, 5/5 strength and tone throughout PSYCH: AOx3 LABORATORY DATA: See below. MICROBIOLOGY: Please see below. Assessment: 69M [facility] to [facility] for suicidal ideation and auditory hallucinations i/s/o l see standing schizophrenia with a history of medical non-compliance. #Suicidal ideation i/s/o schizophrenia: - per primary psychiatry team #HTN - Increase norvasc from 5mg to 10mg daily -continue 10mg lisinopril daily #DM - metformin - glimepiride - SSI AC/HS - FSBG AC/HS - hypoglycemia protocol #HLD - continue home lipitor #GERD -continue home omeprazole Thank you for this consultation. Please re-consult as needed. Vital Signs Vital Signs Date Time Temp Pulse Resp B/P (MAP) Pulse Ox O2 Delivery O2 Flow Rate FiO2 07/17/20 08:25 Room Air 07/17/20 08:11 113 189/91 07/16/20 14:16 97.2 20 98 Laboratory Data Labs 24H Laboratory Tests 2 07/16/20 16:59: Bedside Glucose (Misc Panel) 190H 07/16/20 20:54: Bedside Glucose (Misc Panel) 136H 07/17/20 06:07: Bedside Glucose (Misc Panel) 135H 07/17/20 09:41: Anion Gap 7L, Glomerular Filtration Rate > 60.0, Calcium Level 9.2 CBC/BMP Laboratory Tests 07/17/20 09:41 Home Medications Scheduled Amlodipine Besylate (Amlodipine Besylate) 5 Mg Tablet, 5 MG PO DAILY Aspirin (Aspirin EC) 81 Mg Tablet.dr, 81 MG PO DAILY Atorvastatin Calcium (Atorvastatin Calcium) 20 Mg Tablet, 20 MG PO QHS Fluoxetine Hcl (Fluoxetine HCl) 20 Mg Capsule, 20 MG PO DAILY Glimepiride (Glimepiride) 2 Mg Tablet, 2 MG PO DAILY Lisinopril (Lisinopril) 10 Mg Tablet, 10 MG PO DAILY Loratadine (Loratadine) 10 Mg Tablet, 10 MG PO DAILY Metformin HCl (Metformin HCl) 1,000 Mg Tablet, 1,000 MG PO BID Omeprazole (Omeprazole) 20 Mg Capsule.dr, 20 MG PO DAILY Paliperidone Palmitate (Invega Sustenna) 156 Mg/1 Ml Syringe, 156 MG IM QMONTH Pioglitazone HCl (Pioglitazone HCl) 15 Mg Tablet, 15 MG PO DAILY Prazosin Hcl (Prazosin HCl) 1 Mg Capsule, 2 MG PO QHS Trazodone HCl (Trazodone HCl) 50 Mg Tablet, 50 MG PO QHS Scheduled PRN Hydroxyzine HCl (Hydroxyzine HCl) 50 Mg Tablet, 50 MG PO BID PRN for ANXIETY Magnesium Hydroxide (Milk of Magnesia) 400 Mg/5 Ml Oral.susp, 2,400 MG PO DAILY PRN for CONSTIPATION Allergies Coded Allergies: fluphenazine (Verified Adverse Reaction, Intermediate, COLD SWEATS, PACING, RASH, 08/07/18) haloperidol (Verified Adverse Reaction, Intermediate, COLD SWEATS, PACING, SWEATS, 08/07/18) A-FIB/CHADSVASC A-FIB History Current/History of A-Fib/PAF?: No Current PO Anticoag Therapy: No Age/Risk Factor Scoring CHADSVASC: CHADSVASC Response (Comments) Value Age Risk Factor Age 65-74 years old 1 Gender Risk Factor Male 0 Hx of CHF No 0 Hx of HTN Yes 1 Hx of Stroke/TIA/or VTE No 0 Hx of Diabetes Yes 1 Hx of Vascular Disease No 0 Total 3 Treatment Treatment ordered: NONE Reason Anticoagulant not given: Not indicated/[id number] MODE BAIRES MD Jul 17, 2020 12:26
[2020-07-17 16:40] VITALS: BP 133/68
[2020-07-17] MEDS: hydrOXYzine 50 MG TAB PO PRN (18:37)
[2020-07-17] MEDS: ATORVASTATIN 20 MG TAB PO SCH (22:04)
[2020-07-17] MEDS: traZODone 50 MG TAB PO SCH (22:04)
[2020-07-17] MEDS: PRAZOSIN 1 MG CAP PO SCH (22:05)
[2020-07-18 06:13] VITALS: BP 136/87
[2020-07-18] MEDS: HumaLOG INSULIN (NovoLOG) PER UNIT SC SCH ×4 (06:53→21:00)
--- NOTE | 2020-07-18 08:29 | MHIPNPDOC ---
[facility] Progress Note Progress Note DATE OF SERVICE: 07/18/20 HISTORY OF THE PRESENT ILLNESS: Patient is a 69 -year-old , male with numerous admissions through the years who has been living at a [facility] * pt states, "I'm going to kill myself if you discharge me." Pt reports struggling from SI with plan to jump out 2nd story window for the past 3 days. States he currently resides in an adult home in [place] and dislikes staff there. Pt reports also suffering from command AH for 2 days and states "the voices are telling me to slit my throat and that I'm no good." He admits being compliant with medication & treatment, but believes staff has not been giving him the correct medication & dosage. Pt denies any other suicidal stressors at this time. Pt has a long hx of Schizophrenia, paranoid type and intellectual disability. Last admitted to [facility] Apr, 2020 after he expressed SI with plan to jump in front of a snowplow. He currently seeks tx with [facility]. Patient states "my diabetes is not being treated." And states he's having trouble with the staff. He states that they yell at him. He states he is mistreated. He been there since April and states their treatment of him is getting worse. Prior to that he was living in a hotel. He would like to go to [facility]. He has been seeing a psychiatrist when he says he isn't seeing Dr. Otero at the adult home to help manage his diabetes he's been getting in Napoleon shots once a month at [facility]. His surgical history is positive for back surgery and tonsils his back surgery was in 1972. He has no legal history. No neurological history he has a 10th grade education and a GED. 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 His psychiatric history. He states began in the [place] in 1968, where he had a "nervous breakdown". He received an honorable discharge. He collects from the [place] on Social Security and has a payee. He is single with no children. He states when he was harassed at the adult home. He began hearing voices and having suicidal thoughts presently. He is not having either. He has been hospitalized numerous times at [facility]. He denies hallucinations, delusions, obsessions, compulsions, phobias, or phobias. He states here at [facility]. She you, no one bothers me Patient is living at a adult home. Today he states he feels well, is not suicidal. "My payee is looking for a new place for me" VITAL SIGNS: See below. NEW TEST RESULTS: None. CURRENT MEDICATIONS: See below. MENTAL STATUS EXAMINATION: Patient is a 69-year old male, who is diagnosed with chronic schizophrenia. Speech: Is. No gross disturbance. Language skills are no gross disturbance. Thought processes including:. No gross disturbance., Not presently suicidal. Thought content:, Wanting to better care and a new place. Abstract reasoning, and computation: Able to abstract. Description of associations:. No loose association. Description of abnormal or psychotic thoughts: Suicidal statement. Judgment: Fair. Insight: Fair. Orientation: 3. Recent and remote memory: Apparently intact. Attention span and concentration: Reasonably intact. Language:. No gross disturbance. Fund of knowledge: Reasonable. Mood: Euthymic. Affect:, Congruent, neutral. DIAGNOSES: 1. Chronic schizophrenia. 2. Stressors of living situation. 3. Diabetes ASSESSMENT: As above MANAGEMENT PLAN:. Will discuss with treatment team. TIME SPENT: 30 minutes. Vital Signs Vital Signs Date Time Temp Pulse Resp B/P (MAP) Pulse Ox O2 Delivery O2 Flow Rate FiO2 07/18/20 06:13 97.2 90 18 136/87 (103) 97 Room Air Laboratory Data 24H Labs Laboratory Tests 2 07/17/20 09:41: Anion Gap 7L, Glomerular Filtration Rate > 60.0, Calcium Level 9.2 07/17/20 11:57: Bedside Glucose (Misc Panel) 118H 07/17/20 17:16: Bedside Glucose (Misc Panel) 119H 07/17/20 22:01: Bedside Glucose (Misc Panel) 121H 07/18/20 06:51: Bedside Glucose (Misc Panel) 131H CBC/BMP Laboratory Tests 07/17/20 09:41 Current Medications Current Medications Medications (Trade) Dose Ordered Sig/Luis A Route PRN Reason Start Time Stop Time Status Last Admin Dose Admin Acetaminophen (Tylenol Tab) 650 mg Q6HP PRN PO HEADACHE or DISCOMFORT 07/16/20 12:25 Al Hydrox/Mg Hydrox/Simethicone (Mylanta) 30 ml Q4HP PRN PO HEARTBURN/INDIGESTION 07/16/20 12:25 Amlodipine Besylate (Norvasc) 5 mg DAILY PO 07/17/20 09:00 07/17/20 12:05 DC 07/17/20 08:11 Amlodipine Besylate (Norvasc) 10 mg DAILY PO 07/18/20 09:00 Aspirin (Ecotrin) 81 mg DAILY PO 07/17/20 09:00 07/17/20 08:11 Atorvastatin Calcium (Lipitor) 20 mg QHS PO 07/16/20 21:00 07/17/20 22:04 Dextrose (Dextrose 50%) 25 ml ASDIRECTED PRN IV SEE LABEL COMMENTS 07/16/20 14:30 Fluoxetine HCl (PROzac) 20 mg DAILY PO 07/17/20 09:00 07/17/20 08:11 Glimepiride (Amaryl) 2 mg DAILY PO 07/17/20 09:00 07/17/20 08:10 Glucagon (Glucagon) 1 mg ASDIRECTED PRN SC SEE LABEL COMMENTS 07/16/20 14:30 Glucose (Glucose) 16 GM ASDIRECTED PRN PO SEE LABEL COMMENTS 07/16/20 14:30 Home Med (Med Rec Complete!) ASDIRECTED XX 07/16/20 11:25 07/16/20 11:25 DC Hydroxyzine HCl (Atarax) 50 mg BID PRN PO ANXIETY 07/16/20 14:05 07/17/20 18:37 Insulin Human Lispro (HumaLOG INSULIN) SEE PROTOCOL TABLE AC SC 07/16/20 17:30 07/18/20 06:53 Insulin Human Lispro (HumaLOG INSULIN) SEE PROTOCOL TABLE QHS SC 07/16/20 21:00 Lisinopril (Prinivil) 10 mg DAILY PO 07/17/20 09:00 07/17/20 08:11 Loratadine (Claritin) 10 mg DAILY PO 07/17/20 09:00 07/17/20 08:12 Magnesium Hydroxide (Milk Of Magnesia) 5 ml DAILY PRN PO CONSTIPATION 07/16/20 14:05 07/16/20 14:46 DC Magnesium Hydroxide (Milk Of Magnesia) 30 ml DAILYPRN PRN PO CONSTIPATION 07/16/20 12:25 Metformin HCl (Glucophage) 1,000 mg BID PO 07/16/20 21:00 07/17/20 22:04 Omeprazole (PriLOSEC) 20 mg DAILY PO 07/17/20 09:00 07/17/20 08:13 Prazosin HCl (Minipress) 2 mg QHS PO 07/16/20 21:00 07/17/20 22:05 Trazodone HCl (Desyrel) 50 mg QHS PO 07/16/20 21:00 07/17/20 22:04 Trazodone HCl (Desyrel) 50 mg QHSP PRN PO INSOMNIA 07/16/20 12:25 Allergies Coded Allergies: fluphenazine (Verified Adverse Reaction, Intermediate, COLD SWEATS, PACING, RASH, 08/07/18) haloperidol (Verified Adverse Reaction, Intermediate, COLD SWEATS, PACING, SWEATS, 08/07/18) AME ALEJO MD Jul 18, 2020 08:29
[2020-07-18] MEDS: metFORMIN (GLUCOPHAGE) 1000 MG TABLET PO SCH ×2 (09:04→20:59)
[2020-07-18] MEDS: GLIMEPIRIDE 2 MG TAB PO SCH (09:04)
[2020-07-18] MEDS: FLUoxetine 20 MG CAP PO SCH (09:05)
[2020-07-18] MEDS: LORATADINE 10 MG TAB PO SCH (09:05)
[2020-07-18] MEDS: OMEPRAZOLE 20 MG CAP PO SCH (09:05)
[2020-07-18] MEDS: ASPIRIN 81MG ENTERIC TABLET PO SCH (09:06)
[2020-07-18 18:47] VITALS: BP 142/91
[2020-07-18] MEDS: traZODone 50 MG TAB PO SCH (20:59)
[2020-07-18] MEDS: ATORVASTATIN 20 MG TAB PO SCH (21:00)
[2020-07-18] MEDS: PRAZOSIN 1 MG CAP PO SCH (21:00)
[2020-07-18] MEDS: hydrOXYzine 50 MG TAB PO PRN (22:00)
[2020-07-19 06:00] VITALS: BP 107/56
[2020-07-19] MEDS: HumaLOG INSULIN (NovoLOG) PER UNIT SC SCH ×4 (07:02→21:00)
[2020-07-19] MEDS: FLUoxetine 20 MG CAP PO SCH (08:44)
[2020-07-19] MEDS: ASPIRIN 81MG ENTERIC TABLET PO SCH (08:44)
[2020-07-19] MEDS: GLIMEPIRIDE 2 MG TAB PO SCH (08:44)
[2020-07-19] MEDS: metFORMIN (GLUCOPHAGE) 1000 MG TABLET PO SCH ×2 (08:44→21:21)
[2020-07-19] MEDS: OMEPRAZOLE 20 MG CAP PO SCH (08:44)
[2020-07-19] MEDS: LORATADINE 10 MG TAB PO SCH (08:44)
--- NOTE | 2020-07-19 09:08 | MHIPNPDOC ---
[facility] Progress Note Progress Note DATE OF SERVICE: 07/19/20 HISTORY: 69-year-old male distressed by his living situation, expressed suicide and psychotic thought. VITAL SIGNS: See below. NEW TEST RESULTS:. . CURRENT MEDICATIONS: See below. MENTAL STATUS EXAMINATION: Patient is a 69-year old male, who is stating today he can return to his living situation. He states he cannot live alone. Speech: Is no gross disturbance. Language skills are gross disturbance. Thought processes including: No gross disturbance. Thought content: Able to go back to his retirement. Abstract reasoning, and computation:. Minimal. Description of associations:. No loose association. Description of abnormal or psychotic thoughts: No present psychotic thought. Judgment: Intact. Insight: Poor. Orientation: 3. Recent and remote memory: Essentially intact. Attention span and concentration:. No gross disturbance. Language:. No gross disturbance. Fund of knowledge: Reasonable. Mood: Improved. Affect:. Brighter DIAGNOSES: 1. Chronic schizophrenia. ASSESSMENT: Situational difficulty length to slight relapse MANAGEMENT PLAN:. Will return to retirement. TIME SPENT: 20 minutes. Vital Signs Vital Signs Date Time Temp Pulse Resp B/P (MAP) Pulse Ox O2 Delivery O2 Flow Rate FiO2 07/19/20 08:44 92 07/19/20 08:44 156/79 07/19/20 06:00 98.1 20 92 07/18/20 07:47 Room Air Laboratory Data 24H Labs Laboratory Tests 2 07/18/20 11:50: Bedside Glucose (Misc Panel) 94 07/18/20 17:30: Bedside Glucose (Misc Panel) 154H 07/18/20 20:56: Bedside Glucose (Misc Panel) 177H 07/19/20 06:30: Bedside Glucose (Misc Panel) 161H Current Medications Current Medications Medications (Trade) Dose Ordered Sig/Luis A Route PRN Reason Start Time Stop Time Status Last Admin Dose Admin Acetaminophen (Tylenol Tab) 650 mg Q6HP PRN PO HEADACHE or DISCOMFORT 07/16/20 12:25 Al Hydrox/Mg Hydrox/Simethicone (Mylanta) 30 ml Q4HP PRN PO HEARTBURN/INDIGESTION 07/16/20 12:25 Amlodipine Besylate (Norvasc) 5 mg DAILY PO 07/17/20 09:00 07/17/20 12:05 DC 07/17/20 08:11 Amlodipine Besylate (Norvasc) 10 mg DAILY PO 07/18/20 09:00 07/19/20 08:44 Aspirin (Ecotrin) 81 mg DAILY PO 07/17/20 09:00 07/19/20 08:44 Atorvastatin Calcium (Lipitor) 20 mg QHS PO 07/16/20 21:00 07/18/20 21:00 Dextrose (Dextrose 50%) 25 ml ASDIRECTED PRN IV SEE LABEL COMMENTS 07/16/20 14:30 Fluoxetine HCl (PROzac) 20 mg DAILY PO 07/17/20 09:00 07/19/20 08:44 Glimepiride (Amaryl) 2 mg DAILY PO 07/17/20 09:00 07/19/20 08:44 Glucagon (Glucagon) 1 mg ASDIRECTED PRN SC SEE LABEL COMMENTS 07/16/20 14:30 Glucose (Glucose) 16 GM ASDIRECTED PRN PO SEE LABEL COMMENTS 07/16/20 14:30 Home Med (Med Rec Complete!) ASDIRECTED XX 07/16/20 11:25 07/16/20 11:25 DC Hydroxyzine HCl (Atarax) 50 mg BID PRN PO ANXIETY 07/16/20 14:05 07/18/20 22:00 Insulin Human Lispro (HumaLOG INSULIN) SEE PROTOCOL TABLE AC SC 07/16/20 17:30 07/19/20 07:02 Insulin Human Lispro (HumaLOG INSULIN) SEE PROTOCOL TABLE QHS SC 07/16/20 21:00 Lisinopril (Prinivil) 10 mg DAILY PO 07/17/20 09:00 07/19/20 08:44 Loratadine (Claritin) 10 mg DAILY PO 07/17/20 09:00 07/19/20 08:44 Magnesium Hydroxide (Milk Of Magnesia) 5 ml DAILY PRN PO CONSTIPATION 07/16/20 14:05 07/16/20 14:46 DC Magnesium Hydroxide (Milk Of Magnesia) 30 ml DAILYPRN PRN PO CONSTIPATION 07/16/20 12:25 Metformin HCl (Glucophage) 1,000 mg BID PO 07/16/20 21:00 07/19/20 08:44 Omeprazole (PriLOSEC) 20 mg DAILY PO 07/17/20 09:00 07/19/20 08:44 Prazosin HCl (Minipress) 2 mg QHS PO 07/16/20 21:00 07/18/20 21:00 Trazodone HCl (Desyrel) 50 mg QHS PO 07/16/20 21:00 07/18/20 20:59 Trazodone HCl (Desyrel) 50 mg QHSP PRN PO INSOMNIA 07/16/20 12:25 Allergies Coded Allergies: fluphenazine (Verified Adverse Reaction, Intermediate, COLD SWEATS, PACING, RASH, 08/07/18) haloperidol (Verified Adverse Reaction, Intermediate, COLD SWEATS, PACING, SWEATS, 08/07/18) AME ALEJO MD Jul 19, 2020 09:07
[2020-07-19 16:16] VITALS: BP 152/77
[2020-07-19] MEDS: PRAZOSIN 1 MG CAP PO SCH (21:22)
[2020-07-19] MEDS: traZODone 50 MG TAB PO SCH (21:22)
[2020-07-19] MEDS: ATORVASTATIN 20 MG TAB PO SCH (21:22)
[2020-07-20] MEDS: HumaLOG INSULIN (NovoLOG) PER UNIT SC SCH ×4 (06:40→21:00)
[2020-07-20] MEDS: OMEPRAZOLE 20 MG CAP PO SCH (08:50)
[2020-07-20] MEDS: ASPIRIN 81MG ENTERIC TABLET PO SCH (08:50)
[2020-07-20] MEDS: LORATADINE 10 MG TAB PO SCH (08:50)
[2020-07-20] MEDS: FLUoxetine 20 MG CAP PO SCH (08:50)
[2020-07-20] MEDS: GLIMEPIRIDE 2 MG TAB PO SCH (08:50)
[2020-07-20] MEDS: metFORMIN (GLUCOPHAGE) 1000 MG TABLET PO SCH ×2 (08:50→21:02)
--- NOTE | 2020-07-20 13:31 | MHIPNPDOC ---
[facility] Progress Note Progress Note DATE OF SERVICE: 07/20/20 HISTORY: History of chronic schizophrenia, frequent placements. VITAL SIGNS: See below. NEW TEST RESULTS: None. CURRENT MEDICATIONS: See below. MENTAL STATUS EXAMINATION: Patient is a 69-year old male, who is in good mood today. States she has found his own apartment. This contradicts his previous requests, but he stated that his payee is helping him get one this morning. Speech: Is. Rapid. Language skills are. No gross disturbance. Thought processes including: Linear. Thought content: On his apartment. Abstract reasoning, and computation: Able to abstract. Description of associations:. No loose associations. Description of abnormal or psychotic thoughts:. No psychotic thought. Noted today. Judgment:, Poor. Insight:, Limited. Orientation: 3. Recent and remote memory: Intact. Attention span and concentration:. No disturbance. Language: And no gross disturbance. Fund of knowledge: Reasonable. Mood: Good. Affect: Right. DIAGNOSES: 1. Chronic schizophrenia. 2., Stressors of living situation. 3. None. ASSESSMENT: We'll check on legitimacy of his placement and consider discharge MANAGEMENT PLAN: As above. TIME SPENT: 25 minutes. Vital Signs Vital Signs Date Time Temp Pulse Resp B/P (MAP) Pulse Ox O2 Delivery O2 Flow Rate FiO2 07/20/20 08:50 99 07/20/20 08:50 156/74 07/19/20 16:16 97.4 16 96 Room Air Laboratory Data 24H Labs Laboratory Tests 2 07/19/20 16:52: Bedside Glucose (Misc Panel) 174H 07/19/20 21:19: Bedside Glucose (Misc Panel) 166H 07/20/20 11:49: Bedside Glucose (Misc Panel) 80L Current Medications Current Medications Medications (Trade) Dose Ordered Sig/Luis A Route PRN Reason Start Time Stop Time Status Last Admin Dose Admin Acetaminophen (Tylenol Tab) 650 mg Q6HP PRN PO HEADACHE or DISCOMFORT 07/16/20 12:25 Al Hydrox/Mg Hydrox/Simethicone (Mylanta) 30 ml Q4HP PRN PO HEARTBURN/INDIGESTION 07/16/20 12:25 Amlodipine Besylate (Norvasc) 5 mg DAILY PO 07/17/20 09:00 07/17/20 12:05 DC 07/17/20 08:11 Amlodipine Besylate (Norvasc) 10 mg DAILY PO 07/18/20 09:00 07/20/20 08:50 Aspirin (Ecotrin) 81 mg DAILY PO 07/17/20 09:00 07/20/20 08:50 Atorvastatin Calcium (Lipitor) 20 mg QHS PO 07/16/20 21:00 07/19/20 21:22 Dextrose (Dextrose 50%) 25 ml ASDIRECTED PRN IV SEE LABEL COMMENTS 07/16/20 14:30 Fluoxetine HCl (PROzac) 20 mg DAILY PO 07/17/20 09:00 07/20/20 08:50 Glimepiride (Amaryl) 2 mg DAILY PO 07/17/20 09:00 07/20/20 08:50 Glucagon (Glucagon) 1 mg ASDIRECTED PRN SC SEE LABEL COMMENTS 07/16/20 14:30 Glucose (Glucose) 16 GM ASDIRECTED PRN PO SEE LABEL COMMENTS 07/16/20 14:30 Home Med (Med Rec Complete!) ASDIRECTED XX 07/16/20 11:25 07/16/20 11:25 DC Hydroxyzine HCl (Atarax) 50 mg BID PRN PO ANXIETY 07/16/20 14:05 07/18/20 22:00 Insulin Human Lispro (HumaLOG INSULIN) SEE PROTOCOL TABLE AC SC 07/16/20 17:30 07/19/20 16:55 Insulin Human Lispro (HumaLOG INSULIN) SEE PROTOCOL TABLE QHS SC 07/16/20 21:00 Lisinopril (Prinivil) 10 mg DAILY PO 07/17/20 09:00 07/20/20 08:50 Loratadine (Claritin) 10 mg DAILY PO 07/17/20 09:00 07/20/20 08:50 Magnesium Hydroxide (Milk Of Magnesia) 5 ml DAILY PRN PO CONSTIPATION 07/16/20 14:05 07/16/20 14:46 DC Magnesium Hydroxide (Milk Of Magnesia) 30 ml DAILYPRN PRN PO CONSTIPATION 07/16/20 12:25 Metformin HCl (Glucophage) 1,000 mg BID PO 07/16/20 21:00 07/20/20 08:50 Omeprazole (PriLOSEC) 20 mg DAILY PO 07/17/20 09:00 07/20/20 08:50 Prazosin HCl (Minipress) 2 mg QHS PO 07/16/20 21:00 07/19/20 21:22 Trazodone HCl (Desyrel) 50 mg QHS PO 07/16/20 21:00 07/19/20 21:22 Trazodone HCl (Desyrel) 50 mg QHSP PRN PO INSOMNIA 07/16/20 12:25 Allergies Coded Allergies: fluphenazine (Verified Adverse Reaction, Intermediate, COLD SWEATS, PACING, RASH, 08/07/18) haloperidol (Verified Adverse Reaction, Intermediate, COLD SWEATS, PACING, SWEATS, 08/07/18) AME ALEJO MD Jul 20, 2020 13:31
[2020-07-20 16:09] VITALS: BP 134/68
[2020-07-20] MEDS: traZODone 50 MG TAB PO SCH (21:02)
[2020-07-20] MEDS: PRAZOSIN 1 MG CAP PO SCH (21:02)
[2020-07-20] MEDS: ATORVASTATIN 20 MG TAB PO SCH (21:02)
[2020-07-21 06:20] VITALS: BP 159/60
[2020-07-21] MEDS: HumaLOG INSULIN (NovoLOG) PER UNIT SC SCH ×4 (06:41→21:00)
[2020-07-21] MEDS: GLIMEPIRIDE 2 MG TAB PO SCH (09:19)
[2020-07-21] MEDS: LORATADINE 10 MG TAB PO SCH (09:19)
[2020-07-21] MEDS: metFORMIN (GLUCOPHAGE) 1000 MG TABLET PO SCH ×2 (09:19→22:02)
[2020-07-21] MEDS: ASPIRIN 81MG ENTERIC TABLET PO SCH (09:19)
[2020-07-21] MEDS: OMEPRAZOLE 20 MG CAP PO SCH (09:20)
[2020-07-21] MEDS: FLUoxetine 20 MG CAP PO SCH (09:20)
[2020-07-21 16:16] VITALS: BP 131/63
[2020-07-21] MEDS: ATORVASTATIN 20 MG TAB PO SCH (22:02)
[2020-07-21] MEDS: traZODone 50 MG TAB PO SCH (22:03)
[2020-07-21] MEDS: PRAZOSIN 1 MG CAP PO SCH (22:03)
[2020-07-21] MEDS: hydrOXYzine 50 MG TAB PO PRN (22:52)
[2020-07-22] MEDS: HumaLOG INSULIN (NovoLOG) PER UNIT SC SCH ×2 (06:42→12:00)
[2020-07-22] MEDS ORDERED: AMLO1TAB25 PO (08:05)
[2020-07-22] MEDS: metFORMIN (GLUCOPHAGE) 1000 MG TABLET PO SCH (08:51)
[2020-07-22] MEDS: GLIMEPIRIDE 2 MG TAB PO SCH (08:51)
[2020-07-22 08:52] VITALS: BP 160/76
[2020-07-22] MEDS: ASPIRIN 81MG ENTERIC TABLET PO SCH (08:52)
[2020-07-22] MEDS: FLUoxetine 20 MG CAP PO SCH (08:52)
[2020-07-22] MEDS: LORATADINE 10 MG TAB PO SCH (08:52)
[2020-07-22] MEDS: OMEPRAZOLE 20 MG CAP PO SCH (08:52)
--- NOTE | 2020-07-22 11:35 | MHDSPDOC ---
[facility] Discharge Summary Discharge Summary DATE OF ADMISSION: Jul 16, 2020 at 12:21 DATE OF DISCHARGE: Jul 22, 2020 DISCHARGE DIAGNOSES: 1. Schizoaffective disorder. 2. REASON FOR ADMISSION: Patient became upset with residential home he was living. [place] he was being mistreated CONSULTANTS INVOLVED:, None TREATMENT AND PROGRESS ON THE UNIT : Within a day or so. Patient improved somewhat possible other living situations, but then settled on returning to his present domicile. HISTORY OF THE PRESENT ILLNESS: Patient is a 69 -year-old , male * pt states, "I'm going to kill myself if you discharge me." Pt reports struggling from SI with plan to jump out 2nd story window for the past 3 days. States he currently resides in an adult home in [place] and dislikes staff there. Pt reports also suffering from command AH for 2 days and states "the voices are telling me to slit my throat and that I'm no good." He admits being compliant with medication & treatment, but believes staff has not been giving him the correct medication & dosage. Pt denies any other suicidal stressors at this time. Pt has a long hx of Schizophrenia, paranoid type and intellectual disability. Last admitted to [facility] Apr, 2020 after he expressed SI with plan to jump in front of a snowplow. He currently seeks tx with [facility]. Patient states "my diabetes is not being treated." And states he's having trouble with the staff. He states that they yell at him. He states he is mistreated. He been there since April and states their treatment of him is getting worse. Prior to that he was living in a hotel. He would like to go to [facility]. He has been seeing a psychiatrist when he says he isn't seeing Dr. Otero at the adult home to help manage his diabetes he's been getting in [place] shots once a month at [facility]. His surgical history is positive for back surgery and tonsils his back surgery was in 1972. He has no legal history. No neurological history he has a 10th grade education and a GED. 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 His psychiatric history. He states began in the [facility] in 1968, where he had a "nervous breakdown". He received an honorable discharge. He collects from the [employer] and has a payee. He is single with no children. He states when he was harassed at the adult home. He began hearing voices and having suicidal thoughts. Presently he is not having either. He has been hospitalized numerous times at [facility]. He denies hallucinations, delusions, obsessions, compulsions, phobias, or phobias. He states here at [facility] no one bothers him. Patient is living at a adult home HOSPITAL COURSE: Unremarkable agents. Mood improved, and paranoia diminished DISCHARGE ASSESSMENT:. Schizoaffective disorder MENTAL STATUS EXAMINATION ON DISCHARGE: Patient is a, 69-year old male, who is living in a long term with frequent admissions. Speech is, unremarkable. No gross disturbance. Language skills are. Most disturbance. Thought processes including:, No longer suspicious or feeling victimized. Thought content:, Wanting to go back to his residential home. Abstract reasoning, and computation: Minimal abstract reasoning. Description of associations:,no Loose associations. Description of abnormal or psychotic thoughts: No psychotic thought. Judgment: Reasonable. Insight: Limited. Orientation to 3. Recent and remote memory: Intact. Attention span and concentration: Intact. Language:. No gross disturbance. Fund of knowledge: Reasonable. Mood: Good. Affect: Bright. MEDICATIONS ON DISCHARGE: -. Continue home medications PLAN/FOLLOWUP ARRANGEMENTS: As per associate financial planner. The amount of time spent in the coordination of care for this patient was approximately 30 minutes. ETOH/Disorder Med Rx ETOH/DRUG DISORDER RX: N/A Vital Signs/I&Os Vital Signs Date Time Temp Pulse Resp B/P (MAP) Pulse Ox O2 Delivery O2 Flow Rate FiO2 07/22/20 08:52 160/76 07/22/20 08:51 92 07/21/20 16:16 97.0 16 96 Room Air Laboratory Data Labs 24H Laboratory Tests 2 07/21/20 11:27: Bedside Glucose (Misc Panel) 108 07/21/20 17:04: Bedside Glucose (Misc Panel) 199H Medications Scheduled Amlodipine Besylate (Amlodipine Besylate) 5 Mg Tablet, 5 MG PO DAILY, (Reported) Amlodipine Besylate (Amlodipine Besylate) 10 Mg Tablet, 10 MG PO DAILY for HPN, #10 Aspirin (Aspirin EC) 81 Mg Tablet.dr, 81 MG PO DAILY, (Reported) Atorvastatin Calcium (Atorvastatin Calcium) 20 Mg Tablet, 20 MG PO QHS, (Reported) Fluoxetine Hcl (Fluoxetine HCl) 20 Mg Capsule, 20 MG PO DAILY, (Reported) Glimepiride (Glimepiride) 2 Mg Tablet, 2 MG PO DAILY, (Reported) Lisinopril (Lisinopril) 10 Mg Tablet, 10 MG PO DAILY, (Reported) Loratadine (Loratadine) 10 Mg Tablet, 10 MG PO DAILY, (Reported) Metformin HCl (Metformin HCl) 1,000 Mg Tablet, 1,000 MG PO BID, (Reported) Omeprazole (Omeprazole) 20 Mg Capsule.dr, 20 MG PO DAILY, (Reported) Paliperidone Palmitate (Invega Sustenna) 156 Mg/1 Ml Syringe, 156 MG IM QMONTH, (Reported) Pioglitazone HCl (Pioglitazone HCl) 15 Mg Tablet, 15 MG PO DAILY, (Reported) Prazosin Hcl (Prazosin HCl) 1 Mg Capsule, 2 MG PO QHS, (Reported) Trazodone HCl (Trazodone HCl) 50 Mg Tablet, 50 MG PO QHS, (Reported) Scheduled PRN Hydroxyzine HCl (Hydroxyzine HCl) 50 Mg Tablet, 50 MG PO BID PRN for ANXIETY, (Reported) Magnesium Hydroxide (Milk of Magnesia) 400 Mg/5 Ml Oral.susp, 2,400 MG PO DAILY PRN for CONSTIPATION, (Reported) Allergies Coded Allergies: fluphenazine (Verified Adverse Reaction, Intermediate, COLD SWEATS, PACING, RASH, 08/07/18) haloperidol (Verified Adverse Reaction, Intermediate, COLD SWEATS, PACING, SWEATS, 08/07/18) AME ALEJO MD Jul 22, 2020 11:35
[2020-08-03] MEDS ORDERED: PALIPERIDONE PALMITATE 156MG/1ML INJ(INVEGA)(FREE PSY INPT ONLY) IM ONE (09:00)
== END 2020-07-22 14:00 | disposition home or self-care (01) | DRG 885 ==
LOC: M ED 19:44 → M ED INP 07-16 12:21 → M PSY 07-16 13:17
PROVIDERS: ADMIT Psychiatry & Neurology Child & Adolescent Psychiatry; ATTEND Psychiatry & Neurology Child & Adolescent Psychiatry
DX: F25.9 Schizoaffective disorder, unspecified (principal); R45.851 Suicidal ideations; Z79.899 Other long term (current) drug therapy; Z79.82 Long term (current) use of aspirin; Z88.8 Allergy status to other drugs, medicaments and biological substances; I10 Essential (primary) hypertension; E03.9 Hypothyroidism, unspecified; F43.10 Post-traumatic stress disorder, unspecified; K21.9 Gastro-esophageal reflux disease without esophagitis; E11.9 Type 2 diabetes mellitus without complications

== ENCOUNTER 2020-07-24 13:48 | Emergency (ER) | payer OTHER, MEDICARE ==
[~2020-07-24] VITALS: Ht 165.1 cm; Wt 95.0 kg
[~2020-07-24 13:48] MED LIST changes: +FLUO20CA20 PO; +HYDR50TA70 PO; +LORA-674 PO; +MILKSUS10 PO; +PIOG1TAB36 PO
== END 2020-07-24 16:04 | disposition home or self-care (01) ==
LOC: M ED 13:48
DX: F20.9 Schizophrenia, unspecified (principal); E11.9 Type 2 diabetes mellitus without complications; I10 Essential (primary) hypertension; E78.5 Hyperlipidemia, unspecified; F17.200 Nicotine dependence, unspecified, uncomplicated; Z79.82 Long term (current) use of aspirin; Z79.84 Long term (current) use of oral hypoglycemic drugs; Z79.899 Other long term (current) drug therapy; Z88.8 Allergy status to other drugs, medicaments and biological substances

== ENCOUNTER 2021-08-08 21:05 | Inpatient (IN) | payer MEDICARE, MEDICAID ==
[~2021-08-08] VITALS: Ht 165.1 cm; Wt 91.9 kg
[~2021-08-08 21:05] MED LIST changes: +FLUO-96 PO; -FLUO10CA16 PO; +FLUO10CA18 PO; -FLUO20CA20 PO; +OMEP-173 PO; -OMEP-218 PO; +OMEP20TA2 PO; -OMEP20TA9 PO
[2021-08-09 08:01] LABS: BASO # 0.1 10^3/uL (0.0-0.2); EOS # 0.4 10^3/uL (0.0-0.5); EOS % 4.4 % (0.0-3.0); HEMATOCRIT 39.4 % (42.0-52.0); HEMOGLOBIN 12.8 g/dl (13.5-17.5); LYMPH # 1.5 10^3/uL (1.5-5.0); LYMPH % 17.9 % (24.0-44.0); MEAN CORPUSCULAR HEMOGLOBIN 26.9 pg (27.0-33.0); MEAN CORPUSCULAR HGB CONC 32.5 g/dl (32.0-36.5); MEAN CORPUSCULAR VOLUME 82.8 fl (80.0-96.0); MONO # 0.8 10^3/uL (0.0-0.8); MONO % 9.8 % (2.0-8.0); NEUTROPHILS # 5.5 10^3/uL (1.5-8.5); NEUTROPHILS % 66.4 % (36.0-66.0); PLATELET COUNT, AUTOMATED 256 10^3/uL (150-450); RED BLOOD COUNT 4.76 10^6/uL (4.30-6.10); WHITE BLOOD COUNT 8.2 10^3/uL (4.0-10.0)
[2021-08-09 08:40] LABS: ACETAMINOPHEN LEVEL < 2.0 UG/ML (10.0-30.0); ALBUMIN 3.9 GM/DL (3.2-5.2); ALT/SGPT 39 U/L (12-78); BILIRUBIN,DIRECT < 0.1 MG/DL (0.0-0.2); BILIRUBIN,TOTAL 0.5 MG/DL (0.2-1.0); BLOOD UREA NITROGEN 16 MG/DL (7-18); CALCIUM LEVEL 8.8 MG/DL (8.8-10.2); CARBON DIOXIDE LEVEL 26 MEQ/L (21-32); CHLORIDE LEVEL 109 MEQ/L (98-107); CREATININE FOR GFR 0.64 MG/DL (0.70-1.30); ETHYL ALCOHOL (ETHANOL) < 0.003 % (0.000-0.010); GLOMERULAR FILTRATION RATE > 60.0 (>42); GLUCOSE, FASTING 175 MG/DL (70-100); POTASSIUM SERUM 4.4 MEQ/L (3.5-5.1); SALICYLATE LEVEL < 1.7 MG/DL (5.0-30.0); SODIUM LEVEL 141 MEQ/L (136-145); TOTAL PROTEIN 7.4 GM/DL (6.4-8.2)
[2021-08-09 09:01] LABS: RSV AMPLIFICATION NEGATIVE (NEGATIVE)
[2021-08-09 09:11] LABS: AMPHETAMINES LEVEL URINE NEGATIVE (NEGATIVE); BARBITURATES URINE NEGATIVE (NEGATIVE); BENZODIAZEPINES URINE NEGATIVE (NEGATIVE); CANNABINOIDS URINE NEGATIVE (NEGATIVE); COCAINE METABOLITE URINE NEGATIVE (NEGATIVE); METHADONE URINE NEGATIVE (NEGATIVE); OPIATES URINE NEGATIVE (NEGATIVE); PHENCYCLIDINE URINE NEGATIVE (NEGATIVE)
[2021-08-09] MEDS ORDERED: GLUCOSE 4GM CHEW TABLET PO PRN (12:05)
[2021-08-09] MEDS ORDERED: DEXTROSE 50% 50 ML SYRINGE IV PRN (12:05)
[2021-08-09] MEDS ORDERED: GLUCAGON INJ 1MG VIAL SC PRN (12:05)
[2021-08-09] MEDS ORDERED: PANT40TA29 PO (13:32)
[2021-08-09] MEDS ORDERED: TRAZ1TAB14 PO (13:32)
[2021-08-09] MEDS ORDERED: PALI1TAB3 PO (13:32)
[2021-08-09] MEDS ORDERED: PRAZ2CAP40 PO (13:32)
[2021-08-09] MEDS ORDERED: BASA100I SC (13:32)
[2021-08-09] MEDS ORDERED: LISI20TA33 PO (13:32)
[2021-08-09] MEDS ORDERED: AMLO1TAB25 PO (13:32)
[2021-08-09] MEDS ORDERED: COMMENTS (13:37)
[2021-08-09] MEDS: HumaLOG INSULIN (NovoLOG) PER UNIT SC SCH ×3 (13:45→20:54)
[2021-08-09 14:06] LABS: INR 0.99; PROTHROMBIN TIME 13.5 SECONDS (12.7-14.5)
[2021-08-09 14:07] LABS: PARTIAL THROMBOPLASTIN TIME 28.8 SECONDS (25.9-37.0)
[2021-08-09 14:20] LABS: CHOLESTEROL RISK RATIO 2.704 (<5)
[2021-08-09 14:25] LABS: HEMOGLOBIN A1c 7.6 %
[2021-08-09] MEDS ORDERED: MOM 30ML SUSPENSION UDC PO PRN (17:55)
[2021-08-09] MEDS ORDERED: PALIPERIDONE PALMITATE 156MG/1ML INJ(INVEGA)(FREE PSY INPT ONLY) IM SCH (17:55)
[2021-08-09 18:15] VITALS: BP 151/81
[2021-08-09] MEDS: traZODone 50 MG TAB PO SCH (20:32)
[2021-08-09] MEDS: ATORVASTATIN 20 MG TAB PO SCH (20:33)
[2021-08-09] MEDS: hydrOXYzine 50 MG TAB PO PRN (20:33)
[2021-08-09] MEDS: PANTOPRAZOLE 40MG TAB (PROTONIX) PO SCH (20:33)
[2021-08-09] MEDS: PRAZOSIN 1 MG CAP PO SCH (20:33)
[2021-08-09 22:00] VITALS: BP 164/86
[2021-08-10 06:00] VITALS: BP 131/89
[2021-08-10 07:00] LABS: HEMATOCRIT 37.3 % (42.0-52.0); MEAN CORPUSCULAR HEMOGLOBIN 26.4 pg (27.0-33.0); MEAN CORPUSCULAR HGB CONC 32.2 g/dl (32.0-36.5); MEAN CORPUSCULAR VOLUME 82.2 fl (80.0-96.0); PLATELET COUNT, AUTOMATED 239 10^3/uL (150-450); RED BLOOD COUNT 4.54 10^6/uL (4.30-6.10); WHITE BLOOD COUNT 7.6 10^3/uL (4.0-10.0)
[2021-08-10 07:22] LABS: ALBUMIN 3.3 GM/DL (3.2-5.2); ALT/SGPT 33 U/L (12-78); BILIRUBIN,TOTAL 0.5 MG/DL (0.2-1.0); BLOOD UREA NITROGEN 12 MG/DL (7-18); CALCIUM LEVEL 8.4 MG/DL (8.8-10.2); CARBON DIOXIDE LEVEL 28 MEQ/L (21-32); CHLORIDE LEVEL 109 MEQ/L (98-107); CREATININE FOR GFR 0.69 MG/DL (0.70-1.30); GLOMERULAR FILTRATION RATE > 60.0 (>42); GLUCOSE, FASTING 168 MG/DL (70-100); POTASSIUM SERUM 4.1 MEQ/L (3.5-5.1); SODIUM LEVEL 142 MEQ/L (136-145); TOTAL PROTEIN 5.9 GM/DL (6.4-8.2)
[2021-08-10] MEDS: HumaLOG INSULIN (NovoLOG) PER UNIT SC SCH ×4 (08:31→19:55)
[2021-08-10] MEDS: FLUoxetine 20MG CAP PO SCH (08:32)
[2021-08-10] MEDS: PANTOPRAZOLE 40MG TAB (PROTONIX) PO SCH ×2 (08:32→19:55)
[2021-08-10] MEDS: PALIPERIDONE 6 MG ER TAB (INVEGA) PO SCH (08:32)
[2021-08-10] MEDS: ASPIRIN 81MG ENTERIC TABLET PO SCH (08:32)
[2021-08-10] MEDS ORDERED: LEVEMIR (INSULIN DETEMIR) 1 UNITS/0.01ML SC SCH (09:00)
[2021-08-10] MEDS ORDERED: OMEPRAZOLE 20MG CAP PO SCH (09:00)
[2021-08-10] MEDS ORDERED: ENOXAPARIN 40MG/0.4ML SYRINGE (J1650 PER 10MG) SC SCH (09:00)
[2021-08-10 14:00] VITALS: BP 146/76
[2021-08-10] MEDS: ACETAMINOPHEN TAB 650MG DOSE (2X325MG) PO PRN (19:48)
[2021-08-10] MEDS: ATORVASTATIN 20 MG TAB PO SCH (19:48)
[2021-08-10] MEDS: traZODone 50 MG TAB PO SCH (19:49)
[2021-08-10] MEDS ORDERED: guaiFENesin DM LIQ 10ML UD PO PRN (20:05)
[2021-08-10] MEDS: PRAZOSIN 1 MG CAP PO SCH (21:00)
[2021-08-10] MEDS ORDERED: IBUPROFEN 400MG TAB PO PRN (23:00)
[2021-08-10 23:27] VITALS: BP 144/79
[2021-08-11 06:16] VITALS: BP 122/63
[2021-08-11 06:52] LABS: HEMATOCRIT 37.7 % (42.0-52.0); HEMOGLOBIN 12.4 g/dl (13.5-17.5); MEAN CORPUSCULAR HEMOGLOBIN 27.2 pg (27.0-33.0); MEAN CORPUSCULAR HGB CONC 32.9 g/dl (32.0-36.5); MEAN CORPUSCULAR VOLUME 82.7 fl (80.0-96.0); PLATELET COUNT, AUTOMATED 220 10^3/uL (150-450); RED BLOOD COUNT 4.56 10^6/uL (4.30-6.10); WHITE BLOOD COUNT 6.7 10^3/uL (4.0-10.0)
[2021-08-11 07:16] LABS: ALBUMIN 3.3 GM/DL (3.2-5.2); ALT/SGPT 37 U/L (12-78); BILIRUBIN,TOTAL 0.5 MG/DL (0.2-1.0); BLOOD UREA NITROGEN 14 MG/DL (7-18); CALCIUM LEVEL 8.6 MG/DL (8.8-10.2); CARBON DIOXIDE LEVEL 30 MEQ/L (21-32); CHLORIDE LEVEL 108 MEQ/L (98-107); CREATININE FOR GFR 0.71 MG/DL (0.70-1.30); GLOMERULAR FILTRATION RATE > 60.0 (>42); GLUCOSE, FASTING 172 MG/DL (70-100); SODIUM LEVEL 141 MEQ/L (136-145); TOTAL PROTEIN 6.4 GM/DL (6.4-8.2)
[2021-08-11] MEDS: HumaLOG INSULIN (NovoLOG) PER UNIT SC SCH ×4 (09:35→20:26)
[2021-08-11] MEDS: LEVEMIR (INSULIN DETEMIR) 1 UNITS/0.01ML SC SCH (09:36)
[2021-08-11] MEDS: ASPIRIN 81MG ENTERIC TABLET PO SCH (09:36)
[2021-08-11] MEDS: PANTOPRAZOLE 40MG TAB (PROTONIX) PO SCH ×2 (09:37→20:19)
[2021-08-11] MEDS: PALIPERIDONE 6 MG ER TAB (INVEGA) PO SCH (09:37)
[2021-08-11] MEDS: FLUoxetine 20MG CAP PO SCH (09:37)
[2021-08-11] MEDS ORDERED: BASA100I SC (12:03)
[2021-08-11 14:00] VITALS: BP 137/67
[2021-08-11] MEDS: ATORVASTATIN 20 MG TAB PO SCH (20:19)
[2021-08-11] MEDS: traZODone 50 MG TAB PO SCH (20:20)
[2021-08-11] MEDS: PRAZOSIN 1 MG CAP PO SCH (20:20)
[2021-08-11 21:51] VITALS: BP 134/64
[2021-08-12] MEDS: hydrOXYzine 50 MG TAB PO PRN (00:23)
[2021-08-12] MEDS: ACETAMINOPHEN TAB 650MG DOSE (2X325MG) PO PRN (00:24)
[2021-08-12 06:00] VITALS: BP 136/72
[2021-08-12 06:03] LABS: HEMATOCRIT 36.3 % (42.0-52.0); HEMOGLOBIN 11.9 g/dl (13.5-17.5); MEAN CORPUSCULAR HGB CONC 32.8 g/dl (32.0-36.5); MEAN CORPUSCULAR VOLUME 82.3 fl (80.0-96.0); PLATELET COUNT, AUTOMATED 240 10^3/uL (150-450); RED BLOOD COUNT 4.41 10^6/uL (4.30-6.10); WHITE BLOOD COUNT 6.4 10^3/uL (4.0-10.0)
[2021-08-12 06:31] LABS: ALBUMIN 3.2 GM/DL (3.2-5.2); ALT/SGPT 37 U/L (12-78); BILIRUBIN,TOTAL 0.3 MG/DL (0.2-1.0); BLOOD UREA NITROGEN 13 MG/DL (7-18); CALCIUM LEVEL 8.6 MG/DL (8.8-10.2); CARBON DIOXIDE LEVEL 28 MEQ/L (21-32); CHLORIDE LEVEL 107 MEQ/L (98-107); CREATININE FOR GFR 0.73 MG/DL (0.70-1.30); GLOMERULAR FILTRATION RATE > 60.0 (>42); GLUCOSE, FASTING 208 MG/DL (70-100); POTASSIUM SERUM 4.2 MEQ/L (3.5-5.1); SODIUM LEVEL 140 MEQ/L (136-145); TOTAL PROTEIN 5.9 GM/DL (6.4-8.2)
[2021-08-12 07:30] VITALS: BP 139/73
[2021-08-12] MEDS: LEVEMIR (INSULIN DETEMIR) 1 UNITS/0.01ML SC SCH (09:00)
[2021-08-12] MEDS: FLUoxetine 20MG CAP PO SCH (09:07)
[2021-08-12] MEDS: ASPIRIN 81MG ENTERIC TABLET PO SCH (09:07)
[2021-08-12] MEDS: PALIPERIDONE 6 MG ER TAB (INVEGA) PO SCH (09:08)
[2021-08-12 09:09] VITALS: BP 139/73
[2021-08-12] MEDS: PANTOPRAZOLE 40MG TAB (PROTONIX) PO SCH (09:09)
[2021-08-12] MEDS: HumaLOG INSULIN (NovoLOG) PER UNIT SC SCH ×2 (10:13→12:46)
== END 2021-08-12 14:15 | disposition left against medical advice (07) | DRG 125 ==
LOC: M ED 21:05 → M ED INP 08-09 12:02 → ENRESERV 08-09 15:14 → M MS5PR 08-09 15:50
PROVIDERS: ADMIT Internal Medicine; ATTEND Family Medicine
DX: E11.39 Type 2 diabetes mellitus with other diabetic ophthalmic complication (principal); F20.9 Schizophrenia, unspecified; I10 Essential (primary) hypertension; E78.5 Hyperlipidemia, unspecified; K21.9 Gastro-esophageal reflux disease without esophagitis; K27.9 Peptic ulcer, site unspecified, unspecified as acute or chronic, without hemorrhage or perforation; E03.9 Hypothyroidism, unspecified; F43.10 Post-traumatic stress disorder, unspecified; R29.6 Repeated falls; H54.7 Unspecified visual loss; Z59.00 Homelessness unspecified; Z20.822 Contact with and (suspected) exposure to COVID-19; Z79.82 Long term (current) use of aspirin; Z79.84 Long term (current) use of oral hypoglycemic drugs; Z79.899 Other long term (current) drug therapy; Z88.8 Allergy status to other drugs, medicaments and biological substances; H26.9 Unspecified cataract; Z74.1 Need for assistance with personal care; Z91.19 Patient's noncompliance with other medical treatment and regimen

== ENCOUNTER 2021-11-24 14:13 | Inpatient (IN) | payer MEDICARE, MEDICAID, OTHER ==
[~2021-11-24] VITALS: Ht 165.1 cm; Wt 92.3 kg
[~2021-11-24 14:13] MED LIST changes: +BASA100I SC; +COMMENTS; +PANT40TA29 PO; +PRAZ2CAP40 PO
[2021-11-24 14:50] LABS: HEMATOCRIT 41.9 % (42.0-52.0); HEMOGLOBIN 13.6 g/dl (13.5-17.5); MEAN CORPUSCULAR HEMOGLOBIN 26.9 pg (27.0-33.0); MEAN CORPUSCULAR HGB CONC 32.5 g/dl (32.0-36.5); PLATELET COUNT, AUTOMATED 237 10^3/uL (150-450); RED BLOOD COUNT 5.05 10^6/uL (4.30-6.10); WHITE BLOOD COUNT 11.5 10^3/uL (4.0-10.0)
[2021-11-24 15:23] LABS: RSV AMPLIFICATION NEGATIVE (NEGATIVE)
[2021-11-24 17:28] LABS: ALT/SGPT 48 IU/L (0-32); BILIRUBIN,DIRECT 0.1 MG/DL (0.0-0.2); BILIRUBIN,TOTAL 0.2 MG/DL (0.2-1.0); BLOOD UREA NITROGEN 15 MG/DL (7-18); CALCIUM LEVEL 9.4 MG/DL (8.8-10.2); CARBON DIOXIDE LEVEL 22 mmol/L (20-29); CHLORIDE LEVEL 103 MEQ/L (98-107); CREATININE FOR GFR 0.98 MG/DL (0.70-1.30); ETHYL ALCOHOL (ETHANOL) < 0.003 % (0.000-0.010); GLOMERULAR FILTRATION RATE > 60.0 (>42); GLUCOSE, FASTING 278 MG/DL (70-100); POTASSIUM SERUM 4.5 MEQ/L (3.5-5.1); SODIUM LEVEL 135 MEQ/L (136-145)
[2021-11-24 17:29] LABS: ACETAMINOPHEN LEVEL < 2.0 UG/ML (10.0-30.0); SALICYLATE LEVEL < 1.7 MG/DL (5.0-30.0)
[2021-11-24] MEDS ORDERED: FLUO10CA18 PO (18:20)
[2021-11-24] MEDS ORDERED: CLOP75TA2 PO (18:20)
[2021-11-24] MEDS ORDERED: ATOR40TA75 PO (18:20)
[2021-11-24] MEDS ORDERED: ZOLO100T PO (18:20)
[2021-11-24] MEDS ORDERED: LISI10TA22 PO (18:20)
[2021-11-24] MEDS ORDERED: BASA100I SQ (18:20)
[2021-11-24] MEDS ORDERED: FLUO20CA22 PO (18:20)
[2021-11-24] MEDS ORDERED: AMLO1TAB24 PO (18:20)
[2021-11-24] MEDS ORDERED: PRAZ1CAP PO (18:20)
[2021-11-24] MEDS ORDERED: METF-839 PO (18:20)
[2021-11-24] MEDS ORDERED: RISP-10 PO (18:20)
[2021-11-24] MEDS ORDERED: NOVOINJ3 INJ (18:20)
[2021-11-24] MEDS ORDERED: TRAZ-252 PO (18:21)
[2021-11-24] MEDS ORDERED: HOME MED LIST COMPLETE! XX SCH (18:30)
[2021-11-24 19:34] LABS: AMPHETAMINES LEVEL URINE NEGATIVE (NEGATIVE); BARBITURATES URINE NEGATIVE (NEGATIVE); BENZODIAZEPINES URINE NEGATIVE (NEGATIVE); CANNABINOIDS URINE NEGATIVE (NEGATIVE); COCAINE METABOLITE URINE NEGATIVE (NEGATIVE); METHADONE URINE NEGATIVE (NEGATIVE); OPIATES URINE NEGATIVE (NEGATIVE); PHENCYCLIDINE URINE NEGATIVE (NEGATIVE)
[2021-11-24] MEDS ORDERED: MOM 30ML SUSPENSION UDC PO PRN (22:10)
[2021-11-24] MEDS ORDERED: GLUCAGON INJ 1MG VIAL SC PRN (22:10)
[2021-11-24] MEDS ORDERED: DEXTROSE 50% 50 ML SYRINGE IV PRN (22:10)
[2021-11-24] MEDS ORDERED: hydrOXYzine 50 MG TAB PO PRN (22:10)
[2021-11-24] MEDS ORDERED: GLUCOSE 4GM CHEW TABLET PO PRN (22:10)
[2021-11-24] MEDS ORDERED: OLANZapine ORAL DISINTEGRATING TAB 5MG PO PRN (22:10)
[2021-11-24] MEDS ORDERED: MAALOX 30 ML SUSP *UDC PO PRN (22:10)
[2021-11-24] MEDS: INSULIN LISPRO (NovoLOG) PER UNIT SC SCH (23:32)
[2021-11-25 00:03] VITALS: BP 152/82
[2021-11-25] MEDS: risperiDONE 3 MG TAB PO SCH ×3 (00:21→21:39)
[2021-11-25] MEDS: ATORVASTATIN 20 MG TAB PO SCH ×2 (00:21→21:39)
[2021-11-25] MEDS: traZODone 50 MG TAB PO SCH ×2 (00:21→21:39)
[2021-11-25] MEDS: PRAZOSIN 1 MG CAP PO SCH ×2 (00:22→21:39)
[2021-11-25] MEDS: CLOPIDOGREL 75 MG TAB PO SCH ×2 (00:22→21:39)
[2021-11-25] MEDS: PANTOPRAZOLE 40MG TAB (PROTONIX) PO SCH ×3 (00:22→21:39)
[2021-11-25] MEDS: ACETAMINOPHEN TAB 650MG DOSE (2X325MG) PO PRN (05:12)
[2021-11-25] MEDS: INSULIN LISPRO (NovoLOG) PER UNIT SC SCH ×4 (06:39→21:00)
[2021-11-25] MEDS: PALIPERIDONE 6 MG ER TAB (INVEGA) PO SCH (09:03)
[2021-11-25] MEDS: LEVEMIR (INSULIN DETEMIR) 1 UNITS/0.01ML SC SCH (09:03)
[2021-11-25] MEDS: SERTRALINE 100 MG TAB PO SCH (09:03)
[2021-11-25] MEDS: GLIMEPIRIDE 2 MG TAB PO SCH (09:03)
[2021-11-25] MEDS: LORATADINE 10 MG TAB PO SCH (09:03)
[2021-11-25] MEDS: amLODIPine 5 MG TAB PO SCH (09:05)
[2021-11-25] MEDS: ASPIRIN 81MG ENTERIC TABLET PO SCH (09:06)
[2021-11-25] MEDS: metFORMIN (GLUCOPHAGE) 500MG TAB PO SCH ×2 (09:06→17:22)
[2021-11-26 06:17] VITALS: BP 144/71
[2021-11-26] MEDS: INSULIN LISPRO (NovoLOG) PER UNIT SC SCH ×4 (06:42→21:00)
[2021-11-26] MEDS: amLODIPine 5 MG TAB PO SCH (09:57)
[2021-11-26] MEDS: GLIMEPIRIDE 2 MG TAB PO SCH (09:57)
[2021-11-26] MEDS: PALIPERIDONE 6 MG ER TAB (INVEGA) PO SCH (09:57)
[2021-11-26] MEDS: LEVEMIR (INSULIN DETEMIR) 1 UNITS/0.01ML SC SCH (09:57)
[2021-11-26] MEDS: PANTOPRAZOLE 40MG TAB (PROTONIX) PO SCH ×2 (09:57→22:13)
[2021-11-26] MEDS: ASPIRIN 81MG ENTERIC TABLET PO SCH (09:57)
[2021-11-26] MEDS: SERTRALINE 100 MG TAB PO SCH (09:58)
[2021-11-26] MEDS: risperiDONE 3 MG TAB PO SCH ×2 (09:58→22:13)
[2021-11-26] MEDS: LORATADINE 10 MG TAB PO SCH (09:58)
[2021-11-26] MEDS: metFORMIN (GLUCOPHAGE) 500MG TAB PO SCH ×2 (09:59→17:24)
[2021-11-26 18:23] VITALS: BP 149/67
[2021-11-26] MEDS: ACETAMINOPHEN TAB 650MG DOSE (2X325MG) PO PRN (19:30)
[2021-11-26] MEDS: traZODone 50 MG TAB PO SCH (22:13)
[2021-11-26] MEDS: ATORVASTATIN 20 MG TAB PO SCH (22:13)
[2021-11-26] MEDS: PRAZOSIN 1 MG CAP PO SCH (22:14)
[2021-11-26] MEDS: CLOPIDOGREL 75 MG TAB PO SCH (22:14)
[2021-11-27] MEDS: ACETAMINOPHEN TAB 650MG DOSE (2X325MG) PO PRN (04:40)
[2021-11-27] MEDS: INSULIN LISPRO (NovoLOG) PER UNIT SC SCH ×2 (06:47→12:36)
[2021-11-27 06:54] VITALS: BP 145/70
[2021-11-27] MEDS: PALIPERIDONE 6 MG ER TAB (INVEGA) PO SCH (08:46)
[2021-11-27] MEDS: ASPIRIN 81MG ENTERIC TABLET PO SCH (08:46)
[2021-11-27] MEDS: metFORMIN (GLUCOPHAGE) 500MG TAB PO SCH (08:46)
[2021-11-27] MEDS: LEVEMIR (INSULIN DETEMIR) 1 UNITS/0.01ML SC SCH (08:46)
[2021-11-27] MEDS: risperiDONE 3 MG TAB PO SCH (08:46)
[2021-11-27 08:47] VITALS: BP 145/70
[2021-11-27] MEDS: SERTRALINE 100 MG TAB PO SCH (08:47)
[2021-11-27] MEDS: PANTOPRAZOLE 40MG TAB (PROTONIX) PO SCH (08:47)
[2021-11-27] MEDS: amLODIPine 5 MG TAB PO SCH (08:47)
[2021-11-27] MEDS: GLIMEPIRIDE 2 MG TAB PO SCH (08:47)
[2021-11-27] MEDS: LORATADINE 10 MG TAB PO SCH (08:47)
[2021-11-27] MEDS ORDERED: RISP-10 PO (09:29)
[2021-11-27] MEDS ORDERED: FLUO10CA18 PO (09:29)
[2021-11-27] MEDS ORDERED: TRAZ-252 PO (09:29)
[2021-11-27] MEDS ORDERED: ZOLO100T PO (09:29)
[2021-11-27] MEDS ORDERED: PALI1TAB3 PO (09:29)
[2021-11-27] MEDS ORDERED: FLUO20CA22 PO (09:29)
[2021-11-27] MEDS ORDERED: PRAZ1CAP PO (09:29)
== END 2021-11-27 14:12 | disposition home or self-care (01) | DRG 885 ==
LOC: M ED 14:13 → M ED INP 22:08 → M PSY 23:56
PROVIDERS: ADMIT Psychiatry & Neurology Psychiatry; ATTEND Student in an Organized Health Care Education/Training Program
DX: F20.9 Schizophrenia, unspecified (principal); R45.851 Suicidal ideations; Z91.51 Personal history of suicidal behavior; Z81.1 Family history of alcohol abuse and dependence; E11.9 Type 2 diabetes mellitus without complications; I10 Essential (primary) hypertension; E78.5 Hyperlipidemia, unspecified; F79 Unspecified intellectual disabilities; H26.9 Unspecified cataract; H54.8 Legal blindness, as defined in USA; Z79.82 Long term (current) use of aspirin; Z79.02 Long term (current) use of antithrombotics/antiplatelets; Z79.4 Long term (current) use of insulin; Z79.899 Other long term (current) drug therapy; Z88.8 Allergy status to other drugs, medicaments and biological substances; Z91.128 Patient's intentional underdosing of medication regimen for other reason

== ENCOUNTER 2022-12-09 12:59 | Inpatient (IN) | payer MEDICARE, MEDICAID ==
[~2022-12-09] VITALS: Ht 165.1 cm; Wt 88.5 kg
[~2022-12-09 12:59] MED LIST changes: +BASA100I SQ; -BENZ-52; -BENZ-52 PO; +BENZ1TAB5; +BENZ1TAB5 PO; +CLOP75TA2 PO; +METF-839 PO; +NOVOINJ3 INJ; +SIMV-254 PO; -ZOCO40TA PO
[2022-12-09 15:19] LABS: HEMOGLOBIN 11.8 g/dl (13.5-17.5); MEAN CORPUSCULAR HEMOGLOBIN 24.9 pg (27.0-33.0); MEAN CORPUSCULAR HGB CONC 31.9 g/dl (32.0-36.5); MEAN CORPUSCULAR VOLUME 78.2 fl (80.0-96.0); PLATELET COUNT, AUTOMATED 246 10^3/uL (150-450); RED BLOOD COUNT 4.73 10^6/uL (4.30-6.10); WHITE BLOOD COUNT 8.2 10^3/uL (4.0-10.0)
[2022-12-09] MEDS ORDERED: MED REC IN PROGRESS XX SCH (15:45)
[2022-12-09 15:47] LABS: ETHYL ALCOHOL (ETHANOL) < 0.003 % (0.000-0.010)
[2022-12-09 15:48] LABS: ACETAMINOPHEN LEVEL < 2.0 UG/ML (10.0-20.0)
[2022-12-09 15:49] LABS: ALBUMIN 3.6 G/DL (3.2-5.2); ALKALINE PHOSPHATASE 85 U/L (46-116); ALT/SGPT 15 U/L (7.0-40); AST/SGOT < 8 U/L (<34); BILIRUBIN,DIRECT 0.1 MG/DL (<0.4); BILIRUBIN,TOTAL 0.3 MG/DL (0.3-1.2); BLOOD UREA NITROGEN 11 MG/DL (9-23); CALCIUM LEVEL 8.9 MG/DL (8.3-10.6); CARBON DIOXIDE LEVEL 24 MMOL/L (20-31); CHLORIDE LEVEL 104 MMOL/L (98-107); CREATININE FOR GFR 0.52 MG/DL (0.70-1.30); GLOMERULAR FILTRATION RATE > 60.0 (>42); GLUCOSE, FASTING 272 MG/DL (74-106); POTASSIUM SERUM 4.4 MMOL/L (3.5-5.1); SALICYLATE LEVEL < 3.0 MG/DL (<30); SODIUM LEVEL 138 MMOL/L (136-145); TOTAL PROTEIN 6.6 G/DL (5.7-8.2)
[2022-12-09 15:51] LABS: THYROID STIMULATING HORMONE 0.859 uIU/ML (0.55-4.78)
[2022-12-09 15:58] LABS: AMPHETAMINES LEVEL URINE NEGATIVE (NEGATIVE); PHENCYCLIDINE URINE NEGATIVE (NEGATIVE)
[2022-12-09 15:59] LABS: BARBITURATES URINE NEGATIVE (NEGATIVE); BENZODIAZEPINES URINE NEGATIVE (NEGATIVE); CANNABINOIDS URINE NEGATIVE (NEGATIVE); COCAINE METABOLITE URINE NEGATIVE (NEGATIVE); METHADONE URINE NEGATIVE (NEGATIVE); OPIATES URINE NEGATIVE (NEGATIVE)
[2022-12-09] MEDS ORDERED: MOM 30ML SUSPENSION UDC PO PRN (16:30)
[2022-12-09] MEDS ORDERED: traZODone 50 MG TAB PO PRN (16:30)
[2022-12-09] MEDS ORDERED: MAALOX 30 ML SUSP *UDC PO PRN (16:30)
[2022-12-09 18:26] VITALS: BP 142/72; TEMP 97.4; O2SAT 96
[2022-12-09] MEDS: diphenhydrAMINE 25MG CAP PO PRN (23:17)
[2022-12-09] MEDS: OLANZapine ORAL DISINTEGRATING TAB 5MG PO PRN (23:17)
[2022-12-10] MEDS: ACETAMINOPHEN TAB 650MG DOSE (2X325MG) PO PRN (04:14)
[2022-12-10 06:38] VITALS: BP 150/92; TEMP 96.3; O2SAT 96
[2022-12-10] MEDS ORDERED: FLUO10CA18 PO (11:19)
[2022-12-10] MEDS ORDERED: METF10004 PO (11:19)
[2022-12-10] MEDS ORDERED: AMLO1TAB25 PO (11:19)
[2022-12-10] MEDS ORDERED: PRAZ5CAP PO (11:19)
[2022-12-10] MEDS ORDERED: TERA1CAP3 PO (11:19)
[2022-12-10] MEDS ORDERED: NESI25TA PO (11:19)
[2022-12-10] MEDS ORDERED: ASPI81CH33 PO (11:19)
[2022-12-10] MEDS ORDERED: TRAZ-257 PO (11:19)
[2022-12-10] MEDS ORDERED: RISP-8 PO (11:19)
[2022-12-10] MEDS ORDERED: PALI1TAB4 PO (11:19)
[2022-12-10] MEDS ORDERED: LISI20TA33 PO (11:19)
[2022-12-10] MEDS ORDERED: HOME MED LIST COMPLETE! XX SCH (11:25)
[2022-12-10] MEDS: ASPIRIN 81MG CHEW TABLET PO SCH (12:13)
[2022-12-10] MEDS: ATORVASTATIN 20 MG TAB PO SCH (12:13)
[2022-12-10] MEDS: FLUoxetine 10 MG CAP PO SCH (12:13)
[2022-12-10] MEDS: PANTOPRAZOLE 40MG TAB (PROTONIX) PO SCH (12:14)
[2022-12-10] MEDS: OLANZapine ORAL DISINTEGRATING TAB 5MG PO PRN ×2 (12:17→23:47)
[2022-12-10] MEDS: CLOPIDOGREL 75 MG TAB PO SCH (12:27)
[2022-12-10] MEDS: PALIPERIDONE 3MG ER TAB (INVEGA) PO SCH ×2 (12:27→21:02)
[2022-12-10] MEDS: metFORMIN (GLUCOPHAGE) 1000MG TABLET PO SCH ×2 (12:27→21:02)
[2022-12-10 17:15] VITALS: BP 146/68; TEMP 96; O2SAT 95
[2022-12-10] MEDS ORDERED: DEXTROSE 50% 50ML SYRINGE IV PRN (17:15)
[2022-12-10] MEDS ORDERED: GLUCOSE 4GM CHEW TABLET PO PRN (17:15)
[2022-12-10] MEDS ORDERED: GLUCAGON INJ 1MG VIAL SC PRN (17:15)
[2022-12-10] MEDS: INSULIN LISPRO (NovoLOG) PER UNIT SC SCH ×2 (17:30→21:00)
[2022-12-10] MEDS: diphenhydrAMINE 25MG CAP PO PRN (17:41)
[2022-12-10] MEDS ORDERED: PRAZOSIN 1 MG CAP PO SCH ×2 (21:00)
[2022-12-10] MEDS ORDERED: risperiDONE 1 MG TAB PO SCH (21:00)
[2022-12-10] MEDS: PRAZOSIN 1 MG CAP PO SCH (21:02)
[2022-12-10] MEDS: traZODone 100 MG TAB PO SCH (21:02)
[2022-12-11] MEDS: diphenhydrAMINE 25MG CAP PO PRN ×2 (01:16→23:25)
[2022-12-11] MEDS: IBUPROFEN 400MG TAB PO PRN (02:02)
[2022-12-11] MEDS: INSULIN LISPRO (NovoLOG) PER UNIT SC SCH ×4 (06:35→20:27)
[2022-12-11 06:55] VITALS: BP 148/70; TEMP 96.6; O2SAT 97
[2022-12-11 07:28] LABS: CHOLESTEROL RISK RATIO 2.58 (<5); HDL CHOLESTEROL 44.8 MG/DL (>40); LDL CHOLESTEROL 56.6 MG/DL (<100); NON-HDL-C 71.2 MG/DL
[2022-12-11] MEDS ORDERED: FLUoxetine 20MG CAP PO SCH (09:00)
[2022-12-11] MEDS ORDERED: TERAZOSIN 1 MG CAP PO SCH (09:00)
[2022-12-11] MEDS: ASPIRIN 81MG CHEW TABLET PO SCH (09:09)
[2022-12-11] MEDS: CLOPIDOGREL 75 MG TAB PO SCH (09:09)
[2022-12-11] MEDS: PANTOPRAZOLE 40MG TAB (PROTONIX) PO SCH (09:09)
[2022-12-11] MEDS: metFORMIN (GLUCOPHAGE) 1000MG TABLET PO SCH ×2 (09:09→20:29)
[2022-12-11] MEDS: FLUoxetine 10 MG CAP PO SCH (09:09)
[2022-12-11] MEDS: PALIPERIDONE 3MG ER TAB (INVEGA) PO SCH ×2 (09:10→20:29)
[2022-12-11] MEDS: ATORVASTATIN 20 MG TAB PO SCH (09:10)
[2022-12-11] MEDS: OLANZapine ORAL DISINTEGRATING TAB 5MG PO PRN (15:27)
[2022-12-11 18:36] VITALS: BP 148/88; TEMP 97.8; O2SAT 100
[2022-12-11] MEDS: PRAZOSIN 1 MG CAP PO SCH (20:29)
[2022-12-11] MEDS: traZODone 100 MG TAB PO SCH (20:29)
[2022-12-12] MEDS: ACETAMINOPHEN TAB 650MG DOSE (2X325MG) PO PRN (02:31)
[2022-12-12 06:08] VITALS: BP 144/80; TEMP 96.3; O2SAT 97
[2022-12-12] MEDS: INSULIN LISPRO (NovoLOG) PER UNIT SC SCH ×4 (07:02→20:40)
[2022-12-12] MEDS: PANTOPRAZOLE 40MG TAB (PROTONIX) PO SCH (09:51)
[2022-12-12] MEDS: metFORMIN (GLUCOPHAGE) 1000MG TABLET PO SCH ×2 (09:51→20:36)
[2022-12-12] MEDS: ASPIRIN 81MG CHEW TABLET PO SCH (09:51)
[2022-12-12] MEDS: ATORVASTATIN 20 MG TAB PO SCH (09:51)
[2022-12-12] MEDS: FLUoxetine 10 MG CAP PO SCH (09:52)
[2022-12-12] MEDS: PALIPERIDONE 3MG ER TAB (INVEGA) PO SCH ×2 (09:52→20:36)
[2022-12-12] MEDS: CLOPIDOGREL 75 MG TAB PO SCH (09:52)
[2022-12-12 18:35] VITALS: BP 135/90; TEMP 96.9; O2SAT 100
[2022-12-12] MEDS: diphenhydrAMINE 25MG CAP PO PRN (20:35)
[2022-12-12] MEDS: PRAZOSIN 1 MG CAP PO SCH (20:36)
[2022-12-12] MEDS: traZODone 100 MG TAB PO SCH (20:36)
[2022-12-12] MEDS: OLANZapine ORAL DISINTEGRATING TAB 5MG PO PRN (22:57)
[2022-12-13] MEDS: ACETAMINOPHEN TAB 650MG DOSE (2X325MG) PO PRN ×2 (01:59→22:50)
[2022-12-13 07:00] VITALS: BP 127/66; TEMP 98.5; O2SAT 96
[2022-12-13] MEDS: INSULIN LISPRO (NovoLOG) PER UNIT SC SCH ×4 (07:16→21:00)
[2022-12-13] MEDS: ASPIRIN 81MG CHEW TABLET PO SCH (09:11)
[2022-12-13] MEDS: metFORMIN (GLUCOPHAGE) 1000MG TABLET PO SCH ×2 (09:12→21:35)
[2022-12-13] MEDS: PALIPERIDONE 3MG ER TAB (INVEGA) PO SCH ×2 (09:12→21:35)
[2022-12-13] MEDS: ATORVASTATIN 20 MG TAB PO SCH (09:12)
[2022-12-13] MEDS: FLUoxetine 10 MG CAP PO SCH (09:12)
[2022-12-13] MEDS: CLOPIDOGREL 75 MG TAB PO SCH (09:12)
[2022-12-13] MEDS: OLANZapine ORAL DISINTEGRATING TAB 5MG PO PRN ×2 (09:13→22:50)
[2022-12-13] MEDS: PANTOPRAZOLE 40MG TAB (PROTONIX) PO SCH (09:13)
[2022-12-13 18:25] VITALS: BP 157/72; TEMP 96.6; O2SAT 100
[2022-12-13] MEDS: traZODone 100 MG TAB PO SCH (21:35)
[2022-12-13] MEDS: PRAZOSIN 1 MG CAP PO SCH (21:36)
[2022-12-14] MEDS: diphenhydrAMINE 25MG CAP PO PRN (01:40)
[2022-12-14] MEDS: INSULIN LISPRO (NovoLOG) PER UNIT SC SCH ×4 (06:35→20:27)
[2022-12-14 06:48] VITALS: BP 145/69; TEMP 97.9; O2SAT 96
[2022-12-14] MEDS: CLOPIDOGREL 75 MG TAB PO SCH (08:49)
[2022-12-14] MEDS: PALIPERIDONE 3MG ER TAB (INVEGA) PO SCH ×2 (08:49→20:23)
[2022-12-14] MEDS: FLUoxetine 10 MG CAP PO SCH (08:49)
[2022-12-14] MEDS: ASPIRIN 81MG CHEW TABLET PO SCH (08:49)
[2022-12-14] MEDS: PANTOPRAZOLE 40MG TAB (PROTONIX) PO SCH (08:49)
[2022-12-14] MEDS: metFORMIN (GLUCOPHAGE) 1000MG TABLET PO SCH ×2 (08:49→20:23)
[2022-12-14] MEDS: ATORVASTATIN 20 MG TAB PO SCH (08:49)
[2022-12-14] MEDS: OLANZapine ORAL DISINTEGRATING TAB 5MG PO PRN (14:22)
[2022-12-14 18:13] VITALS: BP 152/88; TEMP 96.8; O2SAT 98
[2022-12-14] MEDS: PRAZOSIN 1 MG CAP PO SCH (20:23)
[2022-12-14] MEDS: traZODone 100 MG TAB PO SCH (20:23)
[2022-12-15] MEDS: INSULIN LISPRO (NovoLOG) PER UNIT SC SCH ×4 (06:36→20:40)
[2022-12-15 06:40] VITALS: BP 146/70; TEMP 96.6; O2SAT 98
[2022-12-15 09:49] VITALS: BP 134/65
[2022-12-15] MEDS: metFORMIN (GLUCOPHAGE) 1000MG TABLET PO SCH ×2 (09:51→20:35)
[2022-12-15] MEDS: CLOPIDOGREL 75 MG TAB PO SCH (09:51)
[2022-12-15] MEDS: PALIPERIDONE 3MG ER TAB (INVEGA) PO SCH ×2 (09:51→20:35)
[2022-12-15] MEDS: ATORVASTATIN 20 MG TAB PO SCH (09:51)
[2022-12-15] MEDS: FLUoxetine 10 MG CAP PO SCH (09:51)
[2022-12-15] MEDS: ASPIRIN 81MG CHEW TABLET PO SCH (09:51)
[2022-12-15] MEDS: PANTOPRAZOLE 40MG TAB (PROTONIX) PO SCH (09:51)
[2022-12-15] MEDS: OLANZapine ORAL DISINTEGRATING TAB 5MG PO PRN (15:58)
[2022-12-15 19:11] VITALS: BP 151/80; TEMP 98.3
[2022-12-15] MEDS: IBUPROFEN 400MG TAB PO PRN (19:23)
[2022-12-15 20:34] VITALS: BP 148/66
[2022-12-15] MEDS: traZODone 100 MG TAB PO SCH (20:35)
[2022-12-15] MEDS: PRAZOSIN 1 MG CAP PO SCH (20:35)
[2022-12-15] MEDS: diphenhydrAMINE 25MG CAP PO PRN (23:50)
[2022-12-16] MEDS: OLANZapine ORAL DISINTEGRATING TAB 5MG PO PRN ×2 (06:27→23:40)
[2022-12-16] MEDS: INSULIN LISPRO (NovoLOG) PER UNIT SC SCH ×4 (06:33→21:00)
[2022-12-16 06:46] VITALS: BP 145/68; TEMP 97.2; O2SAT 96
[2022-12-16 09:25] VITALS: BP 147/77
[2022-12-16] MEDS: ASPIRIN 81MG CHEW TABLET PO SCH (09:25)
[2022-12-16] MEDS: PALIPERIDONE 3MG ER TAB (INVEGA) PO SCH ×2 (09:25→21:02)
[2022-12-16] MEDS: PANTOPRAZOLE 40MG TAB (PROTONIX) PO SCH (09:25)
[2022-12-16] MEDS: metFORMIN (GLUCOPHAGE) 1000MG TABLET PO SCH ×2 (09:25→21:02)
[2022-12-16] MEDS: CLOPIDOGREL 75 MG TAB PO SCH (09:26)
[2022-12-16] MEDS: ATORVASTATIN 20 MG TAB PO SCH (09:26)
[2022-12-16] MEDS: FLUoxetine 10 MG CAP PO SCH (09:26)
[2022-12-16 18:39] VITALS: BP 151/77; TEMP 97.1
[2022-12-16] MEDS: traZODone 100 MG TAB PO SCH (21:01)
[2022-12-16] MEDS: PRAZOSIN 1 MG CAP PO SCH (21:02)
[2022-12-17 05:58] VITALS: BP 130/66; TEMP 97.4; O2SAT 96
[2022-12-17] MEDS: INSULIN LISPRO (NovoLOG) PER UNIT SC SCH ×4 (06:54→20:30)
[2022-12-17 08:39] VITALS: BP 147/77
[2022-12-17] MEDS: metFORMIN (GLUCOPHAGE) 1000MG TABLET PO SCH ×2 (08:40→20:30)
[2022-12-17] MEDS: ASPIRIN 81MG CHEW TABLET PO SCH (08:40)
[2022-12-17] MEDS: CLOPIDOGREL 75 MG TAB PO SCH (08:41)
[2022-12-17] MEDS: ATORVASTATIN 20 MG TAB PO SCH (08:41)
[2022-12-17] MEDS: FLUoxetine 10 MG CAP PO SCH (08:41)
[2022-12-17] MEDS: PANTOPRAZOLE 40MG TAB (PROTONIX) PO SCH (08:41)
[2022-12-17] MEDS: PALIPERIDONE 3MG ER TAB (INVEGA) PO SCH ×2 (08:41→20:31)
[2022-12-17] MEDS: traZODone 100 MG TAB PO SCH (20:31)
[2022-12-17] MEDS: PRAZOSIN 1 MG CAP PO SCH (20:32)
[2022-12-18] MEDS: ACETAMINOPHEN TAB 650MG DOSE (2X325MG) PO PRN (06:00)
[2022-12-18 06:42] VITALS: BP 120/70; TEMP 98.2; O2SAT 95
[2022-12-18] MEDS: INSULIN LISPRO (NovoLOG) PER UNIT SC SCH ×4 (06:45→21:00)
[2022-12-18] MEDS: CLOPIDOGREL 75 MG TAB PO SCH (08:28)
[2022-12-18] MEDS: FLUoxetine 10 MG CAP PO SCH (08:28)
[2022-12-18] MEDS: ASPIRIN 81MG CHEW TABLET PO SCH (08:28)
[2022-12-18] MEDS: PANTOPRAZOLE 40MG TAB (PROTONIX) PO SCH (08:28)
[2022-12-18] MEDS: PALIPERIDONE 3MG ER TAB (INVEGA) PO SCH ×2 (08:28→21:11)
[2022-12-18] MEDS: metFORMIN (GLUCOPHAGE) 1000MG TABLET PO SCH ×2 (08:28→21:10)
[2022-12-18] MEDS: ATORVASTATIN 20 MG TAB PO SCH (08:28)
[2022-12-18 17:42] VITALS: BP 138/65; TEMP 96.8; O2SAT 95
[2022-12-18 21:08] VITALS: BP 142/70
[2022-12-18] MEDS: traZODone 100 MG TAB PO SCH (21:10)
[2022-12-18] MEDS: PRAZOSIN 1 MG CAP PO SCH (21:11)
[2022-12-19] MEDS: OLANZapine ORAL DISINTEGRATING TAB 5MG PO PRN ×2 (02:55→21:42)
[2022-12-19] MEDS: INSULIN LISPRO (NovoLOG) PER UNIT SC SCH ×4 (06:48→21:00)
[2022-12-19 06:49] VITALS: BP 117/59; TEMP 96.9; O2SAT 100
[2022-12-19] MEDS: ASPIRIN 81MG CHEW TABLET PO SCH (09:54)
[2022-12-19] MEDS: CLOPIDOGREL 75 MG TAB PO SCH (09:54)
[2022-12-19] MEDS: FLUoxetine 10 MG CAP PO SCH (09:54)
[2022-12-19] MEDS: metFORMIN (GLUCOPHAGE) 1000MG TABLET PO SCH ×2 (09:54→21:40)
[2022-12-19] MEDS: PALIPERIDONE 3MG ER TAB (INVEGA) PO SCH ×2 (09:54→21:40)
[2022-12-19] MEDS: ATORVASTATIN 20 MG TAB PO SCH (09:55)
[2022-12-19] MEDS: PANTOPRAZOLE 40MG TAB (PROTONIX) PO SCH (09:55)
[2022-12-19 18:21] VITALS: BP 134/82; TEMP 98.6; O2SAT 98
[2022-12-19] MEDS: traZODone 100 MG TAB PO SCH (21:40)
[2022-12-19] MEDS: PRAZOSIN 1 MG CAP PO SCH (21:41)
[2022-12-20] MEDS: INSULIN LISPRO (NovoLOG) PER UNIT SC SCH ×4 (06:37→21:00)
[2022-12-20 06:38] VITALS: BP 128/71; TEMP 98.4; O2SAT 95
[2022-12-20] MEDS: ATORVASTATIN 20 MG TAB PO SCH (09:08)
[2022-12-20] MEDS: metFORMIN (GLUCOPHAGE) 1000MG TABLET PO SCH ×2 (09:08→21:20)
[2022-12-20] MEDS: ASPIRIN 81MG CHEW TABLET PO SCH (09:08)
[2022-12-20] MEDS: PALIPERIDONE 3MG ER TAB (INVEGA) PO SCH ×2 (09:08→21:20)
[2022-12-20] MEDS: CLOPIDOGREL 75 MG TAB PO SCH (09:09)
[2022-12-20] MEDS: PANTOPRAZOLE 40MG TAB (PROTONIX) PO SCH (09:09)
[2022-12-20] MEDS: FLUoxetine 10 MG CAP PO SCH (09:09)
[2022-12-20 16:45] VITALS: BP 142/71; TEMP 97.5
[2022-12-20] MEDS: traZODone 100 MG TAB PO SCH (21:20)
[2022-12-20] MEDS: PRAZOSIN 1 MG CAP PO SCH (21:21)
[2022-12-21 06:20] VITALS: BP 131/67; TEMP 97.6; O2SAT 99
[2022-12-21] MEDS: INSULIN LISPRO (NovoLOG) PER UNIT SC SCH ×4 (06:47→21:00)
[2022-12-21 09:03] VITALS: BP 138/60
[2022-12-21] MEDS: FLUoxetine 10 MG CAP PO SCH (09:07)
[2022-12-21] MEDS: PALIPERIDONE 3MG ER TAB (INVEGA) PO SCH ×2 (09:07→21:34)
[2022-12-21] MEDS: PANTOPRAZOLE 40MG TAB (PROTONIX) PO SCH (09:07)
[2022-12-21] MEDS: metFORMIN (GLUCOPHAGE) 1000MG TABLET PO SCH ×2 (09:07→21:35)
[2022-12-21] MEDS: ASPIRIN 81MG CHEW TABLET PO SCH (09:07)
[2022-12-21] MEDS: CLOPIDOGREL 75 MG TAB PO SCH (09:07)
[2022-12-21] MEDS: ATORVASTATIN 20 MG TAB PO SCH (09:08)
[2022-12-21] MEDS: OLANZapine ORAL DISINTEGRATING TAB 5MG PO PRN (16:45)
[2022-12-21 18:35] VITALS: BP 132/75; TEMP 97.7
[2022-12-21] MEDS: traZODone 100 MG TAB PO SCH (21:35)
[2022-12-21] MEDS: PRAZOSIN 1 MG CAP PO SCH (21:37)
[2022-12-22 06:20] VITALS: BP 135/63; TEMP 98.2; O2SAT 95
[2022-12-22] MEDS: INSULIN LISPRO (NovoLOG) PER UNIT SC SCH ×4 (06:32→20:32)
[2022-12-22] MEDS: PANTOPRAZOLE 40MG TAB (PROTONIX) PO SCH (09:55)
[2022-12-22] MEDS: PALIPERIDONE 3MG ER TAB (INVEGA) PO SCH ×2 (09:55→20:34)
[2022-12-22] MEDS: FLUoxetine 10 MG CAP PO SCH (09:55)
[2022-12-22] MEDS: CLOPIDOGREL 75 MG TAB PO SCH (09:55)
[2022-12-22] MEDS: metFORMIN (GLUCOPHAGE) 1000MG TABLET PO SCH ×2 (09:55→20:34)
[2022-12-22] MEDS: ASPIRIN 81MG CHEW TABLET PO SCH (09:55)
[2022-12-22] MEDS: ATORVASTATIN 20 MG TAB PO SCH (09:55)
[2022-12-22 09:56] VITALS: BP 153/78
[2022-12-22] MEDS: OLANZapine ORAL DISINTEGRATING TAB 5MG PO PRN (15:47)
[2022-12-22 19:14] VITALS: BP 143/64; TEMP 97.6
[2022-12-22] MEDS: traZODone 100 MG TAB PO SCH (20:34)
[2022-12-22] MEDS: PRAZOSIN 1 MG CAP PO SCH (20:36)
[2022-12-23] MEDS: IBUPROFEN 400MG TAB PO PRN (02:23)
[2022-12-23 06:35] VITALS: BP 144/73; TEMP 96.6; O2SAT 97
[2022-12-23] MEDS: INSULIN LISPRO (NovoLOG) PER UNIT SC SCH ×2 (06:55→12:00)
[2022-12-23] MEDS ORDERED: PALI1TAB2 PO (07:55)
[2022-12-23] MEDS ORDERED: PANT40TA29 PO (07:55)
[2022-12-23] MEDS ORDERED: ASPI81CH8 PO (07:55)
[2022-12-23] MEDS ORDERED: TRAZ-257 PO (07:55)
[2022-12-23] MEDS ORDERED: LISI10TA22 PO (07:55)
[2022-12-23] MEDS ORDERED: MINI1CAP PO (07:55)
[2022-12-23] MEDS ORDERED: METF10004 PO (07:55)
[2022-12-23] MEDS ORDERED: FLUO10CA18 PO (07:55)
[2022-12-23] MEDS ORDERED: AMLO1TAB25 PO (07:55)
[2022-12-23] MEDS ORDERED: ATOR1TAB21 PO (07:55)
[2022-12-23] MEDS ORDERED: CLOP75TA2 PO (07:55)
[2022-12-23] MEDS: metFORMIN (GLUCOPHAGE) 1000MG TABLET PO SCH (10:21)
[2022-12-23] MEDS: PALIPERIDONE 3MG ER TAB (INVEGA) PO SCH (10:22)
[2022-12-23] MEDS: PANTOPRAZOLE 40MG TAB (PROTONIX) PO SCH (10:22)
[2022-12-23] MEDS: CLOPIDOGREL 75 MG TAB PO SCH (10:22)
[2022-12-23] MEDS: ASPIRIN 81MG CHEW TABLET PO SCH (10:22)
[2022-12-23 10:23] VITALS: BP 133/67
[2022-12-23] MEDS: ATORVASTATIN 20 MG TAB PO SCH (10:23)
[2022-12-23] MEDS: FLUoxetine 10 MG CAP PO SCH (10:23)
== END 2022-12-23 13:04 | disposition home or self-care (01) | DRG 885 ==
LOC: M ED 12:59 → M ED INP 16:27 → M PSY 18:02
PROVIDERS: ADMIT Student in an Organized Health Care Education/Training Program; ATTEND Student in an Organized Health Care Education/Training Program
DX: F20.9 Schizophrenia, unspecified (principal); R45.851 Suicidal ideations; I10 Essential (primary) hypertension; E11.9 Type 2 diabetes mellitus without complications; E78.5 Hyperlipidemia, unspecified; F79 Unspecified intellectual disabilities; H54.8 Legal blindness, as defined in USA; Z88.8 Allergy status to other drugs, medicaments and biological substances; Z20.822 Contact with and (suspected) exposure to COVID-19

== ENCOUNTER 2023-10-22 16:03 | Emergency (ER) | payer MEDICARE, MEDICAID ==
[~2023-10-22] VITALS: Ht 165.1 cm; Wt 81.8 kg
[~2023-10-22 16:03] MED LIST changes: -ASPI-161 PO; +ASPI-615 PO; +ASPI81CH33 PO; +ASPI81CH8 PO; +FLUO-290 PO; +FLUO-365 PO; -FLUO10CA18 PO; -FLUO20CA22 PO; +LORA-1041 PO; -LORA-674 PO; +MINI1CAP PO; +NESI25TA PO; +PALI1TAB4 PO; +PRAZ5CAP PO; +RAMI10CA64 PO; -RAMI1CAP22 PO; -RAMI1CAP26 PO; +RAMI2.5C42 PO; -RISP-10 PO; +RISP-105 PO; +RISP-106 PO; -RISP-11 PO; -RISP-8 PO; -RISP-9 PO; +RISP3TAB77 PO; +RISP4TAB95 PO; +TERA1CAP3 PO
[2023-10-22] MEDS: LIDOCAINE 5% (LIDODERM) PATCH TD ONE (18:44)
[2023-10-22] MEDS: ACETAMINOPHEN 325 MG TAB PO ONE (18:45)
[2023-10-22] MEDS: INSULIN LISPRO (NovoLOG) PER UNIT SC SCH (21:00)
[2023-10-22] MEDS ORDERED: DEXTROSE 50% 50ML SYRINGE IV PRN (23:35)
[2023-10-22] MEDS ORDERED: GLUCOSE 4 GM CHEW PO PRN (23:35)
[2023-10-22] MEDS ORDERED: GLUCAGON INJ 1MG VIAL SC PRN (23:35)
[2023-10-23] MEDS ORDERED: FLUO20TA28 PO (04:03)
[2023-10-23] MEDS ORDERED: RISP-106 PO (04:03)
[2023-10-23] MEDS ORDERED: TRAZ-189 PO (04:03)
[2023-10-23] MEDS ORDERED: CVS100LI4 PO (04:03)
[2023-10-23] MEDS ORDERED: HOME MED LIST COMPLETE! XX SCH (04:05)
[2023-10-23] MEDS: INSULIN LISPRO (NovoLOG) PER UNIT SC SCH (07:39)
[2023-10-23] MEDS: ACETAMINOPHEN TAB 650MG DOSE (2X325MG) PO PRN (09:14)
[2023-10-23] MEDS: risperiDONE 2 MG TAB PO SCH (10:34)
[2023-10-23] MEDS: FLUoxetine 20MG CAP PO SCH (10:34)
[2023-10-23 12:16] LABS: BASO % 1.3 % (0.0-1.0); EOS % 3.8 % (0.0-3.0); HEMATOCRIT 37.4 % (42.0-52.0); HEMOGLOBIN 11.7 g/dl (13.5-17.5); LYMPH # 1.3 10^3/uL (1.5-5.0); LYMPH % 15.6 % (24.0-44.0); MEAN CORPUSCULAR HEMOGLOBIN 24.6 pg (27.0-33.0); MEAN CORPUSCULAR HGB CONC 31.3 g/dl (32.0-36.5); MEAN CORPUSCULAR VOLUME 78.6 fl (80.0-96.0); MONO # 0.6 10^3/uL (0.0-0.8); MONO % 7.7 % (2.0-8.0); NEUTROPHILS # 5.9 10^3/uL (1.5-8.5); NEUTROPHILS % 71.2 % (36.0-66.0); PLATELET COUNT, AUTOMATED 283 10^3/uL (150-450); RED BLOOD COUNT 4.76 10^6/uL (4.30-6.10); WHITE BLOOD COUNT 8.3 10^3/uL (4.0-10.0)
[2023-10-23 12:17] LABS: BASO # 0.1 10^3/uL (0.0-0.2); EOS # 0.3 10^3/uL (0.0-0.5)
[2023-10-23 12:42] LABS: BLOOD UREA NITROGEN 7 MG/DL (9-23); CALCIUM LEVEL 9.4 MG/DL (8.3-10.6); CARBON DIOXIDE LEVEL 31 MMOL/L (20-31); CHLORIDE LEVEL 97 MMOL/L (98-107); CREATININE FOR GFR 0.53 MG/DL (0.70-1.30); GLOMERULAR FILTRATION RATE > 60.0 (>42); GLUCOSE, FASTING 140 MG/DL (74-106); MAGNESIUM LEVEL 1.6 MG/DL (1.8-2.4); POTASSIUM SERUM 4.6 MMOL/L (3.5-5.1); SODIUM LEVEL 131 MMOL/L (136-145)
[2023-10-23] MEDS ORDERED: NS 1,000 ML IV SCH (14:15)
[2023-10-23 14:29] LABS: IRON (FE) 22 UG/DL (65-175); TOTAL IRON BINDING CAPACITY 364 UG/DL (250-425)
[2023-10-23 14:32] LABS: FERRITIN 10.4 NG/ML (10.5-307.3); FOLATE 12.09 NG/ML (>5.4); VITAMIN B12 LEVEL 348 PG/ML (211-911)
[2023-10-23] MEDS ORDERED: MAG SULF 1GM/100ML (MAG RUN) 1 GM in IV 1 EA IV SCH (15:00)
[2023-10-23] MEDS: OMEPRAZOLE 20MG CAP PO SCH (17:12)
[2023-10-23] MEDS: metFORMIN (GLUCOPHAGE) 1000MG TABLET PO SCH (17:46)
[2023-10-23] MEDS: traZODone 100 MG TAB PO SCH (20:12)
[2023-10-23] MEDS: MAGNESIUM OXIDE 400MG TAB (MAG-OX) PO SCH (20:12)
[2023-10-23] MEDS: ENOXAPARIN 40MG/0.4ML SYRINGE (J1650 PER 10MG) SC SCH (20:13)
[2023-10-24 09:30] LABS: BLOOD UREA NITROGEN 8 MG/DL (9-23); CALCIUM LEVEL 9.1 MG/DL (8.3-10.6); CARBON DIOXIDE LEVEL 30 MMOL/L (20-31); CHLORIDE LEVEL 101 MMOL/L (98-107); CREATININE FOR GFR 0.61 MG/DL (0.70-1.30); GLOMERULAR FILTRATION RATE > 60.0 (>42); GLUCOSE, FASTING 227 MG/DL (74-106); MAGNESIUM LEVEL 1.6 MG/DL (1.8-2.4); POTASSIUM SERUM 4.5 MMOL/L (3.5-5.1); SODIUM LEVEL 136 MMOL/L (136-145)
[2023-10-24] MEDS: FERROUS SULFATE 325MG TAB PO SCH (09:52)
[2023-10-25] MEDS ORDERED: **hydrALAZINE HCL** 25 MG TAB PO PRN (10:20)
[2023-10-25] MEDS ORDERED: OMEP40CA4 PO (15:26)
[2023-10-25] MEDS ORDERED: MAGN1TAB26 PO (15:26)
[2023-10-25] MEDS ORDERED: AMLO1TAB24 PO (15:26)
[2023-10-25] MEDS ORDERED: FERR1TAB8 PO (15:26)
[2023-10-25] MEDS ORDERED: LISI40TA4 PO (15:26)
[2023-10-25] MEDS ORDERED: METF10004 PO (15:26)
[2023-10-25 20:56] VITALS: BP 141/73; TEMP 98.3; O2SAT 97
[2023-10-25] MEDS: amLODIPine 5 MG TAB PO SCH (20:58)
[2023-10-26 08:29] VITALS: BP 155/70
== END 2023-10-26 09:18 | disposition left against medical advice (07) ==
LOC: M ED 16:03
DX: E11.9 Type 2 diabetes mellitus without complications (principal); Z59.00 Homelessness unspecified; I10 Essential (primary) hypertension; E78.00 Pure hypercholesterolemia, unspecified; F41.9 Anxiety disorder, unspecified; F43.10 Post-traumatic stress disorder, unspecified; F20.9 Schizophrenia, unspecified; H54.8 Legal blindness, as defined in USA; E66.9 Obesity, unspecified; Z79.899 Other long term (current) drug therapy; Z88.8 Allergy status to other drugs, medicaments and biological substances
CPT/HCPCS: 36415; 80048; 82607; 82728; 82746; 83036; 83550; 83735; 84443; 85025; 96372; 97161; 99284; J1650; J1815

== ENCOUNTER 2023-11-11 19:00 | Inpatient (IN) | payer OTHER, MEDICARE ==
[~2023-11-11] VITALS: Ht 170.2 cm; Wt 85.2 kg
[~2023-11-11 19:00] MED LIST changes: +CVS100LI4 PO; +FERR1TAB8 PO; +FLUO20TA28 PO; +MAGN1TAB26 PO; +OMEP40CA4 PO
[2023-11-11 19:36] LABS: HEMATOCRIT 35.3 % (42.0-52.0); HEMOGLOBIN 11.2 g/dl (13.5-17.5); MEAN CORPUSCULAR HEMOGLOBIN 24.9 pg (27.0-33.0); MEAN CORPUSCULAR HGB CONC 31.7 g/dl (32.0-36.5); MEAN CORPUSCULAR VOLUME 78.4 fl (80.0-96.0); PLATELET COUNT, AUTOMATED 266 10^3/uL (150-450); WHITE BLOOD COUNT 7.5 10^3/uL (4.0-10.0)
[2023-11-11 20:02] LABS: ETHYL ALCOHOL (ETHANOL) < 0.003 % (0.000-0.010)
[2023-11-11 20:03] LABS: ALBUMIN 3.9 G/DL (3.2-5.2); ALKALINE PHOSPHATASE 83 U/L (46-116); ALT/SGPT 23 U/L (7.0-40); AST/SGOT < 8 U/L (<34); BILIRUBIN,DIRECT < 0.1 MG/DL (<0.4); BILIRUBIN,TOTAL 0.2 MG/DL (0.3-1.2); BLOOD UREA NITROGEN 14 MG/DL (9-23); CALCIUM LEVEL 9.4 MG/DL (8.3-10.6); CARBON DIOXIDE LEVEL 24 MMOL/L (20-31); CHLORIDE LEVEL 107 MMOL/L (98-107); GLOMERULAR FILTRATION RATE > 60.0 (>42); GLUCOSE, FASTING 206 MG/DL (74-106); SALICYLATE LEVEL < 3.0 MG/DL (<30); SODIUM LEVEL 140 MMOL/L (136-145); TOTAL PROTEIN 6.7 G/DL (5.7-8.2)
[2023-11-11 20:06] LABS: THYROID STIMULATING HORMONE 2.296 uIU/ML (0.55-4.78)
[2023-11-11 20:13] LABS: AMPHETAMINES LEVEL URINE NEGATIVE (NEGATIVE); BARBITURATES URINE NEGATIVE (NEGATIVE)
[2023-11-11 20:14] LABS: BENZODIAZEPINES URINE NEGATIVE (NEGATIVE); CANNABINOIDS URINE NEGATIVE (NEGATIVE); COCAINE METABOLITE URINE NEGATIVE (NEGATIVE); METHADONE URINE NEGATIVE (NEGATIVE); OPIATES URINE NEGATIVE (NEGATIVE); PHENCYCLIDINE URINE NEGATIVE (NEGATIVE)
[2023-11-11] MEDS: traZODone 100 MG TAB PO ONE (22:55)
[2023-11-12] MEDS ORDERED: GUAI5EL PO (15:52)
[2023-11-12] MEDS ORDERED: RISP-105 PO (15:55)
[2023-11-12] MEDS ORDERED: HOME MED LIST COMPLETE! XX SCH (15:55)
[2023-11-12] MEDS ORDERED: ASPI81CH48 PO (15:55)
[2023-11-12] MEDS ORDERED: ACET1TAB55 PO (15:55)
[2023-11-12] MEDS: LORazepam 1 MG TAB PO STA (18:01)
[2023-11-12] MEDS: traZODone 50 MG TAB PO SCH (23:08)
[2023-11-12] MEDS ORDERED: MAALOX 30 ML SUSP *UDC PO PRN (23:20)
[2023-11-12] MEDS ORDERED: MOM 30ML SUSPENSION UDC PO PRN (23:20)
[2023-11-12] MEDS ORDERED: ACETAMINOPHEN TAB 650MG DOSE (2X325MG) PO PRN (23:20)
[2023-11-13 00:44] VITALS: BP 150/84; TEMP 97; O2SAT 98
[2023-11-13 06:24] VITALS: BP 141/64; TEMP 97.5; O2SAT 95
[2023-11-13] MEDS ORDERED: metFORMIN XR 500MG TAB *GLUCOPHAGE XR PO SCH ×2 (08:00→09:00)
[2023-11-13] MEDS ORDERED: ATORVASTATIN 20 MG TAB PO SCH (09:00)
[2023-11-13] MEDS ORDERED: FLUoxetine 20MG CAP PO SCH (09:00)
[2023-11-13] MEDS ORDERED: risperiDONE 2 MG TAB PO SCH (09:00)
[2023-11-13] MEDS ORDERED: guaiFENesin SYRUP 200MG 10ML UDC PO PRN (09:00)
[2023-11-13] MEDS ORDERED: ASPIRIN 81MG ENTERIC TABLET PO SCH (09:00)
[2023-11-13] MEDS ORDERED: ACETAMINOPHEN TAB 650MG DOSE (2X325MG) PO PRN (09:00)
[2023-11-13] MEDS ORDERED: GLUCAGON INJ 1MG VIAL SC PRN (10:45)
[2023-11-13] MEDS ORDERED: DEXTROSE 50% 50ML SYRINGE IV PRN (10:45)
[2023-11-13] MEDS ORDERED: GLUCOSE 4 GM CHEW PO PRN (10:45)
[2023-11-13] MEDS: INSULIN LISPRO (NovoLOG) PER UNIT SC SCH ×2 (12:14→20:32)
[2023-11-13] MEDS: PANTOPRAZOLE 40MG TAB (PROTONIX) PO SCH (12:20)
[2023-11-13] MEDS: ATORVASTATIN 20 MG TAB PO SCH (12:20)
[2023-11-13] MEDS: metFORMIN XR 500MG TAB *GLUCOPHAGE XR PO SCH (12:21)
[2023-11-13] MEDS: diphenhydrAMINE 25MG CAP PO PRN (12:54)
[2023-11-13 16:42] VITALS: BP 130/61; TEMP 97.3; O2SAT 98
[2023-11-13] MEDS: ASPIRIN 81MG CHEW TABLET PO SCH (20:30)
[2023-11-13] MEDS: traZODone 50 MG TAB PO PRN (20:30)
[2023-11-13] MEDS: IBUPROFEN 400MG TAB PO PRN (20:30)
[2023-11-13] MEDS ORDERED: traZODone 50 MG TAB PO SCH (21:00)
[2023-11-14 06:22] VITALS: BP 155/72; TEMP 97.8; O2SAT 97
[2023-11-14 16:05] VITALS: BP 146/60; TEMP 96.8; O2SAT 100
[2023-11-15 06:33] VITALS: BP 156/81; TEMP 98.2; O2SAT 96
[2023-11-15 09:13] VITALS: BP 156/74
[2023-11-15] MEDS: SERTRALINE HCL 25 MG TABLET PO SCH (10:54)
[2023-11-15 18:53] VITALS: BP 147/70; TEMP 97.5
[2023-11-16 05:48] VITALS: BP 138/63; TEMP 97.7; O2SAT 95
[2023-11-16 18:50] VITALS: BP 142/60; TEMP 97.4; O2SAT 99
[2023-11-17 06:38] VITALS: BP 148/82; TEMP 97.9; O2SAT 97
[2023-11-17 09:05] VITALS: BP 148/82
[2023-11-17] MEDS ORDERED: SERT25TA21 PO (09:51)
[2023-11-17] MEDS ORDERED: PANT40TA29 PO (09:51)
== END 2023-11-17 11:45 | disposition home or self-care (01) | DRG 885 ==
LOC: M ED 19:00 → M ED INP 11-12 23:19 → M PSY 11-13 00:15
PROVIDERS: ADMIT Psychiatry & Neurology Psychiatry; ATTEND Student in an Organized Health Care Education/Training Program
DX: F20.9 Schizophrenia, unspecified (principal); R45.851 Suicidal ideations; F41.9 Anxiety disorder, unspecified; F84.9 Pervasive developmental disorder, unspecified; E11.9 Type 2 diabetes mellitus without complications; F79 Unspecified intellectual disabilities; I10 Essential (primary) hypertension; E03.9 Hypothyroidism, unspecified; F43.10 Post-traumatic stress disorder, unspecified; K27.9 Peptic ulcer, site unspecified, unspecified as acute or chronic, without hemorrhage or perforation; Z79.82 Long term (current) use of aspirin; Z79.84 Long term (current) use of oral hypoglycemic drugs; Z79.899 Other long term (current) drug therapy; Z88.8 Allergy status to other drugs, medicaments and biological substances; Z11.52 Encounter for screening for COVID-19; E78.5 Hyperlipidemia, unspecified; H26.9 Unspecified cataract; Z91.51 Personal history of suicidal behavior

== ENCOUNTER 2023-11-28 04:21 | Emergency (ER) | payer OTHER, MEDICARE ==
[~2023-11-28] VITALS: Ht 165.1 cm; Wt 83.0 kg
[~2023-11-28 04:21] MED LIST changes: +ACET1TAB55 PO; +ASPI81CH48 PO; +GUAI5EL PO; +SERT25TA21 PO
[2023-11-28 10:47] VITALS: BP 159/69; TEMP 97.2; O2SAT 96
== END 2023-11-28 11:11 | disposition home or self-care (01) ==
LOC: EDBD 04:21 → M ED 04:21
DX: F20.9 Schizophrenia, unspecified (principal); E11.9 Type 2 diabetes mellitus without complications; I10 Essential (primary) hypertension; H54.8 Legal blindness, as defined in USA; Z79.82 Long term (current) use of aspirin; Z79.84 Long term (current) use of oral hypoglycemic drugs; Z79.899 Other long term (current) drug therapy; Z88.8 Allergy status to other drugs, medicaments and biological substances

== ENCOUNTER 2023-12-25 19:57 | Inpatient (IN) | payer MEDICARE, OTHER ==
[~2023-12-25] VITALS: Ht 165.1 cm; Wt 84.1 kg
[2023-12-25 21:37] LABS: HEMATOCRIT 35.5 % (42.0-52.0); HEMOGLOBIN 11.2 g/dl (13.5-17.5); MEAN CORPUSCULAR HGB CONC 31.5 g/dl (32.0-36.5); MEAN CORPUSCULAR VOLUME 76.2 fl (80.0-96.0); PLATELET COUNT, AUTOMATED 214 10^3/uL (150-450); RED BLOOD COUNT 4.66 10^6/uL (4.30-6.10)
[2023-12-25 21:50] LABS: ETHYL ALCOHOL (ETHANOL) 0.003 % (0.000-0.010)
[2023-12-25 21:52] LABS: ALBUMIN 3.7 G/DL (3.2-5.2); ALKALINE PHOSPHATASE 74 U/L (46-116); ALT/SGPT 20 U/L (7.0-40); AST/SGOT 10 U/L (<34); BILIRUBIN,DIRECT < 0.1 MG/DL (<0.4); BILIRUBIN,TOTAL 0.2 MG/DL (0.3-1.2); BLOOD UREA NITROGEN 12 MG/DL (9-23); CARBON DIOXIDE LEVEL 26 MMOL/L (20-31); CHLORIDE LEVEL 107 MMOL/L (98-107); CREATININE FOR GFR 0.52 MG/DL (0.70-1.30); GLOMERULAR FILTRATION RATE > 60.0 (>42); GLUCOSE, FASTING 271 MG/DL (74-106); SALICYLATE LEVEL < 3.0 MG/DL (<30); SODIUM LEVEL 137 MMOL/L (136-145); TOTAL PROTEIN 6.6 G/DL (5.7-8.2)
[2023-12-25 21:54] LABS: THYROID STIMULATING HORMONE 5.023 uIU/ML (0.55-4.78)
[2023-12-25 23:30] LABS: APPEARANCE, URINE CLEAR (CLEAR); BACTERIA, URINE AUTO NEGATIVE (NEGATIVE); BILIRUBIN, URINE AUTO NEGATIVE (NEGATIVE); BLOOD, URINE BLOOD NEGATIVE (NEGATIVE); COLOR, URINE STRAW (YELLOW); GLUCOSE, URINE (UA) AUTO 3+ mg/dL (NEGATIVE); KETONE, URINE AUTO NEGATIVE (NEGATIVE); LEUKOCYTE ESTERASE, URINE AUTO NEGATIVE (NEGATIVE); NITRITE, URINE AUTO NEGATIVE (NEGATIVE); PROTEIN, URINE AUTO NEGATIVE (NEGATIVE); RBC, URINE AUTO 1 /HPF (0-3); SPECIFIC GRAVITY URINE AUTO 1.017 (1.002-1.035); SQUAMOUS EPITHELIAL CELL UR AU 0 /HPF (0-6); UROBILINOGEN, URINE AUTO 0.2 mg/dL (0.0-2.0); WBC, URINE AUTO 0 /HPF (0-3)
[2023-12-25 23:52] LABS: AMPHETAMINES LEVEL URINE NEGATIVE (NEGATIVE); BARBITURATES URINE NEGATIVE (NEGATIVE); BENZODIAZEPINES URINE NEGATIVE (NEGATIVE); CANNABINOIDS URINE NEGATIVE (NEGATIVE); COCAINE METABOLITE URINE NEGATIVE (NEGATIVE); METHADONE URINE NEGATIVE (NEGATIVE); OPIATES URINE NEGATIVE (NEGATIVE); PHENCYCLIDINE URINE NEGATIVE (NEGATIVE)
[2023-12-26] MEDS ORDERED: MYLA1SUS PO (00:19)
[2023-12-26] MEDS ORDERED: MENT7.6L4 PO (00:19)
[2023-12-26] MEDS ORDERED: LOPE2TAB12 PO (00:19)
[2023-12-26] MEDS ORDERED: META28.32 PO (00:19)
[2023-12-26] MEDS ORDERED: SERT25TA85 PO (00:19)
[2023-12-26] MEDS ORDERED: ATOR80TA59 PO (00:19)
[2023-12-26] MEDS ORDERED: REFR0.5D8 OS (00:19)
[2023-12-26] MEDS ORDERED: HOME MED LIST COMPLETE! XX SCH (00:20)
[2023-12-26] MEDS ORDERED: IBUPROFEN 400MG TAB PO PRN (02:25)
[2023-12-26] MEDS ORDERED: MAALOX 30 ML SUSP *UDC PO PRN (02:25)
[2023-12-26 03:16] VITALS: BP 142/80; TEMP 98; O2SAT 97
[2023-12-26 06:07] VITALS: BP 149/74; TEMP 97.9; O2SAT 98
[2023-12-26] MEDS ORDERED: GLUCAGON INJ 1MG VIAL SC PRN (11:45)
[2023-12-26] MEDS ORDERED: DEXTROSE 50% 50ML SYRINGE IV PRN (11:45)
[2023-12-26] MEDS ORDERED: GLUCOSE 4 GM CHEW PO PRN (11:45)
[2023-12-26] MEDS ORDERED: METAMUCIL (PSYLLIUM) PACKET PO PRN (11:45)
[2023-12-26 12:14] VITALS: BP 160/76; TEMP 97; O2SAT 96
[2023-12-26] MEDS: INSULIN LISPRO (NovoLOG) PER UNIT SC SCH ×2 (12:16→21:04)
[2023-12-26] MEDS: ATORVASTATIN 20 MG TAB PO SCH (12:22)
[2023-12-26] MEDS: ASPIRIN 81MG CHEW TABLET PO SCH (12:23)
[2023-12-26] MEDS: PANTOPRAZOLE 40MG TAB (PROTONIX) PO SCH (12:23)
[2023-12-26] MEDS: diphenhydrAMINE 25MG CAP PO PRN (14:19)
[2023-12-26] MEDS: ACETAMINOPHEN TAB 650MG DOSE (2X325MG) PO PRN (18:51)
[2023-12-26] MEDS: traZODone 50 MG TAB PO PRN (21:04)
[2023-12-26] MEDS: risperiDONE 2 MG TAB PO SCH (21:05)
[2023-12-26] MEDS: IBUPROFEN 400MG TAB PO ONE (23:57)
[2023-12-27 05:47] VITALS: BP 137/81; TEMP 97.5; O2SAT 100
[2023-12-27] MEDS: SERTRALINE HCL 25 MG TABLET PO SCH (08:47)
[2023-12-27] MEDS: MOM 30ML SUSPENSION UDC PO PRN (09:23)
[2023-12-28 06:19] VITALS: BP 153/70; TEMP 97.4; O2SAT 100
[2023-12-28 17:43] VITALS: BP 136/80; TEMP 97.1; O2SAT 99
[2023-12-29 07:01] VITALS: BP 134/82; TEMP 98
[2023-12-29 08:53] VITALS: BP 150/90
== END 2023-12-29 12:20 | disposition home or self-care (01) | DRG 881 ==
LOC: M ED 19:57 → M ED INP 12-26 02:24 → M PSY 12-26 02:47
PROVIDERS: ADMIT Psychiatry & Neurology Psychiatry; ATTEND Psychiatry & Neurology Psychiatry
DX: F32.A Depression, unspecified (principal); R45.851 Suicidal ideations; F20.9 Schizophrenia, unspecified; F60.3 Borderline personality disorder; F79 Unspecified intellectual disabilities; Z91.119 Patient's noncompliance with dietary regimen due to unspecified reason; Z88.8 Allergy status to other drugs, medicaments and biological substances; Z79.899 Other long term (current) drug therapy; E11.9 Type 2 diabetes mellitus without complications; K21.9 Gastro-esophageal reflux disease without esophagitis; E03.9 Hypothyroidism, unspecified; F43.10 Post-traumatic stress disorder, unspecified; Z79.82 Long term (current) use of aspirin

== ENCOUNTER 2024-01-08 11:02 | Inpatient (IN) | payer MEDICARE, OTHER ==
[~2024-01-08] VITALS: Ht 165.1 cm; Wt 87.3 kg
[~2024-01-08 11:02] MED LIST changes: +ATOR80TA59 PO; +LOPE2TAB12 PO; +MENT7.6L4 PO; +META28.32 PO; +MYLA1SUS PO; +REFR0.5D8 OS
[2024-01-08 12:06] LABS: HEMATOCRIT 34.8 % (42.0-52.0); MEAN CORPUSCULAR HEMOGLOBIN 24.2 pg (27.0-33.0); MEAN CORPUSCULAR HGB CONC 31.6 g/dl (32.0-36.5); MEAN CORPUSCULAR VOLUME 76.5 fl (80.0-96.0); PLATELET COUNT, AUTOMATED 226 10^3/uL (150-450); RED BLOOD COUNT 4.55 10^6/uL (4.30-6.10); WHITE BLOOD COUNT 7.6 10^3/uL (4.0-10.0)
[2024-01-08 12:25] LABS: ETHYL ALCOHOL (ETHANOL) < 0.003 % (0.000-0.010)
[2024-01-08 12:27] LABS: SALICYLATE LEVEL < 3.0 MG/DL (<30)
[2024-01-08 12:28] LABS: ALBUMIN 3.6 G/DL (3.2-5.2); ALKALINE PHOSPHATASE 75 U/L (46-116); ALT/SGPT 27 U/L (7.0-40); AST/SGOT 8 U/L (<34); BILIRUBIN,DIRECT 0.1 MG/DL (<0.4); BILIRUBIN,TOTAL 0.3 MG/DL (0.3-1.2); BLOOD UREA NITROGEN 13 MG/DL (9-23); CALCIUM LEVEL 9.4 MG/DL (8.3-10.6); CARBON DIOXIDE LEVEL 25 MMOL/L (20-31); CHLORIDE LEVEL 103 MMOL/L (98-107); CREATININE FOR GFR 0.53 MG/DL (0.70-1.30); GLOMERULAR FILTRATION RATE > 60.0 (>42); GLUCOSE, FASTING 282 MG/DL (74-106); POTASSIUM SERUM 3.8 MMOL/L (3.5-5.1); SODIUM LEVEL 135 MMOL/L (136-145); TOTAL PROTEIN 6.5 G/DL (5.7-8.2)
[2024-01-08 12:32] LABS: THYROID STIMULATING HORMONE 2.648 uIU/ML (0.55-4.78)
[2024-01-08 13:49] LABS: AMPHETAMINES LEVEL URINE NEGATIVE (NEGATIVE); BARBITURATES URINE NEGATIVE (NEGATIVE); BENZODIAZEPINES URINE NEGATIVE (NEGATIVE)
[2024-01-08 13:50] LABS: CANNABINOIDS URINE NEGATIVE (NEGATIVE); COCAINE METABOLITE URINE NEGATIVE (NEGATIVE); METHADONE URINE NEGATIVE (NEGATIVE); OPIATES URINE NEGATIVE (NEGATIVE); PHENCYCLIDINE URINE NEGATIVE (NEGATIVE)
[2024-01-08] MEDS: ACETAMINOPHEN TAB 650MG DOSE (2X325MG) PO ONE (15:21)
[2024-01-08] MEDS ORDERED: HOME MED LIST COMPLETE! XX SCH (19:10)
[2024-01-08] MEDS ORDERED: metFORMIN (GLUCOPHAGE) 500MG TAB PO SCH (21:00)
[2024-01-08] MEDS: ACETAMINOPHEN TAB 650MG DOSE (2X325MG) PO PRN (22:06)
[2024-01-09] MEDS: SERTRALINE HCL 25 MG TABLET PO SCH (09:13)
[2024-01-09] MEDS: ATORVASTATIN 20 MG TAB PO SCH (09:13)
[2024-01-09] MEDS: risperiDONE 2 MG TAB PO SCH (09:13)
[2024-01-09] MEDS: ASPIRIN 81MG CHEW TABLET PO SCH (09:13)
[2024-01-09] MEDS: metFORMIN XR 500MG TAB *GLUCOPHAGE XR PO SCH ×2 (09:13→18:21)
[2024-01-09] MEDS: PANTOPRAZOLE 40MG TAB (PROTONIX) PO SCH (09:13)
[2024-01-09] MEDS ORDERED: DEXTROSE 50% 50ML SYRINGE IV PRN (12:20)
[2024-01-09] MEDS ORDERED: GLUCAGON INJ 1MG VIAL SC PRN (12:20)
[2024-01-09] MEDS ORDERED: GLUCOSE 4 GM CHEW PO PRN (12:20)
[2024-01-09] MEDS: INSULIN LISPRO (NovoLOG) PER UNIT SC SCH ×2 (13:10→20:31)
[2024-01-09 13:38] LABS: HEMOGLOBIN A1c 10.2 % (4.0-6.0)
[2024-01-09] MEDS: amLODIPine 5 MG TAB PO ONE (14:52)
[2024-01-09 22:38] LABS: MAGNESIUM LEVEL 1.6 MG/DL (1.8-2.4)
[2024-01-10 09:49] LABS: BASO # 0.1 10^3/uL (0.0-0.2); EOS # 0.4 10^3/uL (0.0-0.5); EOS % 5.5 % (0.0-3.0); HEMATOCRIT 37.4 % (42.0-52.0); HEMOGLOBIN 11.8 g/dl (13.5-17.5); LYMPH # 1.2 10^3/uL (1.5-5.0); LYMPH % 17.3 % (24.0-44.0); MEAN CORPUSCULAR HEMOGLOBIN 24.4 pg (27.0-33.0); MEAN CORPUSCULAR HGB CONC 31.6 g/dl (32.0-36.5); MEAN CORPUSCULAR VOLUME 77.4 fl (80.0-96.0); MONO # 0.5 10^3/uL (0.0-0.8); MONO % 6.9 % (2.0-8.0); NEUTROPHILS # 4.7 10^3/uL (1.5-8.5); PLATELET COUNT, AUTOMATED 228 10^3/uL (150-450); RED BLOOD COUNT 4.83 10^6/uL (4.30-6.10); WHITE BLOOD COUNT 6.8 10^3/uL (4.0-10.0)
[2024-01-10 10:14] LABS: BLOOD UREA NITROGEN 10 MG/DL (9-23); CALCIUM LEVEL 8.9 MG/DL (8.3-10.6); CARBON DIOXIDE LEVEL 26 MMOL/L (20-31); CHLORIDE LEVEL 102 MMOL/L (98-107); CREATININE FOR GFR 0.61 MG/DL (0.70-1.30); GLOMERULAR FILTRATION RATE > 60.0 (>42); GLUCOSE, FASTING 335 MG/DL (74-106); POTASSIUM SERUM 3.9 MMOL/L (3.5-5.1); SODIUM LEVEL 134 MMOL/L (136-145)
[2024-01-10] MEDS: amLODIPine 5 MG TAB PO SCH (14:05)
[2024-01-10] MEDS ORDERED: MAALOX 30 ML SUSP *UDC PO PRN (14:10)
[2024-01-10] MEDS ORDERED: MOM 30ML SUSPENSION UDC PO PRN (14:10)
[2024-01-10] MEDS ORDERED: IBUPROFEN 400MG TAB PO PRN (14:10)
[2024-01-10] MEDS ORDERED: traZODone 50 MG TAB PO PRN (14:10)
[2024-01-10] MEDS ORDERED: ACETAMINOPHEN TAB 650MG DOSE (2X325MG) PO PRN (14:10)
[2024-01-10 16:02] VITALS: BP 126/74; TEMP 97.2; O2SAT 97
[2024-01-10] MEDS ORDERED: GLUCAGON INJ 1MG VIAL SC PRN (16:30)
[2024-01-10] MEDS ORDERED: DEXTROSE 50% 50ML SYRINGE IV PRN (16:30)
[2024-01-10] MEDS ORDERED: guaiFENesin SYRUP 200MG 10ML UDC PO PRN (16:30)
[2024-01-10] MEDS ORDERED: GLUCOSE 4 GM CHEW PO PRN (16:30)
[2024-01-10] MEDS ORDERED: INSULIN LISPRO (NovoLOG) PER UNIT SC SCH ×2 (17:30→21:00)
[2024-01-10] MEDS: metFORMIN XR 500MG TAB *GLUCOPHAGE XR PO SCH (20:32)
[2024-01-10] MEDS: traZODone 50 MG TAB PO SCH (20:32)
[2024-01-10] MEDS: LEVEMIR (INSULIN DETEMIR) 1 UNITS/0.01ML SC SCH (20:32)
[2024-01-10] MEDS: ACETAMINOPHEN 325 MG TAB PO PRN (20:45)
[2024-01-10] MEDS ORDERED: LEVEMIR (INSULIN DETEMIR) 1 UNITS/0.01ML SC SCH ×2 (21:00)
[2024-01-11] MEDS ORDERED: UNRESOLVED CLARIFICATION ENTRY XX SCH (00:01)
[2024-01-11] MEDS: diphenhydrAMINE 25MG CAP PO PRN (01:37)
[2024-01-11 06:23] VITALS: BP 145/67; TEMP 97.8; O2SAT 96
[2024-01-11] MEDS: SERTRALINE HCL 25 MG TABLET PO SCH (08:31)
[2024-01-11] MEDS: ASPIRIN 81MG CHEW TABLET PO SCH (08:31)
[2024-01-11] MEDS: PANTOPRAZOLE 40MG TAB (PROTONIX) PO SCH (08:31)
[2024-01-11] MEDS: ATORVASTATIN 20 MG TAB PO SCH (08:31)
[2024-01-11] MEDS: RISPERIDONE 1 MG TAB PO SCH (08:31)
[2024-01-11 15:43] VITALS: BP 125/71; TEMP 97.5; O2SAT 95
[2024-01-12 06:17] VITALS: BP 154/78; TEMP 96.8; O2SAT 96
[2024-01-12 08:49] VITALS: BP 191/88
[2024-01-12 12:08] VITALS: BP 139/70
== END 2024-01-12 13:34 | disposition home or self-care (01) | DRG 885 ==
LOC: M ED 11:02 → M ED INP 01-10 14:05 → M PSY 01-10 15:30
PROVIDERS: ADMIT Psychiatry & Neurology Psychiatry; ATTEND Psychiatry & Neurology Psychiatry
DX: F20.9 Schizophrenia, unspecified (principal); R45.851 Suicidal ideations; F43.10 Post-traumatic stress disorder, unspecified; F60.89 Other specific personality disorders; F79 Unspecified intellectual disabilities; E11.9 Type 2 diabetes mellitus without complications; H54.7 Unspecified visual loss; K21.9 Gastro-esophageal reflux disease without esophagitis; E03.9 Hypothyroidism, unspecified; I10 Essential (primary) hypertension; R45.850 Homicidal ideations; H26.9 Unspecified cataract; E78.5 Hyperlipidemia, unspecified; Z79.82 Long term (current) use of aspirin; Z79.84 Long term (current) use of oral hypoglycemic drugs; Z79.899 Other long term (current) drug therapy; Z88.8 Allergy status to other drugs, medicaments and biological substances